=== PATIENT | female | born 1985 | race Caucasian/White ===

== ENCOUNTER 2021-04-05 01:38 | Emergency (ER) | payer MEDICAID, SELFPAY ==
[2021-04-05 01:38] VITALS: BP 120/85; PULSE 111; RESP 18; TEMP 36.4; O2SAT 100; BMI 25.2
--- NOTE | 2021-04-05 01:42 | CT_ITS ---
STUDY: CT ABDOMEN AND PELVIS WITHOUT CONTRAST REASON FOR EXAM: Female, 36 years old. Left flank pain and hematuria. TECHNIQUE: Transaxial images were obtained from the dome of the diaphragm to the symphysis pubis without oral contrast, and without intravenous contrast. Sagittal and coronal images were reconstructed. Individualized dose optimization techniques were used for this CT. COMPARISON: 10/16/2014 CT abdomen and pelvis. FINDINGS: Partially visualized lower chest: Lung bases unremarkable. Liver: No concerning lesions. Gallbladder and biliary tree: Status post cholecystectomy. No biliary ductal dilation. Pancreas: No pancreatic lesions or inflammation. Spleen: Normal size, no splenic lesions. Adrenal glands: No concerning masses. Kidneys and ureters: No hydronephrosis or renal stones. No concerning masses. No ureteral dilation. Bowel: Normal appendix. No obstruction or inflammation of the bowel. Scattered sigmoid colon diverticula, no diverticulitis. Urinary bladder: No stones or wall thickening. Reproductive: Uterus unremarkable. Ovaries difficult to separate from adjacent fluid-filled loops of bowel. Vascular: No abdominal aortic aneurysm. Retroperitoneal and peritoneal spaces: No free air or extraluminal air or abscess. Small amount of fluid in the pelvis within physiologic limits. Osseous: No acute osseous abnormality. Abdominal and pelvic wall: No concerning findings. CT/Abdomen/Pelvis without Cont IMPRESSION: No etiology for the patient''s symptoms identified. Small amount of fluid in the pelvis within physiologic limits. Scattered left colonic diverticula, no diverticulitis. Electronically Signed: Reji Garcia MD at 2:35 EDT Tel , Service support ,
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
[2021-04-05] MEDS: Morphine 4 MG/ML Syringe IV (01:55)
[2021-04-05] MEDS: Ondansetron 4 MG/2 ML Vial IV (01:59)
[2021-04-05] MEDS: 0.9% Normal Saline 1,000 ML 250 ML IV (01:59)
[2021-04-05 02:01] LABS: Absolute Lymphocyte Count 1.39 X10^3/uL (0.83-4.51); Absolute Neutrophil Count 4.5 X10^3/uL (2.0-7.7); Basophil# 0.01 X10^3/uL; Basophil% 0.2 % (0-1); Eosinophil# 0.07 X10^3/uL; Eosinophils% 1.1 % (0-5); Hematocrit 39.9 % (37-47); Hemoglobin 13.3 g/dL (12.0-15.0); Lymphocyte # 1.39 X10^3/ul (0.83-4.51); Lymphocyte % 21.3 % (19-41); Mean Corp Hgb Conc 33.3 g/dL (32-36); Mean Corpuscular Volume 95.9 fL (81-99); Monocyte# 0.52 X10^3/uL; Mucous, Urine 0 SEEN /hpf (<or=2+); NRBC Flagged by Analyzer 0 % (0-5); Neutrophil # 4.52 X10^3/uL (2.7-7.7); Neutrophil % 69.2 % (47-70); Platelet Count 228 K/mm3 (150-450); RBC Distribution Width CV 12.5 % (11.6-14.6); RBC Distribution Width SD 43.7 fl (35.1-43.9); Red Blood Count 4.16 M/mm3 (4.2-5.4); Squamous Epithelial Cells - UA 0 SEEN /hpf (5-10); White Blood Count 6.5 K/mm3 (4.4-11.0)
[2021-04-05 02:09] LABS: Color, Urine Red (Yellow); Glucose, Dipstick Normal (Normal); Ketone-Dipstick 5 mg/dl (Negative); Leukocyte Esterase-Dipstick Negative /ul (Negative); Nitrite-Dipstick Negative (Negative); Occult Blood-Urine 250 /ul (Negative); Protein-Dipstick 500 mg/dl (Negative); Urine Bilirubin Dipstick Negative (Negative); Urine Clarity Clear (Clear); Urine Urobilinogen Normal (Normal)
[2021-04-05 02:15] LABS: Anion Gap 6 (5-15); BUN 13 mg/dL (7-18); BUN/Creat Ratio 20.8 RATIO (10-20); Calcium,Total 8.8 mg/dL (8.5-10.1); Chloride 102 mmol/L (98-107); Creatinine, Serum 0.62 mg/dL (0.55-1.02); EST Glomerular Filtration Rate 116 mL/min (>60); Est Glom Filt Rate - Afr Amer 140 mL/min (>60); Estimated Creatinine Clearance 105.76 ml/min; Glucose 78 mg/dL (74-106); Potassium 3.5 mmol/L (3.5-5.1); Sodium Level 138 mmol/L (136-145)
[2021-04-05 02:16] LABS: Bacteria 2+ /hpf (None Seen); Hyaline Cast 0-5 SEEN /lpf (0-5); Red Blood Cells-Urine > 100 SEEN /hpf (0-5); White Blood Cells 0-5 SEEN /hpf (0-5)
[2021-04-05] MEDS: predniSONE 20 MG Tablet 40 MG PO (03:01)
[2021-04-05] MEDS: Ondansetron ODT 4 MG Tablet 8 MG PO (03:01)
== END 2021-04-05 03:05 | disposition home or self-care (01) ==
PROVIDERS: Emergency Provider Emergency Medicine; PCP Student in an Organized Health Care Education/Training Program
DX: R31.9 Hematuria, unspecified (principal); M54.12 Radiculopathy, cervical region; Z86.73 Personal history of transient ischemic attack (TIA), and cerebral infarction without residual deficits; Z79.899 Other long term (current) drug therapy; Z79.01 Long term (current) use of anticoagulants
CPT/HCPCS: 74176; 80048; 81001; 85025; 96374; 96375; 99284; J7030; A4216; J2405

== ENCOUNTER 2023-07-02 16:24 | Emergency (ER) | payer MEDICAID, SELFPAY ==
[2023-07-02 16:25] VITALS: BP 128/87; PULSE 79; RESP 19; TEMP 36.7; O2SAT 100; BMI 26.0
--- NOTE | 2023-07-02 16:43 | RAD_ITS ---
STUDY: X-RAY - RIGHT ANKLE REASON FOR EXAM: Female, 38 years old. INJURY TECHNIQUE: 3 view(s) of the ankle. COMPARISON: None. FINDINGS: Type II Barrett fracture distal fibula. Distal tibia appears intact. Normal medial and lateral malleoli. Normal tibiotalar articulation and ankle mortise. Normal visualized talus and calcaneus. The visualized subtalar, talonavicular, calcaneocuboid and tarsal articulations are normal. Soft tissue swelling laterally. RAD/Ankle min 3 Views IMPRESSION: Type II Barrett fracture distal fibula Electronically Signed: Oc Mauricio MD at 17:03 EDT ,
--- NOTE | 2023-07-02 17:48 | EDS_ITS ---
HPI History of Present Illness HPI Narrative: Patient presents with right ankle injury that occurred today. Patient states she was cleaning out her hot tub when she slipped. Patient states she felt a snap in her right ankle. Patient states her pain is worse with any weightbearing. Patient admits to some tingling into her toes. Patient describes her pain as aching. Patient states it is constant. Patient admits to some swelling of her right ankle. Patient states she has had abrasions on her right ankle due to dog scratches prior to the injury. Patient denies any head injury or loss of consciousness. Chief Complaint: Lower Extremity Injury Informant: patient Occured/Mechanism Mechanism/Context: Yes fall Onset/Context/Timing Onset: Today Context: Sudden Onset Timing: Continuous Quality of Pain: Aching Location: Right ankle Worsened by: Weightbearing, movement Relieved by: Rest Associated Symptoms Associated Symptoms: Positive for Parasthesia; Negative for Weakness or Loss of [facility]untion [facility] History (Updated 07/02/23 @ 17:[address] Kade Holley, DO) DVT (deep venous thrombosis) Endometriosis determined by laparoscopy left sided parathesias Lupus anticoagulant disorder TIA (transient ischemic attack) Home Medications topiramate 50 mg tablet (Topamax) 50 mg PO DAILY 04/05/21 [History Last Taken Unknown] crutches #1 ea 07/02/23 [Rx Last Taken Unknown] dextroamphetamine-amphetamine 30 mg tablet (Adderall) 30 mg PO DAILY 07/02/23 [History Last Taken Unknown] diazepam 10 mg tablet 10 mg PO Q8H PRN anxiety 07/02/23 [History Last Taken Unknown] escitalopram oxalate 20 mg tablet 20 mg PO DAILY 07/02/23 [History Last Taken Unknown] lamotrigine 25 mg tablet 25 mg PO Q12H 07/02/23 [History Last Taken Unknown] metoprolol tartrate 50 mg tablet (Lopressor) 50 mg PO Q12H 07/02/23 [History Last Taken Unknown] oxycodone-acetaminophen 5 mg-325 mg tablet 1 tab PO Q6H PRN PRN Pain 3 days #12 TABLETS 07/02/23 [Rx Last Taken Unknown] rivaroxaban 20 mg tablet (Xarelto) 20 mg PO DAILY 07/02/23 [History Last Taken Unknown] Allergy/AdvReac Type Severity Reaction Status Date / Time acetaminophen [From Vicodin] Allergy Hives Verified 07/02/23 16:25 hydrocodone bitartrate Allergy Hives Verified 07/02/23 16:25 [From Vicodin] ketorolac tromethamine Allergy Hives Verified 07/02/23 16:25 [From Toradol] metronidazole [From Metrogel] Allergy Swelling Verified 07/02/23 16:25 onion [Onion] Allergy Hives Verified 07/02/23 16:25 skin cleanser [From Metrogel] Allergy Swelling Verified 07/02/23 16:25 tramadol Allergy Hives Verified 07/02/23 16:25 Family History (Updated 07/02/23 @ 16:35 by Francie Sparrow) Mother Diabetes Hypertension Father Hypertension Sister Thyroid disorder Surgical History (Updated 07/02/23 @ 17:[address] Kade Holley DO) H/O bilateral salpingectomy Hx of cholecystectomy Hx of laparoscopy S/P foot surgery, right Social History household members: significant other and children housing: house current occupational status: employed Smoking Status: Never smoker ROS ROS ED Constitutional Constitutional ED: Denies chills or fever(s) Eyes Eyes: Denies blurry vision or change in vision ENT ENT ED: Denies rhinorrhea or sore throat Cardiovascular Cardiovascular: Denies chest pain or palpitations Respiratory/Chest Respiratory/Chest: Denies cough or dyspnea Gastrointestinal Gastrointestinal: Denies nausea or vomiting Genitourinary Genitourinary ED: Denies dysuria or hematuria Musculoskeletal Musculoskeletal: Denies back pain or neck pain Integumentary Reports Abrasions; Denies abscess or rash Neurologic Neurologic: Denies headache(s) or weakness Allergic/Immunologic Allergic/Immunologic ED: Denies mouth swelling or urticaria EXAM Physical Exam Const Vital Signs: 07/02/23 16:25 Temperature 98.1 F Temperature Source Temporal Pulse Rate 79 Respiratory Rate 19 H Blood Pressure 128/87 H Blood Pressure Mean 100 Pulse Ox 100 Oxygen Delivery Method Room Air Positive well nourished and well developed General Appearance ED: well developed and NAD HEENT Reports moist mucous membranes normocephalic and atraumatic Neck full ROM and supple Extremity Extremity Narrative: There is tenderness, edema, and ecchymosis over the lateral aspect of the right ankle. Range of motion was limited in all motions of the right ankle secondary to pain. Sensation was intact to light touch in all digits. Capillary refill is less than 2 seconds in all digits. There are superficial abrasions over the medial aspect of the right ankle. There is no bleeding noted. There is no tenderness over the proximal fibula. There is no tenderness over the fifth metatarsal. Neuro oriented x3, CN's II-XII intact bilaterally, moves all extremities and no sensory deficits noted Sensorium / Orientation: alert Motor Exam: strength 5/5 throughout Psych mental status grossly normal Skin Trauma: abrasion MDM MDM MDM Narrative Medical decision making narrative: Differential diagnosis includes fracture, sprain, and contusion. X-rays of the right ankle will be obtained to assess for fracture. Radiography Diagnostic Testing: Clinical Impression(s) from Imaging Studies Ankle X-Ray 07/02/23 16:43 IMPRESSION: Type II Barrett fracture distal fibula Electronically Signed: Oc Mauricio MD at 17:03 EDT Reading Location ID and State: [facility] / [place] Tel , Service support , X-rays of the right ankle were obtained. There are 3 views. On my independent interpretation, there is a fracture of the distal fibula below the level of the joint line. There is some soft tissue swelling. Radiologist also interpreted the x-rays and agrees. Treatment and Re-Evaluation Narrative: Patient was given a dose of oxycodone here. Patient was advised of her findings. Patient was advised of the need for splinting. Patient was placed in a well-padded custom made sugar-tong and posterior splint using 3 inch Ortho- Glass. Neurovascular exam was intact before and after the procedure. Patient was given crutches. Patient was instructed to ice and elevate the right ankle. Patient was given a referral for podiatry. Patient was given a prescription for Percocet. Patient understood and was agreeable with the plan. All questions were answered. Procedures Lower Extremity Splints Lower Extremity Splint: Orthoglass, Stirrup and - (Posterior) Splint Fabrication: Fabricated Location: Right Discharge Plan Triage Chief Complaint: Lower Extremity Injury ED Provider: Kade Holley Dx/Rx/DC Orders Clinical Impression: Closed fracture of right distal fibula, Clotting disorder Instructions: ED Ankle Fracture, Distal Fibula Prescriptions: New oxycodone-acetaminophen [oxycodone-acetaminophen] 5-325 mg tablet 1 tab PO Q6H PRN PRN (Reason: Pain) 3 Days Qty: 12 0RF (DME) crutches Adult medium See Rx Instructions .Route .MEDSUPPLY Qty: 1 0RF Rx Instructions: As directed No Action topiramate [Topamax] 50 MG tablet 50 mg PO DAILY Patient Comments: migraine Xarelto 20 mg tablet 20 mg PO DAILY Rx Instructions: must administer with evening meal dextroamphetamine-amphetamine [Adderall] 30 mg tablet 30 mg PO DAILY diazepam 10 mg tablet 10 mg PO Q8H PRN (Reason: anxiety) Patient Comments: TAKE 1 TABLET BY MOUTH THREE TIMES A DAY escitalopram oxalate 20 mg tablet 20 mg PO DAILY lamotrigine 25 mg tablet 25 mg PO Q12H metoprolol tartrate [Lopressor] 50 mg tablet 50 mg PO Q12H Primary Care Provider: Rodolfo Rivera Referrals: Tyson Carpenter DPM [Med Staff - Active Staff] - 3-5 Days Rodolfo Rivera MD [Primary Care Provider] - 1-2 Weeks Disposition Disposition: Home, Self Care
[2023-07-02] MEDS: oxyCODONE 5 MG Tablet PO (18:03)
--- NOTE | 2023-07-02 19:58 | ED.RN ---
PATIENT MADE AWARE WE ARE OUT OF STOCK FOR ADULT SIZE CRUTCHES. PATIENT STILL REQUESTING SOMETHING TO HELP HER GET AROUND AT HOME AND WILL PICK THE OTHER ONES UP TOMORROW. DR. MONTGOMERY NOTIFIED
== END 2023-07-02 20:09 | disposition home or self-care (01) ==
PROVIDERS: Emergency Provider Emergency Medicine; PCP Student in an Organized Health Care Education/Training Program; Visit Provider Emergency Medicine
DX: S82.831A Other fracture of upper and lower end of right fibula, initial encounter for closed fracture (principal); D68.62 Lupus anticoagulant syndrome; Y93.89 Activity, other specified; W19.XXXA Unspecified fall, initial encounter; Y92.89 Other specified places as the place of occurrence of the external cause; Z86.73 Personal history of transient ischemic attack (TIA), and cerebral infarction without residual deficits; Z79.01 Long term (current) use of anticoagulants; Z90.49 Acquired absence of other specified parts of digestive tract
CPT/HCPCS: 29515; 29505; 73610; 99283

== ENCOUNTER 2023-07-04 21:10 | Emergency (ER) | payer MEDICAID, SELFPAY ==
[2023-07-04 21:11] VITALS: BP 141/79; PULSE 104; RESP 18; TEMP 35.9; O2SAT 98
[2023-07-04 21:36] VITALS: BMI 28.0
--- NOTE | 2023-07-04 22:30 | ED.VIS.LOWEX ---
HPI History of Present Illness Chief Complaint: Lower Extremity Injury Informant: patient Narrative Narrative: Patient accidentally fractured her right distal fibula 2 days ago, she was seen here and splinted, followed up with orthopedics changed over to a boot, she still having pain and swelling. Has a history of lupus anticoagulant, she is on Xarelto she had a DVT in the right lower extremity few years ago, and was on anticoagulants prior to this injury. She has had quite a bit of swelling subsequently in her right foot as well as up the calf. She has soreness everywhere it is worst at the fracture site but also sore throughout the foot since it is swollen and today she has noticed numbness throughout all of her toes. She is concerned she may have another blood clot. [facility] Medical History DVT (deep venous thrombosis) Endometriosis determined by laparoscopy left sided parathesias Lupus anticoagulant disorder TIA (transient ischemic attack) Home Medications topiramate 50 mg tablet (Topamax) 50 mg PO Q12H 04/05/21 [History Last Taken Unknown] crutches #1 ea 07/02/23 [Rx Last Taken Unknown] dextroamphetamine-amphetamine 30 mg tablet (Adderall) 30 mg PO DAILY 07/02/23 [History Last Taken Unknown] diazepam 10 mg tablet 10 mg PO Q8H PRN anxiety 07/02/23 [History Last Taken Unknown] escitalopram oxalate 20 mg tablet 20 mg PO DAILY 07/02/23 [History Last Taken Unknown] lamotrigine 25 mg tablet 50 mg PO Q12H 07/02/23 [History Last Taken Unknown] metoprolol tartrate 50 mg tablet (Lopressor) 50 mg PO Q12H 07/02/23 [History Last Taken Unknown] rivaroxaban 20 mg tablet (Xarelto) 20 mg PO DAILY 07/02/23 [History Last Taken Unknown] oxycodone-acetaminophen 5 mg-325 mg tablet 1 tab PO Q6H PRN PRN Pain 3 days #12 TABLETS 07/04/23 [Rx Last Taken Unknown] Allergy/AdvReac Type Severity Reaction Status Date / Time acetaminophen [From Vicodin] Allergy Hives Verified 07/04/23 21:14 hydrocodone bitartrate Allergy Hives Verified 07/04/23 21:14 [From Vicodin] ketorolac tromethamine Allergy Hives Verified 07/04/23 21:14 [From Toradol] metronidazole [From Metrogel] Allergy Swelling Verified 07/04/23 21:14 onion [Onion] Allergy Hives Verified 07/04/23 21:14 skin cleanser [From Metrogel] Allergy Swelling Verified 07/04/23 21:14 tramadol Allergy Hives Verified 07/04/23 21:14 Family History Mother Diabetes Hypertension Father Hypertension Sister Thyroid disorder Surgical History H/O bilateral salpingectomy Hx of cholecystectomy Hx of laparoscopy S/P foot surgery, right Social History household members: significant other and children housing: house current occupational status: employed Smoking Status: Never smoker alcohol intake: current alcohol intake frequency: holidays/special occasions only ROS ROS ED Constitutional Constitutional ED: Denies chills or fever(s) Musculoskeletal Musculoskeletal: Reports as per HPI and extremity pain; Denies neck pain Integumentary Denies Abrasions, rash or wounds Neurologic Neurologic: Reports paresthesias RLE; Denies weakness EXAM Physical Exam Const Vital Signs: 07/04/23 21:11 Temperature 96.6 F L Temperature Source Temporal Pulse Rate 104 H Respiratory Rate 18 Blood Pressure 141/79 H Blood Pressure Mean 99 Pulse Ox 98 Oxygen Delivery Method Room Air Positive well nourished and well developed General Appearance ED: well developed and NAD Neck full ROM and supple Back/Spine normal ROM and normal to inspection Extremity Extremity Narrative: Mild swelling right lower leg all the way to the proximal lower leg, does not include the knee. Asymmetric compared with the other side which has no swelling. No significant calf tenderness no palpable cords. All compartments soft and nondistended. Tenderness at the lateral malleolus. The right foot is significantly swollen and ecchymotic, it appears to be layering down between the toes and at the base of the heel, consistent with traumatic bleeding draining with gravity from the ankle. Barely palpable dorsalis pedis pulse, difficult to palpate only because of the soft tissue swelling. Cap refill all toes. Neuro oriented x3 and no focal motor deficits Neuro Narrative: Decree sensation right toes otherwise normal sensory and no focal motor deficits. Sensorium / Orientation: alert Psych mental status grossly normal and thought process normal Skin no wounds Rashes: no rashes MDM MDM MDM Narrative Medical decision making narrative: Duplex ultrasound of the right lower extremity was obtained, ruling out acute DVT, this made the patient feel better and reassured her. I think all of her symptoms are due to the amount of swelling which is likely directly related to the fact that she is anticoagulated. All of this will resolve with time more than likely, she did not have any numbness immediately after the injury, which suggest that she did not injure the nerves which she was also concerned about. Reassured and advised to follow-up with orthopedics as scheduled after the weekend, she is scheduled for surgery on Friday. Encouraged to continue icing and elevating, and I gave her a refill on pain medications which she is out of. Discharge Plan Triage Chief Complaint: Lower Extremity Injury ED Provider: Miguel Glover Dx/Rx/DC Orders Clinical Impression: Swelling of right lower extremity, Fracture of fibula, distal, right, closed Instructions: ED Ankle Fracture Prescriptions: Continued topiramate [Topamax] 50 MG tablet 50 mg PO Q12H Patient Comments: migraine Xarelto 20 mg tablet 20 mg PO DAILY Rx Instructions: must administer with evening meal dextroamphetamine-amphetamine [Adderall] 30 mg tablet 30 mg PO DAILY diazepam 10 mg tablet 10 mg PO Q8H PRN (Reason: anxiety) Patient Comments: TAKE 1 TABLET BY MOUTH THREE TIMES A DAY escitalopram oxalate 20 mg tablet 20 mg PO DAILY lamotrigine 25 mg tablet 50 mg PO Q12H metoprolol tartrate [Lopressor] 50 mg tablet 50 mg PO Q12H (DME) crutches Adult medium See Rx Instructions .Route .MEDSUPPLY Qty: 1 0RF Rx Instructions: As directed oxycodone-acetaminophen 5-325 mg tablet 1 tab PO Q6H PRN PRN (Reason: Pain) 3 Days Qty: 12 0RF Primary Care Provider: Rodolfo Rivera Referrals: Rodolfo Rivera MD [Primary Care Provider] - London White MD [Med Staff - Active Staff] - Keep Rell appointment Disposition Disposition: Home, Self Care
[2023-07-04] MEDS: Oxycodone/Apap 5/325 Tablet PO (22:40)
--- NOTE | 2023-07-04 22:42 | US_ITS ---
INDICATION: Right leg swelling, fracture right fibula EXAMINATION: US Venous Duplex LE Unilat / Limited RIGHT TECHNIQUE: Ruiz scale, pulse wave, and color flow Doppler imaging was performed of the lower extremity venous system. The right greater saphenous, common femoral, femoral, popliteal, posterior tibial and peroneal veins were interrogated. Left common femoral vein also imaged. COMPARISON: None. FINDINGS: There is normal compression, augmentation, and signal throughout the visualized deep lower extremity veins. No mass or fluid collection demonstrated. US/Venous Duplex Imag/Limited/Uni IMPRESSION: No sonographic evidence of right lower extremity deep venous thrombosis. Electronically Signed: Andriy Villarreal MD at 23:29 EDT ,
== END 2023-07-04 23:46 | disposition home or self-care (01) ==
PROVIDERS: Emergency Provider Emergency Medicine; PCP Student in an Organized Health Care Education/Training Program; Visit Provider Emergency Medicine
DX: S82.831A Other fracture of upper and lower end of right fibula, initial encounter for closed fracture (principal); D68.62 Lupus anticoagulant syndrome; R22.41 Localized swelling, mass and lump, right lower limb; Z79.01 Long term (current) use of anticoagulants; Z86.718 Personal history of other venous thrombosis and embolism; Z90.49 Acquired absence of other specified parts of digestive tract
CPT/HCPCS: 93971; 99283

== ENCOUNTER 2023-07-09 08:53 | Day surgery (SDC) | payer MEDICAID, SELFPAY ==
--- NOTE | 2023-07-09 09:05 | EKG12_ITS ---
Test Reason : PREOP Blood Pressure : / mmHG Vent. Rate : 077 BPM Atrial Rate : 077 BPM P-R Int : 138 ms QRS Dur : 086 ms QT Int : 396 ms P-R-T Axes : 031 028 022 degrees QTc Int : 448 ms Normal sinus rhythm Normal ECG When compared with ECG of 29-AUG-2014 13:41, Nonspecific T wave abnormality, improved in Inferior leads Nonspecific T wave abnormality no longer evident in Anterolateral leads Confirmed by SARI CASTILLO, JOSSELIN ([id number]), map editor STEVE PICKENS ([id number]) on 08/12/2023 1:18:30 PM Referred By: London White Confirmed By:JOSSELIN GUO MD
--- NOTE | 2023-07-09 09:14 | HP.PCM_ITS ---
HPI - General HPI Narrative MEL ROBLEDO, is a 38 F who presents for right ankle ORIF. RAB and narcotic counselling. Right ankle marked. swollen from the blood thinners, but stopped those over 72 hours ago. a bit less swollen than initially, slight wrinkles. Plan to be NWB after surgery in a splint, FU in office 2 days. No changes to H and P. OK to proceed. MR#: [id number] Acct: [id number] Name: MEL ROBLEDO Rep #: [id number] : 1985 Provider: Dr. London White MD Age/Sex: 38/F Location: [facility] [place] Status: Signed Intake Vital Signs 07/04/2321:11 Height 5 ft 3 in Intake Visit Reasons: RIGHT ANKLE Chief Complaint: Right ankle Accompanied by: Mother Is patient in pain?: Yes Pain scale (1-10): 9 Allergies acetaminophen [From Vicodin] Allergy (Verified 07/07/23 09:08) Hiveshydrocodone bitartrate [From Vicodin] Allergy (Verified 07/07/23 09:08) Hivesketorolac tromethamine [From Toradol] Allergy (Verified 07/07/23 09:08) Hivesmetronidazole [From Metrogel] Allergy (Verified 07/07/23 09:08) Swellingonion [Onion] Allergy (Verified 07/07/23 09:08) Hivesskin cleanser [From Metrogel] Allergy (Verified 07/07/23 09:08) Swellingtramadol Allergy (Verified 07/07/23 09:08) Hives Medications topiramate 50 mg tablet (Topamax) 50 mg PO Q12H 04/05/21 [History Confirmed 07/07/23] crutches #1 ea 07/02/23 [Rx Confirmed 07/07/23] dextroamphetamine-amphetamine 30 mg tablet (Adderall) 30 mg PO DAILY 07/02/23 [History Confirmed 07/07/23] diazepam 10 mg tablet 10 mg PO Q8H PRN anxiety 07/02/23 [History Confirmed 07/07/23] escitalopram oxalate 20 mg tablet 20 mg PO DAILY 07/02/23 [History Confirmed 07/07/23] lamotrigine 25 mg tablet 50 mg PO DAILY 07/02/23 [History Confirmed 07/07/23] metoprolol tartrate 50 mg tablet (Lopressor) 25 mg PO PRN 07/02/23 [History Confirmed 07/07/23] rivaroxaban 20 mg tablet (Xarelto) 20 mg PO DAILY 07/02/23 [History Confirmed 07/07/23] acetaminophen 325 mg capsule (Tylenol) 650 mg PO Q4H PRN pain 07/07/23 [History Confirmed 07/07/23] oxycodone-acetaminophen 5 mg-325 mg tablet (Percocet) 1 tab PO Q6H PRN pain 3 days #14 tabs 07/07/23 [Rx Confirmed 07/07/23] zolpidem 10 mg tablet 10 mg PO PRN PRN sleep 07/07/23 [History Confirmed 07/07/23] PFSH Medical History (Updated 07/07/23 @ 09:29 by Erika Franklin) Cardiology follow-up encounter DVT (deep venous thrombosis) Endometriosis determined by laparoscopy Excessive bleeding History of echocardiogram History of irregular heartbeat History of stress test left sided parathesias Lupus anticoagulant disorder Migraine headache Open wound Seizures TIA (transient ischemic attack) Wears contact lenses Wears glasses Surgical History (Updated 07/07/23 @ 09:29 by Erika Franklin) H/O bilateral salpingectomy Hx of cholecystectomy Hx of laparoscopy Hx of surgical procedure Hx of surgical procedure S/P foot surgery, right Family History Mother Diabetes HypertensionFather HypertensionSister Thyroid disorder Social History household members: significant other and children housing: house current occupational status: employed Smoking Status: Never smoker alcohol intake: current alcohol intake frequency: holidays/special occasions only HPI RIGHT ANKLE Details: Parts of this documentation were recorded by a scribe, this documentation accurately reflects the service provided and the decisions made by me, Dr. London White MD 07/07/23 1411. MEL ROBLEDO is a 38 year old F here today for FU ankle swelling. Plan for ORIF this friday. Was in ED, DVT US negative. Patient feels like the foot is little bit more swollen. They have been trying to elevate it and ice it. They also walked around in the grocery store the other day. The pain medications are out still having some pain. Stopped the Xarelto now. Ortho Exam General General: Yes no acute distress Neurologic: Yes alert and Yes oriented x3 Psychologic: Yes reasonable and appropriate Right Foot/Ankle Skin/Wound: Yes CDI, Ecchymosis and Soft Tissue Swelling; No Erythema Contralateral Normal: Yes Exam: present tender to palpate - over fracture site, TTP Lateral Malleolus and TTP ATFL; absent TTP Medial Malleolus, TTP Retrocalcaneal bursa or TTP Peroneal Dorsiflexion 0-20: 0 degrees Plantar Flexion 0-40: 20 degrees Compartments: Compartments: soft Tests: Klein Test: 1 and Squeeze Test: 1 Motor: Ankle Dorsiflextion: 3, Ankle Plantar Flexion: 3, Ankle Eversion: 3, Ankle Inversion: 3 and EHL: 3 Sensation: Deep Peroneal Nerve: I, Superficial Peroneal Nerve: I, Tibial Nerve: I, Sural Nerve: I and Saphenous Nerve: I Pulses: Dorsalis Pedis: 2 and Posterior Tibial: 2 ANKLE: closed, calf soft, swelling about the same, good cap refill, toes a bit cold. Coding Level of Care Code Off vis,est,level 3 Diagnoses Fracture of fibula, distal, right, closed S82.831A Assessment and Plan Assessment and Plan (1) Fracture of fibula, distal, right, closed: Status: Acute Plan: 38 F FU ankle swelling, pre op. for ankle fracture ORIF. Overall the swelling looks about the same. Had more than typical due to being on xarelto. The patient is having pain and is out of pain medications I checked the [employer] narcotic counseling done risk of addiction and others, and I prescribedanother short course couple days until surgery. Recommend rest ice and elevate this to try to really get the swelling down especially on the lateral side. Should remain nonweightbearing range of motion as tolerated for now orthosis boot as needed prescription for crutches as the clinic and the hospital are both out we will try to get those and we will see the patient on the day of surgery. Medications: New oxycodone-acetaminophen 5-325 mg (Percocet) 1 TAB PO Q6H 3 days PRN 14 tabs 0RF pain MDD 6 S82.831A - Other fracture of upper and lower end of right fibula, initial encounter for closed fracture [facility] Medical History (Updated 07/07/23 @ 09:29 by Erika Franklin) Cardiology follow-up encounter DVT (deep venous thrombosis) Endometriosis determined by laparoscopy Excessive bleeding History of echocardiogram History of irregular heartbeat History of stress test left sided parathesias Lupus anticoagulant disorder Migraine headache Open wound Seizures TIA (transient ischemic attack) Wears contact lenses Wears glasses Home Medications topiramate 50 mg tablet (Topamax) 50 mg PO Q12H 04/05/21 [History Last Taken Unknown] crutches #1 ea 07/02/23 [Rx Last Taken Unknown] dextroamphetamine-amphetamine 30 mg tablet (Adderall) 30 mg PO DAILY 07/02/23 [History Last Taken Unknown] diazepam 10 mg tablet 10 mg PO Q8H PRN anxiety 07/02/23 [History Last Taken Unknown] escitalopram oxalate 20 mg tablet 20 mg PO DAILY 07/02/23 [History Last Taken Unknown] lamotrigine 25 mg tablet 50 mg PO DAILY 07/02/23 [History Last Taken Unknown] metoprolol tartrate 50 mg tablet (Lopressor) 25 mg PO PRN 07/02/23 [History Last Taken Unknown] rivaroxaban 20 mg tablet (Xarelto) 20 mg PO DAILY 07/02/23 [History Last Taken 07/06/23] acetaminophen 325 mg capsule (Tylenol) 650 mg PO Q4H PRN pain 07/07/23 [History Last Taken Unknown] oxycodone-acetaminophen 5 mg-325 mg tablet (Percocet) 1 tab PO Q6H PRN pain 3 days #14 tabs 07/07/23 [Rx Last Taken Unknown] zolpidem 10 mg tablet 10 mg PO PRN PRN sleep 07/07/23 [History Last Taken Unknown] Allergy/AdvReac Type Severity Reaction Status Date / Time acetaminophen [From Vicodin] Allergy Hives Verified 07/07/23 09:08 hydrocodone bitartrate Allergy Hives Verified 07/07/23 09:08 [From Vicodin] ketorolac tromethamine Allergy Hives Verified 07/07/23 09:08 [From Toradol] metronidazole [From Metrogel] Allergy Swelling Verified 07/07/23 09:08 onion [Onion] Allergy Hives Verified 07/07/23 09:08 skin cleanser [From Metrogel] Allergy Swelling Verified 07/07/23 09:08 tramadol Allergy Hives Verified 07/07/23 09:08 Family History Mother Diabetes Hypertension Father Hypertension Sister Thyroid disorder Surgical History (Updated 07/07/23 @ 09:29 by Erika Franklin) H/O bilateral salpingectomy Hx of cholecystectomy Hx of laparoscopy Hx of surgical procedure Hx of surgical procedure S/P foot surgery, right Social History household members: significant other and children housing: house current occupational status: employed Smoking Status: Never smoker alcohol intake: current alcohol intake frequency: holidays/special occasions only Vital Signs Vital Signs Vital Signs: Weight Weight: 153 lb
[2023-07-09 09:30] VITALS: BP 111/69; PULSE 80; RESP 16; TEMP 36.8; O2SAT 99; BMI 26.5
[2023-07-09] MEDS: Lactated Ringers 1,000 ML 15 ML IV (09:37)
[2023-07-09 09:50] LABS: Anion Gap 4 (5-15); BUN 15 mg/dL (7-18); BUN/Creat Ratio 32.8 RATIO (10-20); Calcium,Total 8.4 mg/dL (8.5-10.1); Chloride 109 mmol/L (98-107); Creatinine, Serum 0.46 mg/dL (0.55-1.02); EST Glomerular Filtration Rate 164 mL/min (>60); Est Glom Filt Rate - Afr Amer 198 mL/min (>60); Estimated Creatinine Clearance 139.86 ml/min; Glucose 95 mg/dL (74-106); Potassium 3.6 mmol/L (3.5-5.1); Sodium Level 141 mmol/L (136-145)
[2023-07-09] MEDS: Cefazolin 2 GM in 0.9% Normal Saline (100mL Bag) 100 ML IV (10:12)
--- NOTE | 2023-07-09 10:30 | RAD_ITS ---
STUDY: X-RAY - RIGHT ANKLE REASON FOR EXAM: Female, 38 years old. ORIF TECHNIQUE: 4 limited intraoperative view(s) of the ankle. COMPARISON: None. FINDINGS: 4 limited intraoperative views of the right ankle performed as the patient has undergone open reduction internal fixation of a distal fibular fracture. Alignment at the fracture site is anatomic, no intraoperative complications noted. RAD/Ankle 2 Views IMPRESSION: No intraoperative complications noted during open reduction internal fixation of a distal fibular fracture. Electronically Signed: Vincent Piedra MD at 13:30 EDT ,
--- NOTE | 2023-07-09 11:26 | OP.PCM_ITS ---
Problems Associated Problem List Diagnoses (1) Fracture of fibula, distal, right, closed: Report of Operation Date of Procedure: 07/09/23 Pre-Operative Diagnosis: R ankle fracture Post-Operative Diagnosis: same Surgery/Procedure Performed:: Right ankle open reduction internal fixation of distal fibula Surgeon: London White Type of Anesthesia: Block,Regional and General Anesthesiologist: Dwayne Winkler Estimated Blood Loss (mL): 25 Description of Procedure: Patient brought to the operating room theater. Placed supine on the table. General anesthesia induced. Bump under the right hip. Right lower extremity elevated on some blankets. 34 inch tourniquet applied to the right thigh appropriately padded. All bony prominences padded. SCD on the nonoperative leg. 2 g IV Ancef ministered prior to the start of the procedure. Lower extremity prepped and draped in the usual sterile fashion with chlorhexidine- based prep solution allowing over 3 minutes drying time prior to draping. Preoperative timeout performed to confirm the site patient the surgery. Began by exsanguinating the limb with sterile Esmarch elevating the limb inflating the tourniquet to 250 mmHg. Made a standard laterally based incision to the distal fibula. Carried the dissection down through skin and subcutaneous tissue achieved meticulous hemostasis. Identified the fracture cleared away any interposed hematoma and fracture periosteum. Thoroughly irrigated the joint no loose bodies or scuffs on the cartilage. Achieved a preliminary reduction with direct manipulation of the fracture site placed a longitudinal K wire down the long axis of the fibula to achieve the preliminary reduction. Took intraoper ative radiographs to ensure appropriate reduction as well as visualizing at least on 2 different sides of the fracture. Selected a Arthrex precontoured laterally based distal fibula plate with 2 hooks distally. Placed this on bone slightly tapped this into the bone distally with a mallet and tamp, and took radiographs to confirm appropriate plate position. Secured this to the proximal aspect using a 3.5 mm fully threaded cortical screw. Ensured to drill this on the left side of the oblong hole and then really push the plate proximally and then fully seat the screw. I then placed a guidewire for the homerun screw at the distal aspect, oblique across the fracture. I overdrilled this with the cannulated drill, followed by a 34 mm bicortical screw. This was a 4.0 mm partially-threaded cancellous screw. Achieved good compression of the fracture site. I then inserted 2 more fully threaded cortical screws proximal end of the plate to the as well as 2 fully threaded locking screws at the distal aspect. These were both short measured 12 mm. The proximal screws were 14 mm long and 3.5 mm in diameter. Distal locking screws 3.0mm. Radiographs were taken and saved onto the system AP mortise and lateral view. Cotton and external rotation stress test was also performed no obvious syndesmosis or ankle instability noted. Tourniquet let down wound thoroughly irrigated. Subcutaneous tissue closed with 2-0 Vicryl sutures and skin with 3-0 Monocryl. Skin cleaned with wet and dry dressing followed by application of Steri-Strips 4 x 4 gauze ABD dressing sterile cast padding with a posterior fiberglass splint with the foot and ankle in neutral overwrapped with loosely wrapped Tanner bandage. Splint allowed to fully harden with the foot and ankle in neutral. Patient woken up from the general anesthetic transferred off the operating table and taken to postanesthetic care unit in stable condition. All sponge needle and instrument counts were correct no complications. cpt 13258? Complications none Admit VTE Documentation VTE Present on Admission: No VTE Mechan Device Prophylaxis: SCD's VTE Pharm Prophylaxis ordered?: No Reason prophylaxis not ordered:: Treatment Not Indicated (patient to start back on home dose xarelto POD 1) Procedures Musculoskeletal [id number]: Other Procedure See Report
--- NOTE | 2023-07-09 11:34 | DCINST_ITS ---
Discharge Instructions Diet Discharge Diet: No restrictions Activity Discharge Activity: Use Crutches Weight Bearing Status: Toe touch weight bearing Keep extremity elevated above heart level: Operative Extremity Dressing / Incision Call your doctor if your incision/area has: Continuous Slow Oozing, Sudden Increased Bleeding, Increased Pain/ Swelling, Increased Redness, Foul Smelling Discharge and Swelling at the incision site Change Dressing in: leave in place till F/U Cleanse incision/area with: Do not get Incision Wet Follow Up Care Please Follow Up With: London White MD When: 2 days Test Results: Test results from this visit will be discussed in further detail at your follow- up appointment, if applicable. Discharge Plan Admission Attending Provider: London White Primary Care Provider: Rodolfo Rivera Discharge Orders/Prescriptions Prescriptions: New oxycodone-acetaminophen [Percocet] 5-325 mg tablet 1 tab PO Q4H MDD 6 PRN (Reason: pain) 5 Days Qty: 20 0RF No Action oxycodone-acetaminophen [Percocet] 5-325 mg tablet 1 tab PO Q6H MDD 6 PRN (Reason: pain) 3 Days Qty: 14 0RF topiramate [Topamax] 50 MG tablet 50 mg PO Q12H Patient Comments: migraine Xarelto 20 mg tablet 20 mg PO DAILY Rx Instructions: must administer with evening meal dextroamphetamine-amphetamine [Adderall] 30 mg tablet 30 mg PO DAILY diazepam 10 mg tablet 10 mg PO Q8H PRN (Reason: anxiety) Patient Comments: TAKE 1 TABLET BY MOUTH THREE TIMES A DAY escitalopram oxalate 20 mg tablet 20 mg PO DAILY lamotrigine 25 mg tablet 50 mg PO DAILY metoprolol tartrate [Lopressor] 50 mg tablet 25 mg PO PRN (DME) crutches Adult medium See Rx Instructions .Route .MEDSUPPLY Qty: 1 0RF Rx Instructions: As directed zolpidem 10 mg tablet 10 mg PO PRN PRN (Reason: sleep) Patient Comments: TAKE 1 TABLET BY MOUTH EVERYDAY AT BEDTIME acetaminophen [Tylenol] 325 mg capsule 650 mg PO Q4H PRN (Reason: pain) Referrals / Follow Up: Rodolfo Rivera MD [Primary Care Provider] - London White MD [Med Staff - Active Staff] - Disposition Disposition (needs filled in before D/C Order can be placed): Home, Self Care
[2023-07-09 11:35] VITALS: BP 111/69; BP 112/83; PULSE 99; RESP 16; TEMP 37.2; O2SAT 100
--- NOTE | 2023-07-09 11:37 | DCINST_ITS ---
Discharge Instructions Diet Discharge Diet: No restrictions Activity Weight Bearing Status: Toe touch weight bearing Keep extremity elevated above heart level: Operative Extremity Dressing / Incision Call your doctor if your incision/area has: Continuous Slow Oozing, Sudden Increased Bleeding, Increased Pain/ Swelling, Increased Redness, Foul Smelling Discharge and Swelling at the incision site Cleanse incision/area with: Do not get Incision Wet Additional Dressing/Incision Instructions:: OK to restart xarelto 24 hours after surgery Follow Up Care Please Follow Up With: London White MD Test Results: Test results from this visit will be discussed in further detail at your follow- up appointment, if applicable. Discharge Plan Admission Attending Provider: London White Primary Care Provider: Rodolfo Rivera Discharge Orders/Prescriptions Prescriptions: New oxycodone-acetaminophen [Percocet] 5-325 mg tablet 1 tab PO Q4H MDD 6 PRN (Reason: pain) 5 Days Qty: 20 0RF No Action oxycodone-acetaminophen [Percocet] 5-325 mg tablet 1 tab PO Q6H MDD 6 PRN (Reason: pain) 3 Days Qty: 14 0RF topiramate [Topamax] 50 MG tablet 50 mg PO Q12H Patient Comments: migraine Xarelto 20 mg tablet 20 mg PO DAILY Rx Instructions: must administer with evening meal dextroamphetamine-amphetamine [Adderall] 30 mg tablet 30 mg PO DAILY diazepam 10 mg tablet 10 mg PO Q8H PRN (Reason: anxiety) Patient Comments: TAKE 1 TABLET BY MOUTH THREE TIMES A DAY escitalopram oxalate 20 mg tablet 20 mg PO DAILY lamotrigine 25 mg tablet 50 mg PO DAILY metoprolol tartrate [Lopressor] 50 mg tablet 25 mg PO PRN (DME) crutches Adult medium See Rx Instructions .Route .MEDSUPPLY Qty: 1 0RF Rx Instructions: As directed zolpidem 10 mg tablet 10 mg PO PRN PRN (Reason: sleep) Patient Comments: TAKE 1 TABLET BY MOUTH EVERYDAY AT BEDTIME acetaminophen [Tylenol] 325 mg capsule 650 mg PO Q4H PRN (Reason: pain) Referrals / Follow Up: Rodolfo Rivera MD [Primary Care Provider] - London White MD [Med Staff - Active Staff] - Disposition Disposition (needs filled in before D/C Order can be placed): Home, Self Care
[2023-07-09 11:45] VITALS: BP 109/81; BP 111/69; PULSE 75; RESP 18; O2SAT 100
[2023-07-09 12:00] VITALS: BP 111/69; BP 112/73; PULSE 68; RESP 16; O2SAT 97
[2023-07-09 12:09] VITALS: BP 111/69; BP 112/67; PULSE 80; RESP 16; TEMP 37.2; O2SAT 96
[2023-07-09] MEDS: Oxycodone/Apap 5/325 Tablet PO (12:34)
[2023-07-09 12:35] VITALS: BP 111/69
== END 2023-07-09 13:00 | disposition home or self-care (01) ==
LOC: SDC 08:54 → AC 08:56
PROVIDERS: Anesthesiology; PCP Student in an Organized Health Care Education/Training Program; Referring Provider Orthopaedic Surgery Sports Medicine; Visit Provider Orthopaedic Surgery Sports Medicine
PROC: (CPT 27792; principal; 2023-07-09 10:00)
DX: S82.831A Other fracture of upper and lower end of right fibula, initial encounter for closed fracture (principal); Z86.73 Personal history of transient ischemic attack (TIA), and cerebral infarction without residual deficits; Z86.718 Personal history of other venous thrombosis and embolism; X58.XXXA Exposure to other specified factors, initial encounter
CPT/HCPCS: 27792; 01480; 64450; 73600; 76000; 80048; 93005; C1713; J7120; J2405

== ENCOUNTER 2023-07-28 23:48 | Emergency (ER) | payer MEDICAID, SELFPAY ==
[2023-07-28 23:50] VITALS: BP 131/76; PULSE 96; RESP 18; TEMP 36.6; O2SAT 100; BMI 26.5
--- NOTE | 2023-07-29 | RAD_ITS ---
INDICATION: injury FELL C/O INCREASED PAIN AND SWELLING TO RT ANKLE STATES UNABLE TO FEEL TOES RECENT ORIF TO RT ANKLE ON 07/09/23 EXAMINATION/TECHNIQUE: X-RAY - RIGHT XR Ankle Min 3 Views 3 VIEWS COMPARISON: Right ankle x-rays 07/22/2023 FINDINGS: BONES: Surgical hardware with metallic plate and side screws transfixing the distal fibular fracture. Hardware and alignment appears intact and unchanged. No acute fracture demonstrated. JOINTS: No dislocation. SOFT TISSUES: Mild soft tissue swelling. RAD/Ankle min 3 Views IMPRESSION: Post-ORIF distal fibular fracture stable alignment. Mild soft tissue swelling. Electronically Signed: Juhi Betancourt MD at 0:44 EDT ,
--- NOTE | 2023-07-29 00:02 | ED.VIS.LOWEX ---
HPI History of Present Illness HPI Narrative: 38-year-old female. History of lupus anticoagulant on Xarelto. History of prior TIA. Status post recent right ankle fracture with orthopedic repair on July 09. Tonight she accidentally tripped over her dog. Twisting her right ankle. Causing pain at the lateral malleolus. Denies any other injuries. She did not hit her head. She said there is more swelling than there has been the last several days. Chief Complaint: Lower Extremity Injury Informant: patient Occured/Mechanism Mechanism/Context: Yes injury and Yes blunt trauma Onset/Context/Timing Onset: Today and Hours Context: Sudden Onset Timing: Continuous Quality of Pain: Dull and Aching Current Severity: Moderate Maximum Severity: Moderate Associated Symptoms Associated Symptoms: Negative for Parasthesia, Weakness or Loss of Funtion Narrative Narrative: 38-year-old female status post right ankle surgery for fracture repair with orthopedics. Tripped over her dog tonight injuring the same ankle. Blood thinners due to lupus anticoagulant. She did not hit her head. Complaining of discomfort at the right lateral malleolus, the surgical site, and swelling. Prior similar symptoms: Yes Recent Illness/Hospitalization: Yes [facility] Medical History Cardiology follow-up encounter DVT (deep venous thrombosis) Endometriosis determined by laparoscopy Excessive bleeding History of echocardiogram History of irregular heartbeat History of stress test left sided parathesias Lupus anticoagulant disorder Migraine headache Open wound Seizures TIA (transient ischemic attack) Wears contact lenses Wears glasses Home Medications topiramate 50 mg tablet (Topamax) 50 mg PO Q12H 04/05/21 [History Last Taken Unknown] crutches #1 ea 07/02/23 [Rx Last Taken Unknown] dextroamphetamine-amphetamine 30 mg tablet (Adderall) 30 mg PO DAILY 07/02/23 [History Last Taken Unknown] diazepam 10 mg tablet 10 mg PO Q8H PRN anxiety 07/02/23 [History Last Taken Unknown] escitalopram oxalate 20 mg tablet 20 mg PO DAILY 07/02/23 [History Last Taken 07/09/23] lamotrigine 25 mg tablet 50 mg PO DAILY 07/02/23 [History Last Taken Unknown] metoprolol tartrate 50 mg tablet (Lopressor) 25 mg PO PRN 07/02/23 [History Last Taken Unknown] rivaroxaban 20 mg tablet (Xarelto) 20 mg PO DAILY 07/02/23 [History Last Taken 07/06/23] acetaminophen 325 mg capsule (Tylenol) 650 mg PO Q4H PRN pain 07/07/23 [History Last Taken Unknown] zolpidem 10 mg tablet 10 mg PO PRN PRN sleep 07/07/23 [History Last Taken Unknown] oxycodone-acetaminophen 5 mg-325 mg tablet (Percocet) 1 tab PO Q4H PRN pain 5 days #20 tabs 07/09/23 [Rx Last Taken Unknown] hydroxyzine pamoate 25 mg capsule 25 mg PO ONCE 07/22/23 [History Last Taken Unknown] oxycodone-acetaminophen 5 mg-325 mg tablet (Percocet) 1 tab PO Q6H PRN pain 2 days #6 tabs 07/29/23 [Rx Last Taken Unknown] Allergy/AdvReac Type Severity Reaction Status Date / Time acetaminophen [From Vicodin] Allergy Hives Verified 07/28/23 23:50 hydrocodone bitartrate Allergy Hives Verified 07/28/23 23:50 [From Vicodin] ketorolac tromethamine Allergy Hives Verified 07/28/23 23:50 [From Toradol] metronidazole [From Metrogel] Allergy Swelling Verified 07/28/23 23:50 onion [Onion] Allergy Hives Verified 07/28/23 23:50 skin cleanser [From Metrogel] Allergy Swelling Verified 07/28/23 23:50 tramadol Allergy Hives Verified 07/28/23 23:50 Family History Mother Diabetes Hypertension Father Hypertension Sister Thyroid disorder Surgical History H/O bilateral salpingectomy Hx of cholecystectomy Hx of laparoscopy Hx of surgical procedure Hx of surgical procedure S/P foot surgery, right Social History household members: significant other and children housing: house current occupational status: employed Smoking Status: Never smoker alcohol intake: current alcohol intake frequency: holidays/special occasions only ROS ROS ED ROS Narrative Denies recent illness. Review of Systems ROS Unobtainable: Denies due to encephalopathy Constitutional Constitutional ED: Denies chills or fever(s) Eyes Eyes: Denies blurry vision ENT ENT ED: Denies ear pain Cardiovascular Cardiovascular: Denies chest pain Respiratory/Chest Respiratory/Chest: Denies cough or dyspnea Gastrointestinal Gastrointestinal: Denies abdominal pain Genitourinary Genitourinary ED: Denies dysuria or hematuria Musculoskeletal Musculoskeletal: Denies arthralgias Integumentary Denies abscess Neurologic Neurologic: Denies headache(s) Psychiatric Psychiatric: Denies anxiety Endocrine Endocrinology: Denies polydipsia Hematologic/Lymphatic Hematologic/Lymphatic: Denies easy bleeding or easy bruising Allergic/Immunologic Allergic/Immunologic ED: Denies mouth swelling or tongue swelling EXAM Physical Exam Narrative Exam Narrative: Well-appearing 38-year-old female. Vital signs stable afebrile. H EENT exam atraumatic nontender. Face nontender. Pupils round react light. No scalp hematomas or tenderness. C-spine and neck nontender. Back and spine nontender. Lungs clear to auscultation. Heart regular rhythm rate about 90 no murmur. Chest wall and ribs nontender. Abdomen soft nontender. Pelvic girdle intact. Both upper extremities are nontender. Normal urology physician strength. Normal range of motion. Left lower extremity unremarkable. Right hip, right knee nontender. Right lateral malleolus well-healed surgical incision. Mildly tender. Mildly swollen. She has normal cap refill in her toes. No gross bony deformity of the foot. She is able to wiggle her toes. She does have touch sensation to her toes. Neurologically she is awake and alert. Answering questions and following commands. Const Vital Signs: 07/28/23 23:50 Temperature 97.8 F Temperature Source Temporal Pulse Rate 96 Respiratory Rate 18 Blood Pressure 131/76 H Blood Pressure Mean 94 Pulse Ox 100 Positive well nourished and well developed; Negative for obese, cachectic, contractures or unkempt General Appearance ED: well developed and NAD; Negative for unkempt, cachectic or contractures Nutritional Appearance: Negative for cachectic or obese HEENT Reports moist mucous membranes normocephalic and atraumatic; Negative for trauma or tenderness Eyes PERRL General Eye ED: Negative for other Neck full ROM and supple Thyroid: Negative for tender Lymph Lymphatic: Negative for other Chest Wall inspection of chest normal and palpation of chest normal Chest: Negative for other Resp normal respiratory effort, no retractions and clear to auscultation bilaterally Effort and Inspection: Negative for pain with movement Auscultation: Negative for rales, rhonchi or wheezes Cardio regular rate, regular rhythm, S1 normal heart sound, S2 normal heart sound and no murmurs Rate: Negative for bradycardia or tachycardic Rhythm: Negative for abnormal rhythm Bruits: Negative for other GI non-tender, non-distended and no masses Inspection: Negative for abdominal distention Auscultation: normoactive bowel sounds Palpation: soft; Negative for tender or guarding Bladder / Kidney Exam: No other Back/Spine no CVA tenderness General Back: Negative for CVA tenderness Cervical Spine: Negative for cervical spine tenderness Thoracic Spine / Upper Back: Negative for thoracic spinal tenderness Lumbar Spine / Lower Back: Negative for lumbar spinal tenderness Extremity normal to inspection and full ROM Extremity Narrative: Right lateral malleolus well-healed surgical incision. Dry and clean. No signs of infection. Mild swelling at the lateral malleolus and anterior ankle mortise. No gross bony deformity. Able to wiggle her toes. Normal cap refill. Normal touch sensation. There is some resolving bruising. Calf is nontender. Achilles tendon is intact. General Extremety ED: Yes edema and weight-bearing difficulty; Negative for cyanosis General Extremity: edema and weight-bearing difficulty; Negative for cyanosis Neuro oriented x3 and CN's II-XII intact bilaterally Sensorium / Orientation: alert, oriented to person, oriented to place and oriented to time; Negative for orientation impaired, confused, lethargic or stuporous Motor Exam: strength 5/5 throughout Psych mental status grossly normal Appearance: Negative for unkempt Speech: No other Mood & Affect: anxious Skin no wounds Lesions: no lesions Rashes: no rashes Trauma: Negative for abrasion or laceration MDM MDM MDM Narrative Medical decision making narrative: 38-year-old status post ankle fracture (distal fibula) repair. On Xarelto due to lupus anticoagulant. X-ray being obtained. Oxy IR for pain. Repeat exam she is doing well at 12:20 AM. I did go over both the new films and the old films with her. Showed her there was no new acute change in the repair. No new fracture. This will be treated as a sprain. Ice and elevate. Follow-up with the orthopedic physician. Increase ambulation as tolerated. Radiography Chest X-Ray - ED: Read by ED Physician Diagnostic Testing: Right ankle x-ray, 3 views, interpreted by myself shows soft tissue swelling. Shows orthopedic hardware that was recently placed along with the screws. No new fracture. Patient had a recent distal fibular fracture repaired. I reviewed the prior films this is unchanged. Discharge Plan Triage Chief Complaint: Lower Extremity Injury ED Provider: Enrique Apodaca Dx/Rx/DC Orders Clinical Impression: History of ankle fracture, Chronic anticoagulation, Fall, Right ankle sprain Instructions: ED Ankle Sprain (Adult) Prescriptions: New oxycodone-acetaminophen [Percocet] 5-325 mg tablet 1 tab PO Q6H PRN (Reason: pain) 2 Days Qty: 6 0RF No Action hydroxyzine pamoate 25 mg capsule 25 mg PO ONCE Patient Comments: TAKE 1 TO 2 CAPSULES BY MOUTH THREE TIMES DAILY topiramate [Topamax] 50 MG tablet 50 mg PO Q12H Patient Comments: migraine Xarelto 20 mg tablet 20 mg PO DAILY Rx Instructions: must administer with evening meal dextroamphetamine-amphetamine [Adderall] 30 mg tablet 30 mg PO DAILY diazepam 10 mg tablet 10 mg PO Q8H PRN (Reason: anxiety) Patient Comments: TAKE 1 TABLET BY MOUTH THREE TIMES A DAY escitalopram oxalate 20 mg tablet 20 mg PO DAILY lamotrigine 25 mg tablet 50 mg PO DAILY metoprolol tartrate [Lopressor] 50 mg tablet 25 mg PO PRN (DME) crutches Adult medium See Rx Instructions .Route .MEDSUPPLY Qty: 1 0RF Rx Instructions: As directed zolpidem 10 mg tablet 10 mg PO PRN PRN (Reason: sleep) Patient Comments: TAKE 1 TABLET BY MOUTH EVERYDAY AT BEDTIME acetaminophen [Tylenol] 325 mg capsule 650 mg PO Q4H PRN (Reason: pain) oxycodone-acetaminophen [Percocet] 5-325 mg tablet 1 tab PO Q4H MDD 6 PRN (Reason: pain) 5 Days Qty: 20 0RF Primary Care Provider: Rodolfo Rivera Referrals: Rodolfo Rivera MD [Primary Care Provider] - London White MD [Med Staff - Active Staff] - 3-5 Days Activity Restrictions/Additional Instructions: Your hardware in the repair of your broken ankle looks good. Ice and elevate. Follow-up with Dr. White as needed. Increase activity as tolerated. Crutches as needed. Increase weightbearing as tolerated. Percocet for pain. Disposition Disposition: Home, Self Care
[2023-07-29] MEDS: oxyCODONE 5 MG Tablet PO (00:05)
== END 2023-07-29 00:53 | disposition home or self-care (01) ==
PROVIDERS: Emergency Provider Emergency Medicine; PCP Student in an Organized Health Care Education/Training Program; Visit Provider Emergency Medicine
DX: M25.571 Pain in right ankle and joints of right foot (principal); D68.62 Lupus anticoagulant syndrome; Z79.01 Long term (current) use of anticoagulants; Z86.73 Personal history of transient ischemic attack (TIA), and cerebral infarction without residual deficits; W01.0XXA Fall on same level from slipping, tripping and stumbling without subsequent striking against object, initial encounter; G43.909 Migraine, unspecified, not intractable, without status migrainosus; Z79.899 Other long term (current) drug therapy; Z90.49 Acquired absence of other specified parts of digestive tract
CPT/HCPCS: 73610; 99282

== ENCOUNTER 2023-08-25 09:30 | Outpatient (RCR) | payer MEDICAID, SELFPAY ==
--- NOTE | 2023-08-13 11:40 | HP.PTEVAL ---
Patient's Visit Information Visit Information Visit Information: MEL ROBLEDO is a 38 year old F referred to Physical Therapy by Dr. London White MD with a diagnosis of R fibular fracture. s/p ORIF 07/08/23. Date of Evaluation: 08/13/23 Physical Therapist: Kade Ferguson, DPT, OCS, CSCS Visit Plan Frequency: 1x/Week Duration: 4-6 Weeks Plan: Is partial to fWB with goal to get out of boot around 6 weeks.(next week), Using crutches today NWB with boot. 2x/week for 4-6 weeks as needed for 1. A/PROM R ankle and mobs for ROM, scar massage 2. gait training 3. strength and proprioception R ankle ice as needed Subjective Subjective: July 02 turned wrong and broke fibula. Jul 08 put a plate and 6 screws in it. 6 week f/u next week. In the boot NWB R for last 4-5 weeks. Is officially 10-20% WB according to patient. Has numby in R medial ankle. Keeps it elevated and has not been moving it. Feels good in the boot. pain is not an issue. Has tylenol as she needs. She thinks she must have turned ankle. No neuropathy. using crutches to get around. She is on blood thinners due to lupus antigoagulant. sleeping is not an issue. Used to be very active. 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 Lives with cousin and two dtrs halpf the time. Dresses self, bathroom and cook cleans on crutches. Sometimes uses scooter. Room to room at home will hop or walk with just boot. Objective Objective: Walks NWB with low crutches and boot on R foot into PT I Trasnfers and gait and steps with either leg and railing. Unsure 100% of WB status. Crutches set up properly. Then walked with good gait pattern with boot on wh3en cued to step through with L. Walked without boot without AD hesitantly on R WB but well and safe with VC. AROM R ankle is 0 DF hesitantly and 33 PF, 18 eversion and 3 inversion. L is 55 PF, 10 DF, 20 eversion and 30 inversion. strength R ankle is 3+/5 in all directions without pain. L ankle is 4+ reflexes 2/3 patella and achilles Sensation slightly numb R lateral ankle. Incision is closed and healed well without excessive scarring or redness, heat , swelling. Balance/Special Test Scores Lower Extremity Functional Score: 18 Goals Goal 1:: Walk as allowed by doctor full WB without boot commkunity without pain or gait deviation Goal Time Frame: 4-6 Weeks Goal 2:: steps reciprocally without rail without pain Goal Time Frame: 4-6 Weeks Goal 3:: 8 DF , 50 PF on R ankle to facilitate gait. Goal Time Frame: 4-6 Weeks Goal 4:: Plan to return to work Goal Time Frame: 4-6 Weeks Goal 5:: Pt feel 90% back to normal and I managemnt of condition Goal Time Frame: 4-6 Weeks Goal 6:: 50 LEFS Goal Time Frame: 4-6 Weeks Rehabilitation Potential Physical Therapy Diagnosis: gait adn ROM difficulties s/p fib racture and surgery Rehabilitation Potential: Good Anticipated Interventions Patient/Client Instruction: Educate patient on: Condition and Plan of Care For the Purpose of:: To decrease pain, To increase ROM, To improve nutrient delivery to tissue, To improve muscle performance and motor function and To improve gait and locomotor functions Therapeutic Exercise to Include: Strength training, Balance training, Postural training, Flexibilty training, Gait and locomotor training, Passive ROM and Active ROM For the Purpose of:: To decrease pain, To increase ROM, To improve nutrient delivery to tissue, To improve muscle performance and motor function, To increase tolerance to activity/condition/position, To improve ability of physical actions for home/community/work/leisure and To improve gait and locomotor functions Manual Therapy Techniques to Include: Scar massage, Mobilization and Passive ROM For the Purpose of:: To increase ROM Cryotherapy (ice pack, ice massage): Yes For the Purpose of:: To decrease swelling/inflammation Text: Thank you for the opportunity to evaluate your patient. For Medicare and Medicare HMO plans, please review the plan of care and approve it. It will need to be FAXED BACK to us at [phone] for Medicare purposes. For Medicare only, by signing this I certify the plan of care. Please let me know if there are questions or concerns regarding this plan of care. Physician Signature: Date:
--- NOTE | 2023-11-10 08:45 | HP.PT.NRP ---
Patient Information Patient Information: MEL ROBLEDO was seen in my office for initial evaluation on 08/13/23. The following Plan of Care was established for this patient: POC Established Initial Frequency: 1x/Week Initial Duration: 4-6 Weeks Anticipated Interventions Patient/Client Instruction: Educate patient on: Condition and Plan of Care For the Purpose of:: To decrease pain, To increase ROM, To improve nutrient delivery to tissue, To improve muscle performance and motor function and To improve gait and locomotor functions Therapeutic Exercise to Include: Strength training, Balance training, Postural training, Flexibilty training, Gait and locomotor training, Passive ROM and Active ROM For the Purpose of:: To decrease pain, To increase ROM, To improve nutrient delivery to tissue, To improve muscle performance and motor function, To increase tolerance to activity/condition/position, To improve ability of physical actions for home/community/work/leisure and To improve gait and locomotor functions Manual Therapy Techniques to Include: Scar massage, Mobilization and Passive ROM For the Purpose of:: To increase ROM Cryotherapy (ice pack, ice massage): Yes For the Purpose of:: To decrease swelling/inflammation Last Seen Last Seen: This patient was last seen in our office 08/13/23. Pertinent comments regarding their Physical therapy will appear below: Pt seen for IE and POC established. Pt cancelled all further visits without rescheduling. At this point, it has been over two months and I will discontinue due to nonattendance. At this point I will be discontinuing this patient from physical therapy. I would be happy to see this patient again in the future if found appropriate by the physician. Thank you! Kade Ferguson, DPT, OCS, CSCS Balance/Gait/Functional tests Balance/Special Test Scores Lower Extremity Functional Score: 18
== END 2023-08-25 19:00 | disposition home or self-care (01) ==
LOC: PT 09:30
PROVIDERS: PCP Student in an Organized Health Care Education/Training Program; Referring Provider Orthopaedic Surgery Sports Medicine; Visit Provider Orthopaedic Surgery Sports Medicine
DX: S82.831D Other fracture of upper and lower end of right fibula, subsequent encounter for closed fracture with routine healing (principal)
CPT/HCPCS: 97110; 97140; 97161

== ENCOUNTER 2023-09-23 21:57 | Emergency (ER) | payer MEDICAID, SELFPAY ==
[2023-09-23 21:59] VITALS: BP 138/98; PULSE 106; RESP 16; TEMP 36.6; O2SAT 100; BMI 26.5
--- NOTE | 2023-09-23 22:28 | RAD_ITS ---
INDICATION: pain EXAMINATION/TECHNIQUE: X-RAY - RIGHT XR Tibia/Fibula 2 Views 3 images COMPARISON: Prior study dated: 08/19/2023 FINDINGS: SOFT TISSUES: No soft tissue swelling or gas. No radiopaque foreign body. BONES/JOINTS: Plain screw fixation hardware in place along the distal fibula. Hardware is intact. No acute fracture identified. Appropriate alignment of the knee and ankle. Preservation of the joint space.. No sclerotic or destructive changes observed. RAD/Tibia & Fibula 2 Views IMPRESSION: No acute fracture identified. Intact distal fibular hardware with appropriate alignment. Electronically Signed: Eddie Haines MD at 22:53 EST ,
--- NOTE | 2023-09-23 22:34 | US_ITS ---
INDICATION: S/P SX FOR FRACTURED RT FIBULA. NOW WITH LATERAL RT ANKLE BRUISING AND SWELLING EXAMINATION: Ultrasound US Venous Duplex LE Unilat / Limited TECHNIQUE: Ruiz scale, pulse wave, and color flow Doppler imaging was performed of the lower extremity venous system. The right greater saphenous, common femoral, femoral, and popliteal veins were interrogated. COMPARISON: Prior study dated: 07/04/2023 FINDINGS: There is normal compression, augmentation, and signal throughout the visualized right deep lower extremity veins. No mass or fluid collection. US/Venous Duplex Imag/Limited/Uni IMPRESSION: No sonographic evidence of deep venous thrombosis. Electronically Signed: Eddie Haines MD at 23:26 EST ,
[2023-09-23] MEDS: Oxycodone/Apap 5/325 Tablet PO (23:00)
--- NOTE | 2023-09-23 23:45 | EDS_ITS ---
HPI History of Present Illness Chief Complaint: Wound Check Informant: patient and parent Narrative Narrative: Patient is a 38-year-old female with past medical history of lupus coagulation disorder currently on Xarelto as well as TIA and recent right distal fibular fracture requiring open reduction and closed fixation approximately 2 months ago. She states that she has been doing physical therapy and taking her medications as directed. She denies any trauma but states that this evening she noticed swelling and bruising to the ankle. She states she contacted her orthopedic surgeon who advised her to come to the hospital for potential x-rays in order to assure that her hardware is intact and in place and therefore patient presents at this time. [facility] Medical History Cardiology follow-up encounter DVT (deep venous thrombosis) Endometriosis determined by laparoscopy Excessive bleeding History of echocardiogram History of irregular heartbeat History of stress test left sided parathesias Lupus anticoagulant disorder Migraine headache Open wound Seizures TIA (transient ischemic attack) Wears contact lenses Wears glasses Home Medications topiramate 50 mg tablet (Topamax) 50 mg PO Q12H 04/05/21 [History Last Taken Unknown] crutches #1 ea 07/02/23 [Rx Last Taken Unknown] dextroamphetamine-amphetamine 30 mg tablet (Adderall) 30 mg PO DAILY 07/02/23 [History Last Taken Unknown] diazepam 10 mg tablet 10 mg PO Q8H PRN anxiety 07/02/23 [History Last Taken Unknown] escitalopram oxalate 20 mg tablet 20 mg PO DAILY 07/02/23 [History Last Taken 07/09/23] lamotrigine 25 mg tablet 50 mg PO DAILY 07/02/23 [History Last Taken Unknown] metoprolol tartrate 50 mg tablet (Lopressor) 25 mg PO PRN 07/02/23 [History Last Taken Unknown] rivaroxaban 20 mg tablet (Xarelto) 20 mg PO DAILY 07/02/23 [History Last Taken 07/06/23] acetaminophen 325 mg capsule (Tylenol) 650 mg PO Q4H PRN pain 07/07/23 [History Last Taken Unknown] zolpidem 10 mg tablet 10 mg PO PRN PRN sleep 07/07/23 [History Last Taken Unknown] hydroxyzine pamoate 25 mg capsule 25 mg PO ONCE 07/22/23 [History Last Taken Unknown] oxycodone-acetaminophen 5 mg-325 mg tablet (Percocet) 1 tab PO Q6H PRN pain 3 days #12 tabs 09/23/23 [Rx Last Taken Unknown] Allergy/AdvReac Type Severity Reaction Status Date / Time acetaminophen [From Vicodin] Allergy Hives Verified 09/23/23 21:59 hydrocodone bitartrate Allergy Hives Verified 09/23/23 21:59 [From Vicodin] ketorolac tromethamine Allergy Hives Verified 09/23/23 21:59 [From Toradol] metronidazole [From Metrogel] Allergy Swelling Verified 09/23/23 21:59 onion [Onion] Allergy Hives Verified 09/23/23 21:59 skin cleanser [From Metrogel] Allergy Swelling Verified 09/23/23 21:59 tramadol Allergy Hives Verified 09/23/23 21:59 Family History Mother Diabetes Hypertension Father Hypertension Sister Thyroid disorder Surgical History H/O bilateral salpingectomy Hx of cholecystectomy Hx of laparoscopy Hx of surgical procedure Hx of surgical procedure S/P foot surgery, right Social History household members: significant other and children housing: house current occupational status: employed Smoking Status: Never smoker alcohol intake: current alcohol intake frequency: holidays/special occasions only ROS ROS ED Constitutional Constitutional ED: Denies chills or fever(s) ENT ENT ED: Denies sore throat Cardiovascular Cardiovascular: Denies chest pain Respiratory/Chest Respiratory/Chest: Denies cough or dyspnea Gastrointestinal Gastrointestinal: Denies abdominal pain, diarrhea, nausea or vomiting Genitourinary Genitourinary ED: Denies dysuria Musculoskeletal Musculoskeletal: Reports other Details: Positive right ankle pain and swelling Integumentary Reports other Details: Positive bruising right ankle ; Denies rash Neurologic Neurologic: Denies headache(s) Hematologic/Lymphatic Hematologic/Lymphatic: Reports easy bleeding and easy bruising EXAM Physical Exam Const Vital Signs: 09/23/23 21:59 Temperature 97.8 F Temperature Source Temporal Pulse Rate 106 H Respiratory Rate 16 Blood Pressure 138/98 H Blood Pressure Mean 111 Pulse Ox 100 Positive well nourished and well developed General Appearance ED: well developed HEENT HEENT Narrative: Normocephalic atraumatic Eyes PERRL and EOMs intact bilaterally Neck supple Resp normal respiratory effort and clear to auscultation bilaterally Cardio regular rate and regular rhythm Extremity Extremity Narrative: Right lower extremity is neurovascularly intact. Patient has asymmetric swelling of the right ankle compared to left with overlying ecchymosis consistent with hematoma. There is slight asymmetric warmth and erythema as well without lymphangitic streaking. Obvious abscess formation noted. Negative Homans' sign bilaterally. Active range of motion of the right ankle compared to left is decreased secondary to pain. Remainder of the exam is normal Neuro oriented x3 and CN's II-XII intact bilaterally Sensorium / Orientation: alert Psych mental status grossly normal Skin Skin Narrative: Soft tissue swelling with ecchymosis of the right ankle as documented above MDM MDM MDM Narrative Medical decision making narrative: Right tib-fib x-ray as interpreted by the emergency medicine physician reveals hardware to be intact and in place with no derangement fracture or joint effusion noted Patient presented to the ER afebrile and denied any recent trauma other than her physical rehab from her previous ankle fracture 2 months ago. Differential diagnosis is for recurrent fracture versus hardware displacement versus potential DVT or cellulitis. Patient does not have a fever she is not immunosuppressed there is no real erythema but more ecchymosis associated with the area and therefore concern for infection is low and I do not feel there is need for blood. With potential for hardware displacement or malfunction a repeat x-ray was obtained. X-ray revealed no findings of hardware malfunction. As patient is on Xarelto concern for DVT is low but in order to ensure there was no failure of outpatient treatment and venous duplex was obtained which also revealed no acute clot. Therefore at this time as concern for infection is low and there is no documented hardware malfunction or DVT she can be given symptomatic care and discharged home. History & Record Review Discussion w/independent historian: Patient and Family Radiography Diagnostic Testing: Clinical Impression(s) from Imaging Studies Tibia/Fibula X-Ray 09/23/23 22:28 IMPRESSION: No acute fracture identified. Intact distal fibular hardware with appropriate alignment. Electronically Signed: Eddie Haines MD at 22:53 EST , Venous Duplex 09/23/23 22:34 IMPRESSION: No sonographic evidence of deep venous thrombosis. 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 Instructions: ED Hematoma Prescriptions: New oxycodone-acetaminophen [Percocet] 5-325 mg tablet 1 tab PO Q6H PRN (Reason: pain) 3 Days Qty: 12 0RF No Action hydroxyzine pamoate 25 mg capsule 25 mg PO ONCE Patient Comments: TAKE 1 TO 2 CAPSULES BY MOUTH THREE TIMES DAILY topiramate [Topamax] 50 MG tablet 50 mg PO Q12H Patient Comments: migraine Xarelto 20 mg tablet 20 mg PO DAILY Rx Instructions: must administer with evening meal dextroamphetamine-amphetamine [Adderall] 30 mg tablet 30 mg PO DAILY diazepam 10 mg tablet 10 mg PO Q8H PRN (Reason: anxiety) Patient Comments: TAKE 1 TABLET BY MOUTH THREE TIMES A DAY escitalopram oxalate 20 mg tablet 20 mg PO DAILY lamotrigine 25 mg tablet 50 mg PO DAILY metoprolol tartrate [Lopressor] 50 mg tablet 25 mg PO PRN (DME) crutches Adult medium See Rx Instructions .Route .MEDSUPPLY Qty: 1 0RF Rx Instructions: As directed zolpidem 10 mg tablet 10 mg PO PRN PRN (Reason: sleep) Patient Comments: TAKE 1 TABLET BY MOUTH EVERYDAY AT BEDTIME acetaminophen [Tylenol] 325 mg capsule 650 mg PO Q4H PRN (Reason: pain) Primary Care Provider: Rodolfo Rivera Referrals: Rodolfo Rivera MD [Primary Care Provider] - Activity Restrictions/Additional Instructions: Please wear your Tanner wrap for compression and stabilization and ice the area for 10 to 15 minutes 2-3 times a day to help with swelling and bruising. Follow-up with orthopedic surgeon for repeat evaluation and return to the ER should you have any further concerns Disposition Disposition: Home, Self Care
== END 2023-09-24 00:07 | disposition home or self-care (01) ==
PROVIDERS: Emergency Provider Emergency Medicine; PCP Student in an Organized Health Care Education/Training Program; Visit Provider Emergency Medicine
DX: S90.01XA Contusion of right ankle, initial encounter (principal); R56.9 Unspecified convulsions; D68.9 Coagulation defect, unspecified; Z79.01 Long term (current) use of anticoagulants; Z86.73 Personal history of transient ischemic attack (TIA), and cerebral infarction without residual deficits; Z90.49 Acquired absence of other specified parts of digestive tract; Z86.718 Personal history of other venous thrombosis and embolism
CPT/HCPCS: 73590; 93971; 99282

== ENCOUNTER 2023-09-30 19:58 | Emergency (ER) | payer MEDICAID, SELFPAY ==
[2023-09-30 19:59] VITALS: BP 131/86; PULSE 125; RESP 16; TEMP 36.6; O2SAT 99; BMI 25.1
--- NOTE | 2023-09-30 20:10 | RAD_ITS ---
STUDY: X-RAY - RIGHT FOOT CLINICAL: Female, 38 years old. Injury TECHNIQUE: 3 view(s) of the foot. COMPARISON: None. FINDINGS: Normal talus, calcaneus, and tarsal bones. Normal visualized subtalar, talonavicular, calcaneocuboid, tarsal and tarsometatarsal articulations. Normal metatarsi. There is mild degenerative arthrosis of the metatarsophalangeal joint of the hallux . Normal tibial and fibular sesamoid bones. Normal interphalangeal joint of the great toe. Normal phalanges of the great toe. Normal second through fifth metatarsophalangeal joints. Normal interphalangeal joints and phalanges of the lesser toes. The soft tissue structures are unremarkable. No acute fracture. There is healed distal fibula fracture status post ORIF. RAD/Foot min 3 Views IMPRESSION: No acute fracture. Electronically Signed: Miguel Mckeon MD at 20:45 EST ,
--- NOTE | 2023-09-30 20:21 | RAD_ITS ---
STUDY: X-RAY - RIGHT ANKLE REASON FOR EXAM: Female, 38 years old. Injury TECHNIQUE: 3 view(s) of the ankle. COMPARISON: August 19, 2023 FINDINGS: Normal visualized distal tibia. There is stable healed fracture of the distal fibula status post ORIF with fixation plate and screws. Normal tibiotalar articulation and ankle mortise. Normal visualized talus and calcaneus. The visualized subtalar, talonavicular, calcaneocuboid and tarsal articulations are normal. There is no acute fracture. The soft tissue structures are unremarkable. RAD/Ankle min 3 Views IMPRESSION: Healed fracture status post ORIF. No acute fracture seen. Electronically Signed: Miguel Mckeon MD at 20:43 EST ,
--- NOTE | 2023-09-30 20:27 | ED.VIS.LOWEX ---
HPI <ROSANNA Easton - Last Filed: 09/30/23 21:10> History of Present Illness Chief Complaint: Lower Extremity Injury Narrative Narrative: Patient presenting today due to right ankle/foot pain that she has had since this evening after a table fell over on top of her right foot. She reports that she has a history of lupus coagulation disorder currently on Xarelto as well as TIA and recent right distal fibular fracture requiring open reduction and closed fixation a little over 2 months ago. She is able to ambulate. She reports having a little bit of swelling to her right ankle. She denies any other injury. PFSH <ROSANNA Easton - Last Filed: 09/30/23 21:10> [facility] Medical History Cardiology follow-up encounter DVT (deep venous thrombosis) Endometriosis determined by laparoscopy Excessive bleeding History of echocardiogram History of irregular heartbeat History of stress test left sided parathesias Lupus anticoagulant disorder Migraine headache Open wound Seizures TIA (transient ischemic attack) Wears contact lenses Wears glasses Home Medications topiramate 50 mg tablet (Topamax) 50 mg PO Q12H 04/05/21 [History Last Taken Unknown] crutches #1 ea 07/02/23 [Rx Last Taken Unknown] dextroamphetamine-amphetamine 30 mg tablet (Adderall) 30 mg PO DAILY 07/02/23 [History Last Taken Unknown] diazepam 10 mg tablet 10 mg PO Q8H PRN anxiety 07/02/23 [History Last Taken Unknown] escitalopram oxalate 20 mg tablet 20 mg PO DAILY 07/02/23 [History Last Taken 07/09/23] lamotrigine 25 mg tablet 50 mg PO DAILY 07/02/23 [History Last Taken Unknown] metoprolol tartrate 50 mg tablet (Lopressor) 25 mg PO PRN 07/02/23 [History Last Taken Unknown] rivaroxaban 20 mg tablet (Xarelto) 20 mg PO DAILY 07/02/23 [History Last Taken 07/06/23] acetaminophen 325 mg capsule (Tylenol) 650 mg PO Q4H PRN pain 07/07/23 [History Last Taken Unknown] zolpidem 10 mg tablet 10 mg PO PRN PRN sleep 07/07/23 [History Last Taken Unknown] hydroxyzine pamoate 25 mg capsule 25 mg PO ONCE 07/22/23 [History Last Taken Unknown] oxycodone-acetaminophen 5 mg-325 mg tablet (Percocet) 1 tab PO Q6H PRN pain 3 days #12 tabs 09/23/23 [Rx Last Taken Unknown] Allergy/AdvReac Type Severity Reaction Status Date / Time acetaminophen [From Vicodin] Allergy Hives Verified 09/30/23 19:58 hydrocodone bitartrate Allergy Hives Verified 09/30/23 19:58 [From Vicodin] ketorolac tromethamine Allergy Hives Verified 09/30/23 19:58 [From Toradol] metronidazole [From Metrogel] Allergy Swelling Verified 09/30/23 19:58 onion [Onion] Allergy Hives Verified 09/30/23 19:58 skin cleanser [From Metrogel] Allergy Swelling Verified 09/30/23 19:58 tramadol Allergy Hives Verified 09/30/23 19:58 Family History Mother Diabetes Hypertension Father Hypertension Sister Thyroid disorder Surgical History H/O bilateral salpingectomy Hx of cholecystectomy Hx of laparoscopy Hx of surgical procedure Hx of surgical procedure S/P foot surgery, right Social History household members: significant other and children housing: house current occupational status: employed Smoking Status: Never smoker alcohol intake: current alcohol intake frequency: holidays/special occasions only ROS <ROSANNA Easton - Last Filed: 09/30/23 21:10> ROS ED Constitutional Constitutional ED: Denies chills, fever(s) or sweats Eyes Eyes: Denies blurry vision or diplopia Cardiovascular Cardiovascular: Denies chest pain or palpitations Respiratory/Chest Respiratory/Chest: Denies cough or dyspnea Gastrointestinal Gastrointestinal: Denies abdominal pain, nausea or vomiting Musculoskeletal Musculoskeletal: Reports arthralgias; Denies myalgias Integumentary Denies rash Neurologic Neurologic: Denies paresthesias or weakness EXAM <ROSANNA Easton - Last Filed: 09/30/23 21:10> Physical Exam Const Vital Signs: 09/30/23 19:59 09/30/23 21:04 Temperature 97.8 F Temperature Source Oral Pulse Rate 125 H Respiratory Rate 16 14 Blood Pressure 131/86 H Blood Pressure Mean 101 Pulse Ox 99 Positive well nourished, well developed and no apparent distress General Appearance ED: well developed HEENT Reports normocephalic and head/scalp atraumatic Mouth ED: Yes moist mucous membranes normal Eyes PERRL and EOMs intact bilaterally Neck full ROM and supple Chest Wall inspection of chest normal Resp normal respiratory effort and clear to auscultation bilaterally Cardio regular rate and regular rhythm GI soft to palpation, non-tender, non-distended and no masses Back/Spine normal ROM and normal to inspection Extremity full ROM Extremity Narrative: Slight swelling to the right lateral malleolus with pain to palpation to the medial and lateral right malleolus, pain to palpation to the lateral and dorsal aspect of the right foot. Right DP pulse 2+, good capillary refill, sensation intact. Neuro oriented x3, CN's II-XII intact bilaterally, moves all extremities, no focal motor deficits and no sensory deficits noted Sensorium / Orientation: awake and alert Psych mental status grossly normal and thought process normal Skin no rashes or lesions noted and no wounds <Dr. Kade Holley DO - Last Filed: 09/30/23 23:49> Physical Exam Const Vital Signs: 09/30/23 19:59 09/30/23 21:04 Temperature 97.8 F Temperature Source Oral Pulse Rate 125 H Respiratory Rate 16 14 Blood Pressure 131/86 H Blood Pressure Mean 101 Pulse Ox 99 [facility] <ROSANNA Easton - Last Filed: 09/30/23 21:10> [facility] Narrative Medical decision making narrative: Patient presenting today with pain to her right ankle and foot after a table fell over on top of her ankle. She has a history of right distal fibular fracture requiring ORIF a little over 2 months ago. She has mild tenderness to her right lateral and medial malleolus into the dorsal lateral aspect of her right foot. There is trace amount of swelling to the lateral malleolus. X-ray of the foot and ankle be obtained to rule out fracture/dislocation. She was given a Percocet for pain. X-rays are negative for any acute findings. She has been given RICE instructions and can take Tylenol at home as needed for her pain. I did review an [facility] report on patient after she requested a Percocet here for her pain. She did have multiple Percocet prescriptions after her surgery, she had a total of 45 pills dispensed to her between 07/02/23 and 07/09/2023 and she has been seen here multiple times for injuring her right ankle after her surgery. I do not feel that any narcotic prescriptions are indicated at this time. She will be discharged home in stable condition and is comfortable with plan. Radiography X-Ray: Read by ED Physician and Read by Radiologist Diagnostic Testing: Clinical Impression(s) from Imaging Studies Foot X-Ray 09/30/23 20:10 IMPRESSION: No acute fracture. Electronically Signed: Miguel Mckeon MD at 20:45 EST , Ankle X-Ray 09/30/23 20:21 IMPRESSION: Healed fracture status post ORIF. No acute fracture seen. Electronically Signed: Miguel Mckeon MD at 20:43 EST , <Dr. Kade Holley, DO - Last Filed: 09/30/23 23:49> MDM Radiography Diagnostic Testing: Clinical Impression(s) from Imaging Studies Foot X-Ray 09/30/23 20:10 IMPRESSION: No acute fracture. Electronically Signed: Miguel Mckeon MD at 20:45 EST , Ankle X-Ray 09/30/23 20:21 IMPRESSION: Healed fracture status post ORIF. No acute fracture seen. Electronically Signed: Miguel Mckeon MD at 20:43 EST , Treatment and Re-Evaluation Narrative: I have personally performed a face to face assessment of the patient and have reviewed the ERIC Note. I performed a substantive portion of the visit including all aspects of the following. My gloria findings include: History: Patient presents with right foot and ankle pain that began tonight. Patient states that a table fell onto her right foot and ankle. Patient is concerned because she had a prior fracture and has a plate and screws in her right ankle. Patient describes her pain as sharp and aching. Patient states nothing makes it better and nothing makes it worse. Patient denies any paresthesias or weakness. Patient denies any other injuries. Exam: Vital signs are stable. Patient is afebrile. Patient is in no acute distress. Musculoskeletal exam reveals tenderness over the lateral aspect of the right foot and ankle. There is no bony crepitance or step-off noted. Range of motion was limited in all motions of the right foot and ankle secondary to pain. Pedal pulses are equal bilateral. Sensation was intact to light touch in all digits. Capillary refill was less than 2 seconds in all digits. There is no tenderness over the proximal fibula. Medical Decision Making: Differential diagnosis includes fracture, contusion, and sprain. X-rays of the right foot will be obtained to assess for fracture. X-rays of the right ankle will be obtained to assess for fracture. X-rays of the right foot were obtained. There are 3 views. On my independent interpretation, there is no acute fracture or dislocation noted. There is mild soft tissue swelling. Radiologist also interpreted the x-rays and agrees. X-rays of the right ankle were obtained. There are 3 views. On my independent interpretation, there is no acute fracture noted. There is no loosening of the hardware or displacement of the hardware. There is mild soft tissue swelling. Radiologist also interpreted the x-rays and agrees. Patient was advised of her findings. Patient was instructed to ice and elevate the right ankle. Patient was given a dose of Percocet here. Patient was instructed to take Tylenol as needed for pain. Patient was given an Aircast. Patient was instructed to follow-up with her primary care physician in 5 to 7 days. Patient understood and was agreeable with the plan. All questions were answered. Discharge Plan Triage Chief Complaint: Lower Extremity Injury ED Midlevel Provider: Mendy Yip ED Provider: Kade Holley Dx/Rx/DC Orders Prescriptions: No Action hydroxyzine pamoate 25 mg capsule 25 mg PO ONCE Patient Comments: TAKE 1 TO 2 CAPSULES BY MOUTH THREE TIMES DAILY topiramate [Topamax] 50 MG tablet 50 mg PO Q12H Patient Comments: migraine Xarelto 20 mg tablet 20 mg PO DAILY Rx Instructions: must administer with evening meal dextroamphetamine-amphetamine [Adderall] 30 mg tablet 30 mg PO DAILY diazepam 10 mg tablet 10 mg PO Q8H PRN (Reason: anxiety) Patient Comments: TAKE 1 TABLET BY MOUTH THREE TIMES A DAY escitalopram oxalate 20 mg tablet 20 mg PO DAILY lamotrigine 25 mg tablet 50 mg PO DAILY metoprolol tartrate [Lopressor] 50 mg tablet 25 mg PO PRN (DME) crutches Adult medium See Rx Instructions .Route .MEDSUPPLY Qty: 1 0RF Rx Instructions: As directed zolpidem 10 mg tablet 10 mg PO PRN PRN (Reason: sleep) Patient Comments: TAKE 1 TABLET BY MOUTH EVERYDAY AT BEDTIME acetaminophen [Tylenol] 325 mg capsule 650 mg PO Q4H PRN (Reason: pain) oxycodone-acetaminophen [Percocet] 5-325 mg tablet 1 tab PO Q6H PRN (Reason: pain) 3 Days Qty: 12 0RF Primary Care Provider: Rodolfo Rivera Referrals: Rodolfo Rivera MD [Primary Care Provider] -
[2023-09-30] MEDS: Oxycodone/Apap 5/325 Tablet PO (20:56)
[2023-09-30 21:04] VITALS: RESP 14
== END 2023-09-30 21:05 | disposition home or self-care (01) ==
PROVIDERS: Emergency Provider Emergency Medicine; PCP Student in an Organized Health Care Education/Training Program; Visit Provider Emergency Medicine
DX: M25.571 Pain in right ankle and joints of right foot (principal); R56.9 Unspecified convulsions; W22.8XXA Striking against or struck by other objects, initial encounter; Z86.73 Personal history of transient ischemic attack (TIA), and cerebral infarction without residual deficits; L93.2 Other local lupus erythematosus; Z79.01 Long term (current) use of anticoagulants; G43.909 Migraine, unspecified, not intractable, without status migrainosus; Z90.49 Acquired absence of other specified parts of digestive tract
CPT/HCPCS: 73610; 73630; 99283

== ENCOUNTER → 2023-12-09 | Outpatient (CLI) | payer MEDICAID, SELFPAY ==
--- NOTE | 2023-12-09 16:33 | CT_ITS ---
EXAM: CT RIGHT LOWER EXTREMITY WITHOUT INTRAVENOUS CONTRAST CLINICAL INDICATION: pain, assess healing and hardware position -- CT ANKLE TECHNIQUE: Helically acquired images were obtained of the right lower extremity without intravenous contrast. 2-D reformats were performed by the technologist. CTDIvol = ( 15.35 ) mGy, DLP = ( 339.63 ) mGycm This CT exam was performed using one or more of the following dose reduction techniques: automated exposure control, adjustment of the mA and/or kV according to patient size, and/or use of iterative reconstruction technique. COMPARISON: No relevant prior studies available. FINDINGS: BONES/JOINTS: No osteochondral lesions at the tibiotalar articulation. Ankle mortise is intact. Status post remote ORIF of a fracture of the distal fibula which appears well-healed. Preservation of the joint space. No acute or healing fracture or malalignment. No unusual lytic or sclerotic lesions of bone. SOFT TISSUES: Unremarkable. No soft tissue swelling or gas. No radiopaque foreign body. CT/Extremity Lower without Contra IMPRESSION: 1. No hardware complications. 2. No acute osseous abnormalities. 3. No other findings to explain the patient''s age. Electronically Signed: Felix Dickson MD at 23:50 EST ,
== END | disposition home or self-care (01) ==
LOC: CT 16:30
PROVIDERS: PCP Student in an Organized Health Care Education/Training Program; Referring Provider Orthopaedic Surgery Sports Medicine; Visit Provider Orthopaedic Surgery Sports Medicine
DX: S82.831A Other fracture of upper and lower end of right fibula, initial encounter for closed fracture (principal)
CPT/HCPCS: 73700

== ENCOUNTER 2024-02-14 19:13 | Emergency (ER) | payer MEDICAID, SELFPAY ==
[2024-02-14 19:17] VITALS: BP 142/103; PULSE 113; RESP 18; TEMP 36.6; O2SAT 99; BMI 26.4
--- NOTE | 2024-02-14 20:49 | CT_ITS ---
INDICATION: Pain EXAMINATION: CT BRAIN - CT Head or Brain W/O Contrast Injection TECHNIQUE: Multiple axial images were obtained of the head without intravenous contrast. A radiation dose optimization technique was used for this scan. IV Contrast dosage and agent: None. COMPARISON: No relevant prior comparison studies available. FINDINGS: BRAIN PARENCHYMA: No intra- or extra-axial hemorrhage. No intracranial mass or mass effect. Ruiz/white matter differentiation is maintained and there is no blurring of the basal ganglia. There is no hyperdense vessel. Posterior fossa structures are unremarkable. CSF SPACES: Appropriate for age. No hydrocephalus. Basal cisterns are patent. CALVARIUM, SKULL BASE, PARANASAL SINUSES AND MASTOID AIR CELLS: Intact calvarium and skull base. No fracture or osseous lesion. Paranasal sinuses are clear. Mastoid air cells and middle ears are clear. ORBITS: Both globes, extraocular muscles, optic nerves and retrobulbar fat appear unremarkable. ASPECTS Score for Acute Strokes: 10 CT/Brain/Head without Contrast IMPRESSION: Negative Brain CT without contrast. Electronically Signed: Chuck Casillas DO at 21:22 EDT ,
--- NOTE | 2024-02-14 20:50 | EX.ED.VIS.HA ---
HPI <Dr. Kade Holley DO - Last Filed: 02/14/24 22:07> History of Present Illness Chief Complaint: Headache Informant: patient Onset/Context/Timing Onset: Days (4) Context: Gradual Timing: Continuous Quality -Headache: Positive for Dull Location: Occiput that radiates into her neck and a frontal area Worsened by: Movement Relieved by: Nothing Associated Symptoms/Injury Associated Symptoms: Positive for Nausea, Blurred Vision (Chronic blurred vision in her left eye) and Photophobia; Negative for Fever, Vomiting, Sore Throat, Sinus Pressure, Numbness, Tingling, Preceding Aura, Visual Changes or Visual Loss Narrative Narrative: Patient presents with a headache that has been getting progressively worse over the past 4 days. Patient states she had a recent paraspinal injection by Dr. Blandon for lumbar radicular pain. Patient states that the day after the procedure she started having a headache. Patient states it came on gradually. Patient states it is mainly over the occipital area but radiates around her entire head. Patient states it radiates into her neck. Patient states it is worse with movement. Patient admits to some nausea but denies any vomiting. Patient does admit to some mild photophobia. Patient denies any trauma or injury. Patient states her pain is worse with movement of her head, especially flexion of her head. PFSH <Dr. Kade Holley DO - Last Filed: 02/14/24 22:07> [facility] Medical History Cardiology follow-up encounter DVT (deep venous thrombosis) Endometriosis determined by laparoscopy Excessive bleeding History of echocardiogram History of irregular heartbeat History of stress test left sided parathesias Lupus anticoagulant disorder Migraine headache Open wound Seizures TIA (transient ischemic attack) Wears contact lenses Wears glasses Home Medications topiramate 50 mg tablet (Topamax) 50 mg PO Q12H 04/05/21 [History Last Taken Unknown] escitalopram oxalate 20 mg tablet 20 mg PO DAILY 07/02/23 [History Last Taken 07/09/23] metoprolol tartrate 50 mg tablet (Lopressor) 25 mg PO Q12H 07/02/23 [History Last Taken Unknown] rivaroxaban 20 mg tablet (Xarelto) 20 mg PO DAILY 07/02/23 [History Last Taken 07/06/23] lorazepam 2 mg tablet 3 mg PO Q8H PRN anxiety 02/14/24 [History Last Taken Unknown] oxycodone-acetaminophen 5 mg-325 mg tablet 0.5 tab PO Q12H PRN pain 02/14/24 [History Last Taken Unknown] zolpidem 10 mg tablet (Ambien) 10 mg PO QHS 02/14/24 [History Last Taken Unknown] Allergy/AdvReac Type Severity Reaction Status Date / Time acetaminophen [From Vicodin] Allergy Hives Verified 02/14/24 19:14 hydrocodone bitartrate Allergy Hives Verified 02/14/24 19:14 [From Vicodin] ketorolac tromethamine Allergy Hives Verified 02/14/24 19:14 [From Toradol] metoclopramide [From Reglan] Allergy Other Verified 02/14/24 21:02 metronidazole [From Metrogel] Allergy Swelling Verified 02/14/24 19:14 onion [Onion] Allergy Hives Verified 02/14/24 19:14 skin cleanser [From Metrogel] Allergy Swelling Verified 02/14/24 19:14 tramadol Allergy Hives Verified 02/14/24 19:14 prochlorperazine AdvReac Other Verified 02/14/24 21:02 [From Compazine] promethazine [From Phenergan] AdvReac Other Verified 02/14/24 21:02 Family History Mother Diabetes Hypertension Father Hypertension Sister Thyroid disorder Surgical History H/O bilateral salpingectomy Hx of cholecystectomy Hx of laparoscopy Hx of surgical procedure Hx of surgical procedure S/P foot surgery, right Social History household members: significant other and children housing: house current occupational status: employed Smoking Status: Never smoker alcohol intake: current alcohol intake frequency: holidays/special occasions only ROS <Dr. Kade Holley DO - Last Filed: 02/14/24 22:07> ROS ED Constitutional Constitutional ED: Denies chills or fever(s) Eyes Eyes: Reports blurry vision left (Chronic); Denies change in vision ENT ENT ED: Denies rhinorrhea or sore throat Cardiovascular Cardiovascular: Denies chest pain or palpitations Respiratory/Chest Respiratory/Chest: Denies cough or dyspnea Gastrointestinal Gastrointestinal: Reports nausea; Denies vomiting Genitourinary Genitourinary ED: Denies dysuria or hematuria Musculoskeletal Musculoskeletal: Reports back pain and neck pain Integumentary Denies abscess or rash Neurologic Neurologic: Reports headache(s); Denies weakness Hematologic/Lymphatic Hematologic/Lymphatic: Reports easy bruising Allergic/Immunologic Allergic/Immunologic ED: Denies mouth swelling or urticaria EXAM <Dr. Kade Holley, DO - Last Filed: 02/14/24 22:07> Physical Exam Const Vital Signs: 02/14/24 19:17 02/14/24 20:51 02/14/24 22:35 Temperature 97.8 F Temperature Source Temporal Pulse Rate 113 H 68 78 Respiratory Rate 18 16 18 Blood Pressure 142/103 H 135/78 H 132/89 H Blood Pressure Mean 116 97 103 Pulse Ox 99 99 97 Oxygen Delivery Method Room Air Room Air 02/15/24 00:00 Temperature Temperature Source Pulse Rate 76 Respiratory Rate 18 Blood Pressure 137/96 H Blood Pressure Mean 110 Pulse Ox 94 Oxygen Delivery Method Positive well nourished and well developed General Appearance ED: well developed and NAD HEENT Reports normocephalic and moist mucous membranes atraumatic Neck supple, no meningeal signs and no JVD Resp normal respiratory effort and clear to auscultation bilaterally Cardio regular rate and regular rhythm GI non-tender and non-distended Palpation: soft Back/Spine Back/Spine Narrative: There is no tenderness over the lumbar spine or paraspinal muscles. There is no erythema or warmth noted. There is good range of motion of the lumbar spine. There is mild tenderness of the cervical paraspinal muscles. Range of motion was slightly limited in all motions of the cervical spine secondary to pain. Neuro oriented x3, CN's II-XII intact bilaterally and no sensory deficits noted [place] Coma Scale: document GCS findings Spontaneous Obeys Commands Oriented 15 Sensorium / Orientation: awake and alert Speech: speech normal Motor Exam: strength 5/5 throughout <Dr. Jay Infante, DO - Last Filed: 02/15/24 00:20> Physical Exam Const Vital Signs: 02/14/24 19:17 02/14/24 20:51 04/20/24 22:35 Temperature 97.8 F Temperature Source Temporal Pulse Rate 113 H 68 78 Respiratory Rate 18 16 18 Blood Pressure 142/103 H 135/78 H 132/89 H Blood Pressure Mean 116 97 103 Pulse Ox 99 99 97 Oxygen Delivery Method Room Air Room Air 02/15/24 00:00 Temperature Temperature Source Pulse Rate 76 Respiratory Rate 18 Blood Pressure 137/96 H Blood Pressure Mean 110 Pulse Ox 94 Oxygen Delivery Method Neuro Leonardo Coma Scale: document GCS findings 15 MDM <Dr. Kade Holley, - Last Filed: 02/14/24 22:07> [facility] MDM Narrative Medical decision making narrative: Differential diagnosis includes intracranial bleeding, migraine headache, tension headache, and dehydration. Since the procedure was for a peripheral nerve block, I do not feel this is a spinal headache. CBC will be obtained to assess for leukocytosis and anemia. Basic metabolic profile will be obtained to assess for electrolyte abnormality and renal function. CT scan of the brain will be obtained to assess for intracranial bleeding. Lab Data Attestation: I reviewed the patient's lab results. Lab results narrative: CBC was reviewed and was within normal limits. Basic metabolic profile was reviewed and was within normal limits. Labs: Laboratory Results - last 24 hr 02/14/24 02/14/24 18:35 20:10 WBC 7.6 RBC 4.34 Hgb 13.9 Hct 41.5 MCV 95.6 MCH 32.0 MCHC 33.5 RDW Std Deviation 41.8 RDW Coeff of Justo 12.0 Plt Count 311 MPV 10.4 Immature Gran % (Auto) 0.400 Neut % (Auto) 67.4 Lymph % (Auto) 24.0 Whitfield % (Auto) 7.5 Eos % (Auto) 0.3 Baso % (Auto) 0.4 Absolute Neuts (auto) 5.2 Absolute Lymphs (auto) 1.83 Nucleated RBC % 0 Sodium 139 Potassium 3.7 Chloride 103 Carbon Dioxide 30.0 Anion Gap 6 BUN 12 Creatinine 0.68 Estim Creat Clear Calc 105.61 Est GFR (MDRD) Af Amer 126 Est GFR (MDRD) Non-Af 104 BUN/Creatinine Ratio 17.8 Glucose 89 Calcium 8.9 Radiography Diagnostic Testing: Clinical Impression(s) from Imaging Studies Brain CT 02/14/24 20:49 IMPRESSION: Negative Brain CT without contrast. Electronically Signed: Chuck Casillas DO at 21:22 EDT , Head CTA 02/14/24 21:58 IMPRESSION: Normal contrast-enhanced CT head and brain with no arterial or venous thrombosis. Electronically Signed: Chuck CasillasDO at 23:36 EDT , CT scan of the brain was obtained. There is no acute intracranial abnormality. This was interpreted by the radiologist and was also independently reviewed by myself. Treatment and Re-Evaluation Narrative: Patient was given IV fluids, Reglan, and Benadryl. Patient refused the Reglan because it makes her eyes around and gives her tardive dyskinesias. Patient was given a dose of Zofran. Patient states her pain is unchanged. Patient was given a dose of morphine. CTA of the brain will be obtained to assess for subarachnoid hemorrhage and aneurysm. Care of the patient will be turned over to the oncoming physician pending CTA results. <Dr. Jay Infante, DO - Last Filed: 02/15/24 00:20> [facility] Narrative Medical decision making narrative: Differential diagnosis includes intracranial bleeding, migraine headache, tension headache, and dehydration. Since the procedure was for a peripheral nerve block, I do not feel this is a spinal headache. CBC will be obtained to assess for leukocytosis and anemia. Basic metabolic profile will be obtained to assess for electrolyte abnormality and renal function. CT scan of the brain will be obtained to assess for intracranial bleeding. 0018: Arelis. Patient signed out to me follow-up on CT angiogram of the head. Results were negative. Headache for 3 days status post what sounds like a facet block right lumbar. There is no spinal puncture. She has had these in the past. Aura with photophobia. Reevaluation still had a headache if she is nontoxic no meningismus. Offered Depakote IV however she states at this time she is wants to go home. She is discharged with referral to neurology as an outpatient. Lab Data Labs: Laboratory Results - last 24 hr 02/14/24 02/14/24 18:35 20:10 WBC 7.6 RBC 4.34 Hgb 13.9 Hct 41.5 MCV 95.6 MCH 32.0 MCHC 33.5 RDW Std Deviation 41.8 RDW Coeff of Justo 12.0 Plt Count 311 MPV 10.4 Immature Gran % (Auto) 0.400 Neut % (Auto) 67.4 Lymph % (Auto) 24.0 Whitfield % (Auto) 7.5 Eos % (Auto) 0.3 Baso % (Auto) 0.4 Absolute Neuts (auto) 5.2 Absolute Lymphs (auto) 1.83 Nucleated RBC % 0 Sodium 139 Potassium 3.7 Chloride 103 Carbon Dioxide 30.0 Anion Gap 6 BUN 12 Creatinine 0.68 Estim Creat Clear Calc 105.61 Est GFR (MDRD) Af Amer 126 Est GFR (MDRD) Non-Af 104 BUN/Creatinine Ratio 17.8 Glucose 89 Calcium 8.9 Radiography Diagnostic Testing: Clinical Impression(s) from Imaging Studies Brain CT 02/14/24 20:49 IMPRESSION: Negative Brain CT without contrast. Electronically Signed: Chuck Casillas DO at 21:22 EDT , Head CTA 02/14/24 21:58 IMPRESSION: Normal contrast-enhanced CT head and brain with no arterial or venous thrombosis. Electronically Signed: Chuck Casillas DO at 23:36 EDT , Discharge Plan Triage Chief Complaint: Headache ED Provider: Kade Holley Dx/Rx/DC Orders Clinical Impression: Headache Instructions: ED Headache Unspecified Prescriptions: No Action topiramate [Topamax] 50 MG tablet 50 mg PO Q12H Patient Comments: migraine Xarelto 20 mg tablet 20 mg PO DAILY Rx Instructions: must administer with evening meal escitalopram oxalate 20 mg tablet 20 mg PO DAILY metoprolol tartrate [Lopressor] 50 mg tablet 25 mg PO Q12H zolpidem [Ambien] 10 mg tablet 10 mg PO QHS lorazepam 2 mg tablet 3 mg PO Q8H PRN (Reason: anxiety) Patient Comments: TAKE 1/2-1 TABLET BY MOUTH THREE TIMES A DAY NEEDED oxycodone-acetaminophen 5-325 mg tablet 0.5 tab PO Q12H PRN (Reason: pain) Patient Comments: 1 TAB ORALLY EVERY 4 HOURS NEEDED FOR PAIN FOR 2 DAYS, MAX DAILY DOSE: 8 Primary Care Provider: Rodolfo Rivera Referrals: Rodolfo Rivera MD [Primary Care Provider] - 5-7 Days Destin Buenrostro MD [Non-Staff -Ordering Privileges] - 1 Week Activity Restrictions/Additional Instructions: CT head negative. CT angiogram head also negative. Follow-up with neurology. Disposition Disposition: Home, Self Care
[2024-02-14 20:51] VITALS: BP 135/78; PULSE 68; RESP 16; O2SAT 99
[2024-02-14] MEDS: 0.9% Normal Saline (1000mL) 1,000 ML 999 ML IV (20:59)
[2024-02-14] MEDS: DiphenhydrAMINE 50 MG/ML Syringe 25 MG IV (21:00)
[2024-02-14 21:02] LABS: Absolute Lymphocyte Count 1.83 X10^3/uL (0.83-4.51); Absolute Neutrophil Count 5.2 X10^3/uL (2.0-7.7); Basophil# 0.03 X10^3/uL; Basophil% 0.4 % (0-1); Eosinophil# 0.02 X10^3/uL; Eosinophils% 0.3 % (0-5); Hematocrit 41.5 % (37-47); Hemoglobin 13.9 g/dL (12.0-15.0); Lymphocyte # 1.83 X10^3/ul (0.83-4.51); Mean Corp Hgb Conc 33.5 g/dL (32-36); Mean Corpuscular Volume 95.6 fL (81-99); Mean Platelet Vol. 10.4 fl (6.2-12.0); Monocyte# 0.57 X10^3/uL; Monocyte% 7.5 % (0-10); NRBC Flagged by Analyzer 0 % (0-5); Neutrophil # 5.16 X10^3/uL (2.7-7.7); Neutrophil % 67.4 % (47-70); Platelet Count 311 K/mm3 (150-450); RBC Distribution Width SD 41.8 fl (35.1-43.9); Red Blood Count 4.34 M/mm3 (4.2-5.4); White Blood Count 7.6 K/mm3 (4.4-11.0)
[2024-02-14 21:17] LABS: Anion Gap 6 (5-15); BUN 12 mg/dL (7-18); BUN/Creat Ratio 17.8 RATIO (10-20); Calcium,Total 8.9 mg/dL (8.5-10.1); Chloride 103 mmol/L (98-107); Creatinine, Serum 0.68 mg/dL (0.55-1.02); EST Glomerular Filtration Rate 104 mL/min (>60); Est Glom Filt Rate - Afr Amer 126 mL/min (>60); Estimated Creatinine Clearance 105.61 ml/min; Glucose 89 mg/dL (74-106); Potassium 3.7 mmol/L (3.5-5.1); Sodium Level 139 mmol/L (136-145)
[2024-02-14] MEDS: Ondansetron 4 MG/2 ML Vial IV (21:50)
--- NOTE | 2024-02-14 21:58 | CT_ITS ---
INDICATION: Headache EXAMINATION: CT BRAIN WITH AND WITHOUT CONTRAST - CT Head or Brain WO/W Contrast Injection TECHNIQUE: Multiple axial images were obtained of the brain following IV contrast. A radiation dose optimization technique was used for this scan. Multiplanar thin slice and Maximum intensity projection reconstructions are created. IV Contrast dosage and agent: 75 mL of [id number] COMPARISON: Unenhanced CT head February 14, 2024 FINDINGS: BRAIN PARENCHYMA: Arterial and venous structures are well opacified. No evidence of disruption of the blood brain barrier. Intracranial internal carotid, anterior middle cerebral, vertebral and basilar arteries as well as the posterior cerebral and superior cerebellar arteries are normal in appearance. Right posterior cerebral artery comes from the anterior circulation with absent A1 segment; variant anatomy. There is no evidence of intracranial venous thrombosis. Limited assessment of the parenchyma shows no midline shift or mass effect. Ventricles and other CSF spaces are symmetric and normal in size. Intact skull base and calvarium. Paranasal sinuses, mastoid air cells and middle ears are clear. Soft tissues of the neck included in the [id number] are normal. CT/CTA Head W/WO Contrast IMPRESSION: Normal contrast-enhanced CT head and brain with no arterial or venous thrombosis. Electronically Signed: Chuck Casillas DO at 23:36 EDT ,
[2024-02-14] MEDS: Morphine 4 MG/ML Syringe IV (22:04)
[2024-02-14 22:35] VITALS: BP 132/89; PULSE 78; RESP 18; O2SAT 97
[2024-02-15] VITALS: BP 137/96; PULSE 76; RESP 18; O2SAT 94
[2024-02-15 00:27] VITALS: BP 115/87; PULSE 77; RESP 18; TEMP 36.7; O2SAT 97
== END 2024-02-15 00:28 | disposition home or self-care (01) ==
PROVIDERS: Emergency Provider Emergency Medicine; PCP Student in an Organized Health Care Education/Training Program; Visit Provider Emergency Medicine
DX: R51.9 Headache, unspecified (principal); R11.0 Nausea; Z90.49 Acquired absence of other specified parts of digestive tract; Z86.73 Personal history of transient ischemic attack (TIA), and cerebral infarction without residual deficits; Z86.718 Personal history of other venous thrombosis and embolism; Z79.01 Long term (current) use of anticoagulants
CPT/HCPCS: 70450; 70496; 80048; 85025; 96361; 96374; 96375; 99283; Q9967; A4216; J2405

== ENCOUNTER 2024-04-13 21:21 | Emergency (ER) | payer MEDICAID, SELFPAY ==
[2024-04-13 21:23] VITALS: BP 123/94; PULSE 125; RESP 18; TEMP 36.5; O2SAT 100; BMI 25.2
--- NOTE | 2024-04-13 21:41 | CT_ITS ---
EXAM: CT HEAD WITHOUT INTRAVENOUS CONTRAST CLINICAL INDICATION: headache TECHNIQUE: Multiple axial images were obtained of the head without intravenous contrast. This CT exam was performed using one or more of the following dose reduction techniques: automated exposure control, adjustment of the mA and/or kV according to patient size, and/or use of iterative reconstruction technique. COMPARISON: MRV head, 07/27/2014; CT head, 02/14/2024; CTA head, 02/14/2024. FINDINGS: BRAIN AND EXTRA-AXIAL SPACES: No significant abnormality. No intra- or extra-axial hemorrhage. No evidence of acute infarct. No intracranial mass or mass effect. There is preservation of the rdz/white matter interface. Ventricles are appropriate for age. Basal cisterns are patent. BONES/JOINTS: No significant abnormality. No discrete lytic or blastic abnormalities. SINUSES: No significant findings. MASTOID AIR CELLS: No significant effusion. ORBITS: No acute findings. CT/Brain/Head without Contrast IMPRESSION: Negative head/brain CT without intravenous contrast. Electronically Signed: Jr Vargas DO at 22:38 EDT ,
--- NOTE | 2024-04-13 21:44 | EDS_ITS ---
HPI History of Present Illness Chief Complaint: Headache Informant: patient Narrative Narrative: 39-year-old female with a history of migraines seen she has been having a migraine for 2 days now and it is one of the worst headaches she has had. It was not abrupt in onset. She has had a couple of episodes according to her boyfriend of staring off into space and being amnestic to it. Today she states she was staring off and then looked at him and asked him why he asked her question but he had not and he said that she was staring off in space and unresponsive for a minute or so. She states she does not remember this. She states she had a myoclonic jerk but there were no convulsions according to what her boyfriend told her who was not currently present. According to him, according to her, she has had 7 of these episodes in the past week. She states a lot of times they were associated with headaches but not always. She has a history of a TIA and lupus anticoagulant and for those reasons is on Xarelto. 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 She is chronically tachycardic she states she does not feel her heart racing right now. She denies any head injury lately or other illness. She states she does have some chronic neck discomfort, and she has been having episodes of memory loss for years, which she is concerned about. She is not following with neurology but lately has been looking for one to follow-up with although the closest one is more than an hour away from where she lives, and [place] [facility]. [facility] Medical History Wears glasses Wears contact lenses Open wound Excessive bleeding Migraine headache History of stress test History of echocardiogram History of irregular heartbeat Seizures Cardiology follow-up encounter Endometriosis determined by laparoscopy Lupus anticoagulant disorder DVT (deep venous thrombosis) TIA (transient ischemic attack) left sided parathesias Home Medications ?Medication ?Instructions ?Recorded ?Last Taken ?Type topiramate 50 mg tablet (Topamax) 50 mg PO Q12H 04/05/21 Unknown History escitalopram oxalate 20 mg tablet 20 mg PO DAILY 07/02/23 07/09/23 History metoprolol tartrate 50 mg tablet 25 mg PO Q12H 07/02/23 Unknown History (Lopressor) rivaroxaban 20 mg tablet (Xarelto) 20 mg PO DAILY 07/02/23 07/06/23 History lorazepam 2 mg tablet 3 mg PO Q8H PRN anxiety 02/14/24 Unknown History dextroamphetamine-amphetamine ER 1 cap PO DAILY 04/13/24 Unknown History 30 mg 24hr capsule,extend release norethindrone (contraceptive) 0.35 0.35 mg PO DAILY 04/13/24 Unknown History mg tablet Allergy/AdvReac Type Severity Reaction Status Date / Time acetaminophen (From Vicodin) Allergy Hives Verified 04/13/24 21:23 hydrocodone bitartrate (From Allergy Hives Verified 04/13/24 21:23 Vicodin) ketorolac tromethamine (From Allergy Hives Verified 04/13/24 21:23 Toradol) metoclopramide (From Reglan) Allergy Other Verified 04/13/24 21:23 metronidazole (From Metrogel) Allergy Swelling Verified 04/13/24 21:23 onion (Onion) Allergy Hives Verified 04/13/24 21:23 skin cleanser (From Metrogel) Allergy Swelling Verified 04/13/24 21:23 prochlorperazine (From AdvReac Other Verified 04/13/24 21:23 Compazine) promethazine (From Phenergan) AdvReac Other Verified 04/13/24 21:23 Family History Mother Diabetes Hypertension Father Hypertension Sister Thyroid disorder Surgical History Hx of surgical procedure Hx of surgical procedure Hx of laparoscopy S/P foot surgery, right H/O bilateral salpingectomy Hx of cholecystectomy Social History household members: significant other and children housing: house current occupational status: employed Smoking Status: Never smoker alcohol intake: current alcohol intake frequency: holidays/special occasions only ROS ROS ED Constitutional Constitutional ED: Denies chills or fever(s) Eyes Eyes: Reports photophobia; Denies blurry vision or diplopia ENT ENT ED: Denies ear pain or sore throat Cardiovascular Cardiovascular: Denies chest pain or palpitations Respiratory/Chest Respiratory/Chest: Denies cough or dyspnea Gastrointestinal Gastrointestinal: Reports nausea; Denies abdominal pain, diarrhea or vomiting Genitourinary Genitourinary ED: Denies dysuria or urinary frequency Musculoskeletal Musculoskeletal: Reports neck pain; Denies back pain or myalgias Integumentary Denies abscess or rash Neurologic Neurologic: Reports headache(s) and memory loss; Denies paresthesias or weakness EXAM Physical Exam Const Vital Signs: 04/13/24 21:23 Temperature 97.7 F L Temperature Source Temporal Pulse Rate 125 H Respiratory Rate 18 Blood Pressure 123/94 H Blood Pressure Mean 103 Pulse Ox 100 Oxygen Delivery Method Room Air Positive well nourished and well developed General Appearance ED: well developed and NAD HEENT Reports normocephalic and moist mucous membranes atraumatic Eyes PERRL, EOMs intact bilaterally and conjunctivae normal Eyes Narrative: mild photophobia Neck no lymphadenopathy, supple and no meningeal signs Resp normal respiratory effort and clear to auscultation bilaterally Cardio regular rate, regular rhythm and no murmurs Rate: tachycardic GI non-tender and non-distended Palpation: soft Extremity normal to inspection and full ROM Neuro oriented x3 and CN's II-XII intact bilaterally Sensorium / Orientation: awake and alert Speech: speech normal Gait (Neuro): normal gait Motor Exam: strength 5/5 throughout Psych mental status grossly normal Skin Lesions: no lesions Rashes: no rashes MDM MDM MDM Narrative Medical decision making narrative: Patient indicates that she has had tar dive dyskinesia symptoms with Compazine, Reglan, Phenergan. For this reason, I am avoiding that entire class of medications and instead gave her in addition to IV fluids, dihydroergotamine, Depakote, and some Zofran. On reevaluation prior to finishing the Depakote, she has mild improvement but still says her headache is significant. CT of the head was obtained in order to rule out intracranial hemorrhage, I reviewed the images and report which I agree with, negative for anything acute. Labs were unremarkable except for hypokalemia. At this time as I discussed with her I have relatively limited options for migraine treatment, narcotics are not indicated which she understands. I am going to give her Decadron 10 mg IV in addition to a dose of potassium, and when all of this is done she will be discharged home to rest and hopefully feel better tomorrow, along with recommended follow-up with neurology she was referred to Dr. Buenrostro. She is agreeable with this, she was also asking for a dose of Ativan which she takes at nighttime and we gave her that as well. Of note, patient states she had an MRI of her brain 3 months ago at an outside facility that was negative, which is additionally reassuring. Lab Data Attestation: I reviewed the patient's lab results. Labs: Laboratory Results - last 24 hr 04/13/24 21:45 WBC 6.3 RBC 3.98 L Hgb 13.0 Hct 38.6 MCV 97.0 MCH 32.7 H MCHC 33.7 RDW Std Deviation 45.3 H RDW Coeff of Justo 12.7 Plt Count 283 MPV 11.0 Immature Gran % (Auto) 0.200 Neut % (Auto) 66.8 Lymph % (Auto) 24.3 [place] % (Auto) 7.7 Eos % (Auto) 0.5 Baso % (Auto) 0.5 Absolute Neuts (auto) 4.2 Absolute Lymphs (auto) 1.54 Nucleated RBC % 0 Sodium 138 Potassium 3.3 L Chloride 109 H Carbon Dioxide 24.0 Anion Gap 5 BUN 19 H Creatinine 0.73 Estim Creat Clear Calc 95.53 Est GFR (MDRD) Af Amer 115 Est GFR (MDRD) Non-Af 95 BUN/Creatinine Ratio 26.0 H Glucose 99 Calcium 9.0 Radiography Diagnostic Testing: Clinical Impression(s) from Imaging Studies Brain CT 04/13/24 21:41 IMPRESSION: Negative head/brain CT without intravenous contrast. Electronically Signed: Jr Vargas DO at 22:38 EDT , Discharge Plan Triage Chief Complaint: Headache Other Complaint: Confusion ED Provider: Miguel Glover Dx/Rx/DC Orders Clinical Impression: Headache, migraine Instructions: ED, Migraine (Classical) Prescriptions: No Action topiramate [Topamax] 50 MG tablet 50 mg PO Q12H Patient Comments: migraine Xarelto 20 mg tablet 20 mg PO DAILY Rx Instructions: must administer with evening meal escitalopram oxalate 20 mg tablet 20 mg PO DAILY metoprolol tartrate [Lopressor] 50 mg tablet 25 mg PO Q12H lorazepam 2 mg tablet 3 mg PO Q8H PRN (Reason: anxiety) Patient Comments: TAKE 1/2-1 TABLET BY MOUTH THREE TIMES A DAY NEEDED dextroamphetamine-amphetamine 30 mg capsule,extended release 24hr 1 cap PO DAILY norethindrone (contraceptive) 0.35 mg tablet 0.35 mg PO DAILY Primary Care Provider: Rodolfo Rivera Referrals: Rodolfo Rivera MD [Primary Care Provider] - Destin Buenrostro MD [Non-Staff -Ordering Privileges] - As soon as possible Print Language: [place] Disposition Disposition: Home, Self Care
[2024-04-13 21:52] LABS: Absolute Lymphocyte Count 1.54 X10^3/uL (0.83-4.51); Absolute Neutrophil Count 4.2 X10^3/uL (2.0-7.7); Basophil# 0.03 X10^3/uL; Basophil% 0.5 % (0-1); Eosinophil# 0.03 X10^3/uL; Eosinophils% 0.5 % (0-5); Hematocrit 38.6 % (37-47); Lymphocyte # 1.54 X10^3/ul (0.83-4.51); Lymphocyte % 24.3 % (19-41); Mean Corp Hgb Conc 33.7 g/dL (32-36); Mean Corpuscular Hgb 32.7 pg (27.0-32.0); Monocyte# 0.49 X10^3/uL; Monocyte% 7.7 % (0-10); NRBC Flagged by Analyzer 0 % (0-5); Neutrophil # 4.24 X10^3/uL (2.7-7.7); Neutrophil % 66.8 % (47-70); Platelet Count 283 K/mm3 (150-450); RBC Distribution Width CV 12.7 % (11.6-14.6); RBC Distribution Width SD 45.3 fl (35.1-43.9); Red Blood Count 3.98 M/mm3 (4.2-5.4); White Blood Count 6.3 K/mm3 (4.4-11.0)
[2024-04-13] MEDS: Ondansetron 4 MG/2 ML Vial IV (21:53)
[2024-04-13] MEDS: 0.9% Normal Saline (1000mL) 1,000 ML 999 ML IV (21:53)
[2024-04-13] MEDS: Dihydroergotamine 1 MG/ML Ampul IV (21:54)
[2024-04-13 22:04] LABS: Anion Gap 5 (5-15); BUN 19 mg/dL (7-18); Chloride 109 mmol/L (98-107); Creatinine, Serum 0.73 mg/dL (0.55-1.02); EST Glomerular Filtration Rate 95 mL/min (>60); Est Glom Filt Rate - Afr Amer 115 mL/min (>60); Estimated Creatinine Clearance 95.53 ml/min; Glucose 99 mg/dL (74-106); Potassium 3.3 mmol/L (3.5-5.1); Sodium Level 138 mmol/L (136-145)
[2024-04-13] MEDS: Valproate Sodium 500 MG in Dextrose 5%-Water (50mL Bag) 50 ML 50 MG IV (22:04)
[2024-04-13] MEDS: LORazepam 2 MG/ML Syringe 1 MG IV (22:42)
[2024-04-13] MEDS: dexAMETHasone 10 MG/ML Vial IV (23:18)
[2024-04-13] MEDS: Potassium Chloride Oral Tablet 20 MEQ PO (23:18)
[2024-04-13 23:20] VITALS: BP 130/86; PULSE 86; RESP 21; TEMP 36.2; O2SAT 94
== END 2024-04-14 | disposition home or self-care (01) ==
PROVIDERS: Emergency Provider Emergency Medicine; PCP Student in an Organized Health Care Education/Training Program; Visit Provider Emergency Medicine
DX: G43.909 Migraine, unspecified, not intractable, without status migrainosus (principal); E87.6 Hypokalemia; Z90.49 Acquired absence of other specified parts of digestive tract
CPT/HCPCS: 70450; 80048; 85025; 96361; 96374; 96375; 99284; A4216; J1110; J2405

== ENCOUNTER 2024-04-18 20:50 | Emergency (ER) | payer MEDICAID, SELFPAY ==
[2024-04-18 20:51] VITALS: BP 136/91; PULSE 89; RESP 17; TEMP 36.4; O2SAT 97; BMI 25.7
--- NOTE | 2024-04-18 21:36 | ED.VIS.BACK ---
HPI History of Present Illness Chief Complaint: Back Detail of Chief Complaint: Atraumatic neck pain. History of spinal stenosis. Informant: patient Onset/Context/Timing Onset: Weeks Context: Gradual Onset Timing: Continuous Quality: Dull and Aching Current Severity: Mild Maximum Severity: Mild Worsened by: improves with Movement Relieved by: Remaining Still Associated Symptoms Associated Symptoms: Tingling Narrative Narrative: 39-year-old female history of spinal stenosis prior TIA on Xarelto and history of seizure disorder. She has had worse neck pain last several weeks. Denies any fall injury or trauma. No fever. No new headaches. States that she has had some mild tingling in her hands. But denies any weakness in her upper or lower extremities. Pain is worse with movement of her neck. She denies any recent illness. Prior similar symptoms: Yes Recent Illness/Hospitalization: No PFSH PFSH Medical History Wears glasses Wears contact lenses Open wound Excessive bleeding Migraine headache History of stress test History of echocardiogram History of irregular heartbeat Seizures Cardiology follow-up encounter Endometriosis determined by laparoscopy Lupus anticoagulant disorder DVT (deep venous thrombosis) TIA (transient ischemic attack) left sided parathesias Home Medications ?Medication ?Instructions ?Recorded ?Last Taken ?Type topiramate 50 mg tablet (Topamax) 50 mg PO Q12H 04/05/21 Unknown History escitalopram oxalate 20 mg tablet 20 mg PO DAILY 07/02/23 07/09/23 History metoprolol tartrate 50 mg tablet 25 mg PO Q12H 07/02/23 Unknown History (Lopressor) rivaroxaban 20 mg tablet (Xarelto) 20 mg PO DAILY 07/02/23 07/06/23 History lorazepam 2 mg tablet 1 mg PO Q8H PRN anxiety 02/14/24 Unknown History dextroamphetamine-amphetamine ER 1 cap PO DAILY 04/13/24 Unknown History 30 mg 24hr capsule,extend release norethindrone (contraceptive) 0.35 0.35 mg PO DAILY 04/13/24 Unknown History mg tablet Allergy/AdvReac Type Severity Reaction Status Date / Time acetaminophen (From Vicodin) Allergy Hives Verified 04/18/24 20:55 hydrocodone bitartrate (From Allergy Hives Verified 04/18/24 20:55 Vicodin) ketorolac tromethamine (From Allergy Hives Verified 04/18/24 20:55 Toradol) metoclopramide (From Reglan) Allergy Other Verified 04/18/24 20:55 metronidazole (From Metrogel) Allergy Swelling Verified 04/18/24 20:55 onion (Onion) Allergy Hives Verified 04/18/24 20:55 skin cleanser (From Metrogel) Allergy Swelling Verified 04/18/24 20:55 prochlorperazine (From AdvReac Other Verified 04/18/24 20:55 Compazine) promethazine (From Phenergan) AdvReac Other Verified 04/18/24 20:55 Family History Mother Diabetes Hypertension Father Hypertension Sister Thyroid disorder Surgical History Hx of surgical procedure Hx of surgical procedure Hx of laparoscopy S/P foot surgery, right H/O bilateral salpingectomy Hx of cholecystectomy Social History household members: significant other and children housing: house current occupational status: employed Smoking Status: Never smoker alcohol intake: current alcohol intake frequency: holidays/special occasions only ROS ROS ED ROS Narrative Denies recent illness. Review of Systems ROS Unobtainable: Denies due to encephalopathy Constitutional Constitutional ED: Denies chills or fever(s) Eyes Eyes: Denies blurry vision ENT ENT ED: Denies ear pain Cardiovascular Cardiovascular: Denies chest pain Respiratory/Chest Respiratory/Chest: Denies dyspnea Gastrointestinal Gastrointestinal: Denies abdominal pain Genitourinary Genitourinary ED: Denies dysuria or hematuria Musculoskeletal Musculoskeletal: Reports neck pain; Denies arthralgias, back pain or myalgias Integumentary Denies abscess or Abrasions Neurologic Neurologic: Denies headache(s) Psychiatric Psychiatric: Denies anxiety Endocrine Endocrinology: Denies cold intolerance Hematologic/Lymphatic Hematologic/Lymphatic: Denies easy bleeding or easy bruising Allergic/Immunologic Allergic/Immunologic ED: Denies mouth swelling, tongue swelling or urticaria EXAM Physical Exam Narrative Exam Narrative: Well-appearing 39-year-old female. Vital signs stable afebrile. H EENT exam unremarkable. Pupils round react light. Mytrex members. No facial droop. Normal speech. No trauma. Neck no reproducible pain. She complains of neck discomfort around her mid neck. Trachea midline. No lymphadenopathy. She can rotate her neck left or right. She can flex and extend it just uncomfortable. She does not have meningismus. Back nontender. Normal exam. Lungs clear to auscultation. Heart regular rhythm rate about 85 no murmur. Chest wall and ribs nontender. Abdomen soft nontender. Moving all 4 extremities. Able to walk. 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 Dorsi plantarflexion intact. No cauda equina. No saddle anesthesia. Normal medial thigh sensation. Neurologically she is awake and alert. Has no focal muscle weakness. Does not have loss of sensation. Has an NIH is 0. Const Vital Signs: 04/18/24 20:51 Temperature 97.6 F L Temperature Source Temporal Pulse Rate 89 Respiratory Rate 17 Blood Pressure 136/91 H Blood Pressure Mean 106 Pulse Ox 97 Oxygen Delivery Method Room Air Positive well nourished and well developed; Negative for obese, cachectic, contractures or unkempt General Appearance ED: well developed and NAD; Negative for unkempt, cachectic, contractures or pallor Nutritional Appearance: Negative for cachectic or obese HEENT Reports moist mucous membranes; Denies dry mucous membranes Negative for trauma Mouth ED: No dry mucous membranes Mouth: No dry mucous membranes Eyes PERRL and EOMs intact bilaterally General Eye ED: Negative for pale conjunctiva or scleral icterus Neck no lymphadenopathy, supple and no JVD General: Negative for tenderness Thyroid: Negative for other Resp normal respiratory effort and clear to auscultation bilaterally Effort and Inspection: Negative for pain with movement Auscultation: Negative for rales, rhonchi, wheezes or diminished lung sounds Cardio regular rate, regular rhythm, S1 normal heart sound, S2 normal heart sound and no murmurs Palpation: Negative for palpable S3 Rate: Negative for bradycardia or tachycardic Rhythm: Negative for abnormal rhythm Bruits: Negative for other GI normal to inspection, nondistended, normoactive bowel sounds, soft to palpation, non-tender, non-distended and no masses Inspection: Negative for abdominal distention Palpation: Negative for tender or guarding Back/Spine normal to inspection and no thoracic nor lumbar tenderness Back/Spine Narrative: Able to do flexion extension neck. Mild discomfort. No meningismus. Able to do rotation left to right. General Back: Negative for CVA tenderness Cervical Spine: Negative for cervical spine tenderness and Negative for paracervical muscle tenderness Thoracic Spine / Upper Back: Negative for paraspinal muscle tenderness Lumbar Spine / Lower Back: Negative for ROM limited Extremity normal to inspection and no clubbing, cyanosis or edema General Extremety ED: Negative for edema or tenderness General Extremity: Negative for edema Neuro oriented x3 and no sensory deficits noted Sensorium / Orientation: alert; Negative for confused, lethargic or stuporous Motor Exam: strength 5/5 throughout Psych mental status grossly normal Appearance: Negative for unkempt Attitude: No agitated Mood & Affect: Negative for depressed, sad or tearful Skin no rashes or lesions noted and no wounds General Skin Exam: Negative for jaundice or pallor Lesions: No lesion noted Rashes: No rashes noted Trauma: Negative for abrasion or puncture Wounds: Negative for wounds noted MDM MDM MDM Narrative Medical decision making narrative: 39-year-old female history of spinal stenosis. Complaining of neck pain. No trauma. No falls. No fever. I explained to her she needs follow-up she may need a repeat MRI from when she had done around 9 years ago. But there is nothing to do acutely tonight. She wanted something for pain she will be given a oxycodone and discharged home with outpatient follow-up with her primary care physician to get an MRI set up. Currently she has no neurological deficit. Discharge Plan Triage Chief Complaint: Back ED Provider: Enrique Apodaca Dx/Rx/DC Orders Clinical Impression: Acute neck pain, History of spinal stenosis, History of TIAs, Chronic anticoagulation Instructions: ED Neck Pain Prescriptions: No Action topiramate [Topamax] 50 MG tablet 50 mg PO Q12H Patient Comments: migraine Xarelto 20 mg tablet 20 mg PO DAILY Rx Instructions: must administer with evening meal escitalopram oxalate 20 mg tablet 20 mg PO DAILY metoprolol tartrate [Lopressor] 50 mg tablet 25 mg PO Q12H lorazepam 2 mg tablet 1 mg PO Q8H PRN (Reason: anxiety) Patient Comments: TAKE 1/2-1 TABLET BY MOUTH THREE TIMES A DAY NEEDED dextroamphetamine-amphetamine 30 mg capsule,extended release 24hr 1 cap PO DAILY norethindrone (contraceptive) 0.35 mg tablet 0.35 mg PO DAILY Primary Care Provider: Rodolfo Rivera Referrals: Rodolfo Rivera MD [Primary Care Provider] - As soon as possible Activity Restrictions/Additional Instructions: This may or may not be secondary to her spinal stenosis. Follow-up with your primary care physician for further evaluation you may need repeat MRI. Print Language: Nepali Disposition Disposition: Home, Self Care
[2024-04-18] MEDS: oxyCODONE 5 MG Tablet PO (21:51)
[2024-04-18 21:52] VITALS: BP 112/78; PULSE 89; RESP 16; TEMP 36.2; O2SAT 99
== END 2024-04-18 21:58 | disposition home or self-care (01) ==
LOC: ED 21:46
PROVIDERS: Emergency Provider Emergency Medicine; PCP Student in an Organized Health Care Education/Training Program; Visit Provider Emergency Medicine
DX: M54.2 Cervicalgia (principal); G40.909 Epilepsy, unspecified, not intractable, without status epilepticus; Z86.73 Personal history of transient ischemic attack (TIA), and cerebral infarction without residual deficits; Z79.01 Long term (current) use of anticoagulants; Z79.899 Other long term (current) drug therapy; Z90.49 Acquired absence of other specified parts of digestive tract; M48.00 Spinal stenosis, site unspecified
CPT/HCPCS: 99282

== ENCOUNTER 2024-06-13 15:32 | Emergency (ER) | payer MEDICAID, SELFPAY ==
[2024-06-13 15:33] VITALS: BP 138/98; PULSE 110; RESP 18; TEMP 36.2; O2SAT 100; BMI 27.1
--- NOTE | 2024-06-13 15:51 | CT_ITS ---
STUDY: CT Abdomen And Pelvis W/O Contrast Injection 06/13/2024 4:30 PM REASON FOR EXAM: Female, 39 years old. ABDOMINAL PAIN flank pain on left TECHNIQUE: Transaxial images were obtained without oral contrast, and without intravenous contrast. Individualized dose optimization techniques were used for this CT. COMPARISON: 04.05.21 FINDINGS: The visualized lung bases are unremarkable. The visualized portions of the heart are within normal limits. There is hepatomegaly with diffuse hepatic enlargement. There are surgical clips in the gallbladder fossa consistent with a prior cholecystectomy. Unremarkable spleen. Unremarkable pancreas. Unremarkable bilateral adrenal glands. No acute findings of the right kidney. No acute findings of the left kidney. Unremarkable visualized stomach. Unremarkable small intestine. There are multiple colonic diverticula consistent with diverticulosis. The appendix is visualized and appears unremarkable. There are no acute findings of the abdominal aorta. Unremarkable inferior vena cava. Subcentimeter mesenteric lymph nodes. 34 mm right ovarian cyst. Unremarkable urinary bladder. Normal visualized uterus. There is an umbilical hernia containing fat. Unremarkable osseous structures. CT/Abdomen/Pelvis without Cont IMPRESSION: (NOT LISTED IN ORDER OF SIGNIFICANCE) Enlarged liver. There are multiple colonic diverticula consistent with diverticulosis. There are surgical clips in the gallbladder fossa consistent with a prior cholecystectomy. Other findings as above. Electronically Signed: Aj Lowry MD at 16:32 EDT ,
[2024-06-13] MEDS: 0.9% Normal Saline (1000mL) 1,000 ML 999 ML IV (15:55)
[2024-06-13] MEDS: Morphine 4 MG/ML Syringe IV (15:55)
[2024-06-13] MEDS: Ondansetron 4 MG/2 ML Vial IV (15:55)
[2024-06-13 16:07] LABS: Mucous, Urine 0 SEEN /hpf (<or=2+); White Blood Cells 0 SEEN /hpf (0-5)
[2024-06-13 16:10] LABS: Absolute Lymphocyte Count 1.68 X10^3/uL (0.83-4.51); Absolute Neutrophil Count 4.3 X10^3/uL (2.0-7.7); Basophil# 0.02 X10^3/uL; Basophil% 0.3 % (0-1); Eosinophil# 0.12 X10^3/uL; Eosinophils% 1.8 % (0-5); Hematocrit 40.9 % (37-47); Hemoglobin 13.6 g/dL (12.0-15.0); Lymphocyte # 1.68 X10^3/ul (0.83-4.51); Lymphocyte % 25.6 % (19-41); Mean Corp Hgb Conc 33.3 g/dL (32-36); Mean Corpuscular Hgb 32.5 pg (27.0-32.0); Mean Corpuscular Volume 97.8 fL (81-99); Mean Platelet Vol. 10.7 fl (6.2-12.0); Monocyte# 0.38 X10^3/uL; Monocyte% 5.8 % (0-10); NRBC Flagged by Analyzer 0 % (0-5); Neutrophil # 4.33 X10^3/uL (2.7-7.7); Neutrophil % 66.2 % (47-70); Platelet Count 312 K/mm3 (150-450); RBC Distribution Width CV 12.3 % (11.6-14.6); RBC Distribution Width SD 43.7 fl (35.1-43.9); Red Blood Count 4.18 M/mm3 (4.2-5.4); White Blood Count 6.6 K/mm3 (4.4-11.0)
--- NOTE | 2024-06-13 16:17 | EDS_ITS ---
<Statement entered by Nolan Davidson DO - 06/13/24 18:02> Patient was seen and examined with nurse jaclyn Shields All components of the history and physical confirmed and agreed. History of present illness and physical exam: Patient is a 39-year-old female with past medical history of lupus anticoagulant on Xarelto, TIA who presents to the main campus medical center part with chief complaint of left- sided flank pain. Patient states that for the past 2 days she has noted discomfort and last week she also felt that she may have a UTI she followed up with her primary care physician and had a urine obtained and was not diagnosed with a urinary tract infection at a point time. She states that she is having some blood with her urine but denies any painful urination or increased frequ ency of urinating. Patient's states that she does not have a history of kidney stones but states that she feels like given her symptoms she may have 1. Patient states that she has been compliant with her Xarelto not missing any doses. Patient denies any vaginal bleeding or vaginal discharge Review of systems: Agree with above Physical exam: General: Patient was lying in bed rest comfortably did not appear to be in acute distress Head: Atraumatic, normocephalic Eyes: PERRL bilaterally, EOMI bilaterally, no conjunctival injection noted Neck: Soft, supple, trachea midline Cardiovascular: Regular rate and rhythm Respiratory: Clear to auscultation bilaterally Abdomen: No tenderness palpation, soft, no rebound or guarding on exam, bowel sounds present x 4 Musculoskeletal: No midline tenderness palpation thoracolumbar spine. Patient has very minimal tenderness in the left CVA region Extremities: +5/5 strength noted in the bilateral upper and lower extremities, no pedal edema noted on exam Neurological: Patient follow commands that she is at [facility] year is 2023 sensation grossly intact Skin: Warm, dry, intact no rashes or lesions noted MDM Patient is a 39-year-old female who presents to the main campus medical center part with a chief complaint of left-sided flank pain. Patient will have a workup performed here on the differential diagnose includes but not limited to UTI, pyelonephritis, urolithiasis, nephrolithiasis. Once workup is obtained reviewed she will be reevaluated. Patient CBC reviewed showed no evidence of leukocytosis white blood cell count normal at 6.6, hemoglobin stable at 13.6, platelet count normal at 312. Patient's sodium normal at 136, potassium was 3.1 potassium was sent to her pharmacy, creatinine 0.65, AST and ALT were 15 and 21 respectively. Patient lipase was noted be 36, patient's urinalysis revealed and showed 250 occult blood, positive nitrites with 25 leukocyte esterase 0 white blood cells seen with 2+ bacteria urine was sent for culture. She will be given prescription for Keflex and was encouraged to follow-up with her primary care physician in the outpatient setting with this to see if she needs to continue these antibiotics or not. Patient was encouraged to return with worsening symptoms or other concerns. She would like to go home at this point time patient's family ember at bedside is agreeable with this plan all question concerns were answered she was discharged home in stable condition. 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 Patient states 2 days ago she is noticed some left- sided flank pain she also noticed some blood in her urine. When the pain comes on, it was severe and it made her nausea and vomiting. Patient denies any fever or chills. Patient states that her urine is bloody however she is unsure if this is secondary to her Xarelto. [facility] Medical History Wears glasses Wears contact lenses Open wound Excessive bleeding Migraine headache History of stress test History of echocardiogram History of irregular heartbeat Seizures Cardiology follow-up encounter Endometriosis determined by laparoscopy Lupus anticoagulant disorder DVT (deep venous thrombosis) TIA (transient ischemic attack) left sided parathesias Home Medications ?Medication ?Instructions ?Recorded ?Last Taken ?Type topiramate 50 mg tablet (Topamax) 50 mg PO Q12H 04/05/21 Unknown History metoprolol tartrate 50 mg tablet 25 mg PO Q12H 07/02/23 Unknown History (Lopressor) rivaroxaban 20 mg tablet (Xarelto) 20 mg PO DAILY 07/02/23 07/06/23 History dextroamphetamine-amphetamine ER 1 cap PO DAILY 04/13/24 Unknown History 30 mg 24hr capsule,extend release norethindrone (contraceptive) 0.35 0.35 mg PO DAILY 04/13/24 Unknown History mg tablet baclofen 10 mg tablet 10 mg PO DAILY PRN pain 06/13/24 Unknown History cephalexin 500 mg capsule 500 mg PO TID 7 days #21 caps 06/13/24 Unknown Rx gabapentin 100 mg capsule 100 mg PO BID 06/13/24 Unknown History ondansetron 4 mg disintegrating 4 mg PO Q8H PRN PRN Nausea #10 tabs 06/13/24 Unknown Rx tablet oxycodone-acetaminophen 5 mg-325 1 tab PO Q8H PRN pain 2 days #6 06/13/24 Unknown Rx mg tablet (Percocet) tabs zolpidem 5 mg tablet 5 mg PO QHS insomnia 06/13/24 Unknown History Allergy/AdvReac Type Severity Reaction Status Date / Time acetaminophen (From Vicodin) Allergy Hives Verified 06/13/24 15:33 hydrocodone bitartrate (From Allergy Hives Verified 06/13/24 15:33 Vicodin) ketorolac tromethamine (From Allergy Hives Verified 06/13/24 15:33 Toradol) metoclopramide (From Reglan) Allergy Other Verified 06/13/24 15:33 metronidazole (From Metrogel) Allergy Swelling Verified 06/13/24 15:33 onion (Onion) Allergy Hives Verified 06/13/24 15:33 skin cleanser (From Metrogel) Allergy Swelling Verified 06/13/24 15:33 prochlorperazine (From AdvReac Other Verified 06/13/24 15:33 Compazine) promethazine (From Phenergan) AdvReac Other Verified 06/13/24 15:33 Family History Mother Diabetes Hypertension Father Hypertension Sister Thyroid disorder Surgical History Hx of surgical procedure Hx of surgical procedure Hx of laparoscopy S/P foot surgery, right H/O bilateral salpingectomy Hx of cholecystectomy Social History household members: significant other and children housing: house current occupational status: employed Smoking Status: Never smoker alcohol intake: current alcohol intake frequency: holidays/special occasions only ROS ROS ED ROS Narrative Constitutional: Negative for fever, chills, weight loss, weakness Eyes: Negative for vision loss, vision change, double vision ENT: Negative for any sore throat, ear pain, congestion Cardiovascular: Negative for any chest pain, tightness, palpitations Respiratory: Negative for any cough, sputum production, hemoptysis, dyspnea, dyspnea on exertion, orthopnea Gastrointestinal: Negative for any abdominal pain, nausea, vomiting, diarrhea, constipation, blood in stool, blood in vomit : Negative for any urinary frequency, dysuria, retention. Positive for blood in urine Muscle skeletal: Negative for any neck pain. Positive for left-sided flank pain Neurological: Negative for any headache, syncope, dizziness Skin: Negative for any rashes, itching, abrasions, lacerations Psychiatric: Negative for any depression, anxiety, stress, suicidal ideation, homicidal ideation Hematologic: Negative for any excessive bruising, easy bleeding EXAM Physical Exam Narrative Exam Narrative: Vital signs reviewed. HEET: Head normocephalic atraumatic, TMs clear bilaterally. Posterior pharynx is clear, moist mucous membranes. Nares clear bilaterally. Neck: Supple with no lymphadenopathy or tenderness. No signs of meningismus. Cardiac: Regular rate and rhythm no murmurs gallops or rubs, equal peripheral pulses bilaterally. Respiratory: Lungs clear to auscultation bilaterally. No chest tenderness. Abdomen: Soft, nontender, nondistended. No abdominal bruit or pulsatile masses. No hepatosplenomegaly Extremities: No peripheral edema, no signs of gross trauma or deformity. Active full range of motion of all extremities. Neuro: Cranial nerves II through XII intact, no focal neurological deficits. Skin: Clean dry and intact with no rash, purpura, petechiae, vesicles or pustules. Backs/flank: no midline spinal tenderness, no deformity. Positive for left- sided CVA tenderness Psych: Normal mood and affect. No SI, HI or acute psychosis. Const Vital Signs: 06/13/24 15:33 Temperature 97.2 F L Temperature Source Temporal Pulse Rate 110 H Respiratory Rate 18 Blood Pressure 138/98 H Blood Pressure Mean 111 Pulse Ox 100 Oxygen Delivery Method Room Air [facility] Lab Data Labs: Laboratory Results - last 24 hr 06/13/24 15:45 WBC 6.6 RBC 4.18 L Hgb 13.6 Hct 40.9 MCV 97.8 MCH 32.5 H MCHC 33.3 RDW Std Deviation 43.7 RDW Coeff of Justo 12.3 Plt Count 312 MPV 10.7 Immature Gran % (Auto) 0.300 Neut % (Auto) 66.2 Lymph % (Auto) 25.6 [place] % (Auto) 5.8 Eos % (Auto) 1.8 Baso % (Auto) 0.3 Absolute Neuts (auto) 4.3 Absolute Lymphs (auto) 1.68 Nucleated RBC % 0 Sodium 136 Potassium 3.1 L Chloride 105 Carbon Dioxide 24.0 Anion Gap 7 BUN 11 Creatinine 0.65 Estim Creat Clear Calc 110.71 Est GFR (MDRD) Af Amer 131 Est GFR (MDRD) Non-Af 108 BUN/Creatinine Ratio 16.9 Glucose 99 Calcium 9.0 Total Bilirubin 0.20 AST 15 ALT 21 Alkaline Phosphatase 70 Total Protein 7.9 Albumin 4.3 Globulin 3.6 Albumin/Globulin Ratio 1.2 Lipase 36 Urine Color Rosina Urine Clarity Cloudy Urine pH 5.0 Ur Specific [place] 1.030 Urine Protein 500 H Urine Glucose (UA) Normal Urine Ketones 5 H Urine Occult Blood 250 H Urine Nitrite Positive H Urine Bilirubin Negative Urine Urobilinogen 1 H Ur Leukocyte Esterase 25 H Urine RBC 25-50 SEEN Urine WBC 0 SEEN Ur Squamous Epith Cells 0-5 SEEN Urine Bacteria 2+ Urine Mucus 0 SEEN Radiography Diagnostic Testing: Clinical Impression(s) from Imaging Studies Abdomen/Pelvis CT 06/13/24 15:51 IMPRESSION: (NOT LISTED IN ORDER OF SIGNIFICANCE) Enlarged liver. There are multiple colonic diverticula consistent with diverticulosis. There are surgical clips in the gallbladder fossa consistent with a prior cholecystectomy. Other findings as above. Electronically Signed: Aj Lowry MD at 16:32 EDT , Treatment and Re-Evaluation :: Differential diagnosis includes however is not limited to: Obstructing uropathy, pyelonephritis, kidney injury, UTI, cystitis Patient appears to be in mild distress secondary to pain to the left flank that rates the left abdomen. Patient is nontoxic-appearing, vital signs are stable. Patient will receive a flank pain workup. CBC CMP lipase, checking for kidney function. Patient received a CT scan of the abdomen pelvis without contrast, IV fluids Zofran and morphine. All radiologic examinations were read, reviewed by the emergency department attending. From these reads, a plan of care will be put in place. Urinalysis will also be checked, patient will be reevaluated after IV pain medicine. On reevaluation, the patient had mild improvement. Laboratory values showed normal CBC, chemistry showed a potassium 3.1, was replaced orally. Lipase was negative. Patient's urinalysis did show 2+ bacteria 0-5 squamous cells, 25-50 red blood cells, 25 leukocytes positive for nitrites. This we sent for culture, patient will be treated with Keflex 3 times a day for 7 days. Urine culture sent. Patient given a prescription for Zofran as well as some pain medicine. Instructed return for any worsening symptoms, patient stable for discharge. Discharge Plan Triage Chief Complaint: Flank Pain ED Midlevel Provider: Cornelius Pierce ED Provider: Nolan Davidson Dx/Rx/DC Orders Clinical Impression: Acute flank pain, Hematuria, UTI (urinary tract infection) Instructions: Urinary Tract Infections in Women, ED Flank Pain, Uncertain Cause, ED Hematuria Prescriptions: New oxycodone-acetaminophen [Percocet] 5-325 mg tablet 1 tab PO Q8H PRN (Reason: pain) 2 Days Qty: 6 0RF ondansetron 4 mg tablet,disintegrating 4 mg PO Q8H PRN PRN (Reason: Nausea) Qty: 10 0RF cephalexin 500 mg capsule 500 mg PO TID 7 Days Qty: 21 0RF No Action topiramate [Topamax] 50 MG tablet 50 mg PO Q12H Patient Comments: migraine Xarelto 20 mg tablet 20 mg PO DAILY Rx Instructions: must administer with evening meal metoprolol tartrate [Lopressor] 50 mg tablet 25 mg PO Q12H baclofen 10 mg tablet 10 mg PO DAILY PRN (Reason: pain) zolpidem 5 mg tablet 5 mg PO QHS gabapentin 100 mg capsule 100 mg PO BID dextroamphetamine-amphetamine 30 mg capsule,extended release 24hr 1 cap PO DAILY norethindrone (contraceptive) 0.35 mg tablet 0.35 mg PO DAILY Primary Care Provider: Rodolfo Rivera Referrals: Rodolfo Rivera MD [Primary Care Provider] - Activity Restrictions/Additional Instructions: Follow-up outpatient. Take antibiotics until finished. Print Language: Latvian Disposition Disposition: Home, Self Care
[2024-06-13 16:24] LABS: ALB/GLOB Ratio 1.2 RATIO (0.9-2.4); AST(SGOT) 15 U/L (15-37); Alanine Aminotransfer ALT/SGPT 21 U/L (13-56); Albumin, Serum 4.3 g/dL (3.2-5.0); Alkaline Phosphatase 70 U/L (45-117); Anion Gap 7 (5-15); BUN 11 mg/dL (7-18); BUN/Creat Ratio 16.9 RATIO (10-20); Chloride 105 mmol/L (98-107); Creatinine, Serum 0.65 mg/dL (0.55-1.02); EST Glomerular Filtration Rate 108 mL/min (>60); Est Glom Filt Rate - Afr Amer 131 mL/min (>60); Estimated Creatinine Clearance 110.71 ml/min; Globulin 3.6 g/dL (2.2-4.2); Glucose 99 mg/dL (74-106); Lipase 36 U/L (13-75); Potassium 3.1 mmol/L (3.5-5.1); Protein, Total 7.9 g/dL (6.4-8.2); Sodium Level 136 mmol/L (136-145)
[2024-06-13 16:28] LABS: Color, Urine Amber (Yellow); Glucose, Dipstick Normal (Normal); Ketone-Dipstick 5 mg/dl (Negative); Leukocyte Esterase-Dipstick 25 /ul (Negative); Nitrite-Dipstick Positive (Negative); Occult Blood-Urine 250 /ul (Negative); Protein-Dipstick 500 mg/dl (Negative); Urine Bilirubin Dipstick Negative (Negative); Urine Clarity Cloudy (Clear); Urine Urobilinogen 1 mg/dl (Normal)
[2024-06-13 16:53] LABS: Squamous Epithelial Cells - UA 0-5 SEEN /hpf (5-10)
[2024-06-13 16:54] LABS: Bacteria 2+ /hpf (None Seen); Red Blood Cells-Urine 25-50 SEEN /hpf (0-5)
[2024-06-13 17:27] VITALS: BP 122/78; PULSE 80; RESP 16; TEMP 36.6; O2SAT 99
== END 2024-06-13 17:28 | disposition home or self-care (01) ==
PROVIDERS: Nurse Practitioner; Emergency Provider Emergency Medicine; PCP Student in an Organized Health Care Education/Training Program; Visit Provider Emergency Medicine
DX: R10.9 Unspecified abdominal pain (principal); N39.0 Urinary tract infection, site not specified; E87.6 Hypokalemia; D68.62 Lupus anticoagulant syndrome; Z79.01 Long term (current) use of anticoagulants; Z86.73 Personal history of transient ischemic attack (TIA), and cerebral infarction without residual deficits; Z90.49 Acquired absence of other specified parts of digestive tract
CPT/HCPCS: 74176; 80053; 81001; 83690; 85025; 87086; 87088; 96361; 96374; 96375; 99283; J7030; A4216; J2405

== ENCOUNTER 2024-06-27 22:14 | Emergency (ER) | payer MEDICAID, SELFPAY ==
[2024-06-27 22:15] VITALS: BP 137/107; PULSE 155; RESP 18; TEMP 36.9; O2SAT 100; BMI 27.1
--- NOTE | 2024-06-27 22:59 | EDS_ITS ---
HPI <Dr. Dieter Morejon MD - Last Filed: 06/29/24 21:48> HPI - GI History of Present Illness Chief Complaint: Abd Pain Detail of Chief Complaint: Abdominal pain with nausea, vomiting diarrhea Informant: patient Abdominal Pain/Flank Pain Onset: Today Context: Sudden Onset Timing: Continuous and Waxes and wanes Quality: Aching, Cramping and Sharp Location: - (Initially periumbilical now right lower quadrant) Current Severity: Moderate Maximum Severity: Severe Worsened by: Nothing Relieved by: Nothing Nausea/Vomiting/Emesis GI Symptom: Positive for Nausea and Vomiting (X 2) Onset: Hours Quality: Positive for - (Not bloody or coffee-ground in appearance. Was clear) Severity: Mild Diarrhea/Melena/Hematochezia GI Symptom: Positive for Diarrhea (2 mushy stools without blood or mucus. 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 She states she had nausea with emesis x 2. There is no blood or coffee-ground's in the emesis. It was clear. She had 2 mushy soft brown stools as well. There is no history of ill contacts. She denies any black or maroon stool recently. She does have history of endometriosis. She underwent surgery for the endometriosis. She is status post salpingectomy bilaterally. She also is status postcholecystectomy. She denies fever, chills or night sweats. She denies upper respiratory symptoms. She denies cardiac symptoms. Patient denies bruising easily. Patient states she is never had pain like this before. Prior similar symptoms: No Recent Illness/Hospitalization: No PFSH <Dr. Dieter Morejon MD - Last Filed: 06/29/24 21:48> PFSH Medical History Wears glasses Wears contact lenses Open wound Excessive bleeding Migraine headache History of stress test History of echocardiogram History of irregular heartbeat Seizures Cardiology follow-up encounter Endometriosis determined by laparoscopy Lupus anticoagulant disorder DVT (deep venous thrombosis) TIA (transient ischemic attack) left sided parathesias Home Medications ?Medication ?Instructions ?Recorded ?Last Taken ?Type topiramate 50 mg tablet (Topamax) 50 mg PO Q12H 04/05/21 Unknown History metoprolol tartrate 50 mg tablet 25 mg PO Q12H 07/02/23 Unknown History (Lopressor) rivaroxaban 20 mg tablet (Xarelto) 20 mg PO DAILY 07/02/23 07/06/23 History dextroamphetamine-amphetamine ER 1 cap PO DAILY 04/13/24 Unknown History 30 mg 24hr capsule,extend release norethindrone (contraceptive) 0.35 0.35 mg PO DAILY 04/13/24 Unknown History mg tablet baclofen 10 mg tablet 10 mg PO DAILY PRN pain 06/13/24 Unknown History cephalexin 500 mg capsule 500 mg PO TID 7 days #21 caps 06/13/24 Unknown Rx gabapentin 100 mg capsule 100 mg PO BID 06/13/24 Unknown History ondansetron 4 mg disintegrating 4 mg PO Q8H PRN PRN Nausea #10 tabs 06/13/24 Unknown Rx tablet oxycodone-acetaminophen 5 mg-325 1 tab PO Q8H PRN pain 2 days #6 06/13/24 Unknown Rx mg tablet (Percocet) tabs potassium chloride 20 mEq 40 meq (2 x 20 mEq) PO DAILY 5 06/13/24 Unknown Rx tablet,extended release days #10 tabs zolpidem 5 mg tablet 5 mg PO QHS insomnia 06/13/24 Unknown History Allergy/AdvReac Type Severity Reaction Status Date / Time acetaminophen (From Vicodin) Allergy Hives Verified 06/27/24 22:18 hydrocodone bitartrate (From Allergy Hives Verified 06/27/24 22:18 Vicodin) ketorolac tromethamine (From Allergy Hives Verified 06/27/24 22:18 Toradol) metoclopramide (From Reglan) Allergy Other Verified 06/27/24 22:18 metronidazole (From Metrogel) Allergy Swelling Verified 06/27/24 22:18 onion (Onion) Allergy Hives Verified 06/27/24 22:18 skin cleanser (From Metrogel) Allergy Swelling Verified 06/27/24 22:18 prochlorperazine (From AdvReac Other Verified 06/27/24 22:18 Compazine) promethazine (From Phenergan) AdvReac Other Verified 06/27/24 22:18 Family History Mother Diabetes Hypertension Father Hypertension Sister Thyroid disorder Surgical History Hx of surgical procedure Hx of surgical procedure Hx of laparoscopy S/P foot surgery, right H/O bilateral salpingectomy Hx of cholecystectomy Social History household members: significant other and children housing: house current occupational status: employed Smoking Status: Never smoker alcohol intake: current alcohol intake frequency: holidays/special occasions only ROS <Dr. Dieter Morejon MD - Last Filed: 06/29/24 21:48> ROS ED Constitutional Constitutional ED: Denies chills, fever(s), subjective, sweats or weight loss ENT ENT ED: Denies ear pain, rhinorrhea or sore throat Cardiovascular Cardiovascular: Denies chest pain or palpitations Respiratory/Chest Respiratory/Chest: Denies cough, dyspnea or dyspnea on exertion Gastrointestinal Gastrointestinal: Reports abdominal pain, diarrhea, nausea and vomiting; Denies constipation or melena Genitourinary Genitourinary ED: Reports LMP (females 10-50) Details: Comment: (Approximately 1 week ago.); Denies dysuria, hematuria or urinary frequency Musculoskeletal Musculoskeletal: Denies arthralgias, back pain, myalgias or neck pain Integumentary Denies rash Neurologic Neurologic: Denies headache(s) Hematologic/Lymphatic Hematologic/Lymphatic: Denies easy bleeding or easy bruising EXAM <Dr. Dieter Morejon MD - Last Filed: 06/29/24 21:48> Physical Exam Const Vital Signs: 06/27/24 22:15 06/28/24 00:15 Temperature 98.4 F Temperature Source Oral Pulse Rate 155 H 80 Respiratory Rate 18 16 Blood Pressure 137/107 H 130/95 H Blood Pressure Mean 117 106 Pulse Ox 100 96 Oxygen Delivery Method Room Air Room Air Positive well nourished and well developed General Appearance ED: well developed and pallor HEENT Reports TM's clear and dry mucous membranes HEENT Narrative: Posterior pharynx is normal. normocephalic and atraumatic Tympanic Membrane ED: Yes TM's clear Mouth ED: Yes dry mucous membranes Mouth: dry mucous membranes Eyes PERRL and EOMs intact bilaterally General Eye ED: Negative for pale conjunctiva or scleral icterus Neck no lymphadenopathy, supple and no JVD Resp normal respiratory effort and clear to auscultation bilaterally Cardio regular rhythm, S1 normal heart sound, S2 normal heart sound and no murmurs GI no masses; Negative for non-tender or non-distended Inspection: abdominal distention Auscultation: hypoactive bowel sounds Palpation: tender RLQ and guarding RLQ; Negative for rigid, hepatomegaly, splenomegaly or hernia Back/Spine no CVA tenderness Extremity full ROM General Extremety ED: Negative for edema or tenderness General Extremity: Negative for edema Neuro CN's II-XII intact bilaterally, moves all extremities, no sensory deficits noted and gait normal Sensorium / Orientation: alert Psych mental status grossly normal and thought process normal Skin no wounds General Skin Exam: pallor; Negative for jaundice Lesions: no lesions Rashes: no rashes <Dr. Felix Stallings DO - Last Filed: 06/28/24 00:48> Physical Exam Const Vital Signs: 06/27/24 22:15 06/28/24 00:15 Temperature 98.4 F Temperature Source Oral Pulse Rate 155 H 80 Respiratory Rate 18 16 Blood Pressure 137/107 H 130/95 H Blood Pressure Mean 117 106 Pulse Ox 100 96 Oxygen Delivery Method Room Air Room Air MDM <Dr. Dieter Morejon MD - Last Filed: 06/29/24 21:48> [facility] MDM Narrative Medical decision making narrative: Differential diagnosis would be abdominal pain of unknown etiology, gastroenteritis, mesenteric adenitis, appendicitis, regional enteritis. Will obtain appropriate blood work and CT of the abdomen pelvis with IV contrast. test was not ordered since she is status post bilateral salpingectomy and on control pills. Lab Data Attestation: I reviewed the patient's lab results. Lab results narrative: CBC is normal. Labs: Laboratory Results - last 24 hr 06/27/24 06/27/24 23:00 23:03 WBC 6.9 RBC 3.94 L Hgb 12.8 Hct 38.3 MCV 97.2 MCH 32.5 H MCHC 33.4 RDW Std Deviation 42.3 RDW Coeff of Justo 11.8 Plt Count 299 MPV 10.6 Immature Gran % (Auto) 0.300 Neut % (Auto) 62.6 Lymph % (Auto) 25.2 [place] % (Auto) 9.2 Eos % (Auto) 2.3 Baso % (Auto) 0.4 Absolute Neuts (auto) 4.3 Absolute Lymphs (auto) 1.73 Nucleated RBC % 0 Sodium 140 Potassium 3.4 L Chloride 107 Carbon Dioxide 27.0 Anion Gap 6 BUN 14 Creatinine 0.65 Estim Creat Clear Calc 110.71 Est GFR (MDRD) Af Amer 131 Est GFR (MDRD) Non-Af 108 BUN/Creatinine Ratio 21.5 H Glucose 100 Calcium 9.4 Urine Color Red Urine Clarity Cloudy Urine pH 7.0 Ur Specific [place] 1.010 Urine Protein 100 H Urine Glucose (UA) Normal Urine Ketones Negative Urine Occult Blood 150 H Urine Nitrite Negative Urine Bilirubin Negative Urine Urobilinogen Normal Ur Leukocyte Esterase 25 H Urine RBC > 100 SEEN Urine WBC 0-5 SEEN Ur Squamous Epith Cells 0-5 SEEN Urine Bacteria 0 SEEN Urine Mucus 0 SEEN UA is remarkable for occult blood on macro and leukoesterase. Micro reveals greater than 100 RBCs with 0-5 WBCs and no bacteria. Radiography Diagnostic Testing: Clinical Impression(s) from Imaging Studies Abdomen/Pelvis CT 06/27/24 23:15 IMPRESSION: No acute findings in the abdomen or pelvis. Normal appendix. Colonic diverticulosis again noted without evidence for acute diverticulitis. 1.5 cm follicle incidentally noted within the left ovary. No findings of small bowel obstruction or obstructive uropathy. Electronically Signed: John Maher MD at 0:10 EDT , CT of the abdomen pelvis IV contrast reviewed by me. There is no evidence of abnormality of the liver or kidneys. Surgical clips noted for cholecystectomy. Awaiting formal read by radiologist. <Dr. Felix Stallings, DO - Last Filed: 06/28/24 00:48> [facility] History & Record Review Discussion w/independent historian: Patient Lab Data Labs: Laboratory Results - last 24 hr 06/27/24 06/27/24 23:00 23:03 WBC 6.9 RBC 3.94 L Hgb 12.8 Hct 38.3 MCV 97.2 MCH 32.5 H MCHC 33.4 RDW Std Deviation 42.3 RDW Coeff of Justo 11.8 Plt Count 299 MPV 10.6 Immature Gran % (Auto) 0.300 Neut % (Auto) 62.6 Lymph % (Auto) 25.2 [place] % (Auto) 9.2 Eos % (Auto) 2.3 Baso % (Auto) 0.4 Absolute Neuts (auto) 4.3 Absolute Lymphs (auto) 1.73 Nucleated RBC % 0 Sodium 140 Potassium 3.4 L Chloride 107 Carbon Dioxide 27.0 Anion Gap 6 BUN 14 Creatinine 0.65 Estim Creat Clear Calc 110.71 Est GFR (MDRD) Af Amer 131 Est GFR (MDRD) Non-Af 108 BUN/Creatinine Ratio 21.5 H Glucose 100 Calcium 9.4 Urine Color Red Urine Clarity Cloudy Urine pH 7.0 Ur Specific [place] 1.010 Urine Protein 100 H Urine Glucose (UA) Normal Urine Ketones Negative Urine Occult Blood 150 H Urine Nitrite Negative Urine Bilirubin Negative Urine Urobilinogen Normal Ur Leukocyte Esterase 25 H Urine RBC > 100 SEEN Urine WBC 0-5 SEEN Ur Squamous Epith Cells 0-5 SEEN Urine Bacteria 0 SEEN Urine Mucus 0 SEEN Radiography Diagnostic Testing: Clinical Impression(s) from Imaging Studies Abdomen/Pelvis CT 06/27/24 23:15 IMPRESSION: No acute findings in the abdomen or pelvis. Normal appendix. Colonic diverticulosis again noted without evidence for acute diverticulitis. 1.5 cm follicle incidentally noted within the left ovary. No findings of small bowel obstruction or obstructive uropathy. Electronically Signed: John Maher MD at 0:10 EDT , Treatment and Re-Evaluation :: Patient was signed out to me while awaiting results of her CT scan. CT of the abdomen and pelvis revealed no clinically significant findings. On reevaluation she is resting comfortably and vitals remained stable. Therefore at this time with negative workup and a soft nonsurgical abdomen I do not feel there is need for further testing and patient is otherwise safe for discharge. Discharge Plan Triage Chief Complaint: Abd Pain ED Provider: Dieter Morejon Dx/Rx/DC Orders Clinical Impression: Right lower quadrant abdominal pain, Hx-TIA (transient ischemic attack), Hematuria, Nausea vomiting and diarrhea, Anticoagulant long-term use, History of lupus anticoagulant disorder, History of seizure Instructions: Abdominal Pain, ED Abdominal Pain Unkn Cause Fem Prescriptions: No Action topiramate [Topamax] 50 MG tablet 50 mg PO Q12H Patient Comments: migraine Xarelto 20 mg tablet 20 mg PO DAILY Rx Instructions: must administer with evening meal metoprolol tartrate [Lopressor] 50 mg tablet 25 mg PO Q12H baclofen 10 mg tablet 10 mg PO DAILY PRN (Reason: pain) zolpidem 5 mg tablet 5 mg PO QHS gabapentin 100 mg capsule 100 mg PO BID oxycodone-acetaminophen [Percocet] 5-325 mg tablet 1 tab PO Q8H PRN (Reason: pain) 2 Days Qty: 6 0RF ondansetron 4 mg tablet,disintegrating 4 mg PO Q8H PRN PRN (Reason: Nausea) Qty: 10 0RF cephalexin 500 mg capsule 500 mg PO TID 7 Days Qty: 21 0RF potassium chloride 20 mEq tablet extended release 40 meq PO DAILY 5 Days Qty: 10 0RF dextroamphetamine-amphetamine 30 mg capsule,extended release 24hr 1 cap PO DAILY norethindrone (contraceptive) 0.35 mg tablet 0.35 mg PO DAILY Primary Care Provider: Rodolfo Rivera Referrals: Rodolfo Rivera MD [Primary Care Provider] - Print Language: Maori Disposition Disposition: Home, Self Care Discharge Date/Time: 06/28/24 01:00
[2024-06-27] MEDS: 0.9% Normal Saline (1000mL) 1,000 ML 250 ML IV (23:07)
[2024-06-27] MEDS: Morphine 4 MG/ML Syringe IV (23:07)
[2024-06-27] MEDS: Ondansetron 4 MG/2 ML Vial IV (23:07)
[2024-06-27 23:15] LABS: Bacteria 0 SEEN /hpf (None Seen); Mucous, Urine 0 SEEN /hpf (<or=2+)
--- NOTE | 2024-06-27 23:15 | CT_ITS ---
EXAM: CT ABDOMEN AND PELVIS WITH INTRAVENOUS CONTRAST CLINICAL INDICATION: Right lower quadrant pain, status post bilateral s -- Salpingectomy and on control pills TECHNIQUE: Helically acquired images were obtained of the abdomen and pelvis with intravenous contrast. This CT exam was performed using one or more of the following dose reduction techniques: automated exposure control, adjustment of the mA and/or kV according to patient size, and/or use of iterative reconstruction technique. CONTRAST: IV 100mL [id number]-[id number] RADIATION DOSE: Total DLP: 624.76 mGy-cm. COMPARISON: Abdomen pelvis CT of 06/13/2024. FINDINGS: LOWER THORAX: Visualized lung bases are clear. No significant pericardial effusion. ABDOMEN: LIVER: Liver demonstrates geographic fatty infiltration. The liver remains is enlarged with the right hepatic lobe measuring 19.5 cm in cephalocaudal dimension. GALLBLADDER AND BILE DUCTS: Cholecystectomy again noted. Common bile duct is normal in caliber for postcholecystectomy patient. No calcified common duct stone. PANCREAS: Unremarkable. No focal cystic or solid mass. SPLEEN: Spleen is upper normal in size. ADRENALS: Unremarkable. No nodules. KIDNEYS AND URETERS: Normal renal size and position. No hydronephrosis. Symmetric nephrograms. No renal or obstructing ureteral stone. STOMACH AND BOWEL: Scattered diverticula project from the transverse, descending and sigmoid colon, without evidence for diverticulitis. No stomach or bowel distention. No focal inflammatory change. PELVIS: APPENDIX: Normal appendix. No findings of acute appendicitis. BLADDER: Urinary bladder is nearly empty. REPRODUCTIVE: Ovaries are normal in size. There is a probable 1.5 cm follicle in the left ovary. Normal size uterus with hypodense endometrium. No paraovarian mass. ABDOMEN and PELVIS: INTRAPERITONEAL SPACE: Trace of physiologic low-density free fluid in the pelvis. No free air. BONES/JOINTS: Unremarkable. No suspicious lytic or blastic abnormality. No acute osseous abnormality. SOFT TISSUES: Unremarkable. No discrete abdominal or pelvic wall hernia. VASCULATURE: Left renal vein is retroaortic in location. Abdominal aorta is normal in caliber. LYMPH NODES: Unremarkable. No enlarged lymph nodes. CT/Abdomen/Pelvis W IV Cont ONLY IMPRESSION: No acute findings in the abdomen or pelvis. Normal appendix. Colonic diverticulosis again noted without evidence for acute diverticulitis. 1.5 cm follicle incidentally noted within the left ovary. No findings of small bowel obstruction or obstructive uropathy. Electronically Signed: John Maher MD at 0:10 EDT ,
[2024-06-27 23:18] LABS: Absolute Lymphocyte Count 1.73 X10^3/uL (0.83-4.51); Absolute Neutrophil Count 4.3 X10^3/uL (2.0-7.7); Basophil# 0.03 X10^3/uL; Basophil% 0.4 % (0-1); Eosinophil# 0.16 X10^3/uL; Eosinophils% 2.3 % (0-5); Hematocrit 38.3 % (37-47); Hemoglobin 12.8 g/dL (12.0-15.0); Lymphocyte # 1.73 X10^3/ul (0.83-4.51); Lymphocyte % 25.2 % (19-41); Mean Corp Hgb Conc 33.4 g/dL (32-36); Mean Corpuscular Hgb 32.5 pg (27.0-32.0); Mean Corpuscular Volume 97.2 fL (81-99); Mean Platelet Vol. 10.6 fl (6.2-12.0); Monocyte# 0.63 X10^3/uL; Monocyte% 9.2 % (0-10); NRBC Flagged by Analyzer 0 % (0-5); Neutrophil % 62.6 % (47-70); Platelet Count 299 K/mm3 (150-450); RBC Distribution Width CV 11.8 % (11.6-14.6); RBC Distribution Width SD 42.3 fl (35.1-43.9); Red Blood Count 3.94 M/mm3 (4.2-5.4); White Blood Count 6.9 K/mm3 (4.4-11.0)
[2024-06-27 23:31] LABS: Anion Gap 6 (5-15); BUN 14 mg/dL (7-18); BUN/Creat Ratio 21.5 RATIO (10-20); Calcium,Total 9.4 mg/dL (8.5-10.1); Chloride 107 mmol/L (98-107); Creatinine, Serum 0.65 mg/dL (0.55-1.02); EST Glomerular Filtration Rate 108 mL/min (>60); Est Glom Filt Rate - Afr Amer 131 mL/min (>60); Estimated Creatinine Clearance 110.71 ml/min; Glucose 100 mg/dL (74-106); Potassium 3.4 mmol/L (3.5-5.1); Sodium Level 140 mmol/L (136-145)
[2024-06-27 23:34] LABS: Color, Urine Red (Yellow); Glucose, Dipstick Normal (Normal); Ketone-Dipstick Negative (Negative); Leukocyte Esterase-Dipstick 25 /ul (Negative); Nitrite-Dipstick Negative (Negative); Occult Blood-Urine 150 /ul (Negative); Protein-Dipstick 100 mg/dl (Negative); Urine Bilirubin Dipstick Negative (Negative); Urine Clarity Cloudy (Clear); Urine Urobilinogen Normal (Normal)
[2024-06-27 23:43] LABS: Red Blood Cells-Urine > 100 SEEN /hpf (0-5); Squamous Epithelial Cells - UA 0-5 SEEN /hpf (5-10); White Blood Cells 0-5 SEEN /hpf (0-5)
[2024-06-28 00:15] VITALS: BP 130/95; PULSE 80; RESP 16; O2SAT 96
[2024-06-28] MEDS: Ondansetron 4 MG/2 ML Vial IV (00:22)
[2024-06-28] MEDS: Morphine 4 MG/ML Syringe IV (00:22)
[2024-06-28 01:00] VITALS: BP 129/70; PULSE 81; RESP 16; TEMP 36.8; O2SAT 96
== END 2024-06-28 01:00 | disposition home or self-care (01) ==
PROVIDERS: Emergency Provider Emergency Medicine; PCP Student in an Organized Health Care Education/Training Program; Visit Provider Emergency Medicine
DX: R10.31 Right lower quadrant pain (principal); R56.9 Unspecified convulsions; R11.2 Nausea with vomiting, unspecified; R19.7 Diarrhea, unspecified; Z86.73 Personal history of transient ischemic attack (TIA), and cerebral infarction without residual deficits; R31.9 Hematuria, unspecified; Z79.01 Long term (current) use of anticoagulants; D68.62 Lupus anticoagulant syndrome; Z90.49 Acquired absence of other specified parts of digestive tract
CPT/HCPCS: 74177; 80048; 81001; 85025; 96361; 96374; 96375; 96376; 99283; J7030; Q9967; J2405

== ENCOUNTER 2024-07-03 23:06 | Emergency (ER) | payer MEDICAID, SELFPAY ==
--- NOTE | 2024-07-03 00:35 | RAD_ITS ---
INDICATION: plantar injury/FB EXAMINATION/TECHNIQUE: X-RAY - RIGHT XR Foot Min 3 Views COMPARISON: 09/30/2023. FINDINGS: SOFT TISSUES: 2.9 cm thin linear metallic foreign body in the soft tissues plantar to the proximal second metatarsal. BONES/JOINTS: No fracture or dislocation. No significant degenerative changes. No erosive changes. Stable postsurgical changes in the distal fibula. RAD/Foot min 3 Views IMPRESSION: 2.9 cm thin linear metallic foreign body in the soft tissues plantar to the proximal second metatarsal. Electronically Signed: Tyson Fritz DO at 1:00 EDT ,
[2024-07-03 23:07] VITALS: BP 128/88; PULSE 87; RESP 18; TEMP 36.6; O2SAT 99; BMI 28.2
--- NOTE | 2024-07-03 23:26 | ED.VIS.LOWEX ---
HPI History of Present Illness Chief Complaint: Foreign Body Informant: patient and spouse/S.O. Narrative Narrative: Patient presents an hour or 2 after stepping on something on their wooden floors, suspecting that she stepped on a needle or a nail or a wooden splinter. It is on the mid bottom of her right foot, she had immediate pain, when she moves her foot a certain way the pain is worse and she had some transient bleeding from the area, she is on Xarelto because of a history of DVT. Bleeding is controlled. She denies any other pain or injury. Tetanus Immunization: <5 years [facility] Medical History Wears glasses Wears contact lenses Open wound Excessive bleeding Migraine headache History of stress test History of echocardiogram History of irregular heartbeat Seizures Cardiology follow-up encounter Endometriosis determined by laparoscopy Lupus anticoagulant disorder DVT (deep venous thrombosis) TIA (transient ischemic attack) left sided parathesias Home Medications ?Medication ?Instructions ?Recorded ?Last Taken ?Type topiramate 50 mg tablet (Topamax) 50 mg PO Q12H 04/05/21 Unknown History metoprolol tartrate 50 mg tablet 25 mg PO Q12H 07/02/23 Unknown History (Lopressor) rivaroxaban 20 mg tablet (Xarelto) 20 mg PO DAILY 07/02/23 07/06/23 History dextroamphetamine-amphetamine ER 1 cap PO DAILY 04/13/24 Unknown History 30 mg 24hr capsule,extend release norethindrone (contraceptive) 0.35 0.35 mg PO DAILY 04/13/24 Unknown History mg tablet baclofen 10 mg tablet 10 mg PO DAILY PRN pain 06/13/24 Unknown History cephalexin 500 mg capsule 500 mg PO TID 7 days #21 caps 06/13/24 Unknown Rx gabapentin 100 mg capsule 100 mg PO BID 06/13/24 Unknown History ondansetron 4 mg disintegrating 4 mg PO Q8H PRN PRN Nausea #10 tabs 06/13/24 Unknown Rx tablet oxycodone-acetaminophen 5 mg-325 1 tab PO Q8H PRN pain 2 days #6 06/13/24 Unknown Rx mg tablet (Percocet) tabs potassium chloride 20 mEq 40 meq (2 x 20 mEq) PO DAILY 5 06/13/24 Unknown Rx tablet,extended release days #10 tabs zolpidem 5 mg tablet 5 mg PO QHS insomnia 06/13/24 Unknown History cephalexin 500 mg capsule 500 mg PO Q6 5 days #20 CAPSULES 07/04/24 Unknown Rx Allergy/AdvReac Type Severity Reaction Status Date / Time acetaminophen (From Vicodin) Allergy Hives Verified 07/03/24 23:07 hydrocodone bitartrate (From Allergy Hives Verified 07/03/24 23:07 Vicodin) ketorolac tromethamine (From Allergy Hives Verified 07/03/24 23:07 Toradol) metoclopramide (From Reglan) Allergy Other Verified 07/03/24 23:07 metronidazole (From Metrogel) Allergy Swelling Verified 07/03/24 23:07 skin cleanser (From Metrogel) Allergy Swelling Verified 07/03/24 23:07 prochlorperazine (From AdvReac Other Verified 07/03/24 23:07 Compazine) promethazine (From Phenergan) AdvReac Other Verified 07/03/24 23:07 Family History Mother Diabetes Hypertension Father Hypertension Sister Thyroid disorder Surgical History Hx of surgical procedure Hx of surgical procedure Hx of laparoscopy S/P foot surgery, right H/O bilateral salpingectomy Hx of cholecystectomy Social History household members: significant other and children housing: house current occupational status: employed Smoking Status: Never smoker alcohol intake: current alcohol intake frequency: holidays/special occasions only ROS ROS ED Constitutional Constitutional ED: Denies chills or fever(s) Musculoskeletal Musculoskeletal: Reports extremity pain; Denies neck pain Integumentary Reports wounds; Denies Abrasions or rash Neurologic Neurologic: Denies paresthesias or weakness EXAM Physical Exam Const Vital Signs: 07/03/24 23:07 07/03/24 23:48 Temperature 97.9 F Temperature Source Temporal Pulse Rate 87 Respiratory Rate 18 Respiratory Pattern Normal Blood Pressure 128/88 H Blood Pressure Mean 101 Pulse Ox 99 Oxygen Delivery Method Room Air Positive well nourished and well developed General Appearance ED: well developed and NAD Neck full ROM and supple Back/Spine normal ROM and normal to inspection Extremity Extremity Narrative: Some dried blood on the plantar aspect of the mid right foot, there is a tender area with some induration without erythema that may represent a subcutaneous foreign body. When moving her toes she has pain more posterior to this along the plantar aspect near the calcaneus but there is no tenderness here or sign of a foreign body or wound or subcutaneous nodule. Neuro oriented x3, no focal motor deficits and no sensory deficits noted Sensorium / Orientation: alert Psych mental status grossly normal and thought process normal Skin Skin Narrative: Small entry wound plantar right foot with a little bit of dried blood around it no active bleeding no visible foreign body see above. Rashes: no rashes MDM MDM MDM Narrative Medical decision making narrative: Patient was sent for three-view x-ray series of the right foot to evaluate for retained radiopaque foreign body, it shows what appears to be a straight needle that is completely embedded within the patient's foot. This is my interpretation, radiology in agreement. See the procedure note, eventually this was able to be removed. Patient will be placed on cephalexin and she has an orthopedic appointment for a different reason and she can follow-up with them as needed for this as well. Radiography Diagnostic Testing: Clinical Impression(s) from Imaging Studies Foot X-Ray 07/03/24 00:35 IMPRESSION: 2.9 cm thin linear metallic foreign body in the soft tissues plantar to the proximal second metatarsal. Electronically Signed: Tyson Fritz DO at 1:00 EDT Reading Location ID and State: [facility] / [place] Tel , Service support , Procedures Other Procedures Procedure(s): Foreign body removal plantar aspect right foot: With verbal consent, sterile prep and drape, and initial local anesthesia with topical LET followed by subcutaneous 1% lidocaine, the area was explored and the incision/wound was gently extended with scissors and a #15 scalpel, a little at a time, and I used miniature C arm fluoroscopy about 5 different views which on my interpretation help me to localize the location of the needle. Eventually this resulted in visualization of it clinically and I was able to remove it with hemostats with the assistance of a pair of scissors. Afterwards, verifying the foreign body removed in its entirety, the wound was irrigated with sterile saline under pressure, it was thoroughly cleansed with chlorhexidine multiple times and a total of 5 cc of the 1% lidocaine was used total to keep her anesthetized. 2 view post procedure x-ray with the mini C arm show removal of the foreign body in its entirety on my interpretation. Tolerated well with no complications. Minimal blood loss. Discharge Plan Triage Chief Complaint: Foreign Body ED Provider: Miguel Glover Dx/Rx/DC Orders Clinical Impression: Acute foreign body of plantar aspect of right foot Instructions: ED Foreign Body Soft Tissue Prescriptions: New cephalexin 500 mg capsule 500 mg PO Q6 5 Days Qty: 20 0RF No Action topiramate [Topamax] 50 MG tablet 50 mg PO Q12H Patient Comments: migraine Xarelto 20 mg tablet 20 mg PO DAILY Rx Instructions: must administer with evening meal metoprolol tartrate [Lopressor] 50 mg tablet 25 mg PO Q12H baclofen 10 mg tablet 10 mg PO DAILY PRN (Reason: pain) zolpidem 5 mg tablet 5 mg PO QHS gabapentin 100 mg capsule 100 mg PO BID oxycodone-acetaminophen [Percocet] 5-325 mg tablet 1 tab PO Q8H PRN (Reason: pain) 2 Days Qty: 6 0RF ondansetron 4 mg tablet,disintegrating 4 mg PO Q8H PRN PRN (Reason: Nausea) Qty: 10 0RF cephalexin 500 mg capsule 500 mg PO TID 7 Days Qty: 21 0RF potassium chloride 20 mEq tablet extended release 40 meq PO DAILY 5 Days Qty: 10 0RF dextroamphetamine-amphetamine 30 mg capsule,extended release 24hr 1 cap PO DAILY norethindrone (contraceptive) 0.35 mg tablet 0.35 mg PO DAILY Primary Care Provider: George Avitia Referrals: George Avitia MD [Primary Care Provider] - London White MD [Med Staff - Active Staff] - Keep [facility]ell appointment Print Language: Japanese Disposition Disposition: Home, Self Care
[2024-07-04] MEDS: Ondansetron ODT 4 MG Tablet 8 MG PO (00:57)
[2024-07-04] MEDS: Lidocaine 1% (20 ml mdv) 20 ML Vial 5 ML INFILT (00:58)
[2024-07-04] MEDS: Lidocaine/Epi/Tetracaine 50 ML 1 APPLIC TOPICAL (00:58)
[2024-07-04] MEDS: oxyCODONE 5 MG Tablet PO (02:10)
--- NOTE | 2024-07-04 02:30 | RAD_ITS ---
INDICATION: foreign body EXAMINATION/TECHNIQUE: X-RAY - RIGHT XR Foot Min 3 Views COMPARISON: X-rays from earlier same day. FINDINGS: Spot fluoroscopic images of the right foot demonstrate the previously described linear metallic foreign body plantar to the base of the proximal second metatarsal. Images demonstrate removal of the foreign body with no residual foreign body identified on postremoval images. Total fluoroscopic time of 10 seconds. RAD/Foot min 3 Views IMPRESSION: Status post removal of a linear metallic foreign body with no evidence of a residual foreign body. Electronically Signed: Tyson Fritz DO at 3:23 EDT ,
[2024-07-04] MEDS: Cephalexin 250 MG Capsule 500 MG PO (02:58)
[2024-07-04 03:16] VITALS: BP 122/86; PULSE 75; RESP 18; TEMP 36.6; O2SAT 98
== END 2024-07-04 03:10 | disposition home or self-care (01) ==
PROVIDERS: Emergency Provider Emergency Medicine; PCP Family Medicine; Visit Provider Emergency Medicine
DX: S90.851A Superficial foreign body, right foot, initial encounter (principal); Z86.718 Personal history of other venous thrombosis and embolism; Z79.01 Long term (current) use of anticoagulants; Z86.73 Personal history of transient ischemic attack (TIA), and cerebral infarction without residual deficits; Z90.49 Acquired absence of other specified parts of digestive tract; W45.8XXA Other foreign body or object entering through skin, initial encounter
CPT/HCPCS: 10120; 73630; 76000; 99283

== ENCOUNTER 2024-10-11 20:35 | Emergency (ER) | payer MEDICAID, SELFPAY ==
[2024-10-11 20:36] VITALS: BP 128/95; PULSE 129; RESP 24; TEMP 36.4; O2SAT 95; BMI 26.9
[2024-10-11 20:53] LABS: Bacteria 0 SEEN /hpf (None Seen); Mucous, Urine 0 SEEN /hpf (<or=2+)
[2024-10-11 20:57] LABS: Color, Urine Red (Yellow); Glucose, Dipstick Normal (Normal); Ketone-Dipstick Negative (Negative); Leukocyte Esterase-Dipstick 100 /ul (Negative); Nitrite-Dipstick Negative (Negative); Occult Blood-Urine 250 /ul (Negative); Protein-Dipstick 500 mg/dl (Negative); Urine Bilirubin Dipstick Negative (Negative); Urine Clarity Turbid (Clear); Urine Urobilinogen Normal (Normal)
[2024-10-11 21:08] LABS: Absolute Lymphocyte Count 1.97 X10^3/uL (0.83-4.51); Absolute Neutrophil Count 6.2 X10^3/uL (2.0-7.7); Basophil# 0.02 X10^3/uL; Basophil% 0.2 % (0-1); Eosinophil# 0.08 X10^3/uL; Eosinophils% 0.9 % (0-5); Hematocrit 41.7 % (37-47); Hemoglobin 14.2 g/dL (12.0-15.0); Lymphocyte # 1.97 X10^3/ul (0.83-4.51); Lymphocyte % 22.5 % (19-41); Mean Corp Hgb Conc 34.1 g/dL (32-36); Mean Corpuscular Hgb 32.1 pg (27.0-32.0); Mean Corpuscular Volume 94.3 fL (81-99); Mean Platelet Vol. 10.8 fl (6.2-12.0); Monocyte# 0.45 X10^3/uL; Monocyte% 5.1 % (0-10); NRBC Flagged by Analyzer 0 % (0-5); Neutrophil # 6.18 X10^3/uL (2.7-7.7); Neutrophil % 70.8 % (47-70); Platelet Count 264 K/mm3 (150-450); RBC Distribution Width CV 12.8 % (11.6-14.6); Red Blood Count 4.42 M/mm3 (4.2-5.4); White Blood Count 8.7 K/mm3 (4.4-11.0)
[2024-10-11 21:23] LABS: ALB/GLOB Ratio 1.1 RATIO (0.9-2.4); AST(SGOT) 12 U/L (15-37); Alanine Aminotransfer ALT/SGPT 17 U/L (13-56); Albumin, Serum 3.8 g/dL (3.2-5.0); Alkaline Phosphatase 76 U/L (45-117); Anion Gap 4 (5-15); BUN 13 mg/dL (7-18); BUN/Creat Ratio 21.7 RATIO (10-20); Chloride 111 mmol/L (98-107); EST Glomerular Filtration Rate 119 mL/min (>60); Est Glom Filt Rate - Afr Amer 144 mL/min (>60); Globulin 3.6 g/dL (2.2-4.2); Glucose 101 mg/dL (74-106); Potassium 4.1 mmol/L (3.5-5.1); Protein, Total 7.4 g/dL (6.4-8.2); Sodium Level 139 mmol/L (136-145)
[2024-10-11 21:34] LABS: Red Blood Cells-Urine > 100 SEEN /hpf (0-5); Squamous Epithelial Cells - UA 0-5 SEEN /hpf (5-10); White Blood Cells >100 SEEN /hpf (0-5)
== END 2024-10-11 22:44 | disposition left against medical advice (07) ==
LOC: ED 22:53
PROVIDERS: PCP Family Medicine
DX: R10.9 Unspecified abdominal pain (principal)
CPT/HCPCS: 80053; 81001; 85025

== ENCOUNTER 2024-10-14 09:18 | Emergency (ER) | payer MEDICAID, SELFPAY ==
[2024-10-14 09:19] VITALS: BP 138/83; PULSE 137; PULSE 145; RESP 18; TEMP 36.6; O2SAT 98; BMI 27.3
--- NOTE | 2024-10-14 10:21 | CT_ITS ---
STUDY: CT ABDOMEN AND PELVIS WITHOUT CONTRAST REASON FOR EXAM: Female, 39 years old. Left flank pain. Hematuria. RADIATION DOSAGE (If Supplied By Facility): CTDIvol = ( 7.05 ) mGy, DLP = ( 369.98 ) mGycm TECHNIQUE: Transaxial images were obtained from the dome of the diaphragm to the symphysis pubis without oral contrast, and without intravenous contrast. Sagittal and coronal images were reconstructed. Individualized dose optimization techniques were used for this CT. COMPARISON: Comparison is made with prior study of June 27, 2024. FINDINGS: The visualized lung bases are unremarkable. The visualized portions of the heart are within normal limits. There is decreased attenuation of the liver consistent with steatosis. Borderline hepatomegaly. There are surgical clips in the gallbladder fossa consistent with a prior cholecystectomy. Normal spleen. Normal pancreas. Normal bilateral adrenal glands. Normal right kidney. Normal left kidney. Normal visualized stomach. Normal small intestine. There are scattered colonic diverticula consistent with diverticulosis. The appendix is visualized and appears normal. Normal abdominal aorta. Normal inferior vena cava. Normal retroperitoneum. Normal urinary bladder. Normal abdominal wall. Normal osseous structures. CT/Abdomen/Pelvis without Cont IMPRESSION: Fatty infiltration of the liver. Borderline hepatomegaly. Scattered sigmoid diverticula. Electronically Signed: James Anders MD at 11:25 [facility] ,
--- NOTE | 2024-10-14 10:22 | EX.ED.DYSGE1 ---
HPI History of Present Illness Chief Complaint: Flank Pain Detail of Chief Complaint: Left flank pain Informant: patient Narrative Narrative: Patient presents with left flank pain that started 4 days ago. Patient states that she was seen in the emergency department waiting room 4 days ago but it was busy and after several hours left the department before being seen. She then went to [facility] where she had a urinalysis and was told she had a UTI and started on Keflex and something for pain. She continues to have hematuria. She continues to have pain. She complains of nausea and this morning vomited x 1. She believes she has a kidney stone as she does have a history of kidney stones. She denies fevers. [facility] Medical History Wears glasses Wears contact lenses Open wound Excessive bleeding Migraine headache History of stress test History of echocardiogram History of irregular heartbeat Seizures Cardiology follow-up encounter Endometriosis determined by laparoscopy Lupus anticoagulant disorder DVT (deep venous thrombosis) TIA (transient ischemic attack) left sided parathesias Home Medications ?Medication ?Instructions ?Recorded ?Last Taken ?Type topiramate 50 mg tablet (Topamax) 50 mg PO Q12H 04/05/21 Unknown History metoprolol tartrate 50 mg tablet 25 mg PO Q12H 07/02/23 Unknown History (Lopressor) rivaroxaban 20 mg tablet (Xarelto) 20 mg PO DAILY 07/02/23 07/06/23 History dextroamphetamine-amphetamine ER 1 cap PO DAILY 04/13/24 Unknown History 30 mg 24hr capsule,extend release norethindrone (contraceptive) 0.35 0.35 mg PO DAILY 04/13/24 Unknown History mg tablet baclofen 10 mg tablet 10 mg PO DAILY PRN pain 06/13/24 Unknown History cephalexin 500 mg capsule 500 mg PO TID 7 days #21 caps 06/13/24 Unknown Rx gabapentin 100 mg capsule 100 mg PO BID 06/13/24 Unknown History ondansetron 4 mg disintegrating 4 mg PO Q8H PRN PRN Nausea #10 tabs 06/13/24 Unknown Rx tablet oxycodone-acetaminophen 5 mg-325 1 tab PO Q8H PRN pain 2 days #6 06/13/24 Unknown Rx mg tablet (Percocet) tabs potassium chloride 20 mEq 40 meq (2 x 20 mEq) PO DAILY 5 06/13/24 Unknown Rx tablet,extended release days #10 tabs zolpidem 5 mg tablet 5 mg PO QHS insomnia 06/13/24 Unknown History cephalexin 500 mg capsule 500 mg PO Q6 5 days #20 CAPSULES 07/04/24 Unknown Rx ondansetron 4 mg disintegrating 4 mg PO Q8H PRN PRN Nausea #10 tabs 10/14/24 Unknown Rx tablet oxycodone-acetaminophen 5 mg-325 1 tab PO Q6H PRN PRN Pain 3 days 10/14/24 Unknown Rx mg tablet #12 TABLETS Allergy/AdvReac Type Severity Reaction Status Date / Time acetaminophen (From Vicodin) Allergy Hives Verified 10/14/24 09:29 hydrocodone bitartrate (From Allergy Hives Verified 10/14/24 09:29 Vicodin) ketorolac tromethamine (From Allergy Hives Verified 10/14/24 09:29 Toradol) metoclopramide (From Reglan) Allergy Other Verified 10/14/24 09:29 metronidazole (From Metrogel) Allergy Swelling Verified 10/14/24 09:29 NSAIDS (Non-Steroidal Allergy Other Verified 10/14/24 09:29 Anti-Inflamma skin cleanser (From Metrogel) Allergy Swelling Verified 10/14/24 09:29 prochlorperazine (From AdvReac Other Verified 10/14/24 09:29 Compazine) promethazine (From Phenergan) AdvReac Other Verified 10/14/24 09:29 Family History Mother Diabetes Hypertension Father Hypertension Sister Thyroid disorder Surgical History Hx of surgical procedure Hx of surgical procedure Hx of laparoscopy S/P foot surgery, right H/O bilateral salpingectomy Hx of cholecystectomy Social History household members: significant other and children housing: house current occupational status: employed Smoking Status: Never smoker alcohol intake: current alcohol intake frequency: holidays/special occasions only ROS ROS ED Review of Systems ROS Unobtainable: other Constitutional Constitutional ED: Reports lethargy; Denies chills, fever(s), sweats or weight loss Eyes Eyes: Denies blurry vision, change in vision or diplopia ENT ENT ED: Denies rhinorrhea or sore throat Cardiovascular Cardiovascular: Denies chest pain, orthopnea or racing heartbeat Respiratory/Chest Respiratory/Chest: Denies cough, dyspnea, dyspnea on exertion, orthopnea or sputum Gastrointestinal Gastrointestinal: Reports abdominal pain; Denies diarrhea, nausea or vomiting Genitourinary Genitourinary ED: Denies dysuria, hematuria or urinary frequency Musculoskeletal Musculoskeletal: Reports back pain; Denies arthralgias, myalgias or neck pain Integumentary Denies abscess, Abrasions or rash Neurologic Neurologic: Denies headache(s) or weakness Psychiatric Psychiatric: Denies anxiety, depression or suicidal thoughts Endocrine Endocrinology: Denies polydipsia, polyphagia or polyuria Hematologic/Lymphatic Hematologic/Lymphatic: Denies easy bleeding, easy bruising or lymphadenopathy Allergic/Immunologic Allergic/Immunologic ED: Denies mouth swelling, tongue swelling or urticaria EXAM Physical Exam Const Vital Signs: 10/14/24 09:19 10/14/24 09:19 10/14/24 11:19 Temperature 98 F Temperature Source Temporal Pulse Rate 145 H 137 H 112 H Respiratory Rate 18 16 Blood Pressure 138/83 H 122/87 H Blood Pressure Mean 101 98 Pulse Ox 98 96 Oxygen Delivery Method Room Air Room Air Positive well nourished and well developed General Appearance ED: well developed and NAD HEENT Reports TM's clear and moist mucous membranes normocephalic and atraumatic; Negative for trauma or tenderness Tympanic Membrane ED: Yes TM's clear Eyes PERRL and EOMs intact bilaterally General Eye ED: Negative for pale conjunctiva or scleral icterus Neck no lymphadenopathy, supple and no JVD General: Negative for tenderness Chest Wall inspection of chest normal and palpation of chest normal Chest: Negative for tenderness Resp normal respiratory effort and clear to auscultation bilaterally Effort and Inspection: Negative for respiratory distress or pain with movement Auscultation: Negative for rhonchi, wheezes or diminished lung sounds Cardio regular rate, regular rhythm, S1 normal heart sound, S2 normal heart sound and no murmurs Peripheral Pulses: pulses 2+ throughout GI normal to inspection, nondistended, normoactive bowel sounds, soft to palpation, non-distended and no masses GI Narrative: Mild tenderness left lower quadrant and suprapubic region. There is no rebound, rigidity, or peritoneal signs. No mass palpated. Back/Spine no thoracic nor lumbar tenderness; Negative for no CVA tenderness Back/Spine Narrative: CVA tenderness on the left General Back: CVA tenderness left Extremity normal to inspection General Extremety ED: Negative for edema General Extremity: Negative for edema Neuro oriented x3, CN's II-XII intact bilaterally, no sensory deficits noted and gait normal Sensorium / Orientation: awake, alert, oriented to person, oriented to place and oriented to time Motor Exam: strength 5/5 throughout and strength abnormal Psych mental status grossly normal Skin no rashes or lesions noted and no wounds MDM MDM MDM Narrative Medical decision making narrative: Patient presents with flank pain with history of kidney stones and think she was passing a stone as she has had some hematuria. She complains of left-sided pain. Patient on Eliquis for history of PE. IV line established. She was medicated with Dilaudid and Zofran. CBC with differential count 7.1 with hemoglobin 13.4 and platelet count of 242. Chemistries unremarkable other than a slightly depressed potassium at 2.8 for which I did write her for 40 mEq of potassium chloride. Urinalysis was negative for bacteria and only 100 leukocyte esterase as well as 10-25 RBCs and 10-[address] scan of the abdomen pelvis without contrast was unremarkable. At this point etiology of her flank pain unclear. It is possible she may have passed the stone. She will be given a prescription for a few Percocet for pain as well as referral to urology and a prescription for Zofran. Advised to return if fever, worsening pain, or condition should worsen anyway. Lab Data Attestation: I reviewed the patient's lab results. Labs: Laboratory Results - last 24 hr 10/14/24 09:38 WBC 7.1 RBC 4.17 L Hgb 13.4 Hct 39.6 MCV 95.0 MCH 32.1 H MCHC 33.8 RDW Std Deviation 45.1 H RDW Coeff of Justo 13.0 Plt Count 242 MPV 11.1 Immature Gran % (Auto) 0.400 Neut % (Auto) 59.8 Lymph % (Auto) 32.3 Hayes % (Auto) 6.3 Eos % (Auto) 0.8 Baso % (Auto) 0.4 Absolute Neuts (auto) 4.2 Absolute Lymphs (auto) 2.29 Nucleated RBC % 0 Sodium 138 Potassium 2.8 L Chloride 107 Carbon Dioxide 23.0 Anion Gap 8 BUN 13 Creatinine 0.73 Estim Creat Clear Calc 99.08 Est GFR (MDRD) Af Amer 114 Est GFR (MDRD) Non-Af 95 BUN/Creatinine Ratio 17.7 Glucose 187 H Calcium 8.9 Serum , Qual NEGATIVE Urine Color Red Urine Clarity Cloudy Urine pH 5.0 Ur Specific Slovan 1.025 Urine Protein 500 H Urine Glucose (UA) Normal Urine Ketones 5 H Urine Occult Blood 250 H Urine Nitrite Negative Urine Bilirubin Negative Urine Urobilinogen Normal Ur Leukocyte Esterase 100 H Urine RBC 10-25 SEEN Urine WBC 10-25 SEEN Ur Squamous Epith Cells 5-10 SEEN Urine Bacteria 0 SEEN Urine Mucus 0 SEEN Radiography Diagnostic Testing: Clinical Impression(s) from Imaging Studies Abdomen/Pelvis CT 10/14/24 10:21 IMPRESSION: Fatty infiltration of the liver. Borderline hepatomegaly. Scattered sigmoid diverticula. Electronically Signed: James Anders MD at 11:25 EST , Discharge Plan Triage Chief Complaint: Flank Pain ED Provider: Brian Umanzor Dx/Rx/DC Orders Clinical Impression: Acute flank pain, Hematuria Instructions: ED Flank Pain, Uncertain Cause, ED Hematuria Prescriptions: New oxycodone-acetaminophen 5-325 mg tablet 1 tab PO Q6H PRN PRN (Reason: Pain) 3 Days Qty: 12 0RF ondansetron 4 mg tablet,disintegrating 4 mg PO Q8H PRN PRN (Reason: Nausea) Qty: 10 0RF No Action topiramate [Topamax] 50 MG tablet 50 mg PO Q12H Patient Comments: migraine Xarelto 20 mg tablet 20 mg PO DAILY Rx Instructions: must administer with evening meal metoprolol tartrate [Lopressor] 50 mg tablet 25 mg PO Q12H baclofen 10 mg tablet 10 mg PO DAILY PRN (Reason: pain) zolpidem 5 mg tablet 5 mg PO QHS gabapentin 100 mg capsule 100 mg PO BID oxycodone-acetaminophen [Percocet] 5-325 mg tablet 1 tab PO Q8H PRN (Reason: pain) 2 Days Qty: 6 0RF ondansetron 4 mg tablet,disintegrating 4 mg PO Q8H PRN PRN (Reason: Nausea) Qty: 10 0RF cephalexin 500 mg capsule 500 mg PO TID 7 Days Qty: 21 0RF potassium chloride 20 mEq tablet extended release 40 meq PO DAILY 5 Days Qty: 10 0RF dextroamphetamine-amphetamine 30 mg capsule,extended release 24hr 1 cap PO DAILY norethindrone (contraceptive) 0.35 mg tablet 0.35 mg PO DAILY cephalexin 500 mg capsule 500 mg PO Q6 5 Days Qty: 20 0RF Primary Care Provider: George Avitia Referrals: George Avitia MD [Primary Care Provider] - Briseyda Cabrera MD [Med Staff - Active Staff] - 5-7 Days Print Language: Syriac Disposition Disposition: Home, Self Care
[2024-10-14 10:28] LABS: Bacteria 0 SEEN /hpf (None Seen); Mucous, Urine 0 SEEN /hpf (<or=2+)
[2024-10-14 10:30] LABS: Color, Urine Red (Yellow); Glucose, Dipstick Normal (Normal); Ketone-Dipstick 5 mg/dl (Negative); Leukocyte Esterase-Dipstick 100 /ul (Negative); Nitrite-Dipstick Negative (Negative); Occult Blood-Urine 250 /ul (Negative); Protein-Dipstick 500 mg/dl (Negative); Specific Gravity, Urine 1.025 (1.002-1.030); Urine Bilirubin Dipstick Negative (Negative); Urine Clarity Cloudy (Clear); Urine Urobilinogen Normal (Normal)
[2024-10-14 10:31] LABS: Absolute Lymphocyte Count 2.29 X10^3/uL (0.83-4.51); Absolute Neutrophil Count 4.2 X10^3/uL (2.0-7.7); Basophil# 0.03 X10^3/uL; Basophil% 0.4 % (0-1); Eosinophil# 0.06 X10^3/uL; Eosinophils% 0.8 % (0-5); Hematocrit 39.6 % (37-47); Hemoglobin 13.4 g/dL (12.0-15.0); Lymphocyte # 2.29 X10^3/ul (0.83-4.51); Lymphocyte % 32.3 % (19-41); Mean Corp Hgb Conc 33.8 g/dL (32-36); Mean Corpuscular Hgb 32.1 pg (27.0-32.0); Mean Platelet Vol. 11.1 fl (6.2-12.0); Monocyte# 0.45 X10^3/uL; Monocyte% 6.3 % (0-10); NRBC Flagged by Analyzer 0 % (0-5); Neutrophil # 4.24 X10^3/uL (2.7-7.7); Neutrophil % 59.8 % (47-70); Platelet Count 242 K/mm3 (150-450); RBC Distribution Width SD 45.1 fl (35.1-43.9); Red Blood Count 4.17 M/mm3 (4.2-5.4); White Blood Count 7.1 K/mm3 (4.4-11.0)
[2024-10-14] MEDS: 0.9% Normal Saline (1000mL) 1,000 ML 1000 ML IV (10:31)
[2024-10-14] MEDS: HYDROmorphone 1 MG/ML Syringe IV (10:32)
[2024-10-14] MEDS: Ondansetron 4 MG/2 ML Vial IV (10:32)
[2024-10-14 10:42] LABS: White Blood Cells 10-25 SEEN /hpf (0-5)
[2024-10-14 10:43] LABS: Red Blood Cells-Urine 10-25 SEEN /hpf (0-5); Squamous Epithelial Cells - UA 5-10 SEEN /hpf (5-10)
[2024-10-14 10:44] LABS: Internal QC Validated? YES +Cl - CLEAR BKGD; Pregnancy, Serum, hCG Quali. NEGATIVE Negative
[2024-10-14 10:53] LABS: Anion Gap 8 (5-15); BUN 13 mg/dL (7-18); BUN/Creat Ratio 17.7 RATIO (10-20); Calcium,Total 8.9 mg/dL (8.5-10.1); Chloride 107 mmol/L (98-107); Creatinine, Serum 0.73 mg/dL (0.55-1.02); EST Glomerular Filtration Rate 95 mL/min (>60); Est Glom Filt Rate - Afr Amer 114 mL/min (>60); Estimated Creatinine Clearance 99.08 ml/min; Glucose 187 mg/dL (74-106); Potassium 2.8 mmol/L (3.5-5.1); Sodium Level 138 mmol/L (136-145)
[2024-10-14 11:19] VITALS: BP 122/87; PULSE 112; RESP 16; O2SAT 96
[2024-10-14 11:41] VITALS: BP 122/85; PULSE 99; RESP 15; TEMP 36.4; O2SAT 97
[2024-10-14] MEDS: Potassium Chloride Oral Tablet 20 MEQ 40 MEQ PO (11:44)
== END 2024-10-14 11:49 | disposition home or self-care (01) ==
PROVIDERS: Emergency Provider Emergency Medicine; PCP Family Medicine; Visit Provider Emergency Medicine
DX: R10.9 Unspecified abdominal pain (principal); Z86.73 Personal history of transient ischemic attack (TIA), and cerebral infarction without residual deficits; Z79.01 Long term (current) use of anticoagulants; Z90.49 Acquired absence of other specified parts of digestive tract; R31.9 Hematuria, unspecified
CPT/HCPCS: 74176; 80048; 81001; 84703; 85025; 96361; 96374; 96375; 99284; A4216; J2405

== ENCOUNTER 2024-10-16 18:34 | Emergency (ER) | payer MEDICAID, SELFPAY ==
[2024-10-16 18:34] VITALS: BP 126/110; PULSE 145; RESP 20; TEMP 36.1; O2SAT 100; BMI 26.9
--- NOTE | 2024-10-16 19:01 | RAD_ITS ---
INDICATION: trauma EXAMINATION/TECHNIQUE: X-RAY - LEFT XR Ankle Min 3 Views 3 VIEWS COMPARISON: FINDINGS: SOFT TISSUES: No soft tissue swelling or gas. No radiopaque foreign body. BONES/JOINTS: No acute fracture or subluxation.. Normal alignment. Preservation of the joint space.. No sclerotic or destructive changes observed. RAD/Ankle min 3 Views IMPRESSION: Negative. Electronically Signed: Luis Banegas DO at 20:31 EST ,
--- NOTE | 2024-10-16 19:03 | EDS_ITS ---
HPI History of Present Illness Chief Complaint: Lower Extremity Injury Narrative Narrative: 39-year-old female past medical history of lupus anticoagulant on Xarelto presents with injury to her left toe and ankle that she sustained today. She was walking up the stairs in her house from the laundry room into the house, and her left toe/great toe hit the stair. She now has pain and bruising at the MTP joint of her left great toe. She thinks she may have also hit her left medial ankle because that area is tender and swollen as well. She denies any knee pain. She did not fall and hit her head even though she is on an anticoagulant, no neck pain or other injury. [facility] Medical History Wears glasses Wears contact lenses Open wound Excessive bleeding Migraine headache History of stress test History of echocardiogram History of irregular heartbeat Seizures Cardiology follow-up encounter Endometriosis determined by laparoscopy Lupus anticoagulant disorder DVT (deep venous thrombosis) TIA (transient ischemic attack) left sided parathesias Home Medications ?Medication ?Instructions ?Recorded ?Last Taken ?Type topiramate 50 mg tablet (Topamax) 50 mg PO Q12H 04/05/21 Unknown History metoprolol tartrate 50 mg tablet 25 mg PO Q12H 07/02/23 Unknown History (Lopressor) rivaroxaban 20 mg tablet (Xarelto) 20 mg PO DAILY 07/02/23 07/06/23 History dextroamphetamine-amphetamine ER 1 cap PO DAILY 04/13/24 Unknown History 30 mg 24hr capsule,extend release norethindrone (contraceptive) 0.35 0.35 mg PO DAILY 04/13/24 Unknown History mg tablet baclofen 10 mg tablet 10 mg PO DAILY PRN pain 06/13/24 Unknown History cephalexin 500 mg capsule 500 mg PO TID 7 days #21 caps 06/13/24 Unknown Rx gabapentin 100 mg capsule 100 mg PO BID 06/13/24 Unknown History ondansetron 4 mg disintegrating 4 mg PO Q8H PRN PRN Nausea #10 tabs 06/13/24 Unknown Rx tablet oxycodone-acetaminophen 5 mg-325 1 tab PO Q8H PRN pain 2 days #6 06/13/24 Unknown Rx mg tablet (Percocet) tabs potassium chloride 20 mEq 40 meq (2 x 20 mEq) PO DAILY 5 06/13/24 Unknown Rx tablet,extended release days #10 tabs zolpidem 5 mg tablet 5 mg PO QHS insomnia 06/13/24 Unknown History cephalexin 500 mg capsule 500 mg PO Q6 5 days #20 CAPSULES 07/04/24 Unknown Rx ondansetron 4 mg disintegrating 4 mg PO Q8H PRN PRN Nausea #10 tabs 10/14/24 Unknown Rx tablet oxycodone-acetaminophen 5 mg-325 1 tab PO Q6H PRN PRN Pain 3 days 10/14/24 Unknown Rx mg tablet #12 TABLETS ondansetron 4 mg disintegrating 4 mg PO Q8H PRN PRN Nausea #10 tabs 10/16/24 Unknown Rx tablet Allergy/AdvReac Type Severity Reaction Status Date / Time acetaminophen (From Vicodin) Allergy Hives Verified 10/16/24 18:34 hydrocodone bitartrate (From Allergy Hives Verified 10/16/24 18:34 Vicodin) ketorolac tromethamine (From Allergy Hives Verified 10/16/24 18:34 Toradol) metoclopramide (From Reglan) Allergy Other Verified 10/16/24 18:34 metronidazole (From Metrogel) Allergy Swelling Verified 10/16/24 18:34 NSAIDS (Non-Steroidal Allergy Other Verified 10/16/24 18:34 Anti-Inflamma skin cleanser (From Metrogel) Allergy Swelling Verified 10/16/24 18:34 prochlorperazine (From AdvReac Other Verified 10/16/24 18:34 Compazine) promethazine (From Phenergan) AdvReac Other Verified 10/16/24 18:34 Family History Mother Diabetes Hypertension Father Hypertension Sister Thyroid disorder Surgical History Hx of surgical procedure Hx of surgical procedure Hx of laparoscopy S/P foot surgery, right H/O bilateral salpingectomy Hx of cholecystectomy Social History household members: significant other and children housing: house current occupational status: employed Smoking Status: Never smoker alcohol intake: current alcohol intake frequency: holidays/special occasions only ROS ROS ED ROS Narrative Focused review of systems positive for left great toe pain and swelling with bruising, mainly at MTP. Worse with weightbearing and walking. Positive left medial mall alert pain and swelling with tenderness. No tenderness proximal tibial area or proximal fibular area. No neck pain, no hitting of head, no loss of consciousness. Patient complains of nausea. EXAM Physical Exam Narrative Exam Narrative: GCS 15. ABCs are intact. PERRL, EOMI. Cardiovascular examination reveals a regular tachycardia. Lungs clear to auscultation bilaterally. Abdomen soft and nontender. No proximal fibular head tenderness. Mild tenderness to palpation with minimal swelling left medial malleolus. No palpable Achilles tendon deficit. Able to plantarflex and dorsiflex left foot. Positive ecchymosis and swelling with bruising at the MTP joint on the left great toe. Palpable dorsalis pedis pulse. Const Vital Signs: 10/16/24 18:34 Temperature 97 F L Temperature Source Temporal Pulse Rate 145 H Respiratory Rate 20 H Blood Pressure 126/110 H Blood Pressure Mean 115 Pulse Ox 100 Oxygen Delivery Method Room Air MDM MDM MDM Narrative Medical decision making narrative: The differential diagnosis includes but not limited to left foot contusion versus sprain versus fracture. I do not feel that she has a fracture of her ankle but given her tenderness x-rays will be obtained as well. As she has multiple allergies to medications and cannot take NSAIDs because she is on Xarelto, I offered her Tylenol but she declined. She requested something for nausea. She had been given an ice pack for comfort already. X-rays were obtained of the left foot and the left ankle and 3 views each and interpreted by myself independently. I see no evidence for acute fracture in either the foot or the ankle. I reviewed the radiology report which confirms my independent interpretation. She told the RN she was having 8 out of 10 pain in her left foot. She also told her that she had already taken the 1000 mg of Tylenol at home. She was given 1 oxycodone tablet here. As she has no evidence of an acute fracture, I feel she can follow-up with podiatry, but she states that she has seen orthopedics as well in the past. She was placed in a postoperative shoe and will be weightbearing as tolerated to continue ice and elevation at home. I do not feel narcotic pain medications are indicated. She continue Tylenol and she requested a few tablets of Zofran or something for nausea that she has continually. I feel she can be discharged safely home with follow-up. Return instructions reviewed. Disposition is discharged home in stable condition. Radiography X-Ray: Read by ED Physician and Read by Radiologist Diagnostic Testing: Clinical Impression(s) from Imaging Studies Ankle X-Ray 10/16/24 19:01 IMPRESSION: Negative. Electronically Signed: Luis Banegas at 20:31 EST , Foot X-Ray 10/16/24 19:15 IMPRESSION: Negative. Electronically Signed: Luis Bassam at 20:30 EST , Discharge Plan Triage Chief Complaint: Lower Extremity Injury ED Provider: Aldair Perez Dx/Rx/DC Orders Clinical Impression: Foot sprain, Contusion of foot, left Instructions: ED Foot Contusion, ED Foot Sprain Prescriptions: New ondansetron 4 mg tablet,disintegrating 4 mg PO Q8H PRN PRN (Reason: Nausea) Qty: 10 0RF No Action topiramate [Topamax] 50 MG tablet 50 mg PO Q12H Patient Comments: migraine Xarelto 20 mg tablet 20 mg PO DAILY Rx Instructions: must administer with evening meal metoprolol tartrate [Lopressor] 50 mg tablet 25 mg PO Q12H baclofen 10 mg tablet 10 mg PO DAILY PRN (Reason: pain) zolpidem 5 mg tablet 5 mg PO QHS gabapentin 100 mg capsule 100 mg PO BID oxycodone-acetaminophen [Percocet] 5-325 mg tablet 1 tab PO Q8H PRN (Reason: pain) 2 Days Qty: 6 0RF ondansetron 4 mg tablet,disintegrating 4 mg PO Q8H PRN PRN (Reason: Nausea) Qty: 10 0RF cephalexin 500 mg capsule 500 mg PO TID 7 Days Qty: 21 0RF potassium chloride 20 mEq tablet extended release 40 meq PO DAILY 5 Days Qty: 10 0RF oxycodone-acetaminophen 5-325 mg tablet 1 tab PO Q6H PRN PRN (Reason: Pain) 3 Days Qty: 12 0RF ondansetron 4 mg tablet,disintegrating 4 mg PO Q8H PRN PRN (Reason: Nausea) Qty: 10 0RF dextroamphetamine-amphetamine 30 mg capsule,extended release 24hr 1 cap PO DAILY norethindrone (contraceptive) 0.35 mg tablet 0.35 mg PO DAILY cephalexin 500 mg capsule 500 mg PO Q6 5 Days Qty: 20 0RF Primary Care Provider: George Avitia Referrals: George Avitia MD [Primary Care Provider] - Chuck Lopez DPM [Med Staff - Active Staff] - 1 Week if not improving London White MD [Med Staff - Active Staff] - 1 Week if not improving Activity Restrictions/Additional Instructions: Continue ice and elevation of your left foot at home. Follow-up with ort hopedics or podiatry. Weightbearing as tolerated. Print Language: [place] Disposition Disposition: Home, Self Care
--- NOTE | 2024-10-16 19:15 | RAD_ITS ---
INDICATION: trauma EXAMINATION/TECHNIQUE: X-RAY - LEFT XR Foot Min 3 Views 3 VIEWS COMPARISON: FINDINGS: SOFT TISSUES: No soft tissue swelling or gas. No radiopaque foreign body. BONES/JOINTS: No acute fracture or subluxation.. Normal alignment. Preservation of the joint space.. No sclerotic or destructive changes observed. RAD/Foot min 3 Views IMPRESSION: Negative. Electronically Signed: Luis Banegas DO at 20:30 EST ,
[2024-10-16] MEDS: Ondansetron ODT 4 MG Tablet PO (19:24)
[2024-10-16] MEDS: oxyCODONE 5 MG Tablet PO (20:05)
[2024-10-16 20:55] VITALS: BP 116/72; PULSE 79; RESP 18; TEMP 36.9; O2SAT 100
== END 2024-10-16 20:57 | disposition home or self-care (01) ==
PROVIDERS: Emergency Provider Emergency Medicine; PCP Family Medicine; Visit Provider Emergency Medicine
DX: S90.32XA Contusion of left foot, initial encounter (principal); S93.602A Unspecified sprain of left foot, initial encounter; W22.09XA Striking against other stationary object, initial encounter; Y92.019 Unspecified place in single-family (private) house as the place of occurrence of the external cause; Z79.01 Long term (current) use of anticoagulants; Z86.73 Personal history of transient ischemic attack (TIA), and cerebral infarction without residual deficits; D68.62 Lupus anticoagulant syndrome; Z90.49 Acquired absence of other specified parts of digestive tract
CPT/HCPCS: 73610; 73630; 99284

== ENCOUNTER 2024-11-14 20:47 | Emergency (ER) | payer MEDICAID, SELFPAY ==
[2024-11-14 20:48] VITALS: BP 144/89; PULSE 126; RESP 15; TEMP 36.6; O2SAT 99; BMI 27.3
[2024-11-14 21:09] VITALS: BMI 27.8
--- NOTE | 2024-11-14 21:33 | CT_ITS ---
INDICATION: headache EXAMINATION: CT BRAIN - CT Head or Brain W/O Contrast Injection TECHNIQUE: Multiple axial images were obtained of the head without intravenous contrast. A radiation dose optimization technique was used for this scan. IV Contrast dosage and agent: None. Radiation Dose (provided by facility) CTDIvol (44.99 ) mGy, DLP ( 829.85) mGy-cm COMPARISON: 04/13/2024 FINDINGS: HEMISPHERES: 1. The cerebral parenchyma, ventricular system, subarachnoid spaces have normal configuration and density. There is a normal gyral pattern. There is normal rdz/white differentiation. No midline shift.. 2. The hemispheric white matter has normal appearance. 3. No intraparenchymal mass, hemorrhage, or acute territorial infarct. CEREBELLUM - BRAINSTEM: The cerebellum, brainstem, basilar and suprasellar cisterns have normal appearance. No Chiari malformation. PITUITARY: Infundibulum and pituitary have normal configuration. Midline structures appear normal. CSF SPACES: Appropriate for age. No hydrocephalus. Basal cisterns are patent. VESSELS: 1. No significant vascular calcifications in the cavernous carotid vessels. 2. No hyperdense vascular signs noted.. ORBITS AND PARANASAL SINUSES: 1. Normal appearance of the bony orbits. Normal appearance of the globes and retrobulbar soft tissues.. 2. Paranasal sinuses are clear. BONY ELEMENTS: Bony elements of the cranial vault, facial skeleton and skull base have normal appearance. SCALP AND SOFT TISSUES: Normal appearance of the soft tissues of the scalp and the visualized face OTHER: None ASPECTS Score for Acute Strokes: 10 CT/Brain/Head without Contrast IMPRESSION: 1. Stable exam 2. No intracranial mass, hemorrhage or acute territorial infarct 3. No radiographically significant sinus disease.. Electronically Signed: Ulices Samuels MD at 22:39 EST ,
--- NOTE | 2024-11-14 21:33 | CT_ITS ---
INDICATION: L flank pain EXAMINATION: CT ABDOMEN AND PELVIS WITHOUT CONTRAST - CT Abdomen And Pelvis W/O Contrast Injection TECHNIQUE: Helically acquired images were obtained of the abdomen and pelvis without oral or IV contrast. A radiation dose optimization technique was used for this scan. IV Contrast dosage and agent: None. Oral contrast: None. RADIATION DOSAGE (If Supplied By Facility): CTDIvol = ( 17.85 ) mGy, DLP = ( 981.22 ) mGycm COMPARISON: 10/14/2024 FINDINGS: LOWER CHEST: 1. Lung bases are clear. 2. No cardiomegaly or pericardial effusion. 3. No significant coronary vascular calcifications. LIVER: The liver has normal configuration and density given the limitation of noncontrast exam.. No focal mass. GALLBLADDER AND BILIARY TREE: Postoperative changes of cholecystectomy. No ductal dilatation or abnormal fluid collections. PANCREAS: No focal cystic or solid mass. SPLEEN: Normal size without focal cystic or solid mass. ADRENAL GLANDS: No nodules. KIDNEYS AND URETERS: Normal renal size and position. No hydronephrosis. PERITONEUM: No ascites or free air. No other fluid collection. BOWEL: Large small bowel loops have normal configuration. No masses or bowel obstruction. Short segments of the normal appendix are present. Moderate sigmoid diverticulosis without evidence diverticulitis. No stomach or bowel distension. No focal inflammatory change. LYMPH NODES: No enlarged mesenteric or retroperitoneal lymph nodes. VESSELS: Aorta is non-dilated. URINARY BLADDER: Unremarkable. REPRODUCTIVE ORGANS: No pelvic masses. ABDOMINAL WALL: No discrete abdominal or pelvic wall hernia. BONES: No lytic or blastic abnormality. CT/Abdomen/Pelvis without Cont IMPRESSION: 1. No masses bowel obstruction abscess free fluid or free air. 2. Diverticulosis without evidence diverticulitis. 3. No evidence of renal calcifications or obstructive uropathy. 4. Status post cholecystectomy. No ductal dilatation. Electronically Signed: Ulices Samuels MD at 22:49 EST ,
[2024-11-14 21:36] LABS: Bedside Glucose 95 mg/dL (74-106)
[2024-11-14] MEDS: Morphine 4 MG/ML Syringe IV (21:39)
[2024-11-14] MEDS: Ondansetron 4 MG/2 ML Vial IV ×2 (21:39→22:30)
[2024-11-14 21:51] LABS: Absolute Lymphocyte Count 1.55 X10^3/uL (0.83-4.51); Absolute Neutrophil Count 5.1 X10^3/uL (2.0-7.7); Basophil# 0.02 X10^3/uL; Basophil% 0.3 % (0-1); Eosinophil# 0.05 X10^3/uL; Eosinophils% 0.7 % (0-5); Hematocrit 41.2 % (37-47); Hemoglobin 14.1 g/dL (12.0-15.0); Lymphocyte # 1.55 X10^3/ul (0.83-4.51); Lymphocyte % 21.4 % (19-41); Mean Corp Hgb Conc 34.2 g/dL (32-36); Mean Corpuscular Hgb 32.9 pg (27.0-32.0); Mean Platelet Vol. 10.5 fl (6.2-12.0); Monocyte# 0.46 X10^3/uL; Monocyte% 6.4 % (0-10); NRBC Flagged by Analyzer 0 % (0-5); Neutrophil # 5.14 X10^3/uL (2.7-7.7); Neutrophil % 70.9 % (47-70); Platelet Count 323 K/mm3 (150-450); RBC Distribution Width SD 45.6 fl (35.1-43.9); Red Blood Count 4.29 M/mm3 (4.2-5.4); White Blood Count 7.2 K/mm3 (4.4-11.0)
--- NOTE | 2024-11-14 21:57 | EX.ED.DYSGE1 ---
HPI <ROSANNA Easton - Last Filed: 11/14/24 22:03> History of Present Illness Chief Complaint: Complaint Narrative Narrative: Patient presenting today with multiple vague complaints. She reports that on Friday she developed left-sided flank pain and hematuria. The pain does radiates to her left lower quadrant and left groin. She is concerned she could have a kidney stone. She reports that she has had stones in the past and this does feel similar. She also reports that yesterday she developed a headache that is mainly located behind her left eye. The pain has been constant since. She does have a history of migraines but this does not feel like one of her typical migraines. She reports that her boyfriend told her that she was occasionally not making sense when she was talking yesterday. She does have a history of a TIA several years ago. She reports history of a clotting disorder and is on Eliquis. Additionally, she reports stiffness in her neck. She denies fevers, chills, nausea, or vomiting PFSH <ROSANNA Easton - Last Filed: 11/14/24 22:03> [facility] Medical History Wears glasses Wears contact lenses Open wound Excessive bleeding Migraine headache History of stress test History of echocardiogram History of irregular heartbeat Seizures Cardiology follow-up encounter Endometriosis determined by laparoscopy Lupus anticoagulant disorder DVT (deep venous thrombosis) TIA (transient ischemic attack) left sided parathesias Home Medications ?Medication ?Instructions ?Recorded ?Last Taken ?Type topiramate 50 mg tablet (Topamax) 50 mg PO Q12H 04/05/21 Unknown History metoprolol tartrate 50 mg tablet 25 mg PO Q12H 07/02/23 Unknown History (Lopressor) rivaroxaban 20 mg tablet (Xarelto) 20 mg PO DAILY 07/02/23 07/06/23 History dextroamphetamine-amphetamine ER 1 cap PO DAILY 04/13/24 Unknown History 30 mg 24hr capsule,extend release norethindrone (contraceptive) 0.35 0.35 mg PO DAILY 04/13/24 Unknown History mg tablet baclofen 10 mg tablet 10 mg PO DAILY PRN pain 06/13/24 Unknown History cephalexin 500 mg capsule 500 mg PO TID 7 days #21 caps 06/13/24 Unknown Rx gabapentin 100 mg capsule 100 mg PO BID 06/13/24 Unknown History ondansetron 4 mg disintegrating 4 mg PO Q8H PRN PRN Nausea #10 tabs 06/13/24 Unknown Rx tablet oxycodone-acetaminophen 5 mg-325 1 tab PO Q8H PRN pain 2 days #6 06/13/24 Unknown Rx mg tablet (Percocet) tabs potassium chloride 20 mEq 40 meq (2 x 20 mEq) PO DAILY 5 06/13/24 Unknown Rx tablet,extended release days #10 tabs zolpidem 5 mg tablet 5 mg PO QHS insomnia 06/13/24 Unknown History cephalexin 500 mg capsule 500 mg PO Q6 5 days #20 CAPSULES 07/04/24 Unknown Rx ondansetron 4 mg disintegrating 4 mg PO Q8H PRN PRN Nausea #10 tabs 10/14/24 Unknown Rx tablet oxycodone-acetaminophen 5 mg-325 1 tab PO Q6H PRN PRN Pain 3 days 10/14/24 Unknown Rx mg tablet #12 TABLETS ondansetron 4 mg disintegrating 4 mg PO Q8H PRN PRN Nausea #10 tabs 10/16/24 Unknown Rx tablet ondansetron 8 mg disintegrating 8 mg PO Q8H PRN nausea and 11/14/24 Unknown Rx tablet vomiting #12 tabs sulfamethoxazole 800 1 tab PO BID #28 TABLETS 11/14/24 Unknown Rx mg-trimethoprim 160 mg tablet Allergy/AdvReac Type Severity Reaction Status Date / Time acetaminophen (From Vicodin) Allergy Hives Verified 11/14/24 20:48 hydrocodone bitartrate (From Allergy Hives Verified 11/14/24 20:48 Vicodin) ketorolac tromethamine (From Allergy Hives Verified 11/14/24 20:48 Toradol) metoclopramide (From Reglan) Allergy Other Verified 11/14/24 20:48 metronidazole (From Metrogel) Allergy Swelling Verified 11/14/24 20:48 NSAIDS (Non-Steroidal Allergy Other Verified 11/14/24 20:48 Anti-Inflamma skin cleanser (From Metrogel) Allergy Swelling Verified 11/14/24 20:48 prochlorperazine (From AdvReac Other Verified 11/14/24 20:48 Compazine) promethazine (From Phenergan) AdvReac Other Verified 11/14/24 20:48 Family History Mother Diabetes Hypertension Father Hypertension Sister Thyroid disorder Surgical History Hx of surgical procedure Hx of surgical procedure Hx of laparoscopy S/P foot surgery, right H/O bilateral salpingectomy Hx of cholecystectomy Social History household members: significant other and children housing: house current occupational status: employed Smoking Status: Never smoker alcohol intake: current alcohol intake frequency: holidays/special occasions only ROS <ROSANNA Easton - Last Filed: 11/14/24 22:03> ROS ED Constitutional Constitutional ED: Denies chills or fever(s) Cardiovascular Cardiovascular: Denies chest pain Respiratory/Chest Respiratory/Chest: Denies dyspnea Gastrointestinal Gastrointestinal: Reports abdominal pain; Denies nausea or vomiting Genitourinary Genitourinary ED: Reports hematuria; Denies dysuria or urinary urgency Musculoskeletal Musculoskeletal: Reports back pain; Denies arthralgias or myalgias Integumentary Denies rash Neurologic Neurologic: Denies weakness EXAM <ROSANNA Easton - Last Filed: 11/14/24 22:03> Physical Exam Const Vital Signs: 11/14/24 20:48 11/14/24 22:00 Temperature 97.9 F 98.4 F Temperature Source Temporal Oral Pulse Rate 126 H 110 H Respiratory Rate 15 16 Blood Pressure 144/89 H 117/62 Blood Pressure Mean 107 80 Pulse Ox 99 99 Oxygen Delivery Method Room Air Room Air Positive well nourished, well developed and no apparent distress General Appearance ED: well developed HEENT Reports normocephalic and head/scalp atraumatic Mouth ED: Yes moist mucous membranes normal Eyes PERRL and EOMs intact bilaterally Neck supple Neck Narrative: No meningeal signs, no midline cervical tenderness. Negative Brudzinski and Kernig sign. Chest Wall inspection of chest normal Resp normal respiratory effort and clear to auscultation bilaterally Cardio regular rate and regular rhythm GI soft to palpation, non-tender, non-distended and no masses Back/Spine normal ROM and normal to inspection General Back: CVA tenderness left Extremity normal to inspection and full ROM Neuro oriented x3, CN's II-XII intact bilaterally, moves all extremities, no focal motor deficits and no sensory deficits noted Sensorium / Orientation: awake and alert Psych mental status grossly normal and thought process normal Skin no rashes or lesions noted and no wounds <Dr. Miguel Glover MD - Last Filed: 11/14/24 23:06> Physical Exam Const Vital Signs: 11/14/24 20:48 11/14/24 22:00 Temperature 97.9 F 98.4 F Temperature Source Temporal Oral Pulse Rate 126 H 110 H Respiratory Rate 15 16 Blood Pressure 144/89 H 117/62 Blood Pressure Mean 107 80 Pulse Ox 99 99 Oxygen Delivery Method Room Air Room Air MDM <ROSANNA Easton - Last Filed: 11/14/24 22:03> MDM MDM Narrative Medical decision making narrative: Patient presenting today with left flank pain, hematuria, headache, and neck stiffness. She does not have any meningeal signs on exam, she has a negative Brudzinski and Kernig sign. She is afebrile. She has no leukocytosis. The remainder of her labs are pending. CT scan of the head, abdomen, and pelvis will be obtained to assess for subarachnoid hemorrhage, mass, intracranial abnormality. CT of the abdomen and pelvis will be obtained to assess for kidney stone. Patient given IV Zofran and morphine for pain. Workup pending. Lab Data Attestation: I reviewed the patient's lab results. Labs: Laboratory Results - last 24 hr 11/14/24 11/14/24 21:14 21:16 WBC 7.2 RBC 4.29 Hgb 14.1 Hct 41.2 MCV 96.0 MCH 32.9 H MCHC 34.2 RDW Std Deviation 45.6 H RDW Coeff of Justo 13.0 Plt Count 323 MPV 10.5 Immature Gran % (Auto) 0.300 Neut % (Auto) 70.9 H Lymph % (Auto) 21.4 Vermilion % (Auto) 6.4 Eos % (Auto) 0.7 Baso % (Auto) 0.3 Absolute Neuts (auto) 5.1 Absolute Lymphs (auto) 1.55 Nucleated RBC % 0 Sodium 137 Potassium 3.3 L Chloride 106 Carbon Dioxide 27.0 Anion Gap 4 L BUN 12 Creatinine 0.66 Estim Creat Clear Calc 110.47 Est GFR (MDRD) Af Amer 129 Est GFR (MDRD) Non-Af 107 BUN/Creatinine Ratio 18.2 Glucose 98 Calcium 9.3 HCG, Quant < 1 Urine Color Red Urine Clarity Cloudy Urine pH 6.0 Ur Specific [place] 1.025 Urine Protein 100 H Urine Glucose (UA) Normal Urine Ketones 5 H Urine Occult Blood 250 H Urine Nitrite Positive H Urine Bilirubin Negative Urine Urobilinogen 1 H Ur Leukocyte Esterase 500 H Urine RBC > 100 SEEN Urine WBC 10-25 SEEN Ur Squamous Epith Cells 5-10 SEEN Urine Bacteria 1+ Urine Mucus 0 SEEN POC Glucose 95 Radiography Diagnostic Testing: Clinical Impression(s) from Imaging Studies Abdomen/Pelvis CT 11/14/24 21:33 IMPRESSION: 1. No masses bowel obstruction abscess free fluid or free air. 2. Diverticulosis without evidence diverticulitis. 3. No evidence of renal calcifications or obstructive uropathy. 4. Status post cholecystectomy. No ductal dilatation. Electronically Signed: Ulices Samuels MD at 22:49 EST Reading Location ID and State: [address] [place] [address] Tel , Service support , Brain CT 11/14/24 21:33 IMPRESSION: 1. Stable exam 2. No intracranial mass, hemorrhage or acute territorial infarct 3. No radiographically significant sinus disease.. Electronically Signed: Ulices Samuels MD at 22:39 EST Reading Location ID and State: [address] [place] [address] Tel , Service support , <Dr. Miguel Glover MD - Last Filed: 11/14/24 23:06> [facility] Lab Data Labs: Laboratory Results - last 24 hr 11/14/24 11/14/24 21:14 21:16 WBC 7.2 RBC 4.29 Hgb 14.1 Hct 41.2 MCV 96.0 MCH 32.9 H MCHC 34.2 RDW Std Deviation 45.6 H RDW Coeff of Justo 13.0 Plt Count 323 MPV 10.5 Immature Gran % (Auto) 0.300 Neut % (Auto) 70.9 H Lymph % (Auto) 21.4 [place]ilion % (Auto) 6.4 Eos % (Auto) 0.7 Baso % (Auto) 0.3 Absolute Neuts (auto) 5.1 Absolute Lymphs (auto) 1.55 Nucleated RBC % 0 Sodium 137 Potassium 3.3 L Chloride 106 Carbon Dioxide 27.0 Anion Gap 4 L BUN 12 Creatinine 0.66 Estim Creat Clear Calc 110.47 Est GFR (MDRD) Af Amer 129 Est GFR (MDRD) Non-Af 107 BUN/Creatinine Ratio 18.2 Glucose 98 Calcium 9.3 HCG, Quant < 1 Urine Color Red Urine Clarity Cloudy Urine pH 6.0 Ur Specific [place] 1.025 Urine Protein 100 H Urine Glucose (UA) Normal Urine Ketones 5 H Urine Occult Blood 250 H Urine Nitrite Positive H Urine Bilirubin Negative Urine Urobilinogen 1 H Ur Leukocyte Esterase 500 H Urine RBC > 100 SEEN Urine WBC 10-25 SEEN Ur Squamous Epith Cells 5-10 SEEN Urine Bacteria 1+ Urine Mucus 0 SEEN POC Glucose 95 Radiography Diagnostic Testing: Clinical Impression(s) from Imaging Studies Abdomen/Pelvis CT 11/14/24 21:33 IMPRESSION: 1. No masses bowel obstruction abscess free fluid or free air. 2. Diverticulosis without evidence diverticulitis. 3. No evidence of renal calcifications or obstructive uropathy. 4. Status post cholecystectomy. No ductal dilatation. Electronically Signed: Ulices Samuels MD at 22:49 EST , Brain CT 11/14/24 21:33 IMPRESSION: 1. Stable exam 2. No intracranial mass, hemorrhage or acute territorial infarct 3. No radiographically significant sinus disease.. Electronically Signed: Ulices Samuels MD at 22:39 EST , Treatment and Re-Evaluation Comments:: I have personally performed a face to face assessment of the patient and have reviewed the ERIC Note. I performed a substantive portion of the visit including all aspects of the following. My gloria findings include: History is left flank pain that started over the course of about 10 minutes, 2 days ago, with subsequent nausea, an episode of vomiting, and some gross hematuria without retention, clots, or dysuria. No urinary symptoms before the onset of the pain. History of stones and thinks that is what it feels like and thinks she may have passed one of them. Yesterday she states she had sudden onset of a left retro-orbital headache along with some vision changes in her left eye that are no longer there, and some trouble speaking. Her mother states that she chronically has some slurred speech but that patient states this feels different. She is on Xarelto. She denies any recent head injury. She denies any loss of consciousness or other focal neurologic symptoms since the headache started but does feel like her neck is stiff. She denies any fevers, chills, confusion. Able to walk okay. Exam is alert, oriented x 3, a little bit of occasional word searching but no domingo aphasia. Otherwise normal peripheral neurologic exam. PERRL, EOMI. She can move her head but feels it is painful and is resistant to doing so better cardigan Burzynski are negative. Medical Decison Making CT of the head was obtained to rule out subarachnoid hemorrhage since the patient is on apixaban. On my interpretation the CT is negative for acute hemorrhage. CT of the abdomen/pelvis was obtained to evaluate for obstructive uropathy and/or perinephric stranding to suggest pyelonephritis. On my interpretation there is no hydronephrosis or hydroureter, and the CT is otherwise normal. Initially her symptoms were treated with morphine, Zofran, and after the CTs confirmed to be negative by radiology, given her significant list of reactions to most migraine medications, dihydroergotamine 1 mg ordered along with IV potassium to replace what appears to be low, her other electrolytes are normal. She is refusing the migraine medication and requesting for narcotic; she appears to be in no acute distress, and told nursing to request more narcotic from the physician 15 minutes after she received the initial dose. I do not think she needs more narcotics given all of that especially since there is no objective sign of an obstructive uropathy, but her urine does show what appears to be infection. I am going to cover her for pyelonephritis regardless of the lack of findings on the CT with IV Rocephin followed by a prescription for ciprofloxacin, urine was sent for culture. Patient refused IV Rocephin. She was advised that if she does this, ciprofloxacin is no longer appropriate, which would have been for only 1 week if she started with IV Rocephin, but alternatively she can do Bactrim for 2 weeks. She prefers Bactrim for 2 weeks so she was started on that. Other additions or changes: [None] Discharge Plan Triage Chief Complaint: Complaint Other Complaint: Neuro S/Sx ED Midlevel Provider: Mendy Yip ED Provider: Miguel Glover Dx/Rx/DC Orders Clinical Impression: Migraine with status migrainosus, Hematuria, Acute upper urinary tract infection, Anticoagulated Instructions: UTIs Understanding, ED, Migraine (Classical) Prescriptions: New sulfamethoxazole-trimethoprim 800-160 mg tablet 1 tab PO BID Qty: 28 0RF ondansetron 8 mg tablet,disintegrating 8 mg PO Q8H PRN (Reason: nausea and vomiting) Qty: 12 0RF No Action topiramate [Topamax] 50 MG tablet 50 mg PO Q12H Patient Comments: migraine Xarelto 20 mg tablet 20 mg PO DAILY Rx Instructions: must administer with evening meal metoprolol tartrate [Lopressor] 50 mg tablet 25 mg PO Q12H baclofen 10 mg tablet 10 mg PO DAILY PRN (Reason: pain) zolpidem 5 mg tablet 5 mg PO QHS gabapentin 100 mg capsule 100 mg PO BID oxycodone-acetaminophen [Percocet] 5-325 mg tablet 1 tab PO Q8H PRN (Reason: pain) 2 Days Qty: 6 0RF ondansetron 4 mg tablet,disintegrating 4 mg PO Q8H PRN PRN (Reason: Nausea) Qty: 10 0RF cephalexin 500 mg capsule 500 mg PO TID 7 Days Qty: 21 0RF potassium chloride 20 mEq tablet extended release 40 meq PO DAILY 5 Days Qty: 10 0RF oxycodone-acetaminophen 5-325 mg tablet 1 tab PO Q6H PRN PRN (Reason: Pain) 3 Days Qty: 12 0RF ondansetron 4 mg tablet,disintegrating 4 mg PO Q8H PRN PRN (Reason: Nausea) Qty: 10 0RF ondansetron 4 mg tablet,disintegrating 4 mg PO Q8H PRN PRN (Reason: Nausea) Qty: 10 0RF dextroamphetamine-amphetamine 30 mg capsule,extended release 24hr 1 cap PO DAILY norethindrone (contraceptive) 0.35 mg tablet 0.35 mg PO DAILY cephalexin 500 mg capsule 500 mg PO Q6 5 Days Qty: 20 0RF Primary Care Provider: George Avitia Referrals: George Avitia MD [Primary Care Provider] - 3-5 Days if not improving Activity Restrictions/Additional Instructions: Urine culture was sent. You were given a dose of IV ceftriaxone, a 24-hour antibiotic to treat possible urinary/kidney infection. Print Language: Vietnamese Disposition Disposition: Home, Self Care
[2024-11-14 22:00] VITALS: BP 117/62; PULSE 110; RESP 16; TEMP 36.9; O2SAT 99
[2024-11-14 22:10] LABS: Anion Gap 4 (5-15); BUN 12 mg/dL (7-18); BUN/Creat Ratio 18.2 RATIO (10-20); Calcium,Total 9.3 mg/dL (8.5-10.1); Chloride 106 mmol/L (98-107); Creatinine, Serum 0.66 mg/dL (0.55-1.02); EST Glomerular Filtration Rate 107 mL/min (>60); Est Glom Filt Rate - Afr Amer 129 mL/min (>60); Estimated Creatinine Clearance 110.47 ml/min; Glucose 98 mg/dL (74-106); Potassium 3.3 mmol/L (3.5-5.1); Sodium Level 137 mmol/L (136-145)
--- NOTE | 2024-11-14 22:12 | ED.RN ---
This RN went into the pt room to get vitals. The pt stated when I need pain meds in 15-20 mins, can I call you for more? This RN stated I can ask the doc.
[2024-11-14 22:16] LABS: hCG Titer Quant., Serum < 1 mIU/mL (1-3)
[2024-11-14 22:24] LABS: Mucous, Urine 0 SEEN /hpf (<or=2+)
[2024-11-14 22:26] LABS: Color, Urine Red (Yellow); Glucose, Dipstick Normal (Normal); Ketone-Dipstick 5 mg/dl (Negative); Leukocyte Esterase-Dipstick 500 /ul (Negative); Nitrite-Dipstick Positive (Negative); Occult Blood-Urine 250 /ul (Negative); Protein-Dipstick 100 mg/dl (Negative); Specific Gravity, Urine 1.025 (1.002-1.030); Urine Bilirubin Dipstick Negative (Negative); Urine Clarity Cloudy (Clear); Urine Urobilinogen 1 mg/dl (Normal)
--- NOTE | 2024-11-14 22:28 | ED.RN ---
Pt requests this RN to double check the side effects of dihydroergotamine. This RN pulled up clinical pharmacology for the patient and read her the side effects and adverse reactions. Patient was on google researching side effects and is crying. The patient is declining the med.
[2024-11-14] MEDS: Potassium Chloride 10mEq/100mL 10 MEQ/100 ML IV.SOLN. 100 MEQ IV BOLUS (22:31)
[2024-11-14 22:41] LABS: Bacteria 1+ /hpf (None Seen)
[2024-11-14 22:42] LABS: Red Blood Cells-Urine > 100 SEEN /hpf (0-5); Squamous Epithelial Cells - UA 5-10 SEEN /hpf (5-10)
[2024-11-14 22:47] LABS: White Blood Cells 10-25 SEEN /hpf (0-5)
--- NOTE | 2024-11-14 23:04 | ED.RN ---
This RN went to [facility] and the patient requested a pill form. This RN spoke to Dr Glover and Dr Glover went to speak to the patient. The pt requested oral antibiotics. Dr Glover gave 2 options: iv antibiotics or oral antibiotics for 2 weeks. The pt requested oral antibiotics.
[2024-11-14 23:06] VITALS: BP 119/74; PULSE 105; RESP 18; TEMP 36.9; O2SAT 97
[2024-11-14] MEDS: Smz/Tmp Ds Tablet 1 TABLET PO (23:15)
--- NOTE | 2024-11-14 23:21 | ED.RN ---
This RN went into the patient room to give oral antibiotics. Pt visibly upset and asking Do I have to finish the potassium? This RN stated your potassium was low so you should finish it but it is up to you. Pt requests IV out and to go home. Pt states what is the doctors name? He wrote things about me that arent true on the mychart and I want to leave. This RN stated Let me get a patient advocate for you. This RN asked my charge nurse for patient advocate info and Christine RN went into the room to discuss the situation with her. This RN stepped out of the room to give patient privacy. Christine RN just left the room and the patient left the room screaming This place is a fucking joke, no one cares. and was slamming the button on the wall.
--- NOTE | 2024-11-14 23:32 | ED.RN ---
Pt requested to speak to pt advocate. This nurse to room. She states that Dr Glover put in his note that she was drug seeking. Discussed with pt her refusing medications and asking nurse if she can ask for more pain medications in 15 minutes when she administered medication. She states she did not say that and that she knows something is wrong with her. Pt states that Dr. Glover should not be a doctor and that he doesn't know what he is prescribing. This nurse encouraged that Dr Glover would not write for medications that would not help her. This nurse attempted to assure and educate, pt not receptive. Pt denies any other needs.
== END 2024-11-14 23:36 | disposition home or self-care (01) ==
PROVIDERS: Physician Assistant; Emergency Provider Emergency Medicine; PCP Family Medicine; Visit Provider Emergency Medicine
DX: G43.901 Migraine, unspecified, not intractable, with status migrainosus (principal); N39.0 Urinary tract infection, site not specified; R31.9 Hematuria, unspecified; Z79.01 Long term (current) use of anticoagulants; Z86.73 Personal history of transient ischemic attack (TIA), and cerebral infarction without residual deficits; Z86.718 Personal history of other venous thrombosis and embolism; Z90.49 Acquired absence of other specified parts of digestive tract
CPT/HCPCS: J1110; 70450; 74176; 80048; 81001; 82962; 84702; 85025; 87086; 87088; 96361; 96374; 96375; 96376; 99284; A4216; J2405

== ENCOUNTER 2024-12-22 15:08 | Emergency (ER) | payer MEDICAID, SELFPAY ==
[2024-12-22 15:09] VITALS: BP 134/115; PULSE 116; RESP 16; TEMP 36.6; O2SAT 100; BMI 28.3
--- NOTE | 2024-12-22 15:12 | EKG12_ITS ---
Test Reason : Blood Pressure : */* mmHG Vent. Rate : 95 BPM Atrial Rate : 95 BPM P-R Int : 146 ms QRS Dur : 86 ms QT Int : 352 ms P-R-T Axes : 18 13 27 degrees QTcB Int : 442 ms Normal sinus rhythm Normal ECG Confirmed by Chuck Sanchez ([id number]), deputy editor in chief STEVE PICKENS ([id number]) on 12/23/2024 9:38:32 AM Referred By: LOLI/RICKY Confirmed By: Chuck Sanchez
[2024-12-22 15:57] LABS: Absolute Lymphocyte Count 1.27 X10^3/uL (0.83-4.51); Absolute Neutrophil Count 4.2 X10^3/uL (2.0-7.7); Basophil# 0.03 X10^3/uL; Basophil% 0.5 % (0-1); Eosinophil# 0.04 X10^3/uL; Eosinophils% 0.7 % (0-5); Hematocrit 42.9 % (37-47); Hemoglobin 14.4 g/dL (12.0-15.0); Lymphocyte # 1.27 X10^3/ul (0.83-4.51); Lymphocyte % 20.9 % (19-41); Mean Corp Hgb Conc 33.6 g/dL (32-36); Mean Corpuscular Hgb 32.5 pg (27.0-32.0); Mean Corpuscular Volume 96.8 fL (81-99); Mean Platelet Vol. 9.9 fl (6.2-12.0); Monocyte# 0.53 X10^3/uL; Monocyte% 8.7 % (0-10); NRBC Flagged by Analyzer 0 % (0-5); Neutrophil # 4.17 X10^3/uL (2.7-7.7); Neutrophil % 68.7 % (47-70); Platelet Count 401 K/mm3 (150-450); RBC Distribution Width CV 11.9 % (11.6-14.6); RBC Distribution Width SD 42.8 fl (35.1-43.9); Red Blood Count 4.43 M/mm3 (4.2-5.4); White Blood Count 6.1 K/mm3 (4.4-11.0)
--- NOTE | 2024-12-22 16:00 | RAD_ITS ---
PROCEDURE: CHEST PA AND LATERAL REASON FOR EXAM: 39-year-old female, chest pain, palpitations, right-sided flank pain. TECHNIQUE: Frontal and lateral views of the chest. COMPARISON: None. FINDINGS: The heart size is normal. The mediastinal contour is unremarkable. No focal consolidation, pleural effusion or pneumothorax. The bones are unremarkable. Cholecystectomy clips. RAD/Chest PA and Lateral IMPRESSION: NEGATIVE CHEST Reading Location: [id number]
[2024-12-22 16:20] LABS: Anion Gap 12 (5-15); BUN 13 mg/dL (4-19); BUN/Creat Ratio 22.9 RATIO (10-20); Calcium 9.4 mg/dL (7.6-11.0); Carbon Dioxide 25.1 mmol/L (22.0-29.0); Chloride 99 mmol/L (96-108); Creatinine, Serum 0.6 mg/dL (0.6-1.0); EST Glomerular Filtration Rate 119 (>60); Estimated Creatinine Clearance 122.55 ml/min; Glucose 92 mg/dL (70-99); Potassium 4.6 mmol/L (3.3-5.1); Sodium Level 136 mmol/L (133-145); Troponin T High Sensitivity < 6 ng/L (<=14)
[2024-12-22 17:01] LABS: Mucous, Urine 0 SEEN /hpf (<or=2+)
[2024-12-22 17:07] LABS: Color, Urine Amber (Yellow); Glucose, Dipstick Normal (Normal); Ketone-Dipstick Negative (Negative); Leukocyte Esterase-Dipstick 25 /ul (Negative); Nitrite-Dipstick Negative (Negative); Occult Blood-Urine 250 /ul (Negative); Protein-Dipstick 100 mg/dl (Negative); Urine Bilirubin Dipstick Negative (Negative); Urine Clarity Cloudy (Clear); Urine Urobilinogen Normal (Normal); Urine pH 6.5 (5.0 - 8.0)
[2024-12-22 17:37] LABS: Bacteria RARE /hpf (None Seen); Red Blood Cells-Urine > 100 SEEN /hpf (0-5)
[2024-12-22 17:38] LABS: Squamous Epithelial Cells - UA 0-5 SEEN /hpf (5-10); White Blood Cells 0-5 SEEN /hpf (0-5)
[2024-12-22 17:45] LABS: TROPONIN VARIANCE 2 HR UTC; Troponin T High Sens 2 HR < 6 ng/L (<=14)
[2024-12-22 17:51] VITALS: BP 120/80; PULSE 87; RESP 19; O2SAT 94
[2024-12-22] MEDS: Ondansetron 4 MG/2 ML Vial IV (17:56)
[2024-12-22] MEDS: Morphine 4 MG/ML Syringe IV (17:56)
[2024-12-22 18:02] VITALS: BP 120/80; PULSE 90; RESP 15; TEMP 36.8; O2SAT 96
--- NOTE | 2024-12-22 18:13 | ED.VIS.FEGU ---
HPI HPI - Female History of Present Illness Chief Complaint: Complaint Informant: patient Bleeding Issue: Negative for Vaginal bleeding Associated Symptoms Associated Symptoms: Positive for Hematuria Narrative Narrative: 39-year-old female history of prior kidney stones on Xarelto for prior DVT and lupus anticoagulant. Patient's had blood in her urine and right flank pain the last 1 to 2 days. Think she had a kidney stone. States she is feeling better. Denies any fever. No dysuria. Prior similar symptoms: Yes Recent Illness/Hospitalization: No PFSH PFSH Medical History Wears glasses Wears contact lenses Open wound Excessive bleeding Migraine headache History of stress test History of echocardiogram History of irregular heartbeat Seizures Cardiology follow-up encounter Endometriosis determined by laparoscopy Lupus anticoagulant disorder DVT (deep venous thrombosis) TIA (transient ischemic attack) left sided parathesias Home Medications ?Medication ?Instructions ?Recorded ?Last Taken ?Type topiramate 50 mg tablet (Topamax) 50 mg PO Q12H 04/05/21 Unknown History metoprolol tartrate 50 mg tablet 25 mg PO Q12H 07/02/23 Unknown History (Lopressor) rivaroxaban 20 mg tablet (Xarelto) 20 mg PO DAILY 07/02/23 07/06/23 History dextroamphetamine-amphetamine ER 1 cap PO DAILY 04/13/24 Unknown History 30 mg 24hr capsule,extend release norethindrone (contraceptive) 0.35 0.35 mg PO DAILY 04/13/24 Unknown History mg tablet baclofen 10 mg tablet 10 mg PO DAILY PRN pain 06/13/24 Unknown History cephalexin 500 mg capsule 500 mg PO TID 7 days #21 caps 06/13/24 Unknown Rx gabapentin 100 mg capsule 100 mg PO BID 06/13/24 Unknown History ondansetron 4 mg disintegrating 4 mg PO Q8H PRN PRN Nausea #10 tabs 06/13/24 Unknown Rx tablet oxycodone-acetaminophen 5 mg-325 1 tab PO Q8H PRN pain 2 days #6 06/13/24 Unknown Rx mg tablet (Percocet) tabs potassium chloride 20 mEq 40 meq (2 x 20 mEq) PO DAILY 5 06/13/24 Unknown Rx tablet,extended release days #10 tabs zolpidem 5 mg tablet 5 mg PO QHS insomnia 06/13/24 Unknown History cephalexin 500 mg capsule 500 mg PO Q6 5 days #20 CAPSULES 07/04/24 Unknown Rx ondansetron 4 mg disintegrating 4 mg PO Q8H PRN PRN Nausea #10 tabs 10/14/24 Unknown Rx tablet oxycodone-acetaminophen 5 mg-325 1 tab PO Q6H PRN PRN Pain 3 days 10/14/24 Unknown Rx mg tablet #12 TABLETS ondansetron 4 mg disintegrating 4 mg PO Q8H PRN PRN Nausea #10 tabs 10/16/24 Unknown Rx tablet ondansetron 8 mg disintegrating 8 mg PO Q8H PRN nausea and 11/14/24 Unknown Rx tablet vomiting #12 tabs sulfamethoxazole 800 1 tab PO BID #28 TABLETS 11/14/24 Unknown Rx mg-trimethoprim 160 mg tablet hydrocodone-acetaminophen 5-325mg 1 tab PO Q4H PRN PRN Pain 3 days 12/22/24 Unknown Rx 5mg-325mg #10 TABLETS ondansetron 4 mg disintegrating 4 mg PO Q6H PRN nausea and 12/22/24 Unknown Rx tablet vomiting #10 tabs Allergy/AdvReac Type Severity Reaction Status Date / Time acetaminophen (From Vicodin) Allergy Hives Verified 12/22/24 15:11 hydrocodone bitartrate (From Allergy Hives Verified 12/22/24 15:11 Vicodin) ketorolac tromethamine (From Allergy Hives Verified 12/22/24 15:11 Toradol) metoclopramide (From Reglan) Allergy Other Verified 12/22/24 15:11 metronidazole (From Metrogel) Allergy Swelling Verified 12/22/24 15:11 NSAIDS (Non-Steroidal Allergy Other Verified 12/22/24 15:11 Anti-Inflamma skin cleanser (From Metrogel) Allergy Swelling Verified 12/22/24 15:11 prochlorperazine (From AdvReac Other Verified 12/22/24 15:11 Compazine) promethazine (From Phenergan) AdvReac Other Verified 12/22/24 15:11 Family History Mother Diabetes Hypertension Father Hypertension Sister Thyroid disorder Surgical History Hx of surgical procedure Hx of surgical procedure Hx of laparoscopy S/P foot surgery, right H/O bilateral salpingectomy Hx of cholecystectomy Social History household members: significant other and children housing: house current occupational status: employed Smoking Status: Never smoker alcohol intake: current alcohol intake frequency: holidays/special occasions only ROS ROS ED ROS Narrative Right flank pain. Hematuria. Constitutional Constitutional ED: Denies fever(s) Eyes Eyes: Denies blurry vision ENT ENT ED: Denies ear pain Cardiovascular Cardiovascular: Denies chest pain Respiratory/Chest Respiratory/Chest: Denies cough or dyspnea Gastrointestinal Gastrointestinal: Reports other Details: Right flank pain ; Denies abdominal pain Genitourinary Genitourinary ED: Reports hematuria; Denies dysuria Musculoskeletal Musculoskeletal: Denies arthralgias or myalgias Integumentary Denies abscess or Abrasions Neurologic Neurologic: Denies headache(s) Psychiatric Psychiatric: Denies anxiety Endocrine Endocrinology: Denies heat intolerance Hematologic/Lymphatic Hematologic/Lymphatic: Denies easy bleeding Allergic/Immunologic Allergic/Immunologic ED: Denies mouth swelling or tongue swelling EXAM Physical Exam Narrative Exam Narrative: 39-year-old female sitting upright in bed vital signs are stable afebrile. Initially her pressure was elevated now that her pain is better blood pressure is 120/80. She does not look septic toxic or any distress. H EENT exam unremarkable. Moist mucous members. Neck nontender no JVD. Lungs clear to auscultation bilaterally. Heart regular rhythm rate about 85 no murmur. Chest wall ribs nontender. Abdomen soft, nontender. Moving all 4 extremities. Calves are nontender without edema or cords. Back nontender no CVA tenderness. Neurologically she is awake alert no focal motor deficits. Answering questions following commands. Const Vital Signs: 12/22/24 15:09 12/22/24 17:51 12/22/24 17:51 Temperature 97.9 F Temperature Source Temporal Pulse Rate 116 H 87 Respiratory Rate 16 19 H Blood Pressure 134/115 H 120/80 Blood Pressure Mean 121 93 Pulse Ox 100 94 Oxygen Delivery Method Room Air Room Air Room Air 12/22/24 18:02 Temperature 98.2 F Temperature Source Oral Pulse Rate 90 Respiratory Rate 15 Blood Pressure 120/80 Blood Pressure Mean 93 Pulse Ox 96 Oxygen Delivery Method Room Air Positive well nourished and well developed; Negative for obese, cachectic, contractures or unkempt General Appearance ED: well developed; Negative for unkempt, cachectic, contractures or pallor Nutritional Appearance: Negative for cachectic or obese HEENT Reports moist mucous membranes Negative for trauma or tenderness Eyes PERRL and EOMs intact bilaterally General Eye ED: Negative for pale conjunctiva, scleral icterus or other Neck no lymphadenopathy, supple and no JVD General: Negative for other Thyroid: Negative for tender Lymph Lymphatic: Negative for other Chest Wall inspection of chest normal and palpation of chest normal Resp normal respiratory effort and clear to auscultation bilaterally Effort and Inspection: Negative for pain with movement Auscultation: Negative for rales, rhonchi, wheezes or diminished lung sounds Cardio regular rate, regular rhythm, S1 normal heart sound, no murmurs and no JVD GI normal to inspection, nondistended, normoactive bowel sounds, soft to palpation, non-tender, non-distended and no masses Auscultation: normoactive bowel sounds Palpation: Negative for tender, guarding or mass Back/Spine no CVA tenderness General Back: Negative for CVA tenderness Cervical Spine: Negative for cervical spine tenderness Thoracic Spine / Upper Back: Negative for thoracic spinal tenderness Lumbar Spine / Lower Back: Negative for lumbar spinal tenderness Sacrum: Negative for other Extremity normal to inspection and full ROM General Extremety ED: Negative for edema or tenderness General Extremity: Negative for edema Neuro oriented x3, CN's II-XII intact bilaterally and no sensory deficits noted Sensorium / Orientation: alert, oriented to person, oriented to place and oriented to time; Negative for confused, lethargic or stuporous Motor Exam: strength 5/5 throughout Psych mental status grossly normal Appearance: Negative for unkempt Mood & Affect: Negative for depressed, anxious or tearful Skin no rashes or lesions noted and no wounds General Skin Exam: Negative for jaundice or pallor Rashes: No rashes noted Trauma: Negative for other MDM MDM MDM Narrative Medical decision making narrative: 39-year-old right flank pain hematuria history of kidney stones. Possible kidney stone. Nurses started protocol order. Repeat exam patient is doing well at 6:22 PM. Pains much better. I offered her CAT scan she did not wanted they have been here lengthy period of time due to the volume in the emergency department this time. She understands that we cannot rule in or rule out a kidney stone for sure but her symptoms and her labs are consistent with a kidney stone. She will be discharged home on [place] for pain 10 no refill. Zofran for nausea. She has a urologist she will follow-up with as needed. Return if worse. History & Record Review Discussion w/independent historian: Patient Additional record(s) reviewed:: Prior inpatient record, Prior outpatient record, Prior ED visit and Prior labs Lab Data Attestation: I reviewed the patient's lab results. Lab results narrative: CBC shows a white count of 6. H&H 14 and 42. Platelets 401. Electrolytes show a gap of 12. Normal BUN and creatinine. Glucose 92. Nurses ordered a troponin and she was having no chest pain or cardiac symptoms whatsoever 2 troponins were negative at less than 6. UA shows greater than 100 red cells no white cells on a rare bacteria no nitrites. No infection. Labs: Laboratory Results - last 24 hr 12/22/24 12/22/24 12/22/24 15:12 15:42 17:16 WBC 6.1 RBC 4.43 Hgb 14.4 Hct 42.9 MCV 96.8 MCH 32.5 H MCHC 33.6 RDW Std Deviation 42.8 RDW Coeff of [place] 11.9 Plt Count 401 MPV 9.9 Immature Gran % (Auto) 0.500 Neut % (Auto) 68.7 Lymph % (Auto) 20.9 [place] % (Auto) 8.7 Eos % (Auto) 0.7 Baso % (Auto) 0.5 Absolute Neuts (auto) 4.2 Absolute Lymphs (auto) 1.27 Nucleated RBC % 0 Sodium 136 Potassium 4.6 Chloride Direct 99 Carbon Dioxide 25.1 Anion Gap 12 BUN 13 Creatinine 0.6 Estim Creat Clear Calc 122.55 Est GFR (MDRD) Non-Af 119 BUN/Creatinine Ratio 22.9 H Glucose 92 Calcium 9.4 Troponin T High Sens < 6 Troponin T Hi Sens 2 Hr < 6 Troponin T Hi Sens 2Hr Delta UTC Urine Color [place] Urine Clarity Cloudy Urine pH 6.5 Ur Specific [place] 1.010 Urine Protein 100 H Urine Glucose (UA) Normal Urine Ketones Negative Urine Occult Blood 250 H Urine Nitrite Negative Urine Bilirubin Negative Urine Urobilinogen Normal Ur Leukocyte Esterase 25 H Urine RBC > 100 SEEN Urine WBC 0-5 SEEN Ur Squamous Epith Cells 0-5 SEEN Urine Bacteria RARE Urine Mucus 0 SEEN Radiography Chest X-Ray - ED: Read by ED Physician, Normal, Heart, Lungs, Mediastinum, Bony Structures and No Acute Disease Diagnostic Testing: Clinical Impression(s) from Imaging Studies Chest X-Ray 12/22/24 16:00 IMPRESSION: NEGATIVE CHEST Reading Location: [facility] Chest x-ray, 2 views, AP and lateral, shows no acute abnormality. Normal cardiac silhouette. Normal lung [place]. Rhythm Strip Rhythm Strip: Sinus Rhythm Rate: 95 Ectopy: None EKG Initial EKG: Attestation: I personally reviewed and interpreted this EKG as follows: Interpretation: Sinus Rhythm and No Acute Injury Pattern Comments: Normal sinus rhythm rate of 95 no acute signs of UT or ischemia. Discharge Plan Triage Chief Complaint: Complaint ED Provider: Enrique Apodaca Dx/Rx/DC Orders Clinical Impression: Acute right flank pain, Hematuria, History of renal calculi, Chronic anticoagulation Instructions: ED Flank Pain, Uncertain Cause, ED Hematuria Prescriptions: New hydrocodone-acetaminophen 5-325 mg tablet 1 tab PO Q4H PRN PRN (Reason: Pain) 3 Days Qty: 10 0RF ondansetron 4 mg tablet,disintegrating 4 mg PO Q6H PRN (Reason: nausea and vomiting) Qty: 10 0RF No Action topiramate [Topamax] 50 MG tablet 50 mg PO Q12H Patient Comments: migraine Xarelto 20 mg tablet 20 mg PO DAILY Rx Instructions: must administer with evening meal metoprolol tartrate [Lopressor] 50 mg tablet 25 mg PO Q12H baclofen 10 mg tablet 10 mg PO DAILY PRN (Reason: pain) zolpidem 5 mg tablet 5 mg PO QHS gabapentin 100 mg capsule 100 mg PO BID oxycodone-acetaminophen [Percocet] 5-325 mg tablet 1 tab PO Q8H PRN (Reason: pain) 2 Days Qty: 6 0RF ondansetron 4 mg tablet,disintegrating 4 mg PO Q8H PRN PRN (Reason: Nausea) Qty: 10 0RF cephalexin 500 mg capsule 500 mg PO TID 7 Days Qty: 21 0RF potassium chloride 20 mEq tablet extended release 40 meq PO DAILY 5 Days Qty: 10 0RF oxycodone-acetaminophen 5-325 mg tablet 1 tab PO Q6H PRN PRN (Reason: Pain) 3 Days Qty: 12 0RF ondansetron 4 mg tablet,disintegrating 4 mg PO Q8H PRN PRN (Reason: Nausea) Qty: 10 0RF ondansetron 4 mg tablet,disintegrating 4 mg PO Q8H PRN PRN (Reason: Nausea) Qty: 10 0RF dextroamphetamine-amphetamine 30 mg capsule,extended release 24hr 1 cap PO DAILY norethindrone (contraceptive) 0.35 mg tablet 0.35 mg PO DAILY cephalexin 500 mg capsule 500 mg PO Q6 5 Days Qty: 20 0RF sulfamethoxazole-trimethoprim 800-160 mg tablet 1 tab PO BID Qty: 28 0RF ondansetron 8 mg tablet,disintegrating 8 mg PO Q8H PRN (Reason: nausea and vomiting) Qty: 12 0RF Primary Care Provider: George Avitia Referrals: George Avitia MD [Primary Care Provider] - As Needed Activity Restrictions/Additional Instructions: Most likely a kidney stone without the CAT scan obviously we do not know for sure. Plenty of fluids and rest. Follow-up with your urologist as needed your primary care physician. If you are having increasing pain, fever or intractable vomiting return. Print Language: Yakut Disposition Disposition: Home, Self Care
== END 2024-12-22 18:54 | disposition home or self-care (01) ==
PROVIDERS: Emergency Provider Emergency Medicine; PCP Family Medicine; Visit Provider Emergency Medicine
DX: R10.9 Unspecified abdominal pain (principal); R11.0 Nausea; Z86.718 Personal history of other venous thrombosis and embolism; Z79.01 Long term (current) use of anticoagulants; Z86.73 Personal history of transient ischemic attack (TIA), and cerebral infarction without residual deficits; Z79.3 Long term (current) use of hormonal contraceptives; Z90.49 Acquired absence of other specified parts of digestive tract; R31.9 Hematuria, unspecified; Z87.442 Personal history of urinary calculi
CPT/HCPCS: 81025; 71046; 80048; 81001; 84484; 85025; 93005; 96374; 96375; 99284; A4216; J2405

== ENCOUNTER 2025-01-11 18:32 | Emergency (ER) | payer MEDICAID, SELFPAY ==
[2025-01-11 18:34] VITALS: BP 146/95; PULSE 134; RESP 18; TEMP 37.2; O2SAT 98; BMI 26.5
[2025-01-11 19:32] LABS: Absolute Lymphocyte Count 1.56 X10^3/uL (0.83-4.51); Absolute Neutrophil Count 3.9 X10^3/uL (2.0-7.7); Basophil# 0.03 X10^3/uL; Basophil% 0.5 % (0-1); Eosinophil# 0.06 X10^3/uL; Hematocrit 41.7 % (37-47); Hemoglobin 14.3 g/dL (12.0-15.0); Lymphocyte # 1.56 X10^3/ul (0.83-4.51); Lymphocyte % 26.5 % (19-41); Mean Corp Hgb Conc 34.3 g/dL (32-36); Mean Corpuscular Hgb 32.9 pg (27.0-32.0); Mean Corpuscular Volume 95.9 fL (81-99); Monocyte# 0.35 X10^3/uL; Monocyte% 5.9 % (0-10); NRBC Flagged by Analyzer 0 % (0-5); Neutrophil # 3.88 X10^3/uL (2.7-7.7); Neutrophil % 65.9 % (47-70); Platelet Count 309 K/mm3 (150-450); RBC Distribution Width CV 12.1 % (11.6-14.6); RBC Distribution Width SD 41.9 fl (35.1-43.9); Red Blood Count 4.35 M/mm3 (4.2-5.4); White Blood Count 5.9 K/mm3 (4.4-11.0)
[2025-01-11] MEDS: 0.9% Normal Saline (1000mL) 1,000 ML 999 ML IV (19:33)
[2025-01-11] MEDS: fentaNYL 100 MCG/2 ML Ampul 50 MCG IV (19:34)
[2025-01-11] MEDS: Ondansetron 4 MG/2 ML Vial IV (19:34)
[2025-01-11 19:44] VITALS: BP 139/94; BP 143/99; BP 154/96; PULSE 100; PULSE 104; PULSE 115
--- NOTE | 2025-01-11 19:44 | ED.VIS.FEGU ---
HPI HPI - Female History of Present Illness Chief Complaint: Vag Bleeding Informant: patient Narrative Narrative: Patient presents with 10 days of vaginal bleeding that became very heavy for the past 4, she has gone through about 7 pads in the past 5 or 6 hours and has been similar for the past 4 days, changing pads and tampons maybe 3 times overnight, to the point where she is feeling lightheaded, she feels her heart racing, she is having abdominal discomfort that suprapubic, and seeing large clots. She is taking Xarelto because of a history of lupus anticoagulant disorder that has given her TIA in the past. This is the right time for her menstrual cycle but she has never had to go on for this long or bleed this heavily with it. She sees [facility] gynecology. [facility] Medical History Wears glasses Wears contact lenses Open wound Excessive bleeding Migraine headache History of stress test History of echocardiogram History of irregular heartbeat Seizures Cardiology follow-up encounter Endometriosis determined by laparoscopy Lupus anticoagulant disorder DVT (deep venous thrombosis) TIA (transient ischemic attack) left sided parathesias Home Medications ?Medication ?Instructions ?Recorded ?Last Taken ?Type topiramate 50 mg tablet (Topamax) 50 mg PO Q12H 04/05/21 Unknown History metoprolol tartrate 50 mg tablet 25 mg PO Q12H 07/02/23 Unknown History (Lopressor) rivaroxaban 20 mg tablet (Xarelto) 20 mg PO DAILY 07/02/23 07/06/23 History dextroamphetamine-amphetamine ER 1 cap PO DAILY 04/13/24 Unknown History 30 mg 24hr capsule,extend release norethindrone (contraceptive) 0.35 0.35 mg PO DAILY 04/13/24 Unknown History mg tablet baclofen 10 mg tablet 10 mg PO DAILY PRN pain 06/13/24 Unknown History cephalexin 500 mg capsule 500 mg PO TID 7 days #21 caps 06/13/24 Unknown Rx gabapentin 100 mg capsule 100 mg PO BID 06/13/24 Unknown History ondansetron 4 mg disintegrating 4 mg PO Q8H PRN PRN Nausea #10 tabs 06/13/24 Unknown Rx tablet oxycodone-acetaminophen 5 mg-325 1 tab PO Q8H PRN pain 2 days #6 06/13/24 Unknown Rx mg tablet (Percocet) tabs potassium chloride 20 mEq 40 meq (2 x 20 mEq) PO DAILY 5 06/13/24 Unknown Rx tablet,extended release days #10 tabs zolpidem 5 mg tablet 5 mg PO QHS insomnia 06/13/24 Unknown History cephalexin 500 mg capsule 500 mg PO Q6 5 days #20 CAPSULES 07/04/24 Unknown Rx ondansetron 4 mg disintegrating 4 mg PO Q8H PRN PRN Nausea #10 tabs 10/14/24 Unknown Rx tablet oxycodone-acetaminophen 5 mg-325 1 tab PO Q6H PRN PRN Pain 3 days 10/14/24 Unknown Rx mg tablet #12 TABLETS ondansetron 4 mg disintegrating 4 mg PO Q8H PRN PRN Nausea #10 tabs 10/16/24 Unknown Rx tablet ondansetron 8 mg disintegrating 8 mg PO Q8H PRN nausea and 11/14/24 Unknown Rx tablet vomiting #12 tabs sulfamethoxazole 800 1 tab PO BID #28 TABLETS 11/14/24 Unknown Rx mg-trimethoprim 160 mg tablet hydrocodone-acetaminophen 5-325mg 1 tab PO Q4H PRN PRN Pain 3 days 12/22/24 Unknown Rx 5mg-325mg #10 TABLETS ondansetron 4 mg disintegrating 4 mg PO Q6H PRN nausea and 12/22/24 Unknown Rx tablet vomiting #10 tabs norethindrone acetate 5 mg tablet 5 mg PO TID #23 tabs 01/11/25 Unknown Rx ondansetron 8 mg disintegrating 8 mg PO Q8H PRN nausea and 01/11/25 Unknown Rx tablet vomiting #20 tabs Allergy/AdvReac Type Severity Reaction Status Date / Time acetaminophen (From Vicodin) Allergy Hives Verified 01/11/25 18:33 hydrocodone bitartrate (From Allergy Hives Verified 01/11/25 18:33 Vicodin) ketorolac tromethamine (From Allergy Hives Verified 01/11/25 18:33 Toradol) metoclopramide (From Reglan) Allergy Other Verified 01/11/25 18:33 metronidazole (From Metrogel) Allergy Swelling Verified 01/11/25 18:33 NSAIDS (Non-Steroidal Allergy Other Verified 01/11/25 18:33 Anti-Inflamma skin cleanser (From Metrogel) Allergy Swelling Verified 01/11/25 18:33 prochlorperazine (From AdvReac Other Verified 01/11/25 18:33 Compazine) promethazine (From Phenergan) AdvReac Other Verified 01/11/25 18:33 Family History Mother Diabetes Hypertension Father Hypertension Sister Thyroid disorder Surgical History Hx of surgical procedure Hx of surgical procedure Hx of laparoscopy S/P foot surgery, right H/O bilateral salpingectomy Hx of cholecystectomy Social History household members: significant other and children housing: house current occupational status: employed Smoking Status: Never smoker alcohol intake: current alcohol intake frequency: holidays/special occasions only ROS ROS ED Constitutional Constitutional ED: Denies chills or fever(s) Eyes Eyes: Denies change in vision or diplopia ENT ENT ED: Denies rhinorrhea or sore throat Cardiovascular Cardiovascular: Reports lightheadedness and racing heartbeat; Denies chest pain or syncope Respiratory/Chest Respiratory/Chest: Denies cough or dyspnea Gastrointestinal Gastrointestinal: Reports abdominal pain and nausea; Denies diarrhea or vomiting Genitourinary Genitourinary ED: Reports as per HPI and vaginal bleeding; Denies dysuria or hematuria Musculoskeletal Musculoskeletal: Denies back pain or neck pain Integumentary Denies abscess or rash Neurologic Neurologic: Denies headache(s), paresthesias or weakness Psychiatric Psychiatric: Denies anxiety or suicidal thoughts EXAM Physical Exam Const Vital Signs: 01/11/25 18:34 01/11/25 19:44 01/11/25 20:33 Temperature 98.9 F Temperature Source Oral Pulse Rate 134 H 103 H Pulse Rate [Lying] 100 Pulse Rate [Sitting (for 1 minute prior to obtaining)] 115 H Pulse Rate [Standing (for 1 minute prior to obtaining)] 104 H Respiratory Rate 18 20 H Blood Pressure 146/95 H 128/95 H Blood Pressure [Lying] 139/94 H Blood Pressure [Sitting (for 1 minute prior to obtaining)] 143/99 H Blood Pressure [Standing (for 1 minute prior to obtaining)] 154/96 H Blood Pressure Mean 112 106 Blood Pressure Mean [Lying] 109 Blood Pressure Mean [Sitting (for 1 minute prior to obtaining)] 113 Blood Pressure Mean [Standing (for 1 minute prior to obtaining)] 115 Pulse Ox 98 98 Oxygen Delivery Method Room Air Room Air 01/11/25 21:05 Temperature Temperature Source Pulse Rate 86 Pulse Rate [Lying] Pulse Rate [Sitting (for 1 minute prior to obtaining)] Pulse Rate [Standing (for 1 minute prior to obtaining)] Respiratory Rate 15 Blood Pressure 130/84 H Blood Pressure [Lying] Blood Pressure [Sitting (for 1 minute prior to obtaining)] Blood Pressure [Standing (for 1 minute prior to obtaining)] Blood Pressure Mean 99 Blood Pressure Mean [Lying] Blood Pressure Mean [Sitting (for 1 minute prior to obtaining)] Blood Pressure Mean [Standing (for 1 minute prior to obtaining)] Pulse Ox 97 Oxygen Delivery Method Room Air Positive well nourished and well developed General Appearance ED: well developed and NAD HEENT Reports moist mucous membranes normocephalic and atraumatic Eyes PERRL and EOMs intact bilaterally Neck full ROM and supple Resp normal respiratory effort and clear to auscultation bilaterally Cardio regular rate, regular rhythm and no murmurs Rate: tachycardic GI non-distended GI Narrative: Suprapubic tenderness without guarding or rebound Auscultation: normoactive bowel sounds Palpation: soft Narrative: Normal external exam. Examined with nurse special needs nanny. Speculum Exam - Vagina: vaginal bleeding small/minimal (Active, after evacuating blood from vaginal vault. Cervical os is closed.) and with clots Back/Spine no CVA tenderness General Back: other FROM Extremity normal to inspection General Extremety ED: Negative for edema, pulses abnormal or tenderness General Extremity: Negative for edema or pulses abnormal Neuro oriented x3, CN's II-XII intact bilaterally and no sensory deficits noted Sensorium / Orientation: awake and alert Motor Exam: strength 5/5 throughout Psych mental status grossly normal Skin no rashes or lesions noted and no wounds MDM MDM MDM Narrative Medical decision making narrative: My concern is that the patient is very anemic since she is very tachycardic in the 130s. Type and screen sent along with basic labs but her hemoglobin is only 14.3. She was given a liter of fluids and we checked orthostatics, in addition to giving her some fentanyl for the pain and Zofran for nausea. Nursing did not get orthostatics until after most of the fluid was done, they were negative the patient was feeling lightheaded. Her heart rate has improved to 104 with the fluids. This suggest dehydration and may be her hemoglobin is actually lower after hydrating her up. Her is negative ruling out ectopic. I discussed with Dr. Jazmin Pizarro, she agreed with repeating this, this was done and it is 11.9. Given that Dr. Pizarro will be comfortable with her going home and increasing her norethindrone 0.35 mg daily that the patient has been on for years to 5 mg 3 times daily until her bleeding stops, starting with 10 mg tonight. Discussed this with the patient, she is to call the office first thing in the morning to get follow-up instructions, and she will get the prescription filled tonight so that we can start that medication CLAUDIA since that hospital does not stock it for us to give her here. Unfortunately, since our hospital inpatient pharmacy fills retail prescription for rest, I am not able to get her norethindrone at all tonight. Patient states she is feeling okay to go home, asked me said to send the prescription to [facility], and she will get it first thing in the morning. is comfortable with that as well. Lab Data Attestation: I reviewed the patient's lab results. Labs: Laboratory Results - last 24 hr 01/11/25 01/11/25 18:48 21:23 WBC 5.9 RBC 4.35 Hgb 14.3 11.9 L Hct 41.7 34.5 L MCV 95.9 MCH 32.9 H MCHC 34.3 RDW Std Deviation 41.9 RDW Coeff of Justo 12.1 Plt Count 309 MPV 11.0 Immature Gran % (Auto) 0.200 Neut % (Auto) 65.9 Lymph % (Auto) 26.5 Lanier % (Auto) 5.9 Eos % (Auto) 1.0 Baso % (Auto) 0.5 Absolute Neuts (auto) 3.9 Absolute Lymphs (auto) 1.56 Nucleated RBC % 0 Sodium 137 Potassium 3.5 Chloride 102 Carbon Dioxide 24.0 Anion Gap 11 BUN 10 Creatinine 0.63 L Estim Creat Clear Calc 113.21 Est GFR (MDRD) Non-Af 117 BUN/Creatinine Ratio 15.8 Glucose 110 H Calcium 8.8 Serum , Qual NEGATIVE Blood Type O POSITIVE Antibody Screen NEGATIVE Rhythm Strip Rhythm Strip: Sinus Tach Rate: 130 Ectopy: None Management Discussion w/another healthcare provider: Electrical Continuity Tester (Dr. Pizarro, gynecology) Discharge Plan Triage Chief Complaint: Vag Bleeding ED Provider: Miguel Glover Dx/Rx/DC Orders Clinical Impression: DUB (dysfunctional uterine bleeding), Anticoagulated, ABLA (acute blood loss anemia) Instructions: ED Dysfunctional Uterine Bleeding Prescriptions: New norethindrone acetate 5 mg tablet 5 mg PO TID Qty: 23 0RF ondansetron 8 mg tablet,disintegrating 8 mg PO Q8H PRN (Reason: nausea and vomiting) Qty: 20 0RF No Action topiramate [Topamax] 50 MG tablet 50 mg PO Q12H Patient Comments: migraine Xarelto 20 mg tablet 20 mg PO DAILY Rx Instructions: must administer with evening meal metoprolol tartrate [Lopressor] 50 mg tablet 25 mg PO Q12H baclofen 10 mg tablet 10 mg PO DAILY PRN (Reason: pain) zolpidem 5 mg tablet 5 mg PO QHS gabapentin 100 mg capsule 100 mg PO BID oxycodone-acetaminophen [Percocet] 5-325 mg tablet 1 tab PO Q8H PRN (Reason: pain) 2 Days Qty: 6 0RF ondansetron 4 mg tablet,disintegrating 4 mg PO Q8H PRN PRN (Reason: Nausea) Qty: 10 0RF cephalexin 500 mg capsule 500 mg PO TID 7 Days Qty: 21 0RF potassium chloride 20 mEq tablet extended release 40 meq PO DAILY 5 Days Qty: 10 0RF oxycodone-acetaminophen 5-325 mg tablet 1 tab PO Q6H PRN PRN (Reason: Pain) 3 Days Qty: 12 0RF ondansetron 4 mg tablet,disintegrating 4 mg PO Q8H PRN PRN (Reason: Nausea) Qty: 10 0RF ondansetron 4 mg tablet,disintegrating 4 mg PO Q8H PRN PRN (Reason: Nausea) Qty: 10 0RF hydrocodone-acetaminophen 5-325 mg tablet 1 tab PO Q4H PRN PRN (Reason: Pain) 3 Days Qty: 10 0RF ondansetron 4 mg tablet,disintegrating 4 mg PO Q6H PRN (Reason: nausea and vomiting) Qty: 10 0RF dextroamphetamine-amphetamine 30 mg capsule,extended release 24hr 1 cap PO DAILY norethindrone (contraceptive) 0.35 mg tablet 0.35 mg PO DAILY cephalexin 500 mg capsule 500 mg PO Q6 5 Days Qty: 20 0RF sulfamethoxazole-trimethoprim 800-160 mg tablet 1 tab PO BID Qty: 28 0RF ondansetron 8 mg tablet,disintegrating 8 mg PO Q8H PRN (Reason: nausea and vomiting) Qty: 12 0RF Primary Care Provider: George Avitia Referrals: Ailyn Pizarro MD [Med Staff - Active Staff] - As soon as possible (call tomorrow) Activity Restrictions/Additional Instructions: Instead of your usual norethindrone tablets, take the new prescription 5 mg tablet 3 times daily until your bleeding stops. For only your first dose, take 2 tablets 10 mg. Hold your Xarelto for the next 1 or 2 days. If your bleeding is better after that, then resume and see how it goes. Print Language: Stateless Disposition Disposition: Home, Self Care
[2025-01-11 19:56] LABS: Anion Gap 11 (5-15); BUN 10 mg/dL (4-19); BUN/Creat Ratio 15.8 RATIO (10-20); Calcium,Total 8.8 mg/dL (7.6-11.0); Chloride 102 mmol/L (98-108); Creatinine, Serum 0.63 mg/dL (0.70-1.20); EST Glomerular Filtration Rate 117 (>60); Estimated Creatinine Clearance 113.21 ml/min (50-250); Glucose 110 mg/dL (70-99); Potassium 3.5 mmol/L (3.3-5.1); Sodium Level 137 mmol/L (133-145)
[2025-01-11 20:33] VITALS: BP 128/95; PULSE 103; RESP 20; O2SAT 98
[2025-01-11 20:46] LABS: Internal QC Validated? YES +Cl - CLEAR BKGD; Pregnancy, Serum, hCG Quali. NEGATIVE Negative
[2025-01-11 21:05] VITALS: BP 130/84; PULSE 86; RESP 15; O2SAT 97
[2025-01-11 21:28] LABS: Hematocrit 34.5 % (37-47); Hemoglobin 11.9 g/dL (12.0-15.0)
[2025-01-11 22:49] VITALS: BP 130/84; PULSE 86; RESP 15; TEMP 37.2; O2SAT 97
== END 2025-01-11 22:49 | disposition home or self-care (01) ==
PROVIDERS: Emergency Provider Emergency Medicine; PCP Family Medicine; Visit Provider Emergency Medicine
DX: N93.8 Other specified abnormal uterine and vaginal bleeding (principal); D62 Acute posthemorrhagic anemia; Z79.01 Long term (current) use of anticoagulants; R11.0 Nausea; D68.62 Lupus anticoagulant syndrome; Z86.73 Personal history of transient ischemic attack (TIA), and cerebral infarction without residual deficits; Z79.3 Long term (current) use of hormonal contraceptives; Z90.49 Acquired absence of other specified parts of digestive tract
CPT/HCPCS: 80048; 84703; 85014; 85018; 85025; 86850; 86900; 86901; 96361; 96374; 96375; 99284; A4216; J2405

== ENCOUNTER 2025-02-22 10:21 | Emergency (ER) | payer MEDICAID, SELFPAY ==
[2025-02-22 10:23] VITALS: BP 130/116; PULSE 115; RESP 18; TEMP 37.1; O2SAT 98; BMI 28.0
[2025-02-22] MEDS: Ondansetron 4 MG/2 ML Vial IV (12:08)
[2025-02-22] MEDS: Morphine 4 MG/ML Syringe IV (12:09)
[2025-02-22 12:15] LABS: Hematocrit 44.7 % (37-47); Hemoglobin 15.1 g/dL (12.0-15.0)
[2025-02-22 12:21] VITALS: BP 124/90; PULSE 68; RESP 14; O2SAT 98
--- NOTE | 2025-02-22 12:49 | EDS_ITS ---
HPI HPI - Female History of Present Illness Chief Complaint: Vag Bleeding Informant: patient Narrative Narrative: 40-year-old female presenting to the emergency room with vaginal bleeding. Patient states that she has a history of lupus anticoagulant and is been on Xarelto. She states that last menstrual cycle was extremely heavy for her and she needed to come to the emergency room where she had a 3 g drop in her hemoglobin. She was on Aygestin and took about 20+ days for her menstrual cycle to stop. She states that now she started her menstrual cycle again about a week ago and yesterday and today has been significantly more heavy.. She is supposed to see [facility] gynecology to talk about a hysterectomy. She has had prior tubal ligation. She has a history of adenomyosis. Patient notes pelvic cramping and nausea. Patient has not had any syncope. [facility] Medical History Pelvic pain Wears glasses Wears contact lenses Open wound Excessive bleeding Migraine headache History of stress test History of echocardiogram History of irregular heartbeat Seizures Cardiology follow-up encounter Endometriosis determined by laparoscopy Lupus anticoagulant disorder DVT (deep venous thrombosis) TIA (transient ischemic attack) left sided parathesias Home Medications ?Medication ?Instructions ?Recorded ?Last Taken ?Type metoprolol tartrate 50 mg tablet 25 mg PO Q12H 3 Unknown History (Lopressor) rivaroxaban 20 mg tablet (Xarelto) 20 mg PO DAILY 04/1807/06/23 History dextroamphetamine-amphetamine ER 1 cap PO DAILY Unknown History 30 mg 24hr capsule,extend release norethindrone (contraceptive) 0.35 0.35 mg PO DAILY Unknown History mg tablet baclofen 10 mg tablet 10 mg PO DAILY PRN pain 05/27 06/19 Unknown History ondansetron 4 mg disintegrating 4 mg PO Q8H PRN PRN Na usea #10 tabs 10/14/24 Unknown Rx tablet ondansetron 4 mg disintegrating 4 mg PO Q6H PRN PRN Na usea #15 tabs 02/22/25 Unknown Rx tablet oxycodone-acetaminophen 5 mg-325 1 tab PO Q6H PRN PRN Pain 3 days 02/22/25 Unknown Rx mg tablet #12 TABLETS Allergy/AdvReac Type Severity Reaction Status Date / Time acetaminophen (From Vicodin) Allergy Hives Verified 02/22/25 10:22 hydrocodone bitartrate (From Allergy Hives Verified 02/22/25 10:22 Vicodin) ketorolac tromethamine (From Allergy Hives Verified 02/22/25 10:22 Toradol) metoclopramide (From Reglan) Allergy Other Verified 02/22/25 10:22 metronidazole (From Metrogel) Allergy Swelling Verified 02/22/25 10:22 NSAIDS (Non-Steroidal Allergy Other Verified 02/22/25 10:22 Anti-Inflamma skin cleanser (From Metrogel) Allergy Swelling Verified 02/22/25 10:22 prochlorperazine (From AdvReac Other Verified 02/22/25 10:22 Compazine) promethazine (From Phenergan) AdvReac Other Verified 02/22/25 10:22 Family History Mother Diabetes Hypertension Father Hypertension Sister Thyroid disorder Surgical History Hx of surgical procedure Hx of surgical procedure Hx of laparoscopy S/P foot surgery, right H/O bilateral salpingectomy Hx of cholecystectomy Social History household members: significant other and children housing: house current occupational status: employed Smoking Status: Never smoker alcohol intake: current alcohol intake frequency: holidays/special occasions only ROS ROS ED Constitutional Constitutional ED: Denies chills, fever(s) or weight loss Eyes Eyes: Denies change in vision or diplopia ENT ENT ED: Denies ear pain, rhinorrhea or sore throat Cardiovascular Cardiovascular: Denies chest pain, orthopnea, palpitations or racing heartbeat Respiratory/Chest Respiratory/Chest: Denies cough, dyspnea or orthopnea Gastrointestinal Gastrointestinal: Reports nausea; Denies abdominal pain, diarrhea or vomiting Genitourinary Genitourinary ED: Reports other Details: Pelvic cramping/pain heavy vaginal bleeding ; Denies dysuria, hematuria or urinary frequency Musculoskeletal Musculoskeletal: Denies arthralgias or myalgias Integumentary Denies abscess or rash Neurologic Neurologic: Denies headache(s) or weakness Psychiatric Psychiatric: Denies anxiety, depression, suicidal ideation or suicidal thoughts Endocrine Endocrinology: Denies polydipsia, polyphagia or polyuria Allergic/Immunologic Allergic/Immunologic ED: Denies mouth swelling, tongue swelling or urticaria EXAM Physical Exam Const Vital Signs: 02/22/25 10:23 02/22/25 12:21 Temperature 98.7 F Temperature Source Temporal Pulse Rate 115 H 68 Respiratory Rate 18 14 Blood Pressure 130/116 H 124/90 H Blood Pressure Mean 120 101 Pulse Ox 98 98 Oxygen Delivery Method Room Air Room Air Positive well nourished and well developed General Appearance ED: well developed HEENT Reports normocephalic, head/scalp atraumatic and moist mucous membranes Eyes PERRL and EOMs intact bilaterally Neck no lymphadenopathy, supple and no JVD Resp normal respiratory effort and clear to auscultation bilaterally Cardio regular rate, regular rhythm and no murmurs GI normal to inspection, nondistended, normoactive bowel sounds and non-tender Palpation: soft Back/Spine no CVA tenderness and normal ROM Extremity normal to inspection General Extremety ED: Negative for edema General Extremity: Negative for edema Neuro oriented x3 and CN's II-XII intact bilaterally Sensorium / Orientation: alert Motor Exam: strength 5/5 throughout Psych mental status grossly normal Mood & Affect: Negative for depressed or tearful Skin no rashes or lesions noted and no wounds MDM MDM MDM Narrative Medical decision making narrative: Differential diagnosis includes but not limited to acute blood loss anemia dysfunctional uterine bleeding adenomyosis orthostatic hypotension a nticoagulated state Patient's hemoglobin is 15.1. She received morphine and Zofran. I spoke with on-call gynecology for [facility] Dr. Ott. She is going to call in an Aygestin taper. I will write for Zofran and Percocet for home use. [facility] will call her for follow-up this week. Patient is comfortable with this plan. History & Record Review Discussion w/independent historian: Patient Additional record(s) reviewed:: Prior ED visit and Prior labs Lab Data Attestation: I reviewed the patient's lab results. Labs: Laboratory Results - last 24 hr 02/22/25 11:01 Hgb 15.1 H Hct 44.7 Discharge Plan Triage Chief Complaint: Vag Bleeding ED Provider: Tomás Mike Dx/Rx/DC Orders Clinical Impression: Pelvic pain, Vaginal bleeding, Anticoagulated Instructions: ED Dysfunctional Uterine Bleeding Prescriptions: New ondansetron 4 mg tablet,disintegrating 4 mg PO Q6H PRN PRN (Reason: Nausea) Qty: 15 0RF oxycodone-acetaminophen 5-325 mg tablet 1 tab PO Q6H PRN PRN (Reason: Pain) 3 Days Qty: 12 0RF No Action Xarelto 20 mg tablet 20 mg PO DAILY Rx Instructions: must administer with evening meal metoprolol tartrate [Lopressor] 50 mg tablet 25 mg PO Q12H baclofen 10 mg tablet 10 mg PO DAILY PRN (Reason: pain) ondansetron 4 mg tablet,disintegrating 4 mg PO Q8H PRN PRN (Reason: Nausea) Qty: 10 0RF dextroamphetamine-amphetamine 30 mg capsule,extended release 24hr 1 cap PO DAILY norethindrone (contraceptive) 0.35 mg tablet 0.35 mg PO DAILY Primary Care Provider: George Avitia Referrals: George Avitia MD [Primary Care Provider] - Print Language: Lao
[2025-02-22 13:09] VITALS: BP 124/90; PULSE 68; RESP 14; TEMP 37.1; O2SAT 98
== END 2025-02-22 13:10 | disposition home or self-care (01) ==
PROVIDERS: Emergency Provider Emergency Medicine; PCP Family Medicine; Visit Provider Emergency Medicine
DX: N93.9 Abnormal uterine and vaginal bleeding, unspecified (principal); R11.0 Nausea; R76.0 Raised antibody titer; Z79.01 Long term (current) use of anticoagulants; Z98.51 Tubal ligation status; Z86.73 Personal history of transient ischemic attack (TIA), and cerebral infarction without residual deficits; Z90.49 Acquired absence of other specified parts of digestive tract; R10.2 Pelvic and perineal pain
CPT/HCPCS: 85014; 85018; 96374; 96375; 99283; A4216; J2405

== ENCOUNTER 2025-02-25 21:08 | Observation (INO) | payer MEDICAID, SELFPAY ==
[2025-02-25 21:08] VITALS: BP 143/93; PULSE 163; RESP 18; TEMP 37; O2SAT 99; BMI 27.8
[2025-02-25 21:39] LABS: Mucous, Urine 0 SEEN /hpf (<or=2+)
[2025-02-25 21:48] LABS: Absolute Lymphocyte Count 1.53 X10^3/uL (0.83-4.51); Absolute Neutrophil Count 5.4 X10^3/uL (2.0-7.7); Basophil# 0.03 X10^3/uL; Basophil% 0.4 % (0-1); Eosinophil# 0.04 X10^3/uL; Eosinophils% 0.5 % (0-5); Hematocrit 37.4 % (37-47); Hemoglobin 12.9 g/dL (12.0-15.0); Lymphocyte # 1.53 X10^3/ul (0.83-4.51); Lymphocyte % 20.1 % (19-41); Mean Corp Hgb Conc 34.5 g/dL (32-36); Mean Corpuscular Hgb 32.1 pg (27.0-32.0); Monocyte# 0.62 X10^3/uL; Monocyte% 8.1 % (0-10); NRBC Flagged by Analyzer 0 % (0-5); Neutrophil # 5.38 X10^3/uL (2.7-7.7); Neutrophil % 70.6 % (47-70); Platelet Count 258 K/mm3 (150-450); RBC Distribution Width CV 12.5 % (11.6-14.6); RBC Distribution Width SD 42.8 fl (35.1-43.9); Red Blood Count 4.02 M/mm3 (4.2-5.4); White Blood Count 7.6 K/mm3 (4.4-11.0)
[2025-02-25 21:58] LABS: Color, Urine Amber (Yellow); Glucose, Dipstick Normal (Normal); Ketone-Dipstick Negative (Negative); Leukocyte Esterase-Dipstick Negative /ul (Negative); Nitrite-Dipstick Negative (Negative); Occult Blood-Urine 250 /ul (Negative); Protein-Dipstick 100 mg/dl (Negative); Specific Gravity, Urine 1.005 (1.002-1.030); Urine Bilirubin Dipstick Negative (Negative); Urine Clarity Cloudy (Clear); Urine Urobilinogen Normal (Normal); Urine pH 6.5 (5.0 - 8.0)
--- NOTE | 2025-02-25 22:01 | ED.VIS.FEGU ---
HPI HPI - Female History of Present Illness Chief Complaint: Vag Bleeding Narrative Narrative: Patient is a 40-year-old female past medical history of lupus, TIA, DVT on Xarelto, migraine headaches who presents to the emergency department with a chief complaint of vaginal bleeding. Patient states that she has had vaginal bleeding for a significant time and was recently placed on progesterone as she is scheduled for a hysterectomy. She states that the past few days she has had increased bleeding and noted that she recently been soaking through multiple pads 4-5 since 1630 and notes that she is lightheaded. States in the past her hemoglobin dropped a significant amount in a short period of time and was concerned for this again prompting her to come here for further evaluation management. [facility] Medical History Pelvic pain Wears glasses Wears contact lenses Open wound Excessive bleeding Migraine headache History of stress test History of echocardiogram History of irregular heartbeat Seizures Cardiology follow-up encounter Endometriosis determined by laparoscopy Lupus anticoagulant disorder DVT (deep venous thrombosis) TIA (transient ischemic attack) left sided parathesias Home Medications ?Medication ?Instructions ?Recorded ?Last Taken ?Type metoprolol tartrate 50 mg tablet 25 mg PO Q12H 07/02/23 Unknown History (Lopressor) rivaroxaban 20 mg tablet (Xarelto) 20 mg PO DAILY 07/02/23 07/06/23 History dextroamphetamine-amphetamine ER 1 cap PO DAILY 04/13/24 Unknown History 30 mg 24hr capsule,extend release norethindrone (contraceptive) 0.35 0.35 mg PO DAILY 04/13/24 Unknown History mg tablet baclofen 10 mg tablet 10 mg PO DAILY PRN pain 06/13/24 Unknown History ondansetron 4 mg disintegrating 4 mg PO Q6H PRN PRN Nausea #15 tabs 02/22/25 Unknown Rx tablet oxycodone-acetaminophen 5 mg-325 1 tab PO Q6H PRN PRN Pain 3 days 02/22/25 Unknown Rx mg tablet #12 TABLETS Allergy/AdvReac Type Severity Reaction Status Date / Time acetaminophen (From Vicodin) Allergy Hives Verified 02/25/25 21:09 hydrocodone bitartrate (From Allergy Hives Verified 02/25/25 21:09 Vicodin) ketorolac tromethamine (From Allergy Hives Verified 02/25/25 21:09 Toradol) metoclopramide (From Reglan) Allergy Other Verified 02/25/25 21:09 metronidazole (From Metrogel) Allergy Swelling Verified 02/25/25 21:09 NSAIDS (Non-Steroidal Allergy Other Verified 02/25/25 21:09 Anti-Inflamma skin cleanser (From Metrogel) Allergy Swelling Verified 02/25/25 21:09 prochlorperazine (From AdvReac Other Verified 02/25/25 21:09 Compazine) promethazine (From Phenergan) AdvReac Other Verified 02/25/25 21:09 Family History Mother Diabetes Hypertension Father Hypertension Sister Thyroid disorder Surgical History Hx of surgical procedure Hx of surgical procedure Hx of laparoscopy S/P foot surgery, right H/O bilateral salpingectomy Hx of cholecystectomy Social History household members: significant other and children housing: house current occupational status: employed Smoking Status: Never smoker alcohol intake: current alcohol intake frequency: holidays/special occasions only ROS ROS ED ROS Narrative Constitutional: Complains lightheadedness as noted above denies fevers or chills Eyes: Denies change of double vision blurry vision Cardiovascular: Denies chest pain Respiratory: Denies shortness of breath Abdomen: Complains of lower abdominal cramping denies nausea vomit diarrhea : Complains of vaginal bleeding as noted above denies urinary symptoms Neurological: Denies numbness, weakness, tingling Musculoskeletal: Denies back pain Skin: Denies rashes or lesions EXAM Physical Exam Narrative Exam Narrative: General: Patient lying in bed rest comfortably did not appear to be in acute distress Head: Atraumatic, normocephalic Eyes: PERRL bilateral, EOMI bilaterally, no conjunctival injection noted Neck: Soft, supple and trachea midline Cardiovascular: Patient tachycardic with regular rhythm Respiratory: Clear to auscultation bilaterally Abdomen: Soft, nondistended, mild tenderness palpation suprapubic region no rebound or guarding on exam Extremities: +5/5 strength noted in the bilateral upper and lower extremities Neurological: Patient follow commands that she was at [facility] year is 2024 Skin: Warm, dry, intact no rashes or lesions noted Const Vital Signs: 02/25/25 21:08 02/25/25 22:42 Temperature 98.6 F 98.6 F Temperature Source Temporal Pulse Rate 163 H 142 H Respiratory Rate 18 18 Blood Pressure 143/93 H 126/87 H Blood Pressure Mean 109 100 Pulse Ox 99 99 Oxygen Delivery Method Room Air MDM MDM MDM Narrative Medical decision making narrative: Patient is a 40-year-old female who presented to the emerged part with a chief complaint of heavy vaginal bleeding. On the differential diagnosis includes minimal to heavy vaginal bleeding secondary to Xarelto use, . Once workup is obtained reviewed she will be reevaluated. Patient CBC reviewed and showed a white blood count 7.6, hemoglobin was 12.9 which is down from 15 on a blood draw 02/22/2025, platelet count normal at 258. Patient's coagulation studies pending, sodium normal 139, potassium was 3.3, creatinine normal at 0.64. Patient's AST and ALT were 26 and 23 respectively. Patient's urinalysis showed 250 blood negative nitrites negative leukocyte esterase 0-5 white cells with rare bacteria noted. I reached out to on-call [facility] EDUCATIONAL PROGRAM ASSISTANT spoke with the on-call customer relations coordinator who after reviewing everything wanted me to discuss case with the EDUCATIONAL PROGRAM ASSISTANT physician. Dr. Fischer called back I discussed with her she states that she will admit the patient and evaluate the patient. A notified the patient and she is agreeable this plan all question concerns answered. Patient states that she is tolerated morphine in the past therefore she will be given a dose of morphine here in the emergency department for pain control. Lab Data Labs: Laboratory Results - last 24 hr 02/25/25 21:27 WBC 7.6 RBC 4.02 L Hgb 12.9 Hct 37.4 MCV 93.0 MCH 32.1 H MCHC 34.5 RDW Std Deviation 42.8 RDW Coeff of Justo 12.5 Plt Count 258 MPV 11.0 Immature Gran % (Auto) 0.300 Neut % (Auto) 70.6 H Lymph % (Auto) 20.1 [place] % (Auto) 8.1 Eos % (Auto) 0.5 Baso % (Auto) 0.4 Absolute Neuts (auto) 5.4 Absolute Lymphs (auto) 1.53 Nucleated RBC % 0 Sodium 139 Potassium 3.3 Chloride 102 Carbon Dioxide 24.6 Anion Gap 12 BUN 13 Creatinine 0.64 L Estim Creat Clear Calc 112.75 Est GFR (MDRD) Non-Af 116 BUN/Creatinine Ratio 20.7 H Glucose 143 H Calcium 9.3 Total Bilirubin 0.27 AST 26 ALT 23 Alkaline Phosphatase 66 Total Protein 7.2 Albumin 4.4 Globulin 2.8 Albumin/Globulin Ratio 1.6 Urine Color Rosina Urine Clarity Cloudy Urine pH 6.5 Ur Specific [place] 1.005 Urine Protein 100 H Urine Glucose (UA) Normal Urine Ketones Negative Urine Occult Blood 250 H Urine Nitrite Negative Urine Bilirubin Negative Urine Urobilinogen Normal Ur Leukocyte Esterase Negative Urine RBC > 100 SEEN Urine WBC 0-5 SEEN Ur Squamous Epith Cells 0-5 SEEN Urine Bacteria RARE Urine Mucus 0 SEEN Discharge Plan Triage Chief Complaint: Vag Bleeding ED Provider: Nolan Davidson Dx/Rx/DC Orders Clinical Impression: Abnormal vaginal bleeding, Lightheadedness, Near syncope Prescriptions: No Action Xarelto 20 mg tablet 20 mg PO DAILY Rx Instructions: must administer with evening meal metoprolol tartrate [Lopressor] 50 mg tablet 25 mg PO Q12H baclofen 10 mg tablet 10 mg PO DAILY PRN (Reason: pain) dextroamphetamine-amphetamine 30 mg capsule,extended release 24hr 1 cap PO DAILY norethindrone (contraceptive) 0.35 mg tablet 0.35 mg PO DAILY ondansetron 4 mg tablet,disintegrating 4 mg PO Q6H PRN PRN (Reason: Nausea) Qty: 15 0RF oxycodone-acetaminophen 5-325 mg tablet 1 tab PO Q6H PRN PRN (Reason: Pain) 3 Days Qty: 12 0RF Primary Care Provider: George Avitia Referrals: George Avitia MD [Primary Care Provider] - Print Language: Greenlandic Disposition Disposition: Acute Care Hospital [facility]
[2025-02-25] MEDS: fentaNYL 100 MCG/2 ML Ampul 50 MCG IV (22:16)
[2025-02-25] MEDS: Ondansetron 4 MG/2 ML Vial IV ×2 (22:17→23:31)
[2025-02-25 22:26] LABS: Bacteria RARE /hpf (None Seen); Red Blood Cells-Urine > 100 SEEN /hpf (0-5); Squamous Epithelial Cells - UA 0-5 SEEN /hpf (5-10); White Blood Cells 0-5 SEEN /hpf (0-5)
[2025-02-25 22:34] LABS: ALB/GLOB Ratio 1.6 RATIO (0.9-2.4); AST(SGOT) 26 U/L (<=31); Alanine Aminotransfer ALT/SGPT 23 U/L (<=34); Albumin, Serum 4.4 g/dL (3.5-5.0); Alkaline Phosphatase 66 U/L (35-104); Anion Gap 12 (5-15); BUN 13 mg/dL (4-19); BUN/Creat Ratio 20.7 RATIO (10-20); Calcium,Total 9.3 mg/dL (7.6-11.0); Carbon Dioxide 24.6 mmol/L (21.0-32.0); Chloride 102 mmol/L (98-108); Creatinine, Serum 0.64 mg/dL (0.70-1.20); EST Glomerular Filtration Rate 116 (>60); Estimated Creatinine Clearance 112.75 ml/min (50-250); Globulin 2.8 g/dL (2.2-4.2); Glucose 143 mg/dL (70-99); Potassium 3.3 mmol/L (3.3-5.1); Protein, Total 7.2 g/dL (5.9-8.4); Sodium Level 139 mmol/L (133-145); Total Bilirubin 0.27 mg/dL (0.00-1.30)
[2025-02-25 22:42] VITALS: BP 126/87; PULSE 142; RESP 18; TEMP 37; O2SAT 99
--- NOTE | 2025-02-25 22:48 | PCM.HP.OB ---
HPI - General General Date of Admission: 02/25/25 Date of Service: 02/25/25 Chief Complaint: vaginal bleeding HPI Narrative MEL ROBLEDO, is a 40 F who presents to the ER with vaginal bleeding. She reports abdominal and pelvic pain, with a history of endometriosis. She states she has had 2 prior endometriosis surgeries in the past with significant disease. She has been on Xarelto as well for years with history of TIA and 2 DVT's in the past. She has tried a progesterone IUD which expelled. She has been on Aygestin 5 mg PO TID and missed 1 dose today. She states since yesterday her bleeding has been heavy, but she is unable to quantify how many pads she uses. She feels it is heavy still every time she uses the restroom. She is scheduled for a hysterectomy in 2 weeks. [facility] Medical History (Updated 02/25/25 @ 23:[address] Aurora Beebe, DO) Pelvic pain Wears glasses Wears contact lenses Open wound Excessive bleeding Migraine headache History of stress test History of echocardiogram History of irregular heartbeat Seizures Cardiology follow-up encounter Endometriosis determined by laparoscopy Lupus anticoagulant disorder DVT (deep venous thrombosis) TIA (transient ischemic attack) left sided parathesias Home Medications ?Medication ?Instructions ?Recorded ?Last Taken ?Type metoprolol tartrate 50 mg tablet 25 mg PO Q12H 07/02/23 Unknown History (Lopressor) rivaroxaban 20 mg tablet (Xarelto) 20 mg PO DAILY 07/02/23 07/06/23 History dextroamphetamine-amphetamine ER 1 cap PO DAILY 04/13/24 Unknown History 30 mg 24hr capsule,extend release norethindrone (contraceptive) 0.35 0.35 mg PO DAILY 04/13/24 Unknown History mg tablet baclofen 10 mg tablet 10 mg PO DAILY PRN pain 06/13/24 Unknown History ondansetron 4 mg disintegrating 4 mg PO Q6H PRN PRN Nausea #15 tabs 02/22/25 Unknown Rx tablet oxycodone-acetaminophen 5 mg-325 1 tab PO Q6H PRN PRN Pain 3 days 02/22/25 Unknown Rx mg tablet #12 TABLETS Allergy/AdvReac Type Severity Reaction Status Date / Time acetaminophen (From Vicodin) Allergy Hives Verified 02/25/25 21:09 hydrocodone bitartrate (From Allergy Hives Verified 02/25/25 21:09 Vicodin) ketorolac tromethamine (From Allergy Hives Verified 02/25/25 21:09 Toradol) metoclopramide (From Reglan) Allergy Other Verified 02/25/25 21:09 metronidazole (From Metrogel) Allergy Swelling Verified 02/25/25 21:09 NSAIDS (Non-Steroidal Allergy Other Verified 02/25/25 21:09 Anti-Inflamma skin cleanser (From Metrogel) Allergy Swelling Verified 02/25/25 21:09 prochlorperazine (From AdvReac Other Verified 02/25/25 21:09 Compazine) promethazine (From Phenergan) AdvReac Other Verified 02/25/25 21:09 Family History Mother Diabetes Hypertension Father Hypertension Sister Thyroid disorder Surgical History Hx of surgical procedure Hx of surgical procedure Hx of laparoscopy S/P foot surgery, right H/O bilateral salpingectomy Hx of cholecystectomy Social History household members: significant other and children housing: house current occupational status: employed Smoking Status: Never smoker alcohol intake: current alcohol intake frequency: holidays/special occasions only Vital Signs Vital Signs Vital Signs: 02/25/25 21:08 02/25/25 22:42 Temperature 98.6 F 98.6 F Temperature Source Temporal Pulse Rate 163 H 142 H Respiratory Rate 18 18 Blood Pressure 143/93 H 126/87 H Blood Pressure Mean 109 100 Pulse Ox 99 99 Oxygen Delivery Method Room Air Weight Weight: 157 lb Body Mass Index (BMI) 27.8 Physical Exam Const alert and no apparent distress Constitutional Narrative: Anxious and tearful General Appearance: comfortable Resp normal respiratory effort GI soft to palpation, non-tender and non-distended GI Narrative: Non acute Speculum Exam - Vagina: other External and internal genitalia normal appearing. Scant dark red blood in the vaginal vault. No significant bleeding noted. Scant blood on the pad as well Labs Labs Labs: Blood Type O POSITIVE Antibody Screen NEGATIVE Hct 37.4 % (37-47) Hgb 12.9 g/dL (12.0-15.0) Assessment & Plan (1) Anticoagulated: (2) Vaginal bleeding: PLAN: Bleeding at this time is minimal on exam. Hgb 12 in the ER and HDS stable. Tachycardic on admission, and patient reports a history of tachycardia for which she takes Lopressor PRN. Patient reasonably concerned about the bleeding. Discussed with history of significant endometriosis (per patient report) and that she took Xarelto this morning, there would be risk with a sooner surgery as she appears stable at this time. Questions answered regarding this. She is scheduled for a hysterectomy in 2 weeks. Will admit for observation for serial H&H. Increase the Aygestin to QID. She did miss a dose of Aygestin in the ER. Closely monitor bleeding. Consult medicine for assistance with anticoagulation but for now will plan to give Xarelto in AM if blood counts remain stable. (3) History of abnormal cervical Pap smear: (4) Anxiety: (5) Depression: (6) DVT (deep venous thrombosis): (7) Endometriosis: (8) SLE (systemic lupus erythematosus): (9) Stroke: (10) Lupus anticoagulant disorder:
[2025-02-25 23:08] VITALS: BP 142/80; PULSE 136; O2SAT 99
[2025-02-25] MEDS: Morphine 4 MG/ML Syringe IV (23:31)
[2025-02-25 23:39] LABS: Prothrombin Time (Protime)PT. 47.5 SECONDS (11.7-14.9)
[2025-02-25 23:40] VITALS: BMI 27.6
[2025-02-25 23:40] LABS: Partial Thromboplast Time 75.2 Seconds (24.1-36.2)
[2025-02-26 00:07] VITALS: BP 126/82; PULSE 52; RESP 16; TEMP 36.3; O2SAT 94
--- NOTE | 2025-02-26 00:40 | PCM.PN.HOSP ---
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 (02/25/25) Personal history of other diseases of the female genital tract (02/25/25) Subjective Subjective The patient is a 40 y/o F w/ PMHx: Lupus anticoagulant disorder with history of VTE (previous DVT) and status post previous TIA/CVA, Chronic migraine headaches, Care Program Director Epic chart reported possible narcotic seeking behavior, Chart documented seizure disorder, chronic menorrhagia with chronic pelvic pain with underlying endometriosis with planned upcoming hysterectomy in approximately 2 weeks per discussion with gynecology who presents to the [facility] ED initially on 02/25/2025 late evening with complaint of severe vaginal bleeding and pelvic pain recently placed on progesterone with upcoming as noted scheduled hysterectomy however the last few days she notes bleeding has increased and she has been soaking a pad through at a very fast pace with lightheadedness and dizziness prompting ED evaluation. Patient from discussion with gynecology and from review of ED notes has been in the ED serially with complaints of bleeding and pelvic pain. Patient did undergo evaluation by gynecology and they noted minimal blood visible on examination. Workup in the ED included T98.6, heart rate initially 163, BP 143/93, respiratory rate 18, 99% on room air with most recent repeat vitals T97.3, heart 1 19, BP 136/94, respiratory rate 22, 97% on room air, CBC with WC 7.6, hemoglobin 12.9, platelet 258 without marked shift, coags with INR 5.0, PTT 47.5, PTT of 75.2 however patient is on oral NOACs, CMP with BUN/creatinine 13/0.64, glucose 143 otherwise unremarkable, UDS with noted occult blood 250 with urine RBCs greater than 100 with no obvious evidence UTI, pending urine test. Patient evaluated upon transition to medical surgical floor. She reports ongoing persistent pelvic pain and is asking for pain medication. She notes that she does have nausea but no emesis. She states that even since transitioning from the ED to the floor she is bled through several pads. Patient denies fevers, chills, emesis, chest pain or dyspnea. Objective Data Objective Data Vital Signs: Vital Signs Temp Pulse Resp BP Pulse Ox O2 Del Method 97.3 F L 52 L 16 126/82 H 94 Room Air 02/26/25 00:07 02/26/25 00:07 02/26/25 00:07 02/26/25 00:07 02/26/25 00:07 02/26/25 00:07 Oxygen Delivery Method Room Air Weight: 155 lb 13.869 oz Body Mass Index (BMI) 27.6 Lab / Micro Data 02/26/25 00:55 02/25/25 21:27 Labs: Laboratory Results - last 24 hr 02/25/25 21:27: WBC 7.6, RBC 4.02 L, Hgb 12.9, Hct 37.4, MCV 93.0, MCH 32.1 H, MCHC 34.5, RDW Std Deviation 42.8, RDW Coeff of Justo 12.5, Plt Count 258, MPV 11.0, Immature Gran % (Auto) 0.300, Neut % (Auto) 70.6 H, Lymph % (Auto) 20.1, [place] % (Auto) 8.1, Eos % (Auto) 0.5, Baso % (Auto) 0.4, Absolute Neuts (auto) 5.4, Absolute Lymphs (auto) 1.53, Nucleated RBC % 0, Sodium 139, Potassium 3.3, Chloride 102, Carbon Dioxide 24.6, Anion Gap 12, BUN 13, Creatinine 0.64 L, Estim Creat Clear Calc 112.75, Est GFR (MDRD) Non-Af 116, BUN/Creatinine Ratio 20.7 H, Glucose 143 H, Calcium 9.3, Total Bilirubin 0.27, AST 26, ALT 23, Alkaline Phosphatase 66, Total Protein 7.2, Albumin 4.4, Globulin 2.8, Albumin/Globulin Ratio 1.6, Urine Color Rosina, Urine Clarity Cloudy, Urine pH 6.5, Ur Specific [place] 1.005, Urine Protein 100 H, Urine Glucose (UA) Normal, Urine Ketones Negative, Urine Occult Blood 250 H, Urine Nitrite Negative, Urine Bilirubin Negative, Urine Urobilinogen Normal, Ur Leukocyte Esterase Negative, Urine RBC > 100 SEEN, Urine WBC 0-5 SEEN, Ur Squamous Epith Cells 0-5 SEEN, Urine Bacteria RARE, Urine Mucus 0 SEEN 02/25/25 22:46: PT 47.5 H, INR 5.0 H*, APTT 75.2 H Physical Exam Narrative Physical Examination: General: Awake, alert, oriented x 3 and cooperative, [facility], reports persistent ongoing pelvic pain and bleeding since ED to [facility] transition. Skin: Normal color, normal turgor, no icterus, no cyanosis. HEENT: AT/NC, EOMI, PERRLA, MMM, no carotid bruits or JVD noted. Lungs: CTA bilaterally, moderate effort, mild decrease BL bases, no rales, ronchi or wheezing. Heart: Mildly tachycardic with regular rhythm; no gallop, rub audible. Abdomen: Soft, despite complaints there is no grimacing with palpation even with stethoscope and deep and manual palpation but she is reporting generalized discomfort, no obvious distention, distant BS, no obvious HSM. Extremities: No cyanosis, clubbing, or edema. Neurological: Patient awake, alert, oriented as noted, cognitive function intact; pupils equally reactive to light and accommodation, cranial nerves grossly normal, moving all 4 extremities, no focal deficits, strength moderately global decreased secondary to acute presentation complaints Psychiatric: Affect appears fatigued, tearful when she is discussing her pain, no history of anxiety or depression reported. 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 Epic chart reported possible narcotic seeking behavior, Chart documented seizure disorder, chronic menorrhagia with chronic pelvic pain with underlying endometriosis with planned upcoming hysterectomy in approximately 2 weeks per discussion with gynecology who presents to the [facility] ED initially on 02/25/2025 late evening with complaint of severe vaginal bleeding and pelvic pain recently placed on progesterone with upcoming as noted scheduled hysterectomy however the last few days she notes bleeding has increased and she has been soaking a pad through at a very fast pace with lightheadedness and dizziness prompting ED evaluation. #1. Significant abnormal vaginal bleeding with concern for acute blood loss anemia with lightheadedness, dizziness with acute on chronic history in addition to acute on chronic pelvic pain with endometriosis: Admitted to medical surgical floor per gynecology with plan for continued close observation, holding Xarelto currently however plan repeat CBC in a.m. and if stable note intention to resume this regimen and likely follow-up outpatient, if hemoglobin does decrease further than they note plan to transition to operative intervention eventually which would require patient transitioning to heparin drip, encourage continued CBC trending, fall precautions given lightheadedness/dizziness complaints. #2. Lupus anticoagulant disorder with history of VTE with previous DVT, status post TIA/CVA with noted supratherapeutic INR level suspected likely falsely elevated secondary to NOAC usage: Discussed with gynecology and patient already received dose of Xarelto therapy on 02/25/2025, will temporally hold as plan per gynecology is to repeat CBC in a.m. and if it is stable to then allow resumption and discharge with plan follow-up as previously arranged for hysterectomy in approximately 2 weeks however if hemoglobin does drop significantly then given significant history and may require eventual transition to heparin drip and continue close hemoglobin monitoring with possible surgical intervention earlier. Will repeat INR and coags in AM. Of note liver functions completely normal. #3. Chart reported history of seizure disorder: Per current list not on any antiepileptic regimen, patient states she had a one-time episode while she was in the ED many years previously and reports that she had a 16-minute seizure and her workup was negative and she was never placed on any antiepileptic medications and they are unsure the etiology. #4. Hypertension: Continue home regimen including metoprolol, PRN hydralazine. #5. ADHD: Will continue patient home dextroamphetamine-amphetamine regimen if available on formulary otherwise we will plan to hold. #6. DVT prophylaxis: SCDs, currently holding Xarelto regimen as noted. Charges/Coding Visit Charges Inpatient E&M: 94017 [facility] L[facility]
[2025-02-26 01:07] VITALS: BP 136/94; PULSE 119; RESP 22; TEMP 36.3; O2SAT 97
[2025-02-26] MEDS: Baclofen 10 MG Tablet PO (01:08)
[2025-02-26] MEDS: oxyCODONE 5 MG Tablet PO ×3 (01:08→09:27)
[2025-02-26] MEDS: Lactated Ringers 1,000 ML 100 ML IV (01:11)
[2025-02-26 01:34] LABS: Hematocrit 34.4 % (37-47); Hemoglobin 11.8 g/dL (12.0-15.0); Mean Corp Hgb Conc 34.3 g/dL (32-36); Mean Corpuscular Volume 93.2 fL (81-99); Mean Platelet Vol. 10.5 fl (6.2-12.0); Platelet Count 227 K/mm3 (150-450); RBC Distribution Width CV 12.5 % (11.6-14.6); RBC Distribution Width SD 42.8 fl (35.1-43.9); Red Blood Count 3.69 M/mm3 (4.2-5.4); White Blood Count 6.8 K/mm3 (4.4-11.0)
[2025-02-26 05:13] LABS: Internal QC Validated? YES +Cl - CLEAR BKGD; Pregnancy, Urine Negative Negative
[2025-02-26 06:14] VITALS: BP 132/79; PULSE 97; RESP 16; TEMP 36.7; O2SAT 99
[2025-02-26] MEDS: MEDROXYPROGESTERONE ACETATE 10 MG TABLET PO ×2 (06:22→09:24)
[2025-02-26] MEDS: Ondansetron 4 MG/2 ML Vial IV (06:22)
[2025-02-26 06:43] LABS: Hemoglobin 12.6 g/dL (12.0-15.0); Mean Corpuscular Hgb 32.9 pg (27.0-32.0); Mean Platelet Vol. 10.9 fl (6.2-12.0); Platelet Count 242 K/mm3 (150-450); RBC Distribution Width CV 12.6 % (11.6-14.6); RBC Distribution Width SD 42.6 fl (35.1-43.9); Red Blood Count 3.83 M/mm3 (4.2-5.4); White Blood Count 7.3 K/mm3 (4.4-11.0)
[2025-02-26 07:20] LABS: International Normalized Ratio 3.1; Prothrombin Time (Protime)PT. 32.7 SECONDS (11.7-14.9)
[2025-02-26 08:11] VITALS: BP 120/66; PULSE 89; RESP 16; TEMP 36.3; O2SAT 99
[2025-02-26 08:25] LABS: Partial Thromboplast Time 50.9 Seconds (24.1-36.2)
[2025-02-26 09:25] VITALS: BP 120/66; PULSE 89
[2025-02-26] MEDS: Metoprolol Tartrate 25 MG Tablet PO (09:25)
--- NOTE | 2025-02-26 09:52 | PCM.PN.OB ---
Subjective Subjective Patient is doing well. Reports she is still bleeding but not heavy, and she feels comfortable going home. She is resting comfortably and plans to eat some breakfast this morning. States she is still having some pelvic pain. She has been ambulating without difficulty. Objective Data Objective Data Vital Signs: Vital Signs Temp Pulse Resp BP Pulse Ox O2 Del Method 97.4 F L 89 16 120/66 99 Room Air 02/26/25 08:11 02/26/25 09:25 02/26/25 08:11 02/26/25 09:25 02/26/25 08:11 02/26/25 08:12 Oxygen Delivery Method Room Air Weight: 155 lb 13.869 oz Body Mass Index (BMI) 27.6 Intake & Output: Intake and Output for Last 24 Hours 02/24/25 02/25/25 02/26/25 23:59 23:59 23:59 Intake Total 50 / 50 Balance 50 / 50 Lab / Micro Data 02/26/25 06:18 02/25/25 21:27 Labs: Laboratory Results - last 24 hr 02/25/25 21:27: WBC 7.6, RBC 4.02 L, Hgb 12.9, Hct 37.4, MCV 93.0, MCH 32.1 H, MCHC 34.5, RDW Std Deviation 42.8, RDW Coeff of Justo 12.5, Plt Count 258, MPV 11.0, Immature Gran % (Auto) 0.300, Neut % (Auto) 70.6 H, Lymph % (Auto) 20.1, [place] % (Auto) 8.1, Eos % (Auto) 0.5, Baso % (Auto) 0.4, Absolute Neuts (auto) 5.4, Absolute Lymphs (auto) 1.53, Nucleated RBC % 0, Sodium 139, Potassium 3.3, Chloride 102, Carbon Dioxide 24.6, Anion Gap 12, BUN 13, Creatinine 0.64 L, Estim Creat Clear Calc 112.75, Est GFR (MDRD) Non-Af 116, BUN/Creatinine Ratio 20.7 H, Glucose 143 H, Calcium 9.3, Total Bilirubin 0.27, AST 26, ALT 23, Alkaline Phosphatase 66, Total Protein 7.2, Albumin 4.4, Globulin 2.8, Albumin/Globulin Ratio 1.6, Urine Color Rosina, Urine Clarity Cloudy, Urine pH 6.5, Ur Specific [place] 1.005, Urine Protein 100 H, Urine Glucose (UA) Normal, Urine Ketones Negative, Urine Occult Blood 250 H, Urine Nitrite Negative, Urine Bilirubin Negative, Urine Urobilinogen Normal, Ur Leukocyte Esterase Negative, Urine RBC > 100 SEEN, Urine WBC 0-5 SEEN, Ur Squamous Epith Cells 0-5 SEEN, Urine Bacteria RARE, Urine Mucus 0 SEEN, Urine Test Negative 02/25/25 22:46: PT 47.5 H, INR 5.0 H*, APTT 75.2 H 02/26/25 00:55: WBC 6.8, RBC 3.69 L, Hgb 11.8 L, Hct 34.4 L, MCV 93.2, MCH 32.0, MCHC 34.3, RDW Std Deviation 42.8, RDW Coeff of Justo 12.5, Plt Count 227, MPV 10.5 02/26/25 06:18: WBC 7.3, RBC 3.83 L, Hgb 12.6, Hct 36.0 L, MCV 94.0, MCH 32.9 H, MCHC 35.0, RDW Std Deviation 42.6, RDW Coeff of Justo 12.6, Plt Count 242, MPV 10.9, PT 32.7 H, INR 3.1, APTT 50.9 H Physical Exam Const alert and no apparent distress General Appearance: comfortable Assessment & Plan (1) Lupus anticoagulant disorder: (2) Endometriosis: (3) Vaginal bleeding: PLAN: Vaginal bleeding is no longer heavy. Hgb stable at 12 this morning. Vital signs stable. She received 2 doses of Provera since admission. Reg diet and Xarelto to be given this morning. Ok for discharge with close follow up in the office. Discussed to resume her Aygestin TID at home. (4) Pelvic pain: (5) Stroke: (6) SLE (systemic lupus erythematosus): (7) Anticoagulated:
--- NOTE | 2025-02-26 09:57 | DCINST_ITS ---
Discharge Instructions Diet Discharge Diet: No restrictions DC O2, CPAP, BIPAP needs Home O2 Discharge instructions: No Dressing / Incision Discharge Activity: May Shower Weight Bearing Status: Weight bearing as tolerated Lifting Restrictions: none Dressing / Incision Call your doctor if you observe: Using more than 1 pad per hour, Shortness of breath, Dizziness, Fainting spells, Chest pain, Calf discomfort and Uncontrolled pain Follow Up Care Please Follow Up With: Tere Ott MD When: Will talk to Dr. Ott on Friday for further instructions Test Results: Test results from this visit will be discussed in further detail at your follow- up appointment, if applicable. Discharge Plan Admission Admit Date/Time: 02/25/25 23:37 Primary Reason for Your Visit: vaginal bleeding Attending Provider: Aurora Beebe Primary Care Provider: George Avitia Consulting Providers: Tere Ott; Yfn Alonso Instructions Additional Instructions / Restrictions: Continue your Xarelto as typically scheduled Continue the Aygestin as prescribed by Dr. Ott by mouth three times a day Discharge Orders/Prescriptions Prescriptions: Continued Xarelto 20 mg tablet 20 mg PO DAILY Rx Instructions: must administer with evening meal metoprolol tartrate [Lopressor] 50 mg tablet 25 mg PO Q12H baclofen 10 mg tablet 10 mg PO DAILY PRN (Reason: pain) dextroamphetamine-amphetamine 30 mg capsule,extended release 24hr 1 cap PO DAILY ondansetron 4 mg tablet,disintegrating 4 mg PO Q6H PRN PRN (Reason: Nausea) Qty: 15 0RF oxycodone-acetaminophen 5-325 mg tablet 1 tab PO Q6H PRN PRN (Reason: Pain) 3 Days Qty: 12 0RF Discontinued norethindrone (contraceptive) 0.35 mg tablet 0.35 mg PO DAILY Referrals / Follow Up: George Avitia MD [Primary Care Provider] - Disposition Disposition (needs filled in before D/C Order can be placed): Home, Self Care
[2025-02-26 11:16] VITALS: BP 118/64; PULSE 74; RESP 18; TEMP 36.8; O2SAT 98
[2025-03-01 13:23] LABS: Magnesium 2.5 mg/dL (1.5-2.2)
== END 2025-02-26 11:25 | disposition home or self-care (01) ==
LOC: ED 22:57 → MS3 02-26 02:06
PROVIDERS: Anesthesiology; Family Medicine; Admitting Provider Obstetrics & Gynecology; Emergency Provider Emergency Medicine; PCP Family Medicine; Visit Provider Obstetrics & Gynecology
DX: N93.9 Abnormal uterine and vaginal bleeding, unspecified (principal); M32.9 Systemic lupus erythematosus, unspecified; N80.9 Endometriosis, unspecified; R55 Syncope and collapse; D68.62 Lupus anticoagulant syndrome; R00.0 Tachycardia, unspecified; I10 Essential (primary) hypertension; R10.2 Pelvic and perineal pain; G89.29 Other chronic pain; F32.A Depression, unspecified; F41.9 Anxiety disorder, unspecified; Z79.01 Long term (current) use of anticoagulants; Z79.899 Other long term (current) drug therapy; Z86.718 Personal history of other venous thrombosis and embolism; Z82.49 Family history of ischemic heart disease and other diseases of the circulatory system; Z86.73 Personal history of transient ischemic attack (TIA), and cerebral infarction without residual deficits; F90.9 Attention-deficit hyperactivity disorder, unspecified type
CPT/HCPCS: 36415; 80053; 81001; 81025; 83735; 85025; 85027; 85610; 85730; 96374; 96375; 96376; 99221; 99283; A4216; G0378; J2405

== ENCOUNTER 2025-03-09 19:03 | Emergency (ER) | payer MEDICAID, SELFPAY ==
[2025-03-09 19:04] VITALS: BP 153/97; PULSE 142; RESP 18; TEMP 36.6; O2SAT 99; BMI 27.7
--- NOTE | 2025-03-09 19:54 | EKG12_ITS ---
Test Reason : ARRYTH Blood Pressure : */* mmHG Vent. Rate : 115 BPM Atrial Rate : 115 BPM P-R Int : 132 ms QRS Dur : 82 ms QT Int : 324 ms P-R-T Axes : 46 10 45 degrees QTcB Int : 448 ms Sinus tachycardia Otherwise normal ECG Confirmed by SARI CASTILLO, JOSSELIN ([id number]), index editor STEVE PICKENS ([id number]) on 03/14/2025 9:03:59 AM Referred By: Confirmed By: JOSSELIN GUO MD
[2025-03-09 20:16] LABS: Absolute Lymphocyte Count 1.52 X10^3/uL (0.83-4.51); Absolute Neutrophil Count 3.7 X10^3/uL (2.0-7.7); Basophil# 0.02 X10^3/uL; Basophil% 0.4 % (0-1); Eosinophil# 0.06 X10^3/uL; Eosinophils% 1.1 % (0-5); Hematocrit 41.1 % (37-47); Hemoglobin 14.1 g/dL (12.0-15.0); Lymphocyte # 1.52 X10^3/ul (0.83-4.51); Lymphocyte % 26.7 % (19-41); Mean Corp Hgb Conc 34.3 g/dL (32-36); Mean Corpuscular Hgb 32.4 pg (27.0-32.0); Mean Corpuscular Volume 94.5 fL (81-99); Mean Platelet Vol. 11.4 fl (6.2-12.0); Monocyte# 0.35 X10^3/uL; Monocyte% 6.2 % (0-10); NRBC Flagged by Analyzer 0 % (0-5); Neutrophil # 3.72 X10^3/uL (2.7-7.7); Neutrophil % 65.2 % (47-70); Platelet Count 281 K/mm3 (150-450); RBC Distribution Width CV 12.8 % (11.6-14.6); RBC Distribution Width SD 44.3 fl (35.1-43.9); Red Blood Count 4.35 M/mm3 (4.2-5.4); White Blood Count 5.7 K/mm3 (4.4-11.0)
--- NOTE | 2025-03-09 20:29 | EDS_ITS ---
HPI HPI - Female History of Present Illness Chief Complaint: Vag Bleeding Informant: patient and spouse/S.O. Narrative Narrative: History of endometriosis and adenomyosis followed by Dr. Tere Ott. She has been having abnormal bleeding since December she states had a stretch bleeding for 3 weeks that subsided. Started rebleeding again. She was hospitalized earlier this month due to bleeding. She is on Aygestin 3 times a day. History of lupus disorder with blood clots along with TIAs. She has planned hysterectomy this coming Friday in 2 days. She is currently on bridging of Lovenox through hematology of 70 mg once a day. She states tomorrow's dose will be 40 mg prior to her planned hysterectomy. Over last couple days increasing bleeding with clots 6 soaked pads today. No lightheaded symptoms. She has history of tachycardia on a beta-sejal. She states she has never been transfused blood. Prior similar symptoms: Yes PFSH [facility] Medical History Pelvic pain Wears glasses Wears contact lenses Open wound Excessive bleeding Migraine headache History of stress test History of echocardiogram History of irregular heartbeat Seizures Cardiology follow-up encounter Endometriosis determined by laparoscopy Lupus anticoagulant disorder DVT (deep venous thrombosis) TIA (transient ischemic attack) left sided parathesias Home Medications ?Medication ?Instructions ?Recorded ?Last Taken ?Type rivaroxaban 20 mg tablet (Xarelto) 20 mg PO QHS 07/06/23 History methocarbamol 500 mg tablet 500 mg PO TID 03/01/25 Unk nown History methylphenidate HCl 36 mg 36 mg PO DAILY 03/01/25 Unkn own History tablet,extended release 24 hr metoprolol tartrate 25 mg tablet 25 mg PO PRN PRN HR 0 03/01/25 Unknown History norethindrone acetate 5 mg tablet 5 mg PO TID 03/01/25 Unknown History Allergy/AdvReac Type Severity Reaction Status Date / Time acetaminophen (From Vicodin) Allergy Hives Verified 03/09/25 19:05 hydrocodone bitartrate (From Allergy Hives Verified 03/09/25 19:05 Vicodin) ketorolac tromethamine (From Allergy Hives Verified 03/09/25 19:05 Toradol) metoclopramide (From Reglan) Allergy Other Verified 03/09/25 19:05 metronidazole (From Metrogel) Allergy Swelling Verified 03/09/25 19:05 NSAIDS (Non-Steroidal Allergy Other Verified 03/09/25 19:05 Anti-Inflamma skin cleanser (From Metrogel) Allergy Swelling Verified 03/09/25 19:05 prochlorperazine (From AdvReac Other Verified 03/09/25 19:05 Compazine) promethazine (From Phenergan) AdvReac Other Verified 03/09/25 19:05 Family History Mother Diabetes Hypertension Father Hypertension Sister Thyroid disorder Surgical History History of ankle surgery Hx of surgical procedure Hx of surgical procedure Hx of laparoscopy S/P foot surgery, right H/O bilateral salpingectomy Hx of cholecystectomy Social History household members: significant other and children housing: house current occupational status: employed Smoking Status: Never smoker alcohol intake: current alcohol intake frequency: holidays/special occasions only ROS ROS ED Constitutional Constitutional ED: Denies chills, fever(s) or sweats ENT ENT ED: Denies sore throat Cardiovascular Cardiovascular: Denies chest pain, leg edema, palpitations or racing heartbeat Respiratory/Chest Respiratory/Chest: Denies cough, dyspnea or dyspnea on exertion Gastrointestinal Gastrointestinal: Denies abdominal pain, diarrhea, nausea or vomiting Genitourinary Genitourinary ED: Reports other Details: Vaginal bleeding ; Denies dysuria, hematuria or urinary frequency Musculoskeletal Musculoskeletal: Denies back pain, extremity pain or neck pain Integumentary Denies rash or wounds Neurologic Neurologic: Denies headache(s), paresthesias or weakness EXAM Physical Exam Const Vital Signs: 03/09/25 19:04 03/09/25 20:52 Temperature 97.8 F 97.9 F Temperature Source Temporal Pulse Rate 142 H 90 Respiratory Rate 18 18 Blood Pressure 153/97 H 138/87 H Blood Pressure Mean 115 104 Pulse Ox 99 100 Oxygen Delivery Method Room Air Positive well nourished and well developed General Appearance ED: well developed and NAD HEENT Reports moist mucous membranes normocephalic and atraumatic Eyes General Eye ED: Yes normal appearance of both eyes Neck full ROM Chest Wall Chest: Negative for tenderness Resp normal respiratory effort and normal air movement Effort and Inspection: symmetric chest movement; Negative for respiratory distress Cardio regular rhythm and no murmurs Rate: tachycardic Peripheral Pulses: pulses 2+ throughout GI normal to inspection, nondistended, normoactive bowel sounds GI Narrative: Minimal discomfort suprapubic. Negative Barcenas's or McBurney's tenderness. Palpation: Negative for guarding or rebound tenderness present Extremity normal to inspection General Extremety ED: Negative for edema or tenderness General Extremity: Negative for edema Neuro oriented x3 and no sensory deficits noted Sensorium / Orientation: awake and alert Skin no rashes or lesions noted and no wounds MDM MDM MDM Narrative Medical decision making narrative: Interventions / MDM: Differential diagnosis: Dysfunctional uterine bleeding, history of endometriosis, sinus tachycardia Diagnosis considered but do not suspect: N/A My EKG interpretation: Sinus rate of 115, no ST changes. Imaging independently reviewed and interpreted by myself: N/A External documents reviewed: N/A Test considered but not ordered:N/A ED course: Patient tachycardic 142 on arrival. Nontoxic blood pressure stable. Increased vaginal bleeding. Basic labs are sent EKG ordered noting heart rate 115. 2010: I did speak with covering conference center manager Dr. Del Toro, who knows about the patient. She has had multiple outpatient visits. She states if blood counts are stable, can discussed options with the patient continue Aygestin versus switching to Megace. Will reevaluate the patient after lab results. Hemoglobin stable at 14.1 higher than previous. She is ordered for Bentyl for cramping pain. She states she has prescription at home to use. Heart rate improved. She will continue her Lovenox regimen for bridging she will plan for her hysterectomy in 2 days. All questions were answered. Re-evaluation: stable Disposition discussed with patient/family/significant other: Patient significant other Case discussed with consulting clinician: N/A This note was generated with [employer] dictation software. It may contain incorrect words, spelling, and punctuation that were not noted in checking the note before signing. Lab Data Labs: Laboratory Results - last 24 hr 03/09/25 03/09/25 03/09/25 19:34 20:00 20:25 WBC 5.7 RBC 4.35 Hgb 14.1 Hct 41.1 MCV 94.5 MCH 32.4 H MCHC 34.3 RDW Std Deviation 44.3 H RDW Coeff of Justo 12.8 Plt Count 281 MPV 11.4 Immature Gran % (Auto) 0.400 Neut % (Auto) 65.2 Lymph % (Auto) 26.7 [place] % (Auto) 6.2 Eos % (Auto) 1.1 Baso % (Auto) 0.4 Absolute Neuts (auto) 3.7 Absolute Lymphs (auto) 1.52 Nucleated RBC % 0 PT Cancelled 14.1 INR Cancelled 1.1 APTT Cancelled 43.7 H Sodium 139 Potassium 3.7 Chloride 103 Carbon Dioxide 21.1 Anion Gap 14 BUN 12 Creatinine 0.61 L Estim Creat Clear Calc 118.15 Est GFR (MDRD) Non-Af 117 BUN/Creatinine Ratio 19.5 Glucose 82 Calcium 9.4 Discharge Plan Triage Chief Complaint: Vag Bleeding ED Provider: Jay Infante Dx/Rx/DC Orders Clinical Impression: Abnormal uterine bleeding, Lupus anticoagulant disorder, Endometriosis Instructions: ED Dysfunctional Uterine Bleeding Prescriptions: No Action Xarelto 20 mg tablet 20 mg PO QHS Patient Comments: HOLD 3 DAYS PRIOR TO PROCEDURE THEN BRIDGE W/ LOVENOX Rx Instructions: must administer with evening meal methocarbamol 500 mg tablet 500 mg PO TID norethindrone acetate 5 mg tablet 5 mg PO TID metoprolol tartrate 25 mg tablet 25 mg PO PRN PRN (Reason: HR) methylphenidate HCl 36 mg tablet extended release 24hr 36 mg PO DAILY Primary Care Provider: George Avitia Referrals: George Avitia MD [Primary Care Provider] - Tere Ott MD [Med Staff - Active Staff] - 2 Days Activity Restrictions/Additional Instructions: Your hemoglobin today is 14.1. Continue your Aygestin. Continue your Lovenox bridge. Discussed with Dr. Del Toro in the ED. Plan for your hysterectomy in [address] Ott. Print Language: Slovak Disposition Disposition: Home, Self Care Discharge Date/Time: 03/09/25 20:57
[2025-03-09 20:47] LABS: International Normalized Ratio 1.1; Prothrombin Time (Protime)PT. 14.1 SECONDS (11.7-14.9)
[2025-03-09 20:48] LABS: Partial Thromboplast Time 43.7 Seconds (24.1-36.2)
[2025-03-09] MEDS: Dicyclomine 10 MG Capsule 20 MG PO (20:48)
[2025-03-09 20:52] VITALS: BP 138/87; PULSE 90; RESP 18; TEMP 36.6; O2SAT 100
[2025-03-09 21:07] LABS: Anion Gap 14 (5-15); BUN 12 mg/dL (4-19); BUN/Creat Ratio 19.5 RATIO (10-20); Calcium,Total 9.4 mg/dL (7.6-11.0); Carbon Dioxide 21.1 mmol/L (21.0-32.0); Chloride 103 mmol/L (98-108); Creatinine, Serum 0.61 mg/dL (0.70-1.20); EST Glomerular Filtration Rate 117 (>60); Estimated Creatinine Clearance 118.15 ml/min (50-250); Glucose 82 mg/dL (70-99); Potassium 3.7 mmol/L (3.3-5.1); Sodium Level 139 mmol/L (133-145)
== END 2025-03-09 20:57 | disposition home or self-care (01) ==
PROVIDERS: Emergency Provider Emergency Medicine; PCP Family Medicine; Visit Provider Emergency Medicine
DX: N93.9 Abnormal uterine and vaginal bleeding, unspecified (principal); Z79.01 Long term (current) use of anticoagulants; Z86.73 Personal history of transient ischemic attack (TIA), and cerebral infarction without residual deficits; Z86.718 Personal history of other venous thrombosis and embolism; Z90.49 Acquired absence of other specified parts of digestive tract; D68.62 Lupus anticoagulant syndrome; N80.9 Endometriosis, unspecified
CPT/HCPCS: 80048; 85025; 85610; 85730; 93005; 99283; A4216

== ENCOUNTER 2025-03-11 08:49 | Inpatient (IN) | payer MEDICAID, SELFPAY ==
[2025-03-11] VITALS (16 sets, daily range): BP systolic 85–126; BP diastolic 48–85; PULSE 59–107; RESP 14–20; TEMP 36.2–37.6; O2SAT 95–100; BMI 27.3; BMI 28.7
--- NOTE | 2025-03-11 07:11 | PCM.HP.BLA ---
History and Physical Date of Admission: 03/11/25 eart sounds, and No murmurs or gallops ? IMPRESSION: Adenomyosis, AUB, h/o BV, chronic anticoagulation use, h/o BV ? PLAN: The risks/benefits/alternatives and personal involved for the planned TVH, possible cystoscopy, possible bilateral salpingectomy (had previous tubal) were reviewed with the patient. Her questions were answered to her satisfaction and she desires to proceed. Consent was signed. I reviewed with her postop instructions and expectations. Prior op report states some peritoneal endometriosis studding only, no adhesions added flagyl for h/o BV resume anticoagulation approx POD#2 ? ? I have reviewed and updated past medical and surgical history, medications and allergies Assessment & Plan Assessment/Plan (1) Abnormal uterine bleeding: (2) Adenomyosis: (3) Endometriosis:
--- NOTE | 2025-03-11 07:20 | PRE.ANES_ITS ---
ASA Classification* ASA Classification ASA Classification: 2 Assessment & Plan Anesthesia* Anesthesia Assessment Anesthesia Assessment: Discussed sedation and/or anesthesia options, risks, benefits, and alternatives with patient/parents/legal guardian/POA. Questions invited. The patient/parents/legal guardian/POA seems to understand and agrees to proceed with anesthesia plan. Reviewed the physical assessment, medical history, allergy history and patient home medications list prior to surgery/procedure/anesthetic and documented any changes. Performed airway and anesthesia risk assessments. Anesthesia Type Anesthesia Type: General Anesthesia Focused Assessment* Airway Assessment Mouth opens: >3 cm Mallampati Score: II Focused Labs Anesthesia Preop lab: CBC WBC 5.7 K/mm3 (4.4-11.0) 03/09/25 19:03/09/25 RBC 4.35 M/mm3 (4.2-5.4) 03/09/25 19:34 03/09/25 Hgb 14.1 g/dL (12.0-15.0) 03/09/25 19:34 03/09/25 Hct 41.1 % (37-47) 03/09/25 19:34 03/09/25 Plt Count 281 K/mm3 (150-450) 03/09/25 19:34 03/09/25 CHEMISTRY Potassium 3.7 mmol/L (3.3-5.1) 03/09/25 19:34 03/09/25 Sodium 139 mmol/L (133-145) 03/09/25 19:34 03/09/25 Magnesium 2.5 mg/dL (1.5-2.2) H 03/01/25 12:42 03/01/25 BUN 12 mg/dL (4-19) 03/09/25 19:34 03/09/25 Creatinine 0.61 mg/dL (0.70-1.20) L 03/09/25 19:34 Glucose 82 mg/dL (70-99) 03/09/25 19:34 03/09/25 POC Glucose 95 mg/dL (74-106) 11/14/24 21:14 11/14/24 TSH 1.00 uIU/mL (0.358-3.74) 08/06/13 00:50 COAG PT 14.1 SECONDS (11.7-14.9) 03/09/25 20:25 HCG, Quant < 1 mIU/mL (1-3) 11/14/24 21:16 11/14/24 Urine Test Negative Negative 02/25/25 21:27 02/25/25 Pre-Assessment Diagnosis/Proposed Procedure Planned Operative Procedure(s): total vaginal hysterectomy, possible cystoscopy, ERAS Anesthesia History Anesthesia History - social studies department chair: Anesthesia History - social studies department chair Hx Hospitalization No 03/01/25 11:24 Any Problems With Anesthesia No 03/01/25 11:24 Cholinesterase deficiency No 03/01/25 11:24 You/Your Family Experience No 03/01/25 11:24 fever (hyperthermia) with Relationship Recent Exposure to Contagious No 02/26/25 00:13 Disease Does patient have nerve No 03/01/25 11:24 stimulator Patient instructed to have device shut off --Does patient have Pacemaker or ICD? When Was Last Pacemaker Check QUESTION #4 FULL TEXT: You/Your Family Experience fever (hyperthermia) with Anesthesia Last Oral Intake Last Oral intake: Last Oral Intake NPO since Meds taken in AM with sips of water? Meds patient instructed to take am of surgery PONV PONV - social studies department chair: PONV - social studies department chair Female Yes 03/01/25 11:24 HX of Motion Sickness No 03/01/25 11:24 HX of N/V After Surgery No 03/01/25 11:24 Non-Smoker Yes 03/01/25 11:24 Duration of Surgery greater No 03/01/25 11:24 than 60 minutes Number of Risk Factors 2 03/01/25 11:24 PONV Score Moderate Risk 03/01/25 11:24 Height & Weight Height & Weight: Anesthesia: Height & Weight Height 5 ft 3 in 03/09/25 19:04 Respiratory Assessment Respiratory Assessment - social studies department chair: Respiratory Tract Infection Hx - social studies department chair Hx Respiratory Tract Infection No 03/01/25 11:24 STOP Sleep Apnea STOP Sleep Apnea - social studies department chair: STOP Sleep Apnea - social studies department chair Hx Hypertension No 03/01/25 11:24 Hx Sleep Apnea No 03/01/25 11:24 CPAP No 03/01/25 11:24 BIPAP No 03/01/25 11:24 Do you snore loudly (louder No 03/01/25 11:24 than talking or can be heard Do you often feel tired/ No 03/01/25 11:24 fatigued/ sleepy during daytime? Has anyone observed you stop No 03/01/25 11:24 breathing during sleep? STOP Results Negative 03/01/25 11:24 QUESTION #5 FULL TEXT : Do you snore loudly (louder than talking or can be heard through closed doors)? 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 Specify any problems Hx of Preganancy in last 3 No 03/01/25 11:24 Months Nurse Filling Out Transfusion VCHRISTIN 03/01/25 11:24 & Questions: Date: 03/01/25 03/01/25 11:24 Time: 11:25 03/01/25 11:24 Patient unable to answer at this time (ie. confused, unrespo /Reproduction History /Reproductive History - social studies department chair: /Reproductive Hx- social studies department chair Hx Now No 03/01/25 11:24 Gestational Age (in weeks): EDC: Hx Hx Para Hx Section SAB No 03/09/25 19:04 Active Medications Active Medications: Current Medications Generic Name Dose Route Start Last Admin Trade Name Freq PRN Reason Stop Dose Admin Acetaminophen 1,000 mg 03/11/25 08:45 Acetaminophen 500 Mg Tablet PO 03/11/25 08:46 PREOP ONE Celecoxib 400 mg 03/11/25 08:45 Celecoxib 200 Mg Capsule PO 03/11/25 08:46 PREOP ONE Dexamethasone Sodium Phosphate 8 mg 03/11/25 08:45 Dexamethasone 4 Mg/Ml Vial IV 03/11/25 08:46 INTRAOP ONE Gabapentin 600 mg 03/11/25 08:45 Gabapentin 600 Mg Tablet PO 03/11/25 08:46 PREOP ONE Cefazolin Sodium 2 gm/ Sodium 110 mls @ 150 mls/hr 03/11/25 08:45 Chloride IV 03/11/25 09:28 INTRAOP ONE Lactated Ringer's 1,000 mls @ 40 mls/hr 03/11/25 08:45 IV .Q25H REED Magnesium Sulfate 1 gm/ 102 mls @ 408 mls/hr 03/11/25 08:45 Dextrose IV 03/11/25 08:59 INTRAOP ONE Metronidazole 500 mg in 100 mls @ 100 mls/hr 03/11/25 08:45 Flagyl IV 03/11/25 09:44 X1 ONE Lactated Ringer's 1,000 mls @ 15 mls/hr 03/11/25 06:45 IV .Q48H REED Insulin Human Lispro 0 unit 03/11/25 08:45 Insulin Lispro 100 Unit/Ml Insuln.Pen SC Q4H PRN PRN BG >/= 180, SEE PROTOCOL Protocol Ondansetron HCl 4 mg 03/11/25 08:45 Ondansetron 4 Mg/2 Ml Vial IV 03/11/25 08:46 INTRAOP ONE Scopolamine HBr 1 patch 03/11/25 08:45 Scopolamine 1mg/72hr Patch TD 03/11/25 08:46 PREOP ONE PFSH Medical History Pelvic pain Wears glasses Wears contact lenses Open wound Excessive bleeding Migraine headache History of stress test History of echocardiogram History of irregular heartbeat Seizures Cardiology follow-up encounter Endometriosis determined by laparoscopy Lupus anticoagulant disorder DVT (deep venous thrombosis) TIA (transient ischemic attack) left sided parathesias Home Medications ?Medication ?Instructions ?Recorded ?Last Taken ?Type rivaroxaban 20 mg tablet (Xarelto) 20 mg PO QHS 03/07/25 History methocarbamol 500 mg tablet 500 mg PO TID 03/01/25 History methylphenidate HCl 36 mg 36 mg PO DAILY 03/01/2502/24 History tablet,extended release 24 hr metoprolol tartrate 25 mg tablet 25 mg PO PRN PRN HR 0 03/01/25 Unknown History norethindrone acetate 5 mg tablet 5 mg PO TID 03/01/25 03/10/25 History clonazepam 1 mg tablet 1 mg PO QHS PRN PRN insomnia 03/11/25 Unknown History enoxaparin 80 mg/0.8 mL 80 mg subcut Q12H 03/11/25 0 03/10/25 History subcutaneous syringe (Lovenox) Allergy/AdvReac Type Severity Reaction Status Date / Time acetaminophen (From Vicodin) Allergy Hives Verified 03/09/25 19:05 hydrocodone bitartrate (From Allergy Hives Verified 03/09/25 19:05 Vicodin) ketorolac tromethamine (From Allergy Hives Verified 03/09/25 19:05 Toradol) metoclopramide (From Reglan) Allergy Other Verified 03/09/25 19:05 metronidazole (From Metrogel) Allergy Swelling Verified 03/09/25 19:05 NSAIDS (Non-Steroidal Allergy Other Verified 03/09/25 19:05 Anti-Inflamma skin cleanser (From Metrogel) Allergy Swelling Verified 03/09/25 19:05 prochlorperazine (From AdvReac Other Verified 03/09/25 19:05 Compazine) promethazine (From Phenergan) AdvReac Other Verified 03/09/25 19:05 Family History Mother Diabetes Hypertension Father Hypertension Sister Thyroid disorder Surgical History History of ankle surgery Hx of surgical procedure Hx of surgical procedure Hx of laparoscopy S/P foot surgery, right H/O bilateral salpingectomy Hx of cholecystectomy Social History household members: significant other and children housing: house current occupational status: employed Smoking Status: Never smoker alcohol intake: current alcohol intake frequency: holidays/special occasions only Review of Systems (Anesthesia) ROS Narrative System reviewed and no additional complaints, except as documented.
[2025-03-11] MEDS: Lactated Ringers 1,000 ML 15 ML IV (07:51)
[2025-03-11] MEDS: Magnesium 1 GM over 15 mins IV (07:52)
[2025-03-11] MEDS: Acetaminophen 500 MG Tablet 1000 MG PO ×3 (07:53→20:15)
[2025-03-11] MEDS: Scopolamine 1mg/72hr Patch 1 PATCH TD (07:54)
[2025-03-11] MEDS: Gabapentin 600 MG Tablet PO (07:55)
[2025-03-11] MEDS: metroNIDAZOLE 500 MG/100 ML BAG 100 MG IV (07:56)
[2025-03-11] MEDS: Celecoxib 200 MG Capsule 400 MG PO (07:56)
[2025-03-11 08:05] LABS: Internal QC Validated? YES +Cl - CLEAR BKGD; Pregnancy, Urine Negative Negative
[2025-03-11 08:14] LABS: Bedside Glucose 92 mg/dL (74-106)
[2025-03-11] MEDS: Cefazolin 2 GM in 0.9% Normal Saline (100mL Bag) 100 ML IV (08:33)
[2025-03-11] MEDS: dexAMETHasone 4 MG/ML Vial 8 MG IV (08:37)
--- NOTE | 2025-03-11 08:45 | UT_PTH ---
PATIENT: MEL ROBLEDO LOC: [facility] U#:[id number] AGE/SX: 40/F ROOM: NJ322 RE03/11/[address]: Dr. Tere Ott MD : 1985 BED: 1 DIS: 03/12/2025 SPEC #: [id number] RECD: 03/11/25 11:32 STATUS: LEV RELudmila #: [id number] PERLA: 03/11/25 08:[address]: Tere Ott DEPT: SURGICAL PATHOLOGY RECD BY: Mike Mcbride ENTERED: 03/11/25 12:13 SP TYPE: UTERUS OTHR DR: Dr. George Avitia MD Tissues: A - Uterus, NOS Procedures: Surgery Specimen Level V HEADER OPERATION: ERAS, total vaginal hysterectomy, cystoscopy PRE-OP DIAGNOSIS: Abnormal uterine bleeding, adenomyosis, endometriosis TISSUE SUBMITTED: A- Uterus, cervix MICROSCOPIC DIAGNOSIS A. Uterus, cervix, adenomyosis, endometriosis, hysterectomy: * Cervix: mild hyperkeratosis. * Endometrium: inactive to weakly proliferative endometrium * Myometrium: no specific pathologic change. * Serosa: focal fibrovascular adhesions. MICROSCOPIC DESCRIPTION Slides are reviewed. GROSS DESCRIPTION A. Received in formalin in a container labeled with the patient's name, date of , and uterus and cervix is an 85.9 g hysterectomy specimen with attached cervix measuring 8.5 cm from fundus to ectocervix, 3.4 cm from cornu to cornu, and 4.0 cm from anterior to posterior. The serosa is matthew-pink with wispy adhesions scattered throughout. The white-pink, previously disrupted ectocervix is 3.5 x 3.3 cm with a 1.0 cm slitlike os. The specimen is bivalved to reveal a 3.0 x 0.6 cm matthew-pink endocervix. The linear endometrial cavity is approximately 2.8 cm in length by 0.9 cm in width with matthew-pink, velvety endometrium ranging from 0.1 to 0.3 cm in thickness. The matthew-pink myometrium is somewhat trabecular and measures up to 2.4 cm in greatest thickness. No myometrial nodules are discovered. Manufacturing Sr Engineer sections:A1. Anterior cervix with anterior serosal shavesA2. Posterior cervix with posterior serosal shavesA3. Anterior endomyometrium (superficial x 2)A4. Posterior endomyometrium (superficial x 2) [facility] 03-14-2025 CPT:72953
[2025-03-11] MEDS: Lidocaine 1%/Epi 1:200 (30ml) 30 ML AMPUL (09:37)
--- NOTE | 2025-03-11 09:46 | PCM.OPRPT ---
Problems Associated Problem List Diagnoses (1) Adenomyosis: (2) Abnormal uterine bleeding: Operative Report (Standard) Operative Information Date of Procedure: 03/11/25 Pre-Operative Diagnosis: adenomyosis, aub, endometriosis Post-Operative Diagnosis: same Surgery/Procedure Performed: TVH crime scene examiner: Yes Outside Physical Damage Appraiser: Janel Jones Tasks completed by social worker assistant: Hemostasis: Tie and Retracting Additional primary teaching assistant?: Yes Additional Printed Circuit Designer #2: Rachel Hurtado MS3 Tasks completed by primary teaching assistant #2: Retracting Additional primary teaching assistant?: No Type of Anesthesia: General RN Documented Start/Stop Times: Operation Date: 03/11/25 08:45 Case Time Into Pre-Op 03/11/25 06:43 Out of Pre-Op 03/11/25 08:30 Anesthesia Start 03/11/25 08:33 Into Room 03/11/25 08:33 Procedure Start 03/11/25 08:54 Procedure End 03/11/25 09:40 Procedure Start Time: 08:54 Procedure Stop Time: 09:40 Select all DRAINS/GRAFTS/IMPLANTS that apply: None Estimated Blood Loss: 20 Fluids Replaced: 1000 Specimen collected: Yes Description of specimen(s) removed: uterus and cervix Description of surgery: The patient was taken to the operating room where she was prepped and draped in the normal sterile fashion in the dorsal lithotomy position. A weighted speculum was placed in the vagina and the anterior lip of the cervix was grasped with a Belinda clamp. The vaginal epithelium was infiltrated circumferentially around the cervix with 1% Xylocaine solution. An incision was made around the entire cervix with a scalpel and the vaginal epithelium was dissected back with blunt and sharp dissection. The anterior colpotomy incision was made sharply. Entry into the anterior cul-de-sac was confirmed by visualization of the uterine fundus and bowel behind the uterus. The posterior colpotomy was made with the Villegas scissors. The posterior peritoneum was secured to the posterior vaginal cuff with an [id number] 0 Vicryl suture. The Enrique retractor was placed in the posterior colpotomy incision. The uterosacral ligaments were clamped with Jose clamps transected and suture ligated on both sides and excellent hemostasis of the pedicles was noted. The cardinal ligaments were clamped, transected and secured with the LigaSure device. Serial descent of the uterus was noted with each pedicle. The remaining portion of the cardinal ligaments was clamped sealed and transected with the LigaSure device. The utero-ovarian ligaments were then clamped sealed and transected with the LigaSure device and excellent hemostasis was noted. The uterus was brought out through the colpotomy incision intact. There was small amount of bleeding from the left pedicle area which was clamped with a Jose clamp and oversewn with an 0 Vicryl suture and hemostasis was noted. There was a small amount of bleeding along the anterior peritoneal edge was was clamped with a Johnna clamp and a free tie was placed around and hemostasis was noted. The anterior peritoneum was then reapproximated to the vaginal cuff with 2-0 Vicryl running locked suture. The posterior vaginal epithelium was attached to posterior vaginal cuff with running locked 2-0 Vicryl suture and hemostasis was noted. The uterosacral ligaments were secured to the angles of the vaginal cuff. At this point a Solomon's culdoplasty was done with 2-0 PDS suture. Entering the posterior vaginal cuff the peritoneum was secured reefed across the peritoneum to the right uterosacral ligament, back across the peritoneum to the left uterosacral ligament and back out through the posterior vaginal wall. Some hemablast was placed in the peritoneum and then the vaginal cuff was then reapproximated horizontally with interrupted 0 Vicryl [id number] sutures. The Solomon's sutures were tied down. The vaginal cuff was hemostatic and excellent support was noted. I cystoscopy was performed in the usual sterile fashion and both ureteral jets were noted and the bladder was intact without abnormalities as was the urethra The Ackerman was left out. The vaginal sweep was completed by me. All sponge lap and needle counts were correct. Patient was awakened and taken to theher recovery room in stable condition. Surgical Findings: boggy uterus, normal vagina, cervix, bladder and urethra Complications Complications: No Admit VTE Documentation VTE Present on Admission: No VTE Mechan Device Prophylaxis: SCD's VTE Pharm Prophylaxis ordered?: Yes
--- NOTE | 2025-03-11 09:58 | PCM.POST.ANE ---
Anesthesia: Postop Eval I Current Vital Signs Temperature: 97.6 F Pulse Rate: 65 Blood Pressure: 99/61 Respiratory Rate: 18 Pulse Ox: 98 Assessment Airway patent: Yes Spontaneous unlabored respirations: Yes nausea: No Vomiting: No Anesthesia Complication: No Fluid Hydration Crystalloid volume administer (ml): 1,000 Total IV fluid infused: 1,000 Progress Note Anesthesia document: Postop Eval 1 completed: Yes
[2025-03-11] MEDS: Lactated Ringers @ 40 MLS/HR 40 ML IV (10:08)
--- NOTE | 2025-03-11 10:11 | POSTOPAN2_ITS ---
Anesthesia Postop Eval I Sum Postop Eval Completion status Anesthesia document: Postop Eval 1 completed: Yes Anesthesia Postop Eval I Summary Anesthesia Postop Eval I Summary: Anesthesia Postop Eval I: Assessment Summary Airway patent Yes 03/11/25 09:58 COTTON [email or web address] Spontaneous unlabored Yes 03/11/25 09:58 COTTON [email or web address] respirations Mental status nausea No 03/11/25 09:58 COTTON [email or web address] Vomiting No 03/11/25 09:58 COTTON [email or web address] Anesthesia Postop Eval I: Fluid Summary Crystalloid volume administer 1,000 03/11/25 09:58 COTTON [email or web address] (ml) Colloids volume administered ( ml) Blood Product volume administered (ml) Total IV fluid infused 1,000 03/11/25 09:58 COTTON [email or web address] Anesthesia Postop Eval I: Summary Notes Anesthesia Complication No 03/11/25 09:58 COTTON [email or web address] Anesthesia Complication Comment: Post-operative progress note Anesthesia: Postop Eval II Evaluation Mental status: Awake Pain Level: 0 nausea: No Vomiting: No
--- NOTE | 2025-03-11 10:11 | PCM.POSTANE2 ---
Anesthesia Postop Eval I Sum Postop Eval Completion status Anesthesia document: Postop Eval 1 completed: Yes Anesthesia Postop Eval I Summary Anesthesia Postop Eval I Summary: Anesthesia Postop Eval I: Assessment Summary Airway patent Yes 03/11/25 09:58 ACCESS [email or web address] Spontaneous unlabored Yes 03/11/25 09:58 ACCESS [email or web address] respirations Mental status nausea No 03/11/25 09:58 ACCESS [email or web address] Vomiting No 03/11/25 09:58 ACCESS [email or web address] Anesthesia Postop Eval I: Fluid Summary Crystalloid volume administer 1,000 03/11/25 09:58 ACCESS [email or web address].[email or web address] (ml) Colloids volume administered ( ml) Blood Product volume administered (ml) Total IV fluid infused 1,000 03/11/25 09:58 ACCESS [email or web address] Anesthesia Postop Eval I: Summary Notes Anesthesia Complication No 03/11/25 09:58 ACCESS [email or web address] Anesthesia Complication Comment: Post-operative progress note Anesthesia: Postop Eval II Evaluation Mental status: Awake Pain Level: 0 nausea: No Vomiting: No
[2025-03-11] MEDS: oxyCODONE 5 MG Tablet PO ×3 (12:20→20:15)
[2025-03-11] MEDS: Docusate Sodium 100 MG Capsule PO ×2 (12:21→20:15)
[2025-03-11] MEDS: HYDROmorphone 1 MG/ML Syringe IV ×2 (14:07→21:41)
[2025-03-11] MEDS: Ondansetron 4 MG/2 ML Vial IV (20:15)
[2025-03-11] MEDS: clonazePAM 1 MG Tablet PO (20:16)
[2025-03-11] MEDS: Methocarbamol 500 MG Tablet PO (20:16)
[2025-03-12] MEDS: oxyCODONE 5 MG Tablet PO ×3 (00:12→11:29)
[2025-03-12 02:45] VITALS: BP 113/69; PULSE 81; RESP 16; TEMP 36.4; O2SAT 97
[2025-03-12] MEDS: HYDROmorphone 1 MG/ML Syringe IV ×2 (02:46→08:39)
[2025-03-12] MEDS: Acetaminophen 500 MG Tablet 1000 MG PO ×2 (02:50→08:40)
[2025-03-12] MEDS: Ondansetron 4 MG/2 ML Vial IV ×2 (02:55→09:05)
[2025-03-12 06:19] LABS: Hematocrit 32.7 % (37-47); Mean Corp Hgb Conc 33.6 g/dL (32-36); Mean Corpuscular Hgb 32.4 pg (27.0-32.0); Mean Corpuscular Volume 96.2 fL (81-99); Mean Platelet Vol. 11.5 fl (6.2-12.0); Platelet Count 262 K/mm3 (150-450); RBC Distribution Width CV 12.8 % (11.6-14.6); RBC Distribution Width SD 45.5 fl (35.1-43.9); White Blood Count 6.1 K/mm3 (4.4-11.0)
[2025-03-12 06:53] VITALS: BP 117/67; PULSE 80; RESP 16; TEMP 36.9; O2SAT 96
[2025-03-12] MEDS: Enoxaparin 40 MG/0.4 ML Syringe SC ×2 (06:54→08:39)
[2025-03-12] MEDS: Methocarbamol 500 MG Tablet PO (06:54)
[2025-03-12 07:23] VITALS: O2SAT 95
--- NOTE | 2025-03-12 08:24 | PCM.PN.OB ---
Subjective Subjective Some nausea but tolerating PO and no vomiting. Pain controlled with oxy. Minimal bleeding. Comfortable going home. Plan for anticoagulation is to restart Eliquis on Friday. Objective Data Objective Data Vital Signs: Vital Signs Temp Pulse Resp BP Pulse Ox O2 Del Method O2 Flow Rate 98.4 F 80 16 117/67 95 Room Air 4 03/12/25 06:53 03/12/25 06:53 03/12/25 06:53 03/12/25 06:53 03/12/25 07:23 03/12/25 07:23 03/11/25 11:15 Oxygen Flow Rate (L/min) 4 Oxygen Delivery Method Room Air Weight: 73.549 kg Body Mass Index (BMI) 28.7 Intake & Output: Intake and Output for Last 24 Hours 03/10/25 03/11/25 03/12/25 23:59 23:59 23:59 Intake Total 1820 / 2120 500 / 500 Output Total 150 / 150 Balance 1670 / 1970 500 / 500 Lab / Micro Data 03/12/25 05:56 Labs: Laboratory Results - last 24 hr 03/11/25 07:31: Blood Type O POSITIVE, Antibody Screen NEGATIVE 03/12/25 05:56: WBC 6.1, RBC 3.40 L, Hgb 11.0 L, Hct 32.7 L, MCV 96.2, MCH 32.4 H, MCHC 33.6, RDW Std Deviation 45.5 H, RDW Coeff of Justo 12.8, Plt Count 262, MPV 11.5 ROS Constitutional Constitutional: Denies headache(s) or weakness Cardiovascular Cardiovascular: Denies chest pain or dyspnea Respiratory/Chest Respiratory/Chest: Denies cough Gastrointestinal Gastrointestinal: Reports nausea; Denies vomiting Genitourinary Genitourinary: Denies dysuria Neurologic Neurologic: Denies syncope Psychiatric Psychiatric: Denies none Physical Exam Const alert, oriented x3 and no apparent distress General Appearance: cooperative and comfortable HEENT normocephalic and head/scalp atraumatic Neck full ROM Resp normal respiratory effort Cardio regular rate GI non-tender and non-distended Inspection: Negative for incision Extremity normal to inspection, full ROM, no calf tenderness and no pedal edema Neuro oriented x3 Assessment & Plan (1) Adenomyosis: (2) Abnormal uterine bleeding: (3) Post-op pain: PLAN: Plan Discharge with Percocet. Restart anticoagulant Colace BID Zofran
[2025-03-12] MEDS: Docusate Sodium 100 MG Capsule PO (08:40)
[2025-03-12 09:00] VITALS: BP 110/72; PULSE 88; RESP 18; TEMP 36.6; O2SAT 100
[2025-03-12] MEDS: Ensure Plus High Protein 120 ML LIQUID PO (09:05)
--- NOTE | 2025-03-12 09:40 | CASEMGMT ---
WANDA LARRY Assessment: Face to Face with pt for initial transition planning/care coordination assessment. WANDA LARRY introduced self and role at [facility], pt voices understanding and consents to assessment. Pt is A&O x4 and answers all questions appropriately at this time. Pt lying in bed in no distress. Care providers, pharmacy, and demographics verified/updated. Admitting Dx: total vag hyster PCP:Sadi Specialists:Tru, KICKING MACHINE OPERATOR; Lynettei, lisandra Preferred Pharmacy: [facility] Retail Insurance: [employer] Prescription Benefit: yes LNOK: Chrisitano Marquez, sig other Living Arrangements: Pt lives with sig other and 4 children in a single story home with 3 steps to enter. Pt reports prior to surgery she was I in ADL/IADLs and denies concerns at home. Pt sig other is able to assist as needed. Transportation: Pt drives self and denies concerns with transportation. Pt sig other can transport pt until pt can drive again. DME:None HHC/SNF: Pt had HHC when she was . Denies SNF stays. Pt states no concerns with going home at time of dc. Pt states no further concerns/needs. CM to follow. Advised pt to ask CM if any further questions/concerns/needs arise, voices understanding. Pt Goal: Home Plan: Home Sharon MUÑOZ CM
--- NOTE | 2025-03-12 11:28 | PCM.DC.SUM ---
Providers Date of Admission: 03/11/25 Date of Discharge: 03/12/25 Primary Care Physician: Dr. George Avitia MD Reason For Visit: total vaginal hysterectomy, possible cystoscopy, E Diagnosis Discharge Diagnosis (1) Post-op pain: Status: Acute Code(s): G89.18 - Other acute postprocedural pain Plan Discharge with Percocet. Restart anticoagulant Colace BID Zofran Medications at Discharge Home Medications rivaroxaban 20 mg tablet (Xarelto) 20 mg PO QHS 07/02/23 methocarbamol 500 mg tablet 500 mg PO TID 03/01/25 methylphenidate HCl 36 mg tablet,extended release 24 hr 36 mg PO DAILY 03/01/25 metoprolol tartrate 25 mg tablet 25 mg PO PRN PRN HR 03/01/25 clonazepam 1 mg tablet 1 mg PO QHS PRN PRN insomnia 03/11/25 ondansetron 4 mg disintegrating tablet 4 mg PO Q6H PRN PRN Nausea/Vomiting #30 tabs 03/12/25 oxycodone 5 mg tablet 5 mg PO Q6H 7 days #28 tabs 03/12/25 Hospital Course Operations hysterectomy Procedures None Summary of Care Provided Minutes Spent on Discharge: 20 Hospital Course: Admitted postop for pain management after TVH. No complications Physical Exam Const alert, oriented x3 and no apparent distress General Appearance: cooperative and comfortable HEENT normocephalic and head/scalp atraumatic Neck full ROM Resp normal respiratory effort Cardio regular rate GI non-tender and non-distended Inspection: Negative for incision Extremity normal to inspection, full ROM, no calf tenderness and no pedal edema Neuro oriented x3 Weight / BMI Weight Weight: 73.549 kg Body Mass Index (BMI) 28.7 ABG / Lab / Microbiology Data 03/12/25 05:56 Laboratory: Laboratory Results - last 24 hr 03/12/25 05:56: WBC 6.1, RBC 3.40 L, Hgb 11.0 L, Hct 32.7 L, MCV 96.2, MCH 32.4 H, MCHC 33.6, RDW Std Deviation 45.5 H, RDW Coeff of Justo 12.8, Plt Count 262, MPV 11.5 D/C Instructions May resume sexual activity in: 6-8 weeks and - (Nothing in your vagina for 6 weeks. No vaginal or anal intercourse for 6-8 weeks) Cleanse incision/area with: Soap & Water and - (Your incisions have skin glue, it can get wet, leave the glue on until it falls off. ) DC O2, CPAP, BIPAP Needs Home O2 Discharge instructions: No Please Follow Up With: Tere Ott MD When: With my office in 1-2 and 6 weeks or as needed. [phone] Meaningful Use Info Meaningful Use Meaningful Use Diagnoses (Choose all that apply): None applicable Ischemic Stroke Statin Dosing Therapy Reference: STATIN DOSE THERAPY REFERENCE: * Patients > 75 years receive moderate or high dose statin therapy. * Patients 75 years or YOUNGER should receive HIGH intensity statin dose unless contraindicated. You will be required to document reason for non-treatment if statin daily dose does not meet guidelines. HIGH DOSE STATIN THERAPY DAILY Atorvastatin > than or = to 40 mg Rosuvastatin > than or = to 20 mg Amlodipine + Atorvastatin > than or = to 2.5/40 mg Ezetimibe + Simvastatin 10/80 mg Simvastatin 80mg Discharge Plan Admission Admit Date/Time: 03/11/25 08:49 Primary Reason for Your Visit: hysterectomy Attending Provider: Tere Ott Primary Care Provider: George Avitia Discharge Orders/Prescriptions Prescriptions: New ondansetron 4 mg Tablet,Disintegrating 4 mg PO Q6H PRN PRN (Reason: Nausea/Vomiting) Qty: 30 0RF oxycodone 5 mg Tablet 5 mg PO Q6H 7 Days Qty: 28 0RF Continued Xarelto 20 mg tablet 20 mg PO QHS Patient Comments: HOLD 3 DAYS PRIOR TO PROCEDURE THEN BRIDGE W/ LOVENOX Rx Instructions: must administer with evening meal methocarbamol 500 mg tablet 500 mg PO TID metoprolol tartrate 25 mg tablet 25 mg PO PRN PRN (Reason: HR) methylphenidate HCl 36 mg tablet extended release 24hr 36 mg PO DAILY clonazepam 1 mg tablet 1 mg PO QHS PRN PRN (Reason: insomnia) Discontinued norethindrone acetate 5 mg tablet 5 mg PO TID enoxaparin [Lovenox] 80 mg/0.8 mL syringe 80 mg subcut Q12H Rx Instructions: take 70mg every 12 hours 2 days before surgery, then take 40mg x1 1 day before surgery resume xarelto on post op day 2 if no bleeding complications from surgery Referrals / Follow Up: George Avitia MD [Primary Care Provider] - Disposition Disposition (needs filled in before D/C Order can be placed): Home, Self Care
== END 2025-03-12 12:45 | disposition home or self-care (01) | DRG 513 ==
LOC: SDC 11:16 → MS3 11:16
PROVIDERS: Admitting Provider Obstetrics & Gynecology; PCP Family Medicine; Referring Provider Obstetrics & Gynecology; Visit Provider Obstetrics & Gynecology
PROC: 0UT9FZZ Resection of Uterus, Via Natural or Artificial Opening With Percutaneous Endoscopic Assistance (ICD-10-PCS; CPT 58260; principal; 2025-03-11 08:25)
DX: N80.03 Adenomyosis of the uterus (principal); D68.62 Lupus anticoagulant syndrome; G89.18 Other acute postprocedural pain; N93.9 Abnormal uterine and vaginal bleeding, unspecified; N80.9 Endometriosis, unspecified; Z79.01 Long term (current) use of anticoagulants; Z86.73 Personal history of transient ischemic attack (TIA), and cerebral infarction without residual deficits; Z86.718 Personal history of other venous thrombosis and embolism; Z90.49 Acquired absence of other specified parts of digestive tract
CPT/HCPCS: 80048; 81025; 82962; 85025; 85027; 85610; 85730; 86850; 86900; 86901; 88307; 93005; 94668; 99283; A4216; J2405; J3475

== ENCOUNTER 2025-03-15 16:38 | Emergency (ER) | payer MEDICAID, SELFPAY ==
[2025-03-15 16:42] VITALS: BP 120/94; PULSE 164; RESP 22; TEMP 36.8; O2SAT 95; BMI 27.6
[2025-03-15 16:43] VITALS: BP 125/103; PULSE 155; RESP 20; O2SAT 96
[2025-03-15 17:07] VITALS: BP 138/10; PULSE 144; RESP 22; O2SAT 96
[2025-03-15] MEDS: Morphine 4 MG/ML Syringe IV (17:15)
[2025-03-15] MEDS: 0.9% Normal Saline (1000mL) 1,000 ML 999 ML IV (17:15)
[2025-03-15] MEDS: Ondansetron 4 MG/2 ML Vial IV (17:15)
--- NOTE | 2025-03-15 17:15 | ED.VIS.FEGU ---
HPI HPI - Female History of Present Illness Chief Complaint: Vag Bleeding Informant: patient and spouse/S.O. Narrative Narrative: History of lupus with blood clots and TIAs in the past. Status post vaginal hysterectomy postop day 4, discharge the following day. She restarted her Xarelto this morning with Lovenox bridge yesterday. 90 minutes ago started having vaginal bleeding increasing cramping. She took her oxycodone this morning she was taking every 6 hours. She called gynecology on-call and sent to the emergency department. [facility] Medical History Pelvic pain Wears glasses Wears contact lenses Open wound Excessive bleeding Migraine headache History of stress test History of echocardiogram History of irregular heartbeat Seizures Cardiology follow-up encounter Endometriosis determined by laparoscopy Lupus anticoagulant disorder DVT (deep venous thrombosis) TIA (transient ischemic attack) left sided parathesias Home Medications ?Medication ?Instructions ?Recorded ?Last Taken ?Type rivaroxaban 20 mg tablet (Xarelto) 20 mg PO DAILY 07/02/23 03/15/25 History methocarbamol 500 mg tablet 500 mg PO TID 03/01/25 03/14/25 History methylphenidate HCl 36 mg 36 mg PO DAILY 03/01/25 03/14/25 History tablet,extended release 24 hr metoprolol tartrate 25 mg tablet 25 mg PO PRN HR 03/01/25 03/15/25 History oxycodone 5 mg tablet 5 mg PO Q6H 7 days #28 tabs 03/12/25 03/15/25 Rx acetaminophen 500 mg tablet 1,000 mg PO DAILY PRN fever or pain 03/15/25 03/15/25 History ondansetron 4 mg disintegrating 4 mg PO Q6H PRN Nausea/Vomiting 03/15/25 03/15/25 History tablet Allergy/AdvReac Type Severity Reaction Status Date / Time acetaminophen (From Vicodin) Allergy Hives Verified 03/15/25 16:42 hydrocodone bitartrate (From Allergy Hives Verified 03/15/25 16:42 Vicodin) ketorolac tromethamine (From Allergy Hives Verified 03/15/25 16:42 Toradol) metoclopramide (From Reglan) Allergy Other Verified 03/15/25 16:42 metronidazole (From Metrogel) Allergy Swelling Verified 03/15/25 16:42 NSAIDS (Non-Steroidal Allergy Other Verified 03/15/25 16:42 Anti-Inflamma skin cleanser (From Metrogel) Allergy Swelling Verified 03/15/25 16:42 prochlorperazine (From AdvReac Other Verified 03/15/25 16:42 Compazine) promethazine (From Phenergan) AdvReac Other Verified 03/15/25 16:42 Family History Mother Diabetes Hypertension Father Hypertension Sister Thyroid disorder Surgical History History of ankle surgery Hx of surgical procedure Hx of surgical procedure Hx of laparoscopy S/P foot surgery, right H/O bilateral salpingectomy Hx of cholecystectomy Social History household members: significant other and children housing: house current occupational status: employed Smoking Status: Never smoker alcohol intake: current alcohol intake frequency: holidays/special occasions only ROS ROS ED Constitutional Constitutional ED: Denies fever(s) Cardiovascular Cardiovascular: Denies chest pain Respiratory/Chest Respiratory/Chest: Denies cough Gastrointestinal Gastrointestinal: Denies diarrhea or vomiting Genitourinary Genitourinary ED: Reports other Details: Pelvic cramping with vaginal bleeding Musculoskeletal Musculoskeletal: Denies none Integumentary Denies rash or wounds Neurologic Neurologic: Denies weakness EXAM Physical Exam Const Vital Signs: 03/15/25 16:42 03/15/25 16:43 03/15/25 17:07 Temperature 98.3 F Temperature Source Oral Pulse Rate 164 H 155 H 144 H Respiratory Rate 22 H 20 H 22 H Blood Pressure 120/94 H 125/103 H 138/10 H Blood Pressure Mean 102 110 52 Pulse Ox 95 96 96 Oxygen Delivery Method Room Air Room Air Room Air 03/15/25 17:46 03/15/25 18:00 03/15/25 18:45 Temperature 98.3 F Temperature Source Pulse Rate 114 H 97 96 Respiratory Rate 13 17 11 L Blood Pressure 123/83 H 122/82 H 119/77 Blood Pressure Mean 96 95 91 Pulse Ox 97 97 97 Oxygen Delivery Method Room Air Room Air Positive well nourished and well developed General Appearance ED: well developed HEENT normocephalic and atraumatic Eyes General Eye ED: Yes normal appearance of both eyes Neck full ROM Resp normal respiratory effort and normal air movement Cardio regular rhythm Rate: tachycardic GI soft to palpation Narrative: 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 The external vaginal giron 3 o'clock position noted some irritation small ulceration was noted. This was swabbed with dry large Q-tip. No active bleeding noted. Extremity normal to inspection and full ROM Neuro oriented x3 Skin no rashes or lesions noted and no wounds MDM MDM MDM Narrative Medical decision making narrative: Interventions / MDM: Differential diagnosis: Postop bleed, status post hysterectomy, vaginal wall bleed Diagnosis considered but do not suspect: No clinical dehiscence My EKG interpretation: N/A Imaging independently reviewed and interpreted by myself: N/A External documents reviewed: Vaginal hysterectomy postop day 4. Test considered but not ordered:N/A ED course: Patient was tachycardic on arrival. She is seen by myself previously for vaginal bleeding prehysterectomy she has been tachycardic previously. Started on fluids. She is on Xarelto. Labs were checked and ordered. IV morphine and Zofran. Speculum examination no dehiscence of the wound, however appears source is from the left vaginal wall 3 o'clock position small ulceration with abrasion noted. Likely from instrumentation during her procedure. 1814: Hemoglobin returned at 14 heart rate back down to the 90s to 110s. I discussed with her astro technician Dr. Ott discussed the findings, she will have the office reach out to her for an in person visit versus virtual visit that she has this Friday. She will continue pelvic rest and light activities. All questions were answered. Re-evaluation: stable Disposition discussed with patient/family/significant other: Patient significant other Case discussed with consulting clinician: Gynecology This note was generated with MyStreamation software. It may contain incorrect words, spelling, and punctuation that were not noted in checking the note before signing. Lab Data Labs: Laboratory Results - last 24 hr 03/15/25 16:50 WBC 6.8 RBC 4.41 Hgb 14.4 Hct 41.6 MCV 94.3 MCH 32.7 H MCHC 34.6 RDW Std Deviation 42.6 RDW Coeff of Justo 12.2 Plt Count 330 MPV 11.2 Immature Gran % (Auto) 0.400 Neut % (Auto) 63.8 Lymph % (Auto) 26.5 [place] % (Auto) 7.8 Eos % (Auto) 1.2 Baso % (Auto) 0.3 Absolute Neuts (auto) 4.3 Absolute Lymphs (auto) 1.80 Nucleated RBC % 0 PT 13.5 INR 1.0 APTT 35.5 Sodium 139 Potassium 4.3 Chloride 100 Carbon Dioxide 25.1 Anion Gap 14 BUN 14 Creatinine 0.76 Estim Creat Clear Calc 94.55 Est GFR (MDRD) Non-Af 103 BUN/Creatinine Ratio 18.9 Glucose 90 Calcium 10.0 Blood Type O POSITIVE Antibody Screen NEGATIVE Discharge Plan Triage Chief Complaint: Vag Bleeding ED Provider: Jay Infante Dx/Rx/DC Orders Clinical Impression: Post-op bleeding, S/P hysterectomy, Chronic anticoagulation Instructions: ED Post Op Wound Check, Bleeding Prescriptions: No Action Xarelto 20 mg tablet 20 mg PO DAILY Patient Comments: HOLD 3 DAYS PRIOR TO PROCEDURE THEN BRIDGE W/ LOVENOX Rx Instructions: must administer with evening meal methocarbamol 500 mg tablet 500 mg PO TID metoprolol tartrate 25 mg tablet 25 mg PO PRN methylphenidate HCl 36 mg tablet extended release 24hr 36 mg PO DAILY oxycodone 5 mg Tablet 5 mg PO Q6H 7 Days Qty: 28 0RF acetaminophen 500 mg tablet 1,000 mg PO DAILY PRN (Reason: fever or pain) ondansetron 4 mg Tablet,Disintegrating 4 mg PO Q6H PRN (Reason: Nausea/Vomiting) Primary Care Provider: George Avitia Referrals: George Avitia MD [Primary Care Provider] - Tere Ott MD [Med Staff - Active Staff] - 2 Days Activity Restrictions/Additional Instructions: Your bleeding from vaginal wall 3 o'clock position with small ulcer. There is no active bleeding seen on exam. Hemoglobin 14.4. Discussed with Dr. Ott, office will reach out to you for an in office visit. Print Language: Micronesian Disposition Disposition: Home, Self Care Discharge Date/Time: 03/15/25 18:49
[2025-03-15 17:35] LABS: Absolute Neutrophil Count 4.3 X10^3/uL (2.0-7.7); Basophil# 0.02 X10^3/uL; Basophil% 0.3 % (0-1); Eosinophil# 0.08 X10^3/uL; Eosinophils% 1.2 % (0-5); Hematocrit 41.6 % (37-47); Hemoglobin 14.4 g/dL (12.0-15.0); Lymphocyte % 26.5 % (19-41); Mean Corp Hgb Conc 34.6 g/dL (32-36); Mean Corpuscular Hgb 32.7 pg (27.0-32.0); Mean Corpuscular Volume 94.3 fL (81-99); Mean Platelet Vol. 11.2 fl (6.2-12.0); Monocyte# 0.53 X10^3/uL; Monocyte% 7.8 % (0-10); NRBC Flagged by Analyzer 0 % (0-5); Neutrophil # 4.33 X10^3/uL (2.7-7.7); Neutrophil % 63.8 % (47-70); Platelet Count 330 K/mm3 (150-450); RBC Distribution Width CV 12.2 % (11.6-14.6); RBC Distribution Width SD 42.6 fl (35.1-43.9); Red Blood Count 4.41 M/mm3 (4.2-5.4); White Blood Count 6.8 K/mm3 (4.4-11.0)
[2025-03-15 17:41] LABS: Prothrombin Time (Protime)PT. 13.5 SECONDS (11.7-14.9)
[2025-03-15 17:42] LABS: Partial Thromboplast Time 35.5 Seconds (24.1-36.2)
[2025-03-15 17:46] VITALS: BP 123/83; PULSE 114; RESP 13; O2SAT 97
[2025-03-15 18:00] VITALS: BP 122/82; PULSE 97; RESP 17; O2SAT 97
[2025-03-15 18:12] LABS: Anion Gap 14 (5-15); BUN 14 mg/dL (4-19); BUN/Creat Ratio 18.9 RATIO (10-20); Carbon Dioxide 25.1 mmol/L (21.0-32.0); Chloride 100 mmol/L (98-108); Creatinine, Serum 0.76 mg/dL (0.70-1.20); EST Glomerular Filtration Rate 103 (>60); Estimated Creatinine Clearance 94.55 ml/min (50-250); Glucose 90 mg/dL (70-99); Potassium 4.3 mmol/L (3.3-5.1); Sodium Level 139 mmol/L (133-145)
[2025-03-15 18:45] VITALS: BP 119/77; PULSE 96; RESP 11; TEMP 36.8; O2SAT 97
== END 2025-03-15 18:49 | disposition home or self-care (01) ==
PROVIDERS: Emergency Provider Emergency Medicine; PCP Family Medicine; Visit Provider Emergency Medicine
DX: N93.9 Abnormal uterine and vaginal bleeding, unspecified (principal); N99.820 Postprocedural hemorrhage of a genitourinary system organ or structure following a genitourinary system procedure; Z79.01 Long term (current) use of anticoagulants; Z90.710 Acquired absence of both cervix and uterus; Z86.73 Personal history of transient ischemic attack (TIA), and cerebral infarction without residual deficits; Z86.718 Personal history of other venous thrombosis and embolism; Z90.49 Acquired absence of other specified parts of digestive tract
CPT/HCPCS: 80048; 85025; 85610; 85730; 86850; 86900; 86901; 96361; 96374; 96375; 99283; A4216; J2405

== ENCOUNTER 2025-03-21 15:49 | Observation (INO) | payer MEDICAID, SELFPAY ==
[2025-03-21] VITALS (12 sets, daily range): BP systolic 106–141; BP diastolic 77–89; PULSE 77–117; RESP 18–20; TEMP 36.6; O2SAT 94–98; BMI 27.6; BMI 27.5
--- NOTE | 2025-03-21 16:21 | CT_ITS ---
PROCEDURE: STROKE BRAIN/HEAD WITHOUT CONT 03/21/2025 REASON FOR EXAM: NEURO DEFICIT, ACUTE, STROKE SUSPECTED TECHNIQUE: Head CT without intravenous contrast. Coronal and Sagittal reconstruction series were provided. One or more dose reduction techniques were used (e.g., Automated exposure control, adjustment of the mA and/or kV according to patient size, use of iterative reconstruction technique. RADIATION DOSE SUMMARY: CTDlvol: 45.0 mGy DLP: 779 mGycm COMPARISON: None FINDINGS: Brain: No acute intracranial hemorrhage, mass effect, or midline shift. Ruiz- white differentiation is maintained. CSF Spaces: Unremarkable Sinuses/Mastoids: Predominantly clear Bones: Unremarkable CT/STROKE Brain/Head without Cont IMPRESSION: No acute intracranial abnormality. Consider MRI if there is persistent concern for acute ischemia. Reading Location: [id number]
--- NOTE | 2025-03-21 16:21 | EKG12_ITS ---
Test Reason : NEURO Blood Pressure : */* mmHG Vent. Rate : 113 BPM Atrial Rate : 113 BPM P-R Int : 138 ms QRS Dur : 72 ms QT Int : 342 ms P-R-T Axes : 48 21 9 degrees QTcB Int : 469 ms Sinus tachycardia Otherwise normal ECG Confirmed by Chuck Sanchez ([id number]), script editor STEVE PICKENS ([id number]) on 03/28/2025 12:58:40 PM Referred By: Confirmed By: Chuck Sanchez
--- NOTE | 2025-03-21 16:23 | CT_ITS ---
PROCEDURE: STROKE CTA HEAD AND NECK W/CON 03/21/2025 REASON FOR EXAM: NEURO DEFICIT, ACUTE, STROKE SUSPECTED TECHNIQUE: CTA imaging of the head and neck from the aortic arch to the skull vertex with out contrast and with intravenous contrast. Multiplanar and multisequence images were obtained. 3D post processing was performed CONTRAST: 100 mL Isovue 370 One or more dose reduction techniques were used (e.g., Automated exposure control, adjustment of the mA and/or kV according to patient size, use of iterative reconstruction technique). RADIATION DOSE SUMMARY: CTDlvol: 20.8 mGy DLP: 662 mGycm COMPARISON: CT head 03/21/2025 FINDINGS: Aortic Arch: Normal size and branching pattern. No significant atherosclerotic plaque. Brachiocephalic and Subclavians: Unremarkable RIGHT Carotid: Right CCA: Unremarkable. Right ICA: Unremarkable. Maximum stenosis (NASCET): N/A Right ECA: Unremarkable. LEFT Carotid: Left CCA: Unremarkable. Left ICA: Unremarkable. Maximum stenosis (NASCET): N/A Left ECA: Unremarkable. Vertebrals: Left slightly dominant. Arise from the subclavians. Both vertebrals form the basilar. RIGHT Vertebral: Unremarkable. LEFT Vertebral: Unremarkable. Anatomy: Diminuitive right P1 segment of the HOUSE WRECKER with dominant PCOM, a normal variant. Aneurysm or AVM: No intracranial aneurysms or large vascular malformations are identified. Anterior cerebral arteries: Unremarkable: Middle cerebral arteries: Unremarkable. Basilar artery: Unremarkable. Posterior cerebral arteries: Unremarkable. Other major branches of the posterior circulation: Unremarkable. Major venous structures: Unremarkable. Other findings: Neck: No lymphadenopathy. Lungs: Solid nodule in the medial right upper lobe adjacent to the mediastinum measuring 4 mm (series 5, image 44). Bones: Bones are unremarkable. CT/STROKE CTA Head AND Neck W/Con IMPRESSION: 1. No large vessel occlusion or hemodynamically significant narrowing in the h ead or neck vasculature. 2. Solid pulmonary nodule in the right upper lobe measuring [address] chest in 12 months if patient is at high risk for malignancy per Fleischner society guidelines. Reading Location: [id number]
[2025-03-21] MEDS: 0.9% Normal Saline (1000mL) 1,000 ML 100 ML IV (16:27)
[2025-03-21 16:40] LABS: Absolute Lymphocyte Count 1.67 X10^3/uL (0.83-4.51); Absolute Neutrophil Count 4.9 X10^3/uL (2.0-7.7); Basophil# 0.03 X10^3/uL; Basophil% 0.4 % (0-1); Eosinophil# 0.08 X10^3/uL; Eosinophils% 1.1 % (0-5); Hematocrit 38.9 % (37-47); Hemoglobin 13.4 g/dL (12.0-15.0); Lymphocyte # 1.67 X10^3/ul (0.83-4.51); Lymphocyte % 23.1 % (19-41); Mean Corp Hgb Conc 34.4 g/dL (32-36); Mean Corpuscular Hgb 33.5 pg (27.0-32.0); Mean Corpuscular Volume 97.3 fL (81-99); Mean Platelet Vol. 11.1 fl (6.2-12.0); Monocyte# 0.52 X10^3/uL; Monocyte% 7.2 % (0-10); NRBC Flagged by Analyzer 0 % (0-5); Neutrophil # 4.88 X10^3/uL (2.7-7.7); Neutrophil % 67.4 % (47-70); Platelet Count 262 K/mm3 (150-450); RBC Distribution Width CV 12.2 % (11.6-14.6); RBC Distribution Width SD 44.2 fl (35.1-43.9); White Blood Count 7.2 K/mm3 (4.4-11.0)
[2025-03-21 16:53] LABS: Anion Gap 14 (5-15); BUN 19 mg/dL (4-19); BUN/Creat Ratio 20.3 RATIO (10-20); Calcium,Total 9.7 mg/dL (7.6-11.0); Carbon Dioxide 23.4 mmol/L (21.0-32.0); Chloride 103 mmol/L (98-108); Creatinine, Serum 0.96 mg/dL (0.70-1.20); EST Glomerular Filtration Rate 78 (>60); Estimated Creatinine Clearance 74.96 ml/min (50-250); Glucose 99 mg/dL (70-99); Potassium 3.8 mmol/L (3.3-5.1); Sodium Level 140 mmol/L (133-145); Troponin T High Sensitivity < 6 ng/L (<=14)
[2025-03-21 16:56] LABS: Prothrombin Time (Protime)PT. 12.9 SECONDS (11.7-14.9)
[2025-03-21 16:57] LABS: Partial Thromboplast Time 35.5 Seconds (24.1-36.2)
--- NOTE | 2025-03-21 17:11 | ED.VIS.STROK ---
HPI History of Present Illness Chief Complaint: Neuro S/Sx Onset/Context/Timing Onset: Yesterday Context: Gradual Onset Timing: Continuous Onset: Yesterday morning Worsened by: Nothing Relieved by: Nothing Narrative Narrative: Patient presents with possible stroke that began yesterday. Patient woke up with some slow speech yesterday. Patient states she has been having difficulty getting her words out. states that her speech sounds like it is slurred at times. states that the patient is slow to get her words out. Patient admits to some feelings of off balance states that the patient started repeating herself today. states that the patient asked the same question 4 different times. Patient admits to some tingling in her left hand. Patient states she has a history of TIA. Patient had a recent hysterectomy. Patient called her TRAIN OPERATIONS MANAGER who told her to come to the emergency department for possible stroke. [facility] Medical History Pelvic pain Wears glasses Wears contact lenses Open wound Excessive bleeding Migraine headache History of stress test History of echocardiogram History of irregular heartbeat Seizures Cardiology follow-up encounter Endometriosis determined by laparoscopy Lupus anticoagulant disorder DVT (deep venous thrombosis) TIA (transient ischemic attack) left sided parathesias Home Medications ?Medication ?Instructions ?Recorded ?Last Taken ?Type rivaroxaban 20 mg tablet (Xarelto) 20 mg PO DAILY 07/02/23 03/15/25 History methocarbamol 500 mg tablet 500 mg PO PRN 03/01/25 03/14/25 History metoprolol tartrate 25 mg tablet 25 mg PO PRN HR 03/01/25 03/15/25 History oxycodone 5 mg tablet 5 mg PO Q6H 7 days #28 tabs 03/12/25 03/15/25 Rx acetaminophen 500 mg tablet 1,000 mg PO DAILY PRN fever or pain 03/15/25 03/15/25 History ondansetron 4 mg disintegrating 4 mg PO Q6H PRN Nausea/Vomiting 03/15/25 03/15/25 History tablet clonazepam 2 mg tablet 2 mg PO QHS 03/21/25 Unknown History dextroamphetamine-amphetamine ER 1 cap PO DAILY 03/21/25 03/21/25 History 15 mg 24hr capsule,extend release Allergy/AdvReac Type Severity Reaction Status Date / Time acetaminophen (From Vicodin) Allergy Hives Verified 03/21/25 15:51 hydrocodone bitartrate (From Allergy Hives Verified 03/21/25 15:51 Vicodin) ketorolac tromethamine (From Allergy Hives Verified 03/21/25 15:51 Toradol) metoclopramide (From Reglan) Allergy Other Verified 03/21/25 15:51 metronidazole (From Metrogel) Allergy Swelling Verified 03/21/25 15:51 NSAIDS (Non-Steroidal Allergy Other Verified 03/21/25 15:51 Anti-Inflamma skin cleanser (From Metrogel) Allergy Swelling Verified 03/21/25 15:51 prochlorperazine (From AdvReac Other Verified 03/21/25 15:51 Compazine) promethazine (From Phenergan) AdvReac Other Verified 03/21/25 15:51 Family History Mother Diabetes Hypertension Father Hypertension Sister Thyroid disorder Surgical History History of ankle surgery Hx of surgical procedure Hx of surgical procedure Hx of laparoscopy S/P foot surgery, right H/O bilateral salpingectomy Hx of cholecystectomy Social History household members: significant other and children housing: house current occupational status: employed Smoking Status: Never smoker alcohol intake: current alcohol intake frequency: holidays/special occasions only ROS ROS ED Constitutional Constitutional ED: Denies chills or fever(s) Eyes Eyes: Reports blurry vision; Denies diplopia ENT ENT ED: Denies rhinorrhea or sore throat Cardiovascular Cardiovascular: Denies chest pain or palpitations Respiratory/Chest Respiratory/Chest: Denies cough or dyspnea Gastrointestinal Gastrointestinal: Reports abdominal pain; Denies nausea or vomiting Genitourinary Genitourinary ED: Denies dysuria or hematuria Musculoskeletal Musculoskeletal: Denies back pain or neck pain Integumentary Denies abscess or rash Neurologic Neurologic: Reports headache(s) and paresthesias LUE (Left hand); Denies weakness Allergic/Immunologic Allergic/Immunologic ED: Denies mouth swelling or urticaria EXAM Physical Exam Const Vital Signs: 03/21/25 15:51 03/21/25 16:21 03/21/25 16:51 Temperature 97.9 F Temperature Source Temporal Pulse Rate 117 H 106 H 107 H Respiratory Rate 20 H 19 H 19 H Blood Pressure 129/85 H 126/85 H 109/77 Blood Pressure Mean 99 98 87 Pulse Ox 95 98 98 Oxygen Delivery Method Room Air Room Air Room Air 03/21/25 17:21 03/21/25 17:30 03/21/25 18:00 Temperature Temperature Source Pulse Rate 77 100 98 Respiratory Rate 19 H 19 H 19 H Blood Pressure 106/78 132/88 H 122/77 H Blood Pressure Mean 87 102 92 Pulse Ox 98 98 98 Oxygen Delivery Method Room Air Room Air Room Air 03/21/25 19:00 03/21/25 20:00 03/21/25 20:05 Temperature Temperature Source Pulse Rate 116 H 108 H 108 H Respiratory Rate 19 H 18 20 H Blood Pressure 141/85 H 138/83 H 138/83 H Blood Pressure Mean 103 101 101 Pulse Ox 95 97 98 Oxygen Delivery Method Room Air Room Air Room Air Positive well nourished and well developed General Appearance ED: well developed and NAD HEENT Reports moist mucous membranes Neck supple and no JVD Resp normal respiratory effort and clear to auscultation bilaterally Cardio Rate: regular rate Rhythm: regular rhythm GI soft to palpation, non-tender and non-distended Neuro oriented x3, CN's II-XII intact bilaterally and no sensory deficits noted [place] Coma Scale: document GCS findings Spontaneous Obeys Commands Oriented 15 Sensorium / Orientation: alert Motor Exam: strength 5/5 throughout Psych mental status grossly normal MDM MDM MDM Narrative Medical decision making narrative: Differential diagnosis includes stroke, conversion disorder, electrolyte abnormality, anxiety, cardiac dysrhythmia, cardiac ischemia, anemia, and urinary tract infection. CT scan of the brain will be obtained to assess for stroke or intracranial bleeding. CTA of the head and neck will be obtained to assess for large vessel occlusion and aneurysm. EKG will be obtained to assess for cardiac dysrhythmia and cardiac ischemia. CBC will be obtained to assess for leukocytosis. Basic metabolic profile will be obtained to assess for electrolyte abnormality and renal function. PT was INR and PTT will be obtained to assess for coagulopathy. The high-sensitivity troponin will be obtained to assess for cardiac ischemia. 2-hour repeat high-sensitivity troponin will be obtained to assess for ongoing cardiac ischemia. History & Record Review Additional record(s) reviewed:: Prior inpatient record, Prior outpatient record, Prior ED visit and Prior labs Lab Data Attestation: I reviewed the patient's lab results. Lab results narrative: CBC was reviewed and was within normal limits. PT with INR and PTT were reviewed and were within normal limits. Basic metabolic profile was reviewed and was within normal limits. High-sensitivity troponin was reviewed and was less than 6. 2-hour repeat high-sensitivity troponin was reviewed and was also less than 6. Labs: Laboratory Results - last 24 hr 03/21/25 03/21/25 16:04 18:36 WBC 7.2 RBC 4.00 L Hgb 13.4 Hct 38.9 MCV 97.3 MCH 33.5 H MCHC 34.4 RDW Std Deviation 44.2 H RDW Coeff of Justo 12.2 Plt Count 262 MPV 11.1 Immature Gran % (Auto) 0.800 Neut % (Auto) 67.4 Lymph % (Auto) 23.1 [place] % (Auto) 7.2 Eos % (Auto) 1.1 Baso % (Auto) 0.4 Absolute Neuts (auto) 4.9 Absolute Lymphs (auto) 1.67 Nucleated RBC % 0 PT 12.9 INR 1.0 APTT 35.5 Sodium 140 Potassium 3.8 Chloride 103 Carbon Dioxide 23.4 Anion Gap 14 BUN 19 Creatinine 0.96 Estim Creat Clear Calc 74.96 Est GFR (MDRD) Non-Af 78 BUN/Creatinine Ratio 20.3 H Glucose 99 Calcium 9.7 Troponin T High Sens < 6 Troponin T Hi Sens 2 Hr < 6 Radiography Diagnostic Testing: Clinical Impression(s) from Imaging Studies Brain CT 03/21/25 16:21 IMPRESSION: No acute intracranial abnormality. Consider MRI if there is persistent concern for acute ischemia. Reading Location: [id number] Head/Neck CTA 03/21/25 16:23 IMPRESSION: 1. No large vessel occlusion or hemodynamically significant narrowing in the head or neck vasculature. 2. Solid pulmonary nodule in the right upper lobe measuring [address] chest in 12 months if patient is at high risk for malignancy per Fleischner society guidelines. Reading Location: [id number] CT scan of the brain was obtained. There is no acute intracranial abnormality. This was interpreted by the radiologist and was also independently reviewed by myself. CTA of the head and neck was obtained. There is no large vessel occlusion or carotid stenosis. There is a solid pulmonary nodule in the right upper lobe measuring 4 mm. This was interpreted by the radiologist and was also independently reviewed by myself. EKG Initial EKG: Attestation: I personally reviewed and interpreted this EKG as follows: Interpretation: No Acute Injury Pattern and Sinus Tachycardia (113) Comments: EKG was obtained. On my independent interpretation, it showed a sinus tachycardia with a rate of 113. CT interval, QRS interval, and QTc intervals were all normal. [place] was normal. There are no acute ST or T wave changes. Prior EKG tracings: available for review Prior: Unchanged (03/09/2025) Management Discussion w/another healthcare provider: Hospitalist Treatment and Re-Evaluation Narrative: Patient was given IV fluids, morphine, and Zofran. Patient was advised of her findings. Patient states she still having some pain. Patient was given a repeat dose of morphine. Patient was advised of the need for hospitalization for further evaluation. Patient was agreeable with this. Case was discussed with the hospitalist. He will admit the patient to PCU for observation. Patient and spouse understood and were agreeable with the plan. All questions were answered. Discharge Plan Dx/Rx/DC Orders Clinical Impression: Slurring of speech, Hx-TIA (transient ischemic attack), Left hand paresthesia Disposition Disposition: Acute Care Hospital [facility] Discharge Date/Time: 03/21/25 21:31
[2025-03-21] MEDS: Ondansetron 4 MG/2 ML Vial IV (17:32)
[2025-03-21] MEDS: Morphine 4 MG/ML Syringe IV ×3 (17:32→22:53)
[2025-03-21 18:57] LABS: Troponin T High Sens 2 HR < 6 ng/L (<=14)
--- NOTE | 2025-03-21 20:48 | HP.PCM_ITS ---
HPI - General General Date of Admission: 03/21/25 Date of Service: 03/21/25 Chief Complaint: Slurred speech HPI Narrative MEL ROBLEDO, is a 40 F who presents to the emergency room with chief complaint of slurring of speech. Patient states that yesterday upon awakening her boyfriend noticed her slurring her speech which she states progressively got worse today when she was shopping at [employer] with her boyfriend and he noticed her repeating herself several times. She also complains of some tingling in her left hand. She has significant past medical history of TIA in 2005 and has been on long-term anticoagulation with Xarelto. Earlier this month she has had hysterectomy and patient was given Lovenox during that time. Currently she has complaints of postsurgical pain but admits she is hungry and is asking to eat. Patient denies chest pain, shortness of breath or fevers or chills at present time. CT head is negative for acute findings and CT angiogram was also unremarkable. Patient will be admitted for observation for neurologic change and an MRI will be ordered for the morning. [facility] Medical History Pelvic pain Wears glasses Wears contact lenses Open wound Excessive bleeding Migraine headache History of stress test History of echocardiogram History of irregular heartbeat Seizures Cardiology follow-up encounter Endometriosis determined by laparoscopy Lupus anticoagulant disorder DVT (deep venous thrombosis) TIA (transient ischemic attack) left sided parathesias Home Medications ?Medication ?Instructions ?Recorded ?Last Taken ?Type rivaroxaban 20 mg tablet (Xarelto) 20 mg PO DAILY 04/1803/15/25 History methocarbamol 500 mg tablet 500 mg PO TID 03/01/25 History methylphenidate HCl 36 mg 36 mg PO DAILY 03/01/2502/24 History tablet,extended release 24 hr metoprolol tartrate 25 mg tablet 25 mg PO PRN HR 03/0103/15/25 History oxycodone 5 mg tablet 5 mg PO Q6H 7 days #28 tabs 03/12/25 03/15/25 Rx acetaminophen 500 mg tablet 1,000 mg PO DAILY PRN feve r or pain 03/15/25 03/15/25 History ondansetron 4 mg disintegrating 4 mg PO Q6H PRN Nausea /Vomiting 03/15/25 03/15/25 History tablet clonazepam 2 mg tablet 2 mg PO QHS 03/21/25 Unknown History dextroamphetamine-amphetamine ER 1 cap PO 03/21/25 Unk nown History 15 mg 24hr capsule,extend release Allergy/AdvReac Type Severity Reaction Status Date / Time acetaminophen (From Vicodin) Allergy Hives Verified 03/21/25 15:51 hydrocodone bitartrate (From Allergy Hives Verified 03/21/25 15:51 Vicodin) ketorolac tromethamine (From Allergy Hives Verified 03/21/25 15:51 Toradol) metoclopramide (From Reglan) Allergy Other Verified 03/21/25 15:51 metronidazole (From Metrogel) Allergy Swelling Verified 03/21/25 15:51 NSAIDS (Non-Steroidal Allergy Other Verified 03/21/25 15:51 Anti-Inflamma skin cleanser (From Metrogel) Allergy Swelling Verified 03/21/25 15:51 prochlorperazine (From AdvReac Other Verified 03/21/25 15:51 Compazine) promethazine (From Phenergan) AdvReac Other Verified 03/21/25 15:51 Family History Mother Diabetes Hypertension Father Hypertension Sister Thyroid disorder Surgical History History of ankle surgery Hx of surgical procedure Hx of surgical procedure Hx of laparoscopy S/P foot surgery, right H/O bilateral salpingectomy Hx of cholecystectomy Social History household members: significant other and children housing: house current occupational status: employed Smoking Status: Never smoker alcohol intake: current alcohol intake frequency: holidays/special occasions only ROS Constitutional Constitutional: Denies chills or fever(s) Eyes Eyes: Denies blurry vision or change in vision ENT HEENT: Denies abnormal hearing Cardiovascular Cardiovascular: Denies chest pain Respiratory/Chest Respiratory/Chest: Denies cough or shortness of breath at rest Gastrointestinal Gastrointestinal: Reports abdominal pain Genitourinary Genitourinary: Denies dysuria Musculoskeletal Musculoskeletal: Denies back pain Integumentary Integumentary: Denies dry skin Neurologic Neurologic: Reports abnormal speech and numbness; Denies abnormal gait Psychiatric Psychiatric: Reports anxiety Vital Signs Vital Signs Vital Signs: 03/21/25 15:51 03/21/25 16:21 03/21/25 16:51 Temperature 97.9 F Temperature Source Temporal Pulse Rate 117 H 106 H 107 H Respiratory Rate 20 H 19 H 19 H Blood Pressure 129/85 H 126/85 H 109/77 Blood Pressure Mean 99 98 87 Pulse Ox 95 98 98 Oxygen Delivery Method Room Air Room Air Room Air 03/21/25 17:21 03/21/25 17:30 03/21/25 18:00 Temperature Temperature Source Pulse Rate 77 100 98 Respiratory Rate 19 H 19 H 19 H Blood Pressure 106/78 132/88 H 122/77 H Blood Pressure Mean 87 102 92 Pulse Ox 98 98 98 Oxygen Delivery Method Room Air Room Air Room Air 03/21/25 19:00 03/21/25 20:00 03/21/25 20:05 Temperature Temperature Source Pulse Rate 116 H 108 H 108 H Respiratory Rate 19 H 18 20 H Blood Pressure 141/85 H 138/83 H 138/83 H Blood Pressure Mean 103 101 101 Pulse Ox 95 97 98 Oxygen Delivery Method Room Air Room Air Room Air Weight Weight: 156 lb 1.396 oz Body Mass Index (BMI) 27.6 Physical Exam Const oriented x3 General Appearance: cooperative and well developed HEENT normocephalic and head/scalp atraumatic Eyes PERRL and EOMs intact bilaterally Neck no lymphadenopathy, supple and no JVD General: trachea midline Lymph Lymphatic: no lymphedema noted Resp normal respiratory effort, normal air movement and clear to auscultation bilaterally Cardio regular rhythm, S1 normal heart sound, S2 normal heart sound and no murmurs Rate: tachycardic GI normal to inspection, nondistended, normoactive bowel sounds Extremity General Extremity: Negative for edema Skin General Skin Exam: no breakdown and turgor normal Neuro CN's II-XII intact bilaterally and no focal motor deficits Speech: speech normal Motor Exam: strength 5/5 throughout Psych thought process normal, cooperative and affect normal Appearance: appropriate Mood & Affect: anxious Results Lab / Micro Data 03/21/25 16:04 03/21/25 16:04 Labs: Laboratory Results - last 24 hr 03/21/25 16:04: WBC 7.2, RBC 4.00 L, Hgb 13.4, Hct 38.9, MCV 97.3, MCH 33.5 H, MCHC 34.4, RDW Std Deviation 44.2 H, RDW Coeff of Justo 12.2, Plt Count 262, MPV 11.1, Immature Gran % (Auto) 0.800, Neut % (Auto) 67.4, Lymph % (Auto) 23.1, [place] % (Auto) 7.2, Eos % (Auto) 1.1, Baso % (Auto) 0.4, Absolute Neuts (auto) 4.9, Absolute Lymphs (auto) 1.67, Nucleated RBC % 0, PT 12.9, INR 1.0, APTT 35.5, Sodium 140, Potassium 3.8, Chloride 103, Carbon Dioxide 23.4, Anion Gap 14, BUN 19, Creatinine 0.96, Estim Creat Clear Calc 74.96, Est GFR (MDRD) Non-Af 78, BUN/Creatinine Ratio 20.3 H, Glucose 99, Calcium 9.7, Troponin T High Sens < 6 03/21/25 18:36: Troponin T Hi Sens 2 Hr < 6 Imaging Radiology Impression Brain CT 03/21/25 16:21 IMPRESSION: No acute intracranial abnormality. Consider MRI if there is persistent concern for acute ischemia. Reading Location: [id number] Head/Neck CTA 03/21/25 16:23 IMPRESSION: 1. No large vessel occlusion or hemodynamically significant narrowing in the head or neck vasculature. 2. Solid pulmonary nodule in the right upper lobe measuring [address] chest in 12 months if patient is at high risk for malignancy per Fleischner society guidelines. Reading Location: [id number] Assessment & Plan Assessment/Plan (1) Left hand paresthesia: (2) Slurring of speech: (3) Chronic anticoagulation: (4) S/P hysterectomy: (5) Post-op pain: (6) Anxiety: PLAN: Plan 1 slurring of speech, possible TIA?admit patient for observation to progressive care unit, slurring seems to have resolved and no repetitive speech observed during my evaluation, obtain MRI in the morning, neurologic evaluations every 4 hours overnight. Monitor for left hand paresthesia resolution 2 chronic anticoagulation?resume Xarelto 3. Status post hysterectomy?will order oxycodone 5 mg p.o. every 6 hours as needed pain 4. Anxiety?will hold her Klonopin at at bedtime due to neurologic assessments however will give a dose of Ativan 0.5 mg prior to her MRI in the morning as she states she will be unable to tolerate the procedure without it 5. DVT prophylaxis?patient is already on anticoagulation with Xarelto Charges/Coding Visit Charges OBSV E&M: 18154 Observ/hosp same date L2
--- NOTE | 2025-03-21 22:10 | ECHOD_ITS ---
Reason For Study Reason For Study: TIA/CVA Procedure This was a 2D Doppler, Color Flow transthoracic echocardiogram. Exam performed portable in patient room. Left Ventricle Normal left ventricle. The estimated ejection fraction is 55-60 %. Right Ventricle Normal right ventricle. Normal systolic function. Atria Normal left atrium. Normal right atrium. Mitral Valve The mitral valve is structurally normal. No prolapse or stenosis seen. Trivial mitral valve insufficiency. Tricuspid Valve Normal tricuspid valve. Mild tricuspid valve insufficiency. Aortic Valve Trisinus/trileaflet aortic valve. Pulmonic Valve The pulmonic valve is not well visualized. Great Vessels Normal aortic root. Pericardium/Pleural No pericardial effusion. MMode/2D Measurements & Calculations LVIDd: 4.6 cm IVSd: 0.86 cm Ao root diam: 2.7 cm LVIDs: 3.0 cm LVPWd: 0.69 cm RVDd: 3.4 cm FS: 34.4 % LAV(MOD-bp): 40.4 ml LVAd ap4: 26.6 cm2 SV(MOD-sp4): 50.4 ml LAV(MOD-bp) Indexed: 23.3 ml/m2 LVLd ap4: 7.1 cm SI(MOD-sp4): 29.1 ml/m2 LAV(MOD-sp2): 36.1 ml EDV(MOD-sp4): 82.8 ml LAV(MOD-sp4): 35.5 ml EDV(sp4-el): 84.9 ml LVAs ap4: 14.9 cm2 LVLs ap4: 5.7 cm ESV(MOD-sp4): 32.3 ml ESV(sp4-el): 33.2 ml EF(MOD-sp4): 60.9 % EF(sp4-el): 60.9 % SV(sp4-el): 51.7 ml LA A4 area: 15.4 cm2 LA dimension(2D): 3.7 cm RA A4 area: 14.1 cm2 TAPSE: 2.1 cm Time Measurements MV dec time: 0.21 sec Doppler Measurements & Calculations MV E max santiago: 81.7 cm/sec Lat Peak E' Santiago: 18.9 cm/sec Med Peak E' Santiago: 11.2 cm/sec MV A max santiago: 61.3 cm/sec E/E' lat: 4.3 E/E' med: 7.3 MV E/A: 1.3 Ao V2 max: 125.3 cm/sec LV V1 max: 101.3 cm/sec MV dec slope: 393.5 cm/sec2 Ao max P.3 mmHg LV V1 max P.1 mmHg Ao V2 mean: 100.1 cm/sec LV V1 mean P.3 mmHg Ao mean P.2 mmHg LV V1 mean: 70.9 cm/sec Ao V2 VTI: 26.9 cm LV V1 VTI: 21.0 cm AV (velocity ratio): 0.78 PA V2 max: 91.3 cm/sec TR max santiago: 288.1 cm/sec TR max P.2 mmHg ECHO/Echo Complete Interpretation Summary The estimated ejection fraction is 55-60 %. Normal LV systolic function No significant valvular abnormality No significant change in comparison to previous echo in 2013 Ordering Physician: Cornelius Andersen Referring Physician: Brandan Avitia Performed By: Azalia Johnson, SHAWNA, RVT
--- NOTE | 2025-03-21 22:35 | NURSING ---
Called ED to discuss nih scoring. Lakshmi rn states that the patients symptoms varied and that the patient reported slurred speech however it was not scored in ed because the speech sounded clear to the staff.
[2025-03-21] MEDS: Ondansetron ODT 4 MG Tablet PO (22:53)
[2025-03-21] MEDS: 0.9% Saline Lock 10 ML Syringe IV (22:54)
[2025-03-22] VITALS (9 sets, daily range): BP systolic 106–124; BP diastolic 67–86; PULSE 78–96; RESP 13–16; TEMP 36.5–37.2; O2SAT 84–97; BMI 27.5
[2025-03-22] MEDS: oxyCODONE 5 MG Tablet PO ×3 (00:23→11:22)
[2025-03-22] MEDS: Morphine 4 MG/ML Syringe IV ×2 (02:55→06:56)
[2025-03-22] MEDS: 0.9% Saline Lock 10 ML Syringe IV ×2 (02:56→06:56)
[2025-03-22 07:16] LABS: Absolute Lymphocyte Count 1.32 X10^3/uL (0.83-4.51); Absolute Neutrophil Count 2.2 X10^3/uL (2.0-7.7); Basophil# 0.01 X10^3/uL; Basophil% 0.3 % (0-1); Eosinophil# 0.09 X10^3/uL; Eosinophils% 2.3 % (0-5); Hematocrit 33.3 % (37-47); Hemoglobin 11.2 g/dL (12.0-15.0); Lymphocyte # 1.32 X10^3/ul (0.83-4.51); Lymphocyte % 33.5 % (19-41); Mean Corp Hgb Conc 33.6 g/dL (32-36); Mean Corpuscular Hgb 32.7 pg (27.0-32.0); Mean Corpuscular Volume 97.1 fL (81-99); Mean Platelet Vol. 11.1 fl (6.2-12.0); Monocyte# 0.34 X10^3/uL; Monocyte% 8.6 % (0-10); NRBC Flagged by Analyzer 0 % (0-5); Neutrophil # 2.17 X10^3/uL (2.7-7.7); Platelet Count 201 K/mm3 (150-450); RBC Distribution Width CV 12.3 % (11.6-14.6); RBC Distribution Width SD 43.9 fl (35.1-43.9); Red Blood Count 3.43 M/mm3 (4.2-5.4); White Blood Count 3.9 K/mm3 (4.4-11.0)
--- NOTE | 2025-03-22 07:41 | PN.HOSP_ITS ---
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 (03/21/25) Acquired absence of both cervix and uterus (03/21/25) Subjective Subjective Patient is a 40-year-old female who presented with slurred speech as well as left-sided numbness Objective Data Objective Data Vital Signs: Vital Signs Temp Pulse Resp BP Pulse Ox O2 Del Method 98.0 F 96 14 108/74 95 Room Air 03/22/25 05:20 03/22/25 05:20 03/22/25 05:20 03/22/25 05:20 03/22/25 05:20 03/22/25 05:20 Oxygen Delivery Method Room Air Weight: 70.5 kg Body Mass Index (BMI) 27.5 Intake & Output: Intake and Output for Last 24 Hours 03/20/25 03/21/25 03/22/25 23:59 23:59 23:59 Intake Total 818.33 / 818.33 386.67 / 386.67 Balance 818.33 / 818.33 386.67 / 386.67 Lab / Micro Data 03/22/25 06:27 03/22/25 06:27 Labs: Laboratory Results - last 24 hr 03/21/25 16:04: WBC 7.2, RBC 4.00 L, Hgb 13.4, Hct 38.9, MCV 97.3, MCH 33.5 H, MCHC 34.4, RDW Std Deviation 44.2 H, RDW Coeff of Justo 12.2, Plt Count 262, MPV 11.1, Immature Gran % (Auto) 0.800, Neut % (Auto) 67.4, Lymph % (Auto) 23.1, Piatt % (Auto) 7.2, Eos % (Auto) 1.1, Baso % (Auto) 0.4, Absolute Neuts (auto) 4.9, Absolute Lymphs (auto) 1.67, Nucleated RBC % 0, PT 12.9, INR 1.0, APTT 35.5, Sodium 140, Potassium 3.8, Chloride 103, Carbon Dioxide 23.4, Anion Gap 14, BUN 19, Creatinine 0.96, Estim Creat Clear Calc 74.96, Est GFR (MDRD) Non-Af 78, BUN/Creatinine Ratio 20.3 H, Glucose 99, Calcium 9.7, Troponin T High Sens < 6 03/21/25 18:36: Troponin T Hi Sens 2 Hr < 6 03/22/25 06:27: WBC 3.9 L, RBC 3.43 L, Hgb 11.2 L, Hct 33.3 L, MCV 97.1, MCH 32.7 H, MCHC 33.6, RDW Std Deviation 43.9, RDW Coeff of Justo 12.3, Plt Count 201, MPV 11.1, Immature Gran % (Auto) 0.300, Neut % (Auto) 55.0, Lymph % (Auto) 33.5, Piatt % (Auto) 8.6, Eos % (Auto) 2.3, Baso % (Auto) 0.3, Absolute Neuts (auto) 2.2, Absolute Lymphs (auto) 1.32, Nucleated RBC % 0 Radiography Diagnostic Testing: Radiology Impression Brain CT 03/21/25 16:21 IMPRESSION: No acute intracranial abnormality. Consider MRI if there is persistent concern for acute ischemia. Reading Location: [facility] Head/Neck CTA 03/21/25 16:23 IMPRESSION: 1. No large vessel occlusion or hemodynamically significant narrowing in the head or neck vasculature. 2. Solid pulmonary nodule in the right upper lobe measuring [address] chest in 12 months if patient is at high risk for malignancy per Fleischner society guidelines. Reading Location: [facility] Physical Exam Narrative GENERAL: cooperative HEENT: Atraumatic; normocephalic EYES; Anicteric, Normal Conjunctiva NECK; supple, normal thyroid, RESPIRATORY: Diminished to auscultation CARDIOVASCULAR: Regular S1 S2, GI: soft, normoactive bowel sounds, : No Renal angle tenderness; EXTREMITIES: No edema, no clubbing, MUSCULOSKELETAL: no muscle wasting NEURO: Awake; no lateralizing signs. SKIN: No Rash PSYCH; Flat affect Assessment & Plan Assessment/Plan (1) Left hand paresthesia: PLAN: Plan Patient is a 40-year-old female who presented with slurred speech as well as left-sided numbness 1. TIA ? Patient has been admitted to monitored bed started on every 4 neurochecks. As part of patient's evaluation MRI has been ordered to rule out CVA 2. Hypercoagulable state with history of lupus anticoagulant disorder with previous VTE ? Patient is on systemic anticoagulation with Xarelto continue 3. Hypertension ? Blood pressure controlled, home medications continued with dose adjustment as needed 4. Chronic migraine headaches 5. ADHD ? Did continue home meds 6. DVT prophylaxis ? Patient already on Xarelto Charges/Coding Visit Charges Inpatient E&M: 59530 Subs Hosp L2 NIHSS NIHSS Nursing Documentation NIHSS Nursing Documentation: NIH Stroke Scale Start: 03/21/25 15:54 Freq: Status: Discharge Protocol: Activity Type Activity Date Activity User E-sign Co-sign Detail Recorded Client Recorded Date Recorded By Document 03/21/25 15:54 ET [id number] 03/21/25 15:55 ET 03/21/25 15:54 NIH Stroke Scale [NIHSS] A score of 0 is normal or asymptomatic . Total possible score is 42. Inpatient: RN or Physician to activate a stroke alert for onset of new stroke symptoms or with NIHSS increase >/= 3 points. Following change in neurological status, NIHSS will be performed per physician order or more frequently PRN. -1a. Level of Consciousness 0 - Alert; keenly responsive -1b. LOC Questions 0 - Answers BOTH questions correctly -1c. LOC Commands 0 - Performs BOTH tasks correctly -2. Best Gaze 0 - Normal -3. Visual 0 - No visual loss -4. Facial Palsy 0 - Normal symmetrical movements -5a. Left Arm 0 - No drift; arm holds 90 ( or 45) degrees for full 10 seconds -5b. Right Arm 0 - No drift; arm holds 90 ( or 45) degrees for full 10 seconds -6a. Left Leg 0 - No drift; leg holds 30- degree position for full 5 seconds -6b. Right Leg 0 - No drift; leg holds 30- degree position for full 5 seconds -7. Limb Ataxia 0 - Absent -8. Sensory 1 - Mild-to- moderate sensory loss; -9. Best Language 0 - No aphasia; normal -10. Dysarthria 1 = Mild-to- moderate dysarthria; -11. Extinction and Inattention 0 - No abnormality -Total 2 Query Text:A score of 0 is normal or asymptomatic. Total possible score is 42 . ED: Notify Physician for NIHSS increase by > / = 3 points. Inpatient: RN or Physician to activate a stroke alert for NIHSS increase of > / = 3 points. NIHSS: Ischemic Stroke/TIA Start: 03/21/25 21:57 Freq: Q4H Status: Active Protocol: Activity Type Activity Date Activity User E-sign Co-sign Detail Recorded Client Recorded Date Recorded By Document 03/22/25 05:20 MG [id number] 03/22/25 05:25 MG 03/22/25 05:20 -1a. Level of Consciousness 0 - Alert; keenly responsive -1b. LOC Questions 0 - Answers BOTH questions correctly -1c. LOC Commands 0 - Performs BOTH tasks correctly -2. Best Gaze 0 - Normal -3. Visual 0 - No visual loss -4. Facial Palsy 0 - Normal symmetrical movements -5a. Left Arm 1 - Drift; arm drifts downward but doesn?t hit the bed -5b. Right Arm 0 - No drift; arm holds 90 ( or 45) degrees for full 10 seconds -6a. Left Leg 0 - No drift; leg holds 30- degree position for full 5 seconds -6b. Right Leg 0 - No drift; leg holds 30- degree position for full 5 seconds -7. Limb Ataxia 0 - Absent -8. Sensory 1 - Mild-to- moderate sensory loss; -9. Best Language 0 - No aphasia; normal -10. Dysarthria 1 = Mild-to- moderate dysarthria; -11. Extinction and Inattention 0 - No abnormality -Total 3 Query Text:A score of 0 is normal or asymptomatic. Total possible score is 42 . ED: Notify Physician for NIHSS increase by > / = 3 points. Inpatient: RN or Physician to activate a stroke alert for NIHSS increase of > / = 3 points. Coma Scale [Assess] -Eye Opening Spontaneous -Motor Obeys Commands -Verbal Oriented [Total] -Coma Scale Total 15
[2025-03-22 07:45] LABS: Anion Gap 9 (5-15); BUN 9 mg/dL (4-19); BUN/Creat Ratio 15.9 RATIO (10-20); Calcium,Total 8.2 mg/dL (7.6-11.0); Carbon Dioxide 24.2 mmol/L (21.0-32.0); Chloride 107 mmol/L (98-108); Cholesterol 162 mg/dL (<=200); Creatinine, Serum 0.57 mg/dL (0.70-1.20); EST Glomerular Filtration Rate 119 (>60); Estimated Creatinine Clearance 125.99 ml/min (50-250); Glucose 101 mg/dL (70-99); High Density Lipoprotein 36 mg/dL; Low Density Lipoprotein Calc. 87 mg/dL; Potassium 3.9 mmol/L (3.3-5.1); Sodium Level 140 mmol/L (133-145); Triglycerides 195 mg/dL; Very Low Density Lipoprotein 39 mg/dL (5-40); cholesterol:hdl ratio screen 4.54
--- NOTE | 2025-03-22 09:30 | MRI_ITS ---
PROCEDURE: BRAIN WITHOUT CONTRAST, 03/22/2025 REASON FOR EXAM: TIA COMPARISON: 03/21/2025 TECHNIQUE: Multisequence multiplanar MRI brain was performed without intravenous contrast. IV contrast: None. FINDINGS: Cerebrum: Unremarkable. Cerebellum: Unremarkable. Brainstem: Unremarkable. Ventricles/extra-axial spaces: Unremarkable. Major flow voids: Better evaluated on recent CTA. Paranasal sinuses: Unremarkable. Scalp/calvarium: Unremarkable. Orbits: Grossly unremarkable within limits of nondedicated technique. Other: None. MRI/Brain without Contrast IMPRESSION: No specific evidence of an acute intracranial process. Reading Location: [id number]
[2025-03-22] MEDS: Acetaminophen 325 MG Tablet 650 MG PO ×2 (10:06→15:15)
--- NOTE | 2025-03-22 10:45 | CASEMGMT ---
SW completed a PHQ9 as patient may have had a TIA. Patient scored a 0 which indicates no depression. Patient denied need for counseling resources. Jessica Martínez MSW JAMA
[2025-03-22] MEDS: Lorazepam 2 MG/ML WCH Syringe 1 MG IV (14:02)
--- NOTE | 2025-03-22 15:52 | PCM.DC.SUM ---
Providers Date of Admission: 03/21/25 Date of Discharge: 03/22/25 Primary Care Physician: Dr. George Avitia MD Reason For Visit: POSSIBLE TIA WITH DYSARTHRIA AND LEFT HAND Diagnosis Discharge Diagnosis (1) Left hand paresthesia: Status: Acute Code(s): R20.2 - Paresthesia of skin Plan Patient is a 40-year-old female who presented with slurred speech as well as left-sided numbness 1. TIA ? Patient has been admitted to monitored bed started on every 4 neurochecks. As part of patient's evaluation MRI has been ordered to rule out CVA - MRI did not demonstrate any evidence of acute intracranial process. Patient informed of the results and subsequently discharged home 2. Hypercoagulable state with history of lupus anticoagulant disorder with previous VTE ? Patient is on systemic anticoagulation with Xarelto continue 3. Hypertension ? Blood pressure controlled, home medications continued with dose adjustment as needed 4. Chronic migraine headaches 5. ADHD ? Did continue home meds 6. Status post hysterectomy on 03/11/2025 ? Patient to follow-up with [employer] as previously scheduled 7 DVT prophylaxis ? Patient already on Xarelto Medications at Discharge Home Medications rivaroxaban 20 mg tablet (Xarelto) 20 mg PO DAILY 07/02/23 methocarbamol 500 mg tablet 500 mg PO PRN 03/01/25 metoprolol tartrate 25 mg tablet 25 mg PO PRN HR 03/01/25 oxycodone 5 mg tablet 5 mg PO Q6H 7 days #28 tabs 03/12/25 acetaminophen 500 mg tablet 1,000 mg PO DAILY PRN fever or pain 03/15/25 ondansetron 4 mg disintegrating tablet 4 mg PO Q6H PRN Nausea/Vomiting 03/15/25 clonazepam 2 mg tablet 2 mg PO QHS 03/21/25 dextroamphetamine-amphetamine ER 15 mg 24hr capsule,extend release 1 cap PO DAILY 03/21/25 Hospital Course Summary of Care Provided Minutes Spent on Discharge: 35 Physical Exam Narrative GENERAL: cooperative HEENT: Atraumatic; normocephalic EYES; Anicteric, Normal Conjunctiva NECK; supple, normal thyroid, RESPIRATORY: Diminished to auscultation CARDIOVASCULAR: Regular S1 S2, GI: soft, normoactive bowel sounds, : No Renal angle tenderness; EXTREMITIES: No edema, no clubbing, MUSCULOSKELETAL: no muscle wasting NEURO: Awake; no lateralizing signs. SKIN: No Rash PSYCH; Flat affect Weight / BMI Weight Weight: 70.5 kg Body Mass Index (BMI) 27.5 ABG / Lab / Microbiology Data 03/22/25 06:27 03/22/25 06:27 Laboratory: Laboratory Results - last 24 hr 03/21/25 16:04: WBC 7.2, RBC 4.00 L, Hgb 13.4, Hct 38.9, MCV 97.3, MCH 33.5 H, MCHC 34.4, RDW Std Deviation 44.2 H, RDW Coeff of Justo 12.2, Plt Count 262, MPV 11.1, Immature Gran % (Auto) 0.800, Neut % (Auto) 67.4, Lymph % (Auto) 23.1, [place] % (Auto) 7.2, Eos % (Auto) 1.1, Baso % (Auto) 0.4, Absolute Neuts (auto) 4.9, Absolute Lymphs (auto) 1.67, Nucleated RBC % 0, PT 12.9, INR 1.0, APTT 35.5, Sodium 140, Potassium 3.8, Chloride 103, Carbon Dioxide 23.4, Anion Gap 14, BUN 19, Creatinine 0.96, Estim Creat Clear Calc 74.96, Est GFR (MDRD) Non-Af 78, BUN/Creatinine Ratio 20.3 H, Glucose 99, Calcium 9.7, Troponin T High Sens < 6 03/21/25 18:36: Troponin T Hi Sens 2 Hr < 6 03/22/25 06:27: WBC 3.9 L, RBC 3.43 L, Hgb 11.2 L, Hct 33.3 L, MCV 97.1, MCH 32.7 H, MCHC 33.6, RDW Std Deviation 43.9, RDW Coeff of Justo 12.3, Plt Count 201, MPV 11.1, Immature Gran % (Auto) 0.300, Neut % (Auto) 55.0, Lymph % (Auto) 33.5, [place] % (Auto) 8.6, Eos % (Auto) 2.3, Baso % (Auto) 0.3, Absolute Neuts (auto) 2.2, Absolute Lymphs (auto) 1.32, Nucleated RBC % 0, Sodium 140, Potassium 3.9, Chloride 107, Carbon Dioxide 24.2, Anion Gap 9, BUN 9, Creatinine 0.57 L, Estim Creat Clear Calc 125.99, Est GFR (MDRD) Non-Af 119, BUN/Creatinine Ratio 15.9, Glucose 101 H, Calcium 8.2, Triglycerides 195, Cholesterol 162, LDL Cholesterol, Calc 87, VLDL Cholesterol 39, HDL Cholesterol 36 L, Cholesterol/HDL Ratio 4.54 Radiography Diagnostic Testing: Radiology Impression Brain CT 03/21/25 16:21 IMPRESSION: No acute intracranial abnormality. Consider MRI if there is persistent concern for acute ischemia. Reading Location: [facility] Head/Neck CTA 03/21/25 16:23 IMPRESSION: 1. No large vessel occlusion or hemodynamically significant narrowing in the head or neck vasculature. 2. Solid pulmonary nodule in the right upper lobe measuring [address] chest in 12 months if patient is at high risk for malignancy per Fleischner society guidelines. Reading Location: [facility] Brain MRI 03/22/25 09:30 IMPRESSION: No specific evidence of an acute intracranial process. Reading Location: [id number] D/C Instructions Discharge Diet: No restrictions Discharge Activity: Return to Normal Activity Call your doctor if you observe: Fever of 101 or Higher, Shortness of breath, Fainting spells and Chest pain DC O2, CPAP, BIPAP Needs Home O2 Discharge instructions: No Meaningful Use Info Meaningful Use Meaningful Use Diagnoses (Choose all that apply): None applicable Ischemic Stroke Statin Dosing Therapy Reference: STATIN DOSE THERAPY REFERENCE: * Patients > 75 years receive moderate or high dose statin therapy. * Patients 75 years or YOUNGER should receive HIGH intensity statin dose unless contraindicated. You will be required to document reason for non-treatment if statin daily dose does not meet guidelines. HIGH DOSE STATIN THERAPY DAILY Atorvastatin > than or = to 40 mg Rosuvastatin > than or = to 20 mg Amlodipine + Atorvastatin > than or = to 2.5/40 mg Ezetimibe + Simvastatin 10/80 mg Simvastatin 80mg Discharge Plan Admission Admit Date/Time: 03/21/25 20:57 Attending Provider: Miguel Ángel Winters Primary Care Provider: George Avitia Consulting Providers: Cornelius Andersen Discharge Orders/Prescriptions Prescriptions: Continued Xarelto 20 mg tablet 20 mg PO DAILY Rx Instructions: must administer with evening meal methocarbamol 500 mg tablet 500 mg PO PRN metoprolol tartrate 25 mg tablet 25 mg PO PRN oxycodone 5 mg Tablet 5 mg PO Q6H 7 Days Qty: 28 0RF acetaminophen 500 mg tablet 1,000 mg PO DAILY PRN (Reason: fever or pain) ondansetron 4 mg Tablet,Disintegrating 4 mg PO Q6H PRN (Reason: Nausea/Vomiting) clonazepam 2 mg tablet 2 mg PO QHS dextroamphetamine-amphetamine 15 mg capsule,extended release 24hr 1 cap PO DAILY Referrals / Follow Up: George Avitia MD [Primary Care Provider] - Within 1 Week Disposition Disposition (needs filled in before D/C Order can be placed): Home, Self Care Charges/Coding Visit Charges Inpatient E&M: 60741 Disch Hosp >30min
--- NOTE | 2025-03-22 16:04 | PHA.DC.MR.R ---
Pharmacy [place] Med Reconciliation Pharmacy Service has performed discharge medication reconciliation for this patient. The patient's discharge medication list was reviewed for discrepancies and discrepancies were resolved. Medications at Discharge Home Medications rivaroxaban 20 mg tablet (Xarelto) 20 mg PO DAILY 07/02/23 methocarbamol 500 mg tablet 500 mg PO PRN 03/01/25 metoprolol tartrate 25 mg tablet 25 mg PO PRN HR 03/01/25 oxycodone 5 mg tablet 5 mg PO Q6H 7 days #28 tabs 03/12/25 acetaminophen 500 mg tablet 1,000 mg PO DAILY PRN fever or pain 03/15/25 ondansetron 4 mg disintegrating tablet 4 mg PO Q6H PRN Nausea/Vomiting 03/15/25 clonazepam 2 mg tablet 2 mg PO QHS 03/21/25 dextroamphetamine-amphetamine ER 15 mg 24hr capsule,extend release 1 cap PO DAILY 03/21/25
== END 2025-03-22 15:54 | disposition home or self-care (01) ==
LOC: ED 20:36 → PCU 21:46
PROVIDERS: Admitting Provider Family Medicine; Emergency Provider Emergency Medicine; PCP Family Medicine; Visit Provider Internal Medicine
DX: R47.81 Slurred speech (principal); F41.9 Anxiety disorder, unspecified; R20.2 Paresthesia of skin; Z79.01 Long term (current) use of anticoagulants; R76.0 Raised antibody titer; Z86.718 Personal history of other venous thrombosis and embolism; Z86.73 Personal history of transient ischemic attack (TIA), and cerebral infarction without residual deficits; Z79.899 Other long term (current) drug therapy; F90.9 Attention-deficit hyperactivity disorder, unspecified type; D68.59 Other primary thrombophilia
CPT/HCPCS: 36415; 70450; 70496; 70498; 70551; 80048; 80061; 84484; 85025; 85610; 85730; 93005; 93306; 96361; 96374; 96375; 96376; 97161; 97166; 99221; 99284; Q9967; A4216; G0378; J2405

== ENCOUNTER 2025-08-01 09:04 | Emergency (ER) | payer MEDICAID, SELFPAY ==
[2025-08-01 09:05] VITALS: BP 210/196; PULSE 128; RESP 18; TEMP 36.8; O2SAT 99; BMI 28.0
--- NOTE | 2025-08-01 09:14 | CT_ITS ---
PROCEDURE: ABDOMEN/PELVIS WITHOUT CONT 08/01/2025 REASON FOR EXAM: KIDNEY STONE Right flank pain and hematuria. TECHNIQUE: Procedure Code: CTABDPEL Modality: CT Procedure: ABDOMEN/PELVIS WITHOUT CONT Noncontrast technique limits evaluation of the abdominal and pelvic viscera. Coronal and Sagittal reconstruction series were provided. One or more dose reduction techniques were used (e.g., Automated exposure control, adjustment of the mA and/or kV according to patient size, use of iterative reconstruction technique). RADIATION DOSE SUMMARY: CTDlvol: 6.92 mGy DLP: 361.28 mGycm COMPARISON: Prior study dated November 14, 2024. FINDINGS: Lung bases: The lung bases are clear. No significant coronary artery calcification is seen. Liver: Normal size. No obvious mass. Gallbladder: Surgically absent. Spleen: Normal size. Pancreas: Normal size. No surrounding inflammation. Adrenals: Unremarkable Kidneys: Minimal degree of right hydronephrosis. Minimally dilated right ureter. There is a tiny density at the base of the bladder on the right side. This may represent a recently passed right ureteral calculus. Bladder: Unremarkable Reproductive Organs: The patient is status post hysterectomy. Follicles are seen in the right ovary. Bowel: Scattered diverticula seen throughout the colon. Appendix: The appendix is not identified. There is no inflammatory process identified in the right lower quadrant to suggest appendicitis. Lymph nodes: Unremarkable. Vasculature: Unremarkable Peritoneum / Retroperitoneum: Unremarkable Bones: Unremarkable CT/Abdomen/Pelvis without Cont IMPRESSION: Findings suggestive of a recently passed tiny calculus from the right ureter wi th a tiny calculus seen in the base of the bladder on the right side. Small follicle seen in the right ovary. The patient is status post cholecystectomy. Status post hysterectomy. Reading Location: [id number]
--- NOTE | 2025-08-01 09:15 | EX.ED.DYSGE1 ---
HPI History of Present Illness Chief Complaint: Flank Pain Narrative Narrative: 40-year-old female past medical history of previous ureterolithiasis, had hysterectomy performed in February of this year, few months ago presents with hematuria and right flank pain that began on Friday, 3 days ago. She states it was sudden onset. She noticed blood in her urine as well. She is on Xarelto. She is unsure when she last had ureterolithiasis/kidney stones but states this feels very similar. This has been accompanied with nausea and vomiting for the last 3 days. She is wearing a heart monitor because of suspected POTS. She states she currently does not follow-up with a urologist. No exacerbating or alleviating factors. Denies other bleeding diathesis. Cannot take NSAIDs secondary to her being on a blood thinner. She is taking Tylenol without relief. [facility] Medical History Lung nodule Epilepsy POTS (postural orthostatic tachycardia syndrome) Tachycardia Stroke SLE (systemic lupus erythematosus) Endometriosis Depression Anxiety Clotting disorder Hx-TIA (transient ischemic attack) Seizure Pelvic pain Migraine headache History of irregular heartbeat Lupus anticoagulant disorder DVT (deep venous thrombosis) Home Medications ?Medication ?Instructions ?Recorded ?Last Taken ?Type rivaroxaban 20 mg tablet (Xarelto) 20 mg PO DAILY 07/02/23 07/31/25 History acetaminophen 500 mg tablet 1,000 mg PO Q4-6H PRN fever or pain 06/13/25 08/01/25 History multivitamin 1 tab PO QDAY 06/13/25 08/01/25 History dexmethylphenidate 20 mg 20 mg PO QAM 07/13/25 08/01/25 History capsule,extended release [id number] magnesium 250 mg tablet 250 mg PO QDAY 07/13/25 07/31/25 History metoprolol tartrate 25 mg tablet 25 mg PO BID HR 07/13/25 08/01/25 History cephalexin 500 mg capsule 500 mg PO Q12 #14 CAPSULES 08/01/25 Unknown Rx ondansetron 4 mg disintegrating 4 mg PO Q8H PRN PRN Nausea #15 tabs 08/01/25 Unknown Rx tablet oxycodone-acetaminophen 5 mg-325 1 tab PO Q6H 3 days #12 tabs 08/01/25 Unknown Rx mg tablet (Percocet) Allergy/AdvReac Type Severity Reaction Status Date / Time acetaminophen (From Vicodin) Allergy Hives Verified 08/01/25 09:05 hydrocodone bitartrate (From Allergy Hives Verified 08/01/25 09:05 Vicodin) ketorolac tromethamine (From Allergy Hives Verified 08/01/25 09:05 Toradol) metoclopramide (From Reglan) Allergy Other Verified 08/01/25 09:05 metronidazole (From Metrogel) Allergy Swelling Verified 08/01/25 09:05 NSAIDS (Non-Steroidal Allergy Other Verified 08/01/25 09:05 Anti-Inflamma skin cleanser (From Metrogel) Allergy Swelling Verified 08/01/25 09:05 prochlorperazine (From AdvReac Other Verified 08/01/25 09:05 Compazine) promethazine (From Phenergan) AdvReac Other Verified 08/01/25 09:05 Family History Mother Diabetes Hypertension Father Hypertension Sister Thyroid disorder Factor VIII deficiency Maternal Grandfather Colon cancer Clotting disorder Grandfather Myocardial infarction Surgical History History of ankle surgery Hx of surgical procedure Hx of surgical procedure Hx of laparoscopy S/P foot surgery, right H/O bilateral salpingectomy Hx of cholecystectomy Social History household members: significant other and children housing: house current occupational status: employed Smoking Status: Never smoker alcohol intake: current alcohol intake frequency: holidays/special occasions only substance use type: former substance user and marijuana ROS ROS ED ROS Narrative Review of systems is positive for right flank pain and gross hematuria. Positive nausea and vomiting. No exacerbating or alleviating factors. Feels similar to previous kidney stone/ureterolithiasis. Colicky pain for 3 days. EXAM Physical Exam Narrative Exam Narrative: Afebrile. Vital signs noted. Nontoxic-appearing. Cardiovascular semination reveals mild tachycardia. Lungs are clear to auscultation bilaterally. Abdomen is soft and nontender with normoactive bowel sounds. No guarding or rebound mild CVA tenderness to percussion. Neurological examination nonfocal, nonlateralizing. Ambulatory in ED. Const Vital Signs: 08/01/25 09:05 Temperature 98.3 F Temperature Source Oral Pulse Rate 128 H Respiratory Rate 18 Blood Pressure 210/196 H Blood Pressure Mean 200 Pulse Ox 99 Oxygen Delivery Method Room Air MDM MDM MDM Narrative Medical decision making narrative: Differential diagnosis includes but not limited to pyelonephritis versus ureterolithiasis versus musculoskeletal flank pain. I reviewed her prior records. In September of last year, approximately 10 months ago, she had a CT flank which was unremarkable but she may have passed a kidney stone. Comprehensive workup was pursued. She states she has tolerated morphine in the past. She is requesting more of antinausea medication than anything. She was also administered ondansetron. Her tachycardia may be from her suspected POTS as well. I do feel that CT flank is indicated as she has a specimen of urine sitting on the counter which shows gross hematuria. I reviewed her laboratory work and she has normal white count of 7.0 with hemoglobin 13.6, hematocrit 39.5, platelet count 233. BUN normal at 15 with creatinine low at 0.46. Glucose elevated at 105 but she has a normal anion gap of 14. Urinalysis shows greater than 100 RBCs with 10-25 WBCs and 0-5 squamous epithelial cells. There is rare bacteria. Her urine will be sent for culture and I will put her on antibiotics for the next week in the form of cephalexin 500 mg orally twice a day. Urine culture is pending. I reviewed the CT report which shows hydronephrosis on the right consistent with a recently passed stone as there is a tiny punctate calcification in the bladder. Repeat examination states she is more nauseated and that her pain is easing up. At this point in time, I do feel she can be discharged to follow-up with urology. I wrote her prescriptions for cephalexin as stated previously as well as a few Percocet which she has tolerated before, and for Zofran. I feel she can be discharged safely home with follow-up. Patient is motivated for discharge. Return instructions reviewed. Disposition is discharged home in stable condition. History & Record Review Discussion w/independent historian: Patient Additional record(s) reviewed:: Prior ED visit Lab Data Attestation: I reviewed the patient's lab results. Labs: Laboratory Results - last 24 hr 08/01/25 08/01/25 09:12 09:25 WBC 7.0 RBC 4.19 L Hgb 13.6 Hct 39.5 MCV 94.3 MCH 32.5 H MCHC 34.4 RDW Std Deviation 41.7 RDW Coeff of Justo 12.0 Plt Count 233 MPV 10.7 Immature Gran % (Auto) 0.300 Neut % (Auto) 72.3 H Lymph % (Auto) 19.4 [place] % (Auto) 7.0 Eos % (Auto) 0.7 Baso % (Auto) 0.3 Absolute Neuts (auto) 5.0 Absolute Lymphs (auto) 1.35 Nucleated RBC % 0 Sodium 137 Potassium 3.8 Chloride 102 Carbon Dioxide 21.6 Anion Gap 14 BUN 15 Creatinine 0.46 L Estim Creat Clear Calc 157.68 Est GFR (MDRD) Non-Af 126 BUN/Creatinine Ratio 33.5 H Glucose 105 H Calcium 8.9 Urine Color Rosina Urine Clarity Cloudy Urine pH 6.0 Ur Specific [place] 1.020 Urine Protein 100 H Urine Glucose (UA) Normal Urine Ketones Negative Urine Occult Blood 250 H Urine Nitrite Negative Urine Bilirubin Negative Urine Urobilinogen Normal Ur Leukocyte Esterase 100 H Urine RBC > 100 SEEN Urine WBC 10-25 SEEN Ur Squamous Epith Cells 0-5 SEEN Urine Bacteria RARE Urine Mucus 0 SEEN Radiography Diagnostic Testing: Clinical Impression(s) from Imaging Studies Abdomen/Pelvis CT 08/01/25 09:14 IMPRESSION: Findings suggestive of a recently passed tiny calculus from the right ureter with a tiny calculus seen in the base of the bladder on the right side. Small follicle seen in the right ovary. The patient is status post cholecystectomy. Status post hysterectomy. Reading Location: [facility] Discharge Plan Triage Chief Complaint: Flank Pain ED Provider: Aldair Perez Dx/Rx/DC Orders Clinical Impression: Lupus anticoagulant disorder, Acute right flank pain, Hematuria, Right ureteral stone Instructions: ED Hematuria, ED Kidney Stone, Passed Prescriptions: New oxycodone-acetaminophen [Percocet] 5-325 mg tablet 1 tab PO Q6H 3 Days Qty: 12 0RF cephalexin 500 mg capsule 500 mg PO Q12 Qty: 14 0RF ondansetron 4 mg tablet,disintegrating 4 mg PO Q8H PRN PRN (Reason: Nausea) Qty: 15 0RF No Action multivitamin Tablet 1 tab PO QDAY magnesium 250 mg tablet 250 mg PO QDAY dexmethylphenidate 20 mg capsule,ER biphasic 50-50 20 mg PO QAM Xarelto 20 mg tablet 20 mg PO DAILY Rx Instructions: must administer with evening meal metoprolol tartrate 25 mg tablet 25 mg PO BID acetaminophen 500 mg tablet 1,000 mg PO Q4-6H PRN (Reason: fever or pain) Primary Care Provider: George Avitia Referrals: George Avitia MD [Primary Care Provider, Family Practice] Briseyda Cabrera MD [Med Staff - Active Staff, Urology] - 3-5 Days if not improving RadhamesPiotr MD [Med Staff - Active Staff, Urology] - 3-5 Days if not improving Activity Restrictions/Additional Instructions: Your CT today showed that you recently passed a kidney stone. Pain medication as directed. Your urine culture is currently pending. Antibiotics as directed. Follow-up with urology in the next 3 to 5 days. Return to the emergency department with fever, increased pain or bleeding, new or worsening symptoms. You may want to hold your anticoagulant for the next 1 to 2 days. Print Language: Chilean Disposition Disposition: Home, Self Care
[2025-08-01] MEDS: 0.9% Normal Saline (1000mL) 1,000 ML 999 ML IV (09:24)
[2025-08-01 09:27] LABS: Hematocrit 39.5 % (37-47); Hemoglobin 13.6 g/dL (12.0-15.0); Immature Granulocytes Count 0.020 X10^3/uL (0.0-0.0); Mean Corp Hgb Conc 34.4 g/dL (32-36); Mean Corpuscular Volume 94.3 fL (81-99); Mean Platelet Vol. 10.7 fl (6.2-12.0); NRBC Flagged by Analyzer 0 % (0-5); Platelet Count 233 K/mm3 (150-450); RBC Distribution Width CV 12.0 % (11.6-14.6); RBC Distribution Width SD 41.7 fl (35.1-43.9); Red Blood Count 4.19 M/mm3 (4.2-5.4); White Blood Count 7.0 K/mm3 (4.4-11.0)
[2025-08-01 09:34] LABS: Mucous, Urine 0 SEEN /hpf (<or=2+)
[2025-08-01 09:53] LABS: Color, Urine Amber (Yellow); Glucose, Dipstick Normal (Normal); Ketone-Dipstick Negative (Negative); Leukocyte Esterase-Dipstick 100 /ul (Negative); Nitrite-Dipstick Negative (Negative); Occult Blood-Urine 250 /ul (Negative); Protein-Dipstick 100 mg/dl (Negative); Specific Gravity, Urine 1.020 (1.002-1.030); Urine Bilirubin Dipstick Negative (Negative)
[2025-08-01 09:55] LABS: Anion Gap 14 (5-15); BUN 15 mg/dL (4-19); BUN/Creat Ratio 33.5 RATIO (10-20); Calcium,Total 8.9 mg/dL (7.6-11.0); Carbon Dioxide 21.6 mmol/L (21.0-32.0); Chloride 102 mmol/L (98-108); Estimated Creatinine Clearance 157.68 ml/min (50-250); Glucose 105 mg/dL (70-99); Potassium 3.8 mmol/L (3.3-5.1)
[2025-08-01 10:00] LABS: Red Blood Cells-Urine > 100 SEEN /hpf (0-5)
[2025-08-01 10:01] LABS: Squamous Epithelial Cells - UA 0-5 SEEN /hpf (5-10)
[2025-08-01 10:46] VITALS: BP 115/70; PULSE 86; RESP 18; TEMP 36.8; O2SAT 99
[2025-08-01 11:05] VITALS: BP 122/68; PULSE 80; RESP 14; O2SAT 99
== END 2025-08-01 11:41 | disposition home or self-care (01) ==
PROVIDERS: Emergency Provider Emergency Medicine; PCP Family Medicine; Visit Provider Emergency Medicine
DX: R10.A0 Flank pain, unspecified side (principal); N20.1 Calculus of ureter; Z86.718 Personal history of other venous thrombosis and embolism; Z90.710 Acquired absence of both cervix and uterus; Z86.73 Personal history of transient ischemic attack (TIA), and cerebral infarction without residual deficits; Z79.01 Long term (current) use of anticoagulants; Z90.49 Acquired absence of other specified parts of digestive tract; R31.9 Hematuria, unspecified; R00.0 Tachycardia, unspecified
CPT/HCPCS: 74176; 80048; 81001; 85025; 87086; 87088; 93225; 93226; 96361; 96374; 96375; 99283; A4216; J2405

== ENCOUNTER → 2025-08-01 | Outpatient (CLI) | payer MEDICAID, SELFPAY | END | disposition home or self-care (01) | LOC: PSN 08:43 | PROVIDERS: PCP Family Medicine; Referring Provider Internal Medicine Cardiovascular Disease; Visit Provider Internal Medicine Cardiovascular Disease | DX: R00.0 Tachycardia, unspecified (principal) | CPT/HCPCS: 93225; 93226 ==

== ENCOUNTER 2025-09-04 14:31 | Emergency (ER) | payer MEDICAID, SELFPAY ==
[2025-09-04 14:31] VITALS: BP 152/107; PULSE 142; RESP 18; TEMP 36.9; O2SAT 100; BMI 28.5
[2025-09-04 14:56] VITALS: BP 128/72; PULSE 140; RESP 26; O2SAT 99
[2025-09-04 15:00] LABS: Mucous, Urine 0 SEEN /hpf (<or=2+)
[2025-09-04 15:08] LABS: Hematocrit 39.3 % (37-47); Hemoglobin 13.4 g/dL (12.0-15.0); Immature Granulocytes Count 0.020 X10^3/uL (0.0-0.0); Mean Corp Hgb Conc 34.1 g/dL (32-36); Mean Corpuscular Volume 94.9 fL (81-99); Mean Platelet Vol. 10.6 fl (6.2-12.0); NRBC Flagged by Analyzer 0 % (0-5); Platelet Count 239 K/mm3 (150-450); RBC Distribution Width CV 12.0 % (11.6-14.6); RBC Distribution Width SD 41.8 fl (35.1-43.9); Red Blood Count 4.14 M/mm3 (4.2-5.4); White Blood Count 7.1 K/mm3 (4.4-11.0)
[2025-09-04] MEDS: 0.9% Normal Saline (1000mL) 1,000 ML 999 ML IV (15:12)
--- NOTE | 2025-09-04 15:16 | EKG12_ITS ---
Test Reason : HIGH HR
[2025-09-04 15:30] VITALS: BP 150/112; PULSE 142; RESP 22; O2SAT 96
--- NOTE | 2025-09-04 15:31 | ED.VIS.FEGU ---
HPI HPI - Female History of Present Illness Chief Complaint: Flank Pain Narrative Narrative: Chief complaint and HPI: 40-year-old female with past medical history of tachycardia on metoprolol, SLE, DVT on Xarelto presents for evaluation of right sided flank pain. Patient states she has a history of urolithiasis. She states several days ago she began having right flank pain. Feels like her previous kidney stones. Associated symptom is nausea and vomiting and hematuria. She denies any fever, chills, shortness of breath, chest pain, diarrhea. Review of systems: See HPI Medications: As listed on the chart Allergies: As listed on the chart PFSH: Per chart Vital signs: As listed on the chart. Reviewed. Physical exam: Gen: A&O x3, NAD Head: Normocephalic, atraumatic Eyes: No sclera icterus, conjunctiva clear ENT: Moist mucous membranes CV: Tachycardic, regula rhythm, no murmurs, no peripheral edema Resp: Lungs CTA BL, no w/r/c GI: Abd soft, non-distended, tender to palpation in the right flank, no r/r/g : Mild right-sided CVA tenderness Musc: Full ROM, no deformity Skin: Warm, dry Psych: Cooperative, appropriate mood and affect [facility] Medical History Lung nodule Epilepsy POTS (postural orthostatic tachycardia syndrome) Tachycardia Stroke SLE (systemic lupus erythematosus) Endometriosis Depression Anxiety Clotting disorder Hx-TIA (transient ischemic attack) Seizure Pelvic pain Migraine headache History of irregular heartbeat Lupus anticoagulant disorder DVT (deep venous thrombosis) Home Medications ?Medication ?Instructions ?Recorded ?Last Taken ?Type rivaroxaban 20 mg tablet (Xarelto) 20 mg PO DAILY 07/02/23 07/31/25 History acetaminophen 500 mg tablet 1,000 mg PO Q4-6H PRN fever or pain 06/13/25 08/01/25 History multivitamin 1 tab PO QDAY 06/13/25 08/01/25 History dexmethylphenidate 20 mg 20 mg PO QAM 07/13/25 08/01/25 History capsule,extended release [id number] magnesium 250 mg tablet 250 mg PO QDAY 07/13/25 07/31/25 History metoprolol tartrate 25 mg tablet 25 mg PO BID HR 07/13/25 08/01/25 History ondansetron 4 mg disintegrating 4 mg PO Q8H PRN PRN Nausea #15 tabs 08/01/25 Unknown Rx tablet dexmethylphenidate 10 mg tablet 10 mg PO BID 09/04/25 Unknown History Allergy/AdvReac Type Severity Reaction Status Date / Time hydrocodone bitartrate (From Allergy Hives Verified 09/04/25 14:35 Vicodin) ketorolac tromethamine (From Allergy Hives Verified 09/04/25 14:35 Toradol) metoclopramide (From Reglan) Allergy Other Verified 09/04/25 14:35 metronidazole (From Metrogel) Allergy Swelling Verified 09/04/25 14:35 skin cleanser (From Metrogel) Allergy Swelling Verified 09/04/25 14:35 NSAIDS (Non-Steroidal AdvReac Other Verified 09/04/25 14:35 Anti-Inflamma prochlorperazine (From AdvReac Other Verified 09/04/25 14:35 Compazine) promethazine (From Phenergan) AdvReac Other Verified 09/04/25 14:35 Family History Mother Diabetes Hypertension Father Hypertension Sister Thyroid disorder Factor VIII deficiency Maternal Grandfather Colon cancer Clotting disorder Grandfather Myocardial infarction Surgical History History of ankle surgery Hx of surgical procedure Hx of surgical procedure Hx of laparoscopy S/P foot surgery, right H/O bilateral salpingectomy Hx of cholecystectomy Social History household members: significant other and children housing: house current occupational status: employed Smoking Status: Never smoker alcohol intake: current alcohol intake frequency: holidays/special occasions only substance use type: former substance user and marijuana EXAM Physical Exam Const Vital Signs: 09/04/25 14:31 09/04/25 14:56 09/04/25 15:30 Temperature 98.4 F Temperature Source Oral Pulse Rate 142 H 140 H 142 H Respiratory Rate 18 26 H 22 H Blood Pressure 152/107 H 128/72 H 150/112 H Blood Pressure Mean 122 90 124 Pulse Ox 100 99 96 Oxygen Delivery Method Room Air Room Air Room Air 09/04/25 16:25 09/04/25 16:55 Temperature 98.2 F Temperature Source Oral Pulse Rate 128 H 118 H Respiratory Rate 18 18 Blood Pressure 136/95 H 128/95 H Blood Pressure Mean 108 106 Pulse Ox 98 96 Oxygen Delivery Method Room Air Room Air MDM MDM MDM Narrative Medical decision making narrative: 40-year-old female with past medical history of tachycardia on metoprolol, SLE, DVT on Xarelto presents for evaluation of right sided flank pain. Patient states she has a history of urolithiasis. She states several days ago she began having right flank pain. Feels like her previous kidney stones. Associated symptom is nausea and vomiting and hematuria. On presentation, patient is tachycardic with heart rate into the 140s. I did obtain an EKG that was personally viewed interpreted by me, ED physician. Sinus tachycardia, nonspecific ST changes likely secondary to the rate. Heart rate is 147. Patient states she has a history of tachycardia states her baseline is in the 110s which is why she is on metoprolol. This may be responsive for pain therefore we will treat symptoms and monitor heart rate. NS bolus, Zofran, morphine ordered. Differential diagnosis includes but is not limited to urolithiasis, UTI, pyelonephritis, electrolyte abnormality, dehydration. Laboratory workup ordered including CT abdomen pelvis without contrast. Bladder scan was performed and patient is not retaining. Repeat EKG was personally viewed and interpreted by me, ED physician. Patient has sinus tachycardia with a heart rate of 105. Nonspecific ST changes resolved. CBC without leukocytosis or anemia. CMP without ROBE or significant electrolyte abnormality. No transaminitis. Serum negative. Lactic acid unremarkable. UA positive for blood and UTI. Urine culture sent. Rocephin ordered. Previous urine cultures have all grown out mixed gram-positive. CT abdomen pelvis without contrast shows no acute abnormality. There is no renal calculi or urolithiasis. The appendix is normal. On reevaluation, patient's pain has resolved. Unclear etiology for her pain although may be secondary to UTI or past urolithiasis. Given she had some mild right sided CVA tenderness will treat for pyelonephritis. She already received Rocephin here in the emergency department will prescribe antibiotics and antiemetic follow-up with primary care physician. Return back to ED symptoms change or worsen. She confirmed understanding the plan. She is comfortable discharging home. Her heart rate is still mildly elevated into the low 100s/110s However she states this is her baseline. Impression: 1. Pyelonephritis 2. Right flank pain 3. Hematuria Lab Data Labs: Laboratory Results - last 24 hr 09/04/25 09/04/25 09/04/25 14:40 14:50 15:19 WBC 7.1 RBC 4.14 L Hgb 13.4 Hct 39.3 MCV 94.9 MCH 32.4 H MCHC 34.1 RDW Std Deviation 41.8 RDW Coeff of Justo 12.0 Plt Count 239 MPV 10.6 Immature Gran % (Auto) 0.300 Neut % (Auto) 68.0 Lymph % (Auto) 23.6 [place] % (Auto) 6.5 Eos % (Auto) 1.3 Baso % (Auto) 0.3 Absolute Neuts (auto) 4.8 Absolute Lymphs (auto) 1.67 Nucleated RBC % 0 Sodium 137 Potassium 3.6 Chloride 100 Carbon Dioxide 25.1 Anion Gap 12 BUN 13 Creatinine 0.55 L Estim Creat Clear Calc 132.79 Est GFR (MDRD) Non-Af 120 BUN/Creatinine Ratio 22.9 H Glucose 109 H Lactic Acid 1.4 Calcium 9.8 Total Bilirubin 0.21 AST 21 ALT 21 Alkaline Phosphatase 75 Total Protein 7.5 Albumin 4.7 Globulin 2.8 Albumin/Globulin Ratio 1.7 Serum , Qual NEGATIVE Urine Color Red Urine Clarity Cloudy Urine pH 7.0 Ur Specific [place] 1.010 Urine Protein 100 H Urine Glucose (UA) Normal Urine Ketones Negative Urine Occult Blood 250 H Urine Nitrite Negative Urine Bilirubin Negative Urine Urobilinogen Normal Ur Leukocyte Esterase 25 H Urine RBC > 100 SEEN Urine WBC 25-50 SEEN Ur Squamous Epith Cells 0-5 SEEN Urine Bacteria 3+ Urine Mucus 0 SEEN Radiography Diagnostic Testing: Clinical Impression(s) from Imaging Studies Abdomen/Pelvis CT 09/04/25 15:50 IMPRESSION: Currently, no acute abnormality. [facility] Discharge Plan Triage Chief Complaint: Flank Pain ED Provider: Roc Chang Dx/Rx/DC Orders Prescriptions: No Action multivitamin Tablet 1 tab PO QDAY magnesium 250 mg tablet 250 mg PO QDAY dexmethylphenidate 20 mg capsule,ER biphasic 50-50 20 mg PO QAM Xarelto 20 mg tablet 20 mg PO DAILY Rx Instructions: must administer with evening meal metoprolol tartrate 25 mg tablet 25 mg PO BID acetaminophen 500 mg tablet 1,000 mg PO Q4-6H PRN (Reason: fever or pain) ondansetron 4 mg tablet,disintegrating 4 mg PO Q8H PRN PRN (Reason: Nausea) Qty: 15 0RF dexmethylphenidate 10 mg tablet 10 mg PO BID Primary Care Provider: George Avitia Referrals: George Avitia MD [Primary Care Provider, Family Practice] Print Language: Croatian
[2025-09-04 15:33] LABS: Color, Urine Red (Yellow); Glucose, Dipstick Normal (Normal); Ketone-Dipstick Negative (Negative); Leukocyte Esterase-Dipstick 25 /ul (Negative); Nitrite-Dipstick Negative (Negative); Occult Blood-Urine 250 /ul (Negative); Protein-Dipstick 100 mg/dl (Negative); Specific Gravity, Urine 1.010 (1.002-1.030); Urine Bilirubin Dipstick Negative (Negative)
[2025-09-04 15:34] LABS: Internal QC Validated? YES +Cl - CLEAR BKGD; Pregnancy, Serum, hCG Quali. NEGATIVE Negative; Record Kit Lot#, Serum Preg. 980607
[2025-09-04 15:38] LABS: Red Blood Cells-Urine > 100 SEEN /hpf (0-5); Squamous Epithelial Cells - UA 0-5 SEEN /hpf (5-10)
[2025-09-04 15:48] LABS: AST(SGOT) 21 U/L (<=31); Alanine Aminotransfer ALT/SGPT 21 U/L (<=34); Albumin, Serum 4.7 g/dL (3.5-5.0); Alkaline Phosphatase 75 U/L (35-104); Anion Gap 12 (5-15); BUN 13 mg/dL (4-19); BUN/Creat Ratio 22.9 RATIO (10-20); Calcium,Total 9.8 mg/dL (7.6-11.0); Carbon Dioxide 25.1 mmol/L (21.0-32.0); Chloride 100 mmol/L (98-108); Estimated Creatinine Clearance 132.79 ml/min (50-250); Globulin 2.8 g/dL (2.2-4.2); Glucose 109 mg/dL (70-99); Potassium 3.6 mmol/L (3.3-5.1)
--- NOTE | 2025-09-04 15:50 | CT_ITS ---
PROCEDURE: CT/Abdomen/Pelvis without Cont
[2025-09-04 16:25] VITALS: BP 136/95; PULSE 128; RESP 18; TEMP 36.8; O2SAT 98
[2025-09-04 16:55] VITALS: BP 128/95; PULSE 118; RESP 18; O2SAT 96
--- NOTE | 2025-09-04 17:18 | EKG12_ITS ---
Test Reason : REPEAT
[2025-09-04 18:21] VITALS: PULSE 106
== END 2025-09-04 18:29 | disposition home or self-care (01) ==
PROVIDERS: Emergency Provider Surgery; PCP Family Medicine; Visit Provider Surgery
DX: N12 Tubulo-interstitial nephritis, not specified as acute or chronic (principal); R11.2 Nausea with vomiting, unspecified; Z86.718 Personal history of other venous thrombosis and embolism; R31.9 Hematuria, unspecified; R10.A1 Flank pain, right side; Z79.01 Long term (current) use of anticoagulants; Z86.73 Personal history of transient ischemic attack (TIA), and cerebral infarction without residual deficits; R00.0 Tachycardia, unspecified; Z79.899 Other long term (current) drug therapy; Z90.49 Acquired absence of other specified parts of digestive tract
CPT/HCPCS: 74176; 80053; 81001; 83605; 84703; 85025; 87086; 93005; 96361; 96365; 96375; 96376; 99282; A4216; J2405

== ENCOUNTER 2025-09-13 20:10 | Emergency (ER) | payer MEDICAID, SELFPAY ==
[2025-09-13 20:12] VITALS: BP 137/93; PULSE 96; RESP 18; TEMP 36.4; O2SAT 100; BMI 28.7
[2025-09-13 20:14] VITALS: BP 137/93; PULSE 96; RESP 18; TEMP 36.4; O2SAT 100
[2025-09-13 20:37] LABS: Mucous, Urine 0 SEEN /hpf (<or=2+); Squamous Epithelial Cells - UA 0 SEEN /hpf (5-10)
[2025-09-13 20:40] LABS: Hematocrit 36.5 % (37-47); Hemoglobin 12.6 g/dL (12.0-15.0); Immature Granulocytes Count 0.040 X10^3/uL (0.0-0.0); Mean Corp Hgb Conc 34.5 g/dL (32-36); Mean Corpuscular Volume 94.6 fL (81-99); Mean Platelet Vol. 11.1 fl (6.2-12.0); NRBC Flagged by Analyzer 0 % (0-5); Platelet Count 278 K/mm3 (150-450); RBC Distribution Width CV 12.2 % (11.6-14.6); RBC Distribution Width SD 41.9 fl (35.1-43.9); Red Blood Count 3.86 M/mm3 (4.2-5.4); White Blood Count 11.0 K/mm3 (4.4-11.0)
[2025-09-13 20:41] LABS: Color, Urine Red (Yellow); Glucose, Dipstick Normal (Normal); Ketone-Dipstick Negative (Negative); Leukocyte Esterase-Dipstick 25 /ul (Negative); Nitrite-Dipstick Negative (Negative); Occult Blood-Urine 250 /ul (Negative); Protein-Dipstick 100 mg/dl (Negative); Specific Gravity, Urine 1.015 (1.002-1.030); Urine Bilirubin Dipstick Negative (Negative)
[2025-09-13 20:52] LABS: Internal QC Validated? YES +Cl - CLEAR BKGD; Pregnancy, Serum, hCG Quali. NEGATIVE Negative; Record Kit Lot#, Serum Preg. 980607
[2025-09-13 21:02] LABS: AST(SGOT) 18 U/L (<=31); Alanine Aminotransfer ALT/SGPT 20 U/L (<=34); Albumin, Serum 4.4 g/dL (3.5-5.0); Alkaline Phosphatase 82 U/L (35-104); Anion Gap 12 (5-15); BUN 14 mg/dL (4-19); BUN/Creat Ratio 25.7 RATIO (10-20); Calcium,Total 9.5 mg/dL (7.6-11.0); Carbon Dioxide 24.2 mmol/L (21.0-32.0); Chloride 101 mmol/L (98-108); Estimated Creatinine Clearance 135.73 ml/min (50-250); Globulin 2.8 g/dL (2.2-4.2); Glucose 110 mg/dL (70-99); Potassium 3.8 mmol/L (3.3-5.1)
[2025-09-13 21:14] VITALS: BP 119/82; PULSE 85; RESP 18; TEMP 36.4; O2SAT 100
[2025-09-13 21:27] LABS: Red Blood Cells-Urine > 100 SEEN /hpf (0-5)
--- NOTE | 2025-09-13 22:07 | CT_ITS ---
PROCEDURE: CT ABDOMEN/PELVIS WITHOUT CONTRAST 09/13/2025 REASON FOR EXAM: LEFT FLANK PAIN TECHNIQUE: Procedure Code: CTABDPEL Modality: CT Procedure: ABDOMEN/PELVIS WITHOUT CONT Noncontrast technique limits evaluation of the abdominal and pelvic viscera. Coronal and Sagittal reconstruction series were provided. One or more dose reduction techniques were used (e.g., Automated exposure control, adjustment of the mA and/or kV according to patient size, use of iterative reconstruction technique). RADIATION DOSE SUMMARY: CTDlvol: 7.23 mGy DLP: 382.9 mGycm COMPARISON: 09/04/2025 FINDINGS: Lung bases: Clear. Liver: No significant abnormality. Gallbladder: Surgically absent. Spleen: Unremarkable. Pancreas: Unremarkable. Adrenals: Unremarkable. Kidneys: No urolithiasis or hydronephrosis. Retroaortic left renal vein. Bladder: Unremarkable Reproductive Organs: Prior hysterectomy. Unremarkable adnexae. Bowel: No evidence of obstruction. Appendix is not well-visualized but there are no pericecal inflammatory changes. Extensive distal colonic diverticulosis with acute diverticulitis of the mid descending colon. No free fluid or air to indicate perforation. Lymph nodes: No suspicious lymph node enlargement. Vasculature: Normal caliber abdominal aorta and IVC. Peritoneum / Retroperitoneum: No ascites or free air. Bones: Unremarkable. CT/Abdomen/Pelvis without Cont IMPRESSION: Acute uncomplicated diverticulitis of the descending colon. Reading Location: [id number]
[2025-09-13 22:11] VITALS: BP 118/76; PULSE 85; RESP 16; O2SAT 99
[2025-09-13] MEDS: 0.9% Normal Saline (1000mL) 1,000 ML 999 ML IV (22:12)
--- NOTE | 2025-09-13 22:13 | EDS_ITS ---
HPI HPI - Female History of Present Illness Chief Complaint: Flank Pain Narrative Narrative: Chief complaint and HPI: 40-year-old female with past medical history of tachycardia on metoprolol, SLE, DVT on Xarelto presents for evaluation of left flank pain and hematuria. Patient states she has a history of urolithiasis. Feels like her previous kidney stones. Associated symptoms nausea and vomiting. Denies any fever, chills, shortness of breath, chest pain, diarrhea. Patient was just seen for similar complaint on 09/04/2025 however it was right flank pain. I did see her at that time. She was diagnosed with pyelonephritis and hematuria. She states she completed her last dose of Bactrim today. She states she tried to follow-up with urology however nobody has yet to call her back. Review of systems: See HPI Medications: As listed on the chart Allergies: As listed on the chart PFSH: Per chart Vital signs: As listed on the chart. Reviewed. Physical exam: Gen: A&O x3, NAD Head: Normocephalic, atraumatic Eyes: No sclera icterus, conjunctiva clear ENT: Moist mucous membranes CV: RRR, no murmurs Resp: Lungs CTA BL, no w/r/c GI: Abd soft, non-distended, non-tender, no r/r/g : No CVA tenderness Musc: Full ROM, no deformity Skin: Warm, dry Psych: Cooperative, appropriate mood and [facility] History Lung nodule Epilepsy POTS (postural orthostatic tachycardia syndrome) Tachycardia Stroke SLE (systemic lupus erythematosus) Endometriosis Depression Anxiety Clotting disorder Hx-TIA (transient ischemic attack) Seizure Pelvic pain Migraine headache History of irregular heartbeat Lupus anticoagulant disorder DVT (deep venous thrombosis) Home Medications ?Medication ?Instructions ?Recorded ?Last Taken ?Type rivaroxaban 20 mg tablet (Xarelto) 20 mg PO DAILY 04/1807/31/25 History acetaminophen 500 mg tablet 1,000 mg PO Q4-6H PRN feve r or pain 06/13/25 08/01/25 History multivitamin 1 tab PO QDAY 06/13/2508/01 History dexmethylphenidate 20 mg 20 mg PO QAM 07/13/25 History capsule,extended release [id number] magnesium 250 mg tablet 250 mg PO QDAY 07/13/2503/20 History metoprolol tartrate 25 mg tablet 25 mg PO BID HR 07/1308/01/25 History dexmethylphenidate 10 mg tablet 10 mg PO BID 09/04/25 Unknown History ondansetron 4 mg disintegrating 4 mg PO Q8H PRN PRN Na usea #10 tabs 09/04/25 Unknown Rx tablet sulfamethoxazole 800 1 tab PO BID 10 days #20 tab s 09/04/25 Unknown Rx mg-trimethoprim 160 mg tablet (Bactrim DS) amoxicillin 875 mg-potassium 1 tab PO BID 10 days #20 tabs 09/13/25 Unknown Rx clavulanate 125 mg tablet ondansetron 4 mg disintegrating 4 mg PO Q8H PRN PRN Na usea #10 tabs 09/13/25 Unknown Rx tablet Allergy/AdvReac Type Severity Reaction Status Date / Time hydrocodone bitartrate (From Allergy Hives Verified 09/13/25 20:12 Vicodin) ketorolac tromethamine (From Allergy Hives Verified 09/13/25 20:12 Toradol) metoclopramide (From Reglan) Allergy Other Verified 09/13/25 20:12 metronidazole (From Metrogel) Allergy Swelling Verified 09/13/25 20:12 skin cleanser (From Metrogel) Allergy Swelling Verified 09/13/25 20:12 NSAIDS (Non-Steroidal AdvReac Other Verified 09/13/25 20:12 Anti-Inflamma prochlorperazine (From AdvReac Other Verified 09/13/25 20:12 Compazine) promethazine (From Phenergan) AdvReac Other Verified 09/13/25 20:12 Family History Mother Diabetes Hypertension Father Hypertension Sister Thyroid disorder Factor VIII deficiency Maternal Grandfather Colon cancer Clotting disorder Grandfather Myocardial infarction Surgical History History of ankle surgery Hx of surgical procedure Hx of surgical procedure Hx of laparoscopy S/P foot surgery, right H/O bilateral salpingectomy Hx of cholecystectomy Social History household members: significant other and children housing: house current occupational status: employed Smoking Status: Never smoker alcohol intake: current alcohol intake frequency: holidays/special occasions only substance use type: former substance user and marijuana EXAM Physical Exam Const Vital Signs: 09/13/25 20:12 09/13/25 20:14 09/13/25 21:14 Temperature 97.6 F L 97.6 F L 97.6 F L Temperature Source Temporal Temporal Temporal Pulse Rate 96 96 85 Respiratory Rate 18 18 18 Blood Pressure 137/93 H 137/93 H 119/82 H Blood Pressure Mean 107 107 94 Pulse Ox 100 100 100 Oxygen Delivery Method Room Air Room Air Room Air 09/13/25 22:11 Temperature Temperature Source Pulse Rate 85 Respiratory Rate 16 Blood Pressure 118/76 Blood Pressure Mean 90 Pulse Ox 99 Oxygen Delivery Method Room Air MDM MDM MDM Narrative Medical decision making narrative: 40-year-old female with past medical history of tachycardia on metoprolol, SLE, DVT on Xarelto presents for evaluation of left flank pain and hematuria. Patient states she has a history of urolithiasis. Feels like her previous k Veltiney stones. Associated symptoms nausea and vomiting Patient was just seen for similar complaint on 09/04/2025 however it was right flank pain. I did see her at that time. She was diagnosed with pyelonephritis and hematuria. She states she completed her last dose of Bactrim today. On presentation, patient no acute distress, afebrile. Vital stable. Differential diagnosis includes but is not limited to UTI, pyelonephritis, urolithiasis, anemia, electrolyte abnormality. Laboratory workup ordered including CT abdomen pelvis without contrast. CBC without leukocytosis or anemia. CMP unremarkable. Serum negative. UA positive for hematuria but negative for UTI. CT abdomen pelvis shows acute uncomplicated diverticulitis of the descending colon. No urolithiasis or hydronephrosis. At this point in time, no clear etiology for patient's hematuria, she needs to follow-up outpatient with urology. She is updated of her results. She was given her first dose of Augmentin here. Will send her with prescription for diverticulitis. Narcotics can worsen diverticulitis therefore none will be prescribed. Patient confirmed understanding. Okay with discharging home on Tylenol. Return back to ED if symptoms change or worsen. She states she has an appointment with GI next week follow-up with them as well as primary care physician. Zofran as needed for nausea and vomiting. Recommended clear liquid diet, then soft, then advance as tolerated. Impression: 1. Acute uncomplicated diverticulitis 2. Hematuria Lab Data Labs: Laboratory Results - last 24 hr 09/13/25 20:24 WBC 11.0 RBC 3.86 L Hgb 12.6 Hct 36.5 L MCV 94.6 MCH 32.6 H MCHC 34.5 RDW Std Deviation 41.9 RDW Coeff of Justo 12.2 Plt Count 278 MPV 11.1 Immature Gran % (Auto) 0.400 Neut % (Auto) 78.5 H Lymph % (Auto) 13.6 L [place] % (Auto) 6.7 Eos % (Auto) 0.5 Baso % (Auto) 0.3 Absolute Neuts (auto) 8.6 H Absolute Lymphs (auto) 1.49 Nucleated RBC % 0 Sodium 137 Potassium 3.8 Chloride 101 Carbon Dioxide 24.2 Anion Gap 12 BUN 14 Creatinine 0.54 L Estim Creat Clear Calc 135.73 Est GFR (MDRD) Non-Af 121 BUN/Creatinine Ratio 25.7 H Glucose 110 H Calcium 9.5 Total Bilirubin 0.29 AST 18 ALT 20 Alkaline Phosphatase 82 Total Protein 7.2 Albumin 4.4 Globulin 2.8 Albumin/Globulin Ratio 1.6 Serum , Qual NEGATIVE Urine Color Red Urine Clarity Cloudy Urine pH 7.0 Ur Specific [place] 1.015 Urine Protein 100 H Urine Glucose (UA) Normal Urine Ketones Negative Urine Occult Blood 250 H Urine Nitrite Negative Urine Bilirubin Negative Urine Urobilinogen Normal Ur Leukocyte Esterase 25 H Urine RBC > 100 SEEN Urine WBC 0 SEEN Ur Squamous Epith Cells 0 SEEN Urine Bacteria 0 SEEN Urine Mucus 0 SEEN Radiography Diagnostic Testing: Clinical Impression(s) from Imaging Studies Abdomen/Pelvis CT 09/13/25 22:07 IMPRESSION: Acute uncomplicated diverticulitis of the descending colon. Reading Location: [id number] Discharge Plan Triage Chief Complaint: Flank Pain ED Provider: Roc Chang Dx/Rx/DC Orders Clinical Impression: Diverticulitis Instructions: ED Diverticulitis Prescriptions: New amoxicillin-pot clavulanate 875-125 mg tablet 1 tab PO BID 10 Days Qty: 20 0RF ondansetron 4 mg tablet,disintegrating 4 mg PO Q8H PRN PRN (Reason: Nausea) Qty: 10 0RF No Action multivitamin Tablet 1 tab PO QDAY magnesium 250 mg tablet 250 mg PO QDAY dexmethylphenidate 20 mg capsule,ER biphasic 50-50 20 mg PO QAM Xarelto 20 mg tablet 20 mg PO DAILY Rx Instructions: must administer with evening meal metoprolol tartrate 25 mg tablet 25 mg PO BID acetaminophen 500 mg tablet 1,000 mg PO Q4-6H PRN (Reason: fever or pain) dexmethylphenidate 10 mg tablet 10 mg PO BID sulfamethoxazole-trimethoprim [Bactrim DS] 800-160 mg tablet 1 tab PO BID 10 Days Qty: 20 0RF ondansetron 4 mg tablet,disintegrating 4 mg PO Q8H PRN PRN (Reason: Nausea) Qty: 10 0RF Primary Care Provider: George Avitia Referrals: George Avitia MD [Primary Care Provider, Family Practice] - 3-5 Days Piotr Ricci MD [Med Staff - Active Staff, Urology] - 3-5 Days Activity Restrictions/Additional Instructions: Recommend liquid diet for the next 48 hours, after that soft diet, after that advance as tolerated. Tylenol as needed for pain. Return back to ED if symptoms change or worsen. Zofran as needed for nausea and vomiting. You received your first dose of antibiotic here in the emergency department. Keep your GI appointment next week. Follow-up with primary care physician. No clear reason for the blood in your urine, you need to follow-up with urology. Print Language: Lebanese Disposition Disposition: Home, Self Care
[2025-09-13] MEDS: HYDROmorphone 0.5 MG/0.5 ML SYRINGE IV (23:07)
[2025-09-13 23:51] VITALS: BP 106/75; PULSE 86; RESP 16; TEMP 36.4; O2SAT 99
== END 2025-09-13 23:57 | disposition home or self-care (01) ==
PROVIDERS: Emergency Provider Surgery; PCP Family Medicine; Visit Provider Surgery
DX: R10.A1 Flank pain, right side (principal); K57.32 Diverticulitis of large intestine without perforation or abscess without bleeding; Z86.718 Personal history of other venous thrombosis and embolism; R11.2 Nausea with vomiting, unspecified; R31.9 Hematuria, unspecified; Z79.899 Other long term (current) drug therapy; Z79.01 Long term (current) use of anticoagulants; Z86.73 Personal history of transient ischemic attack (TIA), and cerebral infarction without residual deficits; Z90.49 Acquired absence of other specified parts of digestive tract
CPT/HCPCS: 74176; 80053; 81001; 84703; 85025; 96361; 96374; 96375; 99282; A4216; J2405

== ENCOUNTER 2025-09-15 18:52 | Emergency (ER) | payer MEDICAID, SELFPAY ==
[2025-09-15 18:53] VITALS: BP 132/94; PULSE 95; RESP 14; TEMP 36.6; O2SAT 98; BMI 27.8
--- NOTE | 2025-09-15 19:26 | ED.VIS.GI ---
HPI HPI - GI History of Present Illness Chief Complaint: GI Bleed Informant: patient and spouse/S.O. Abdominal Pain/Flank Pain Onset: Today Context: Gradual Onset Timing: Intermittent Quality: Dull Location: LLQ Current Severity: Mild Maximum Severity: Mild Worsened by: Nothing Relieved by: Nothing Nausea/Vomiting/Emesis GI Symptom: Positive for Nausea; Negative for Vomiting Severity: Mild Diarrhea/Melena/Hematochezia GI Symptom: Positive for Diarrhea and Hematochezia Stool Quality: Positive for Loose Severity: Mild Associated Symptoms Associated Symptoms: Negative for Dysuria, Frequency, Hematuria or Urgency Narrative Narrative: 40-year-old female past medical history of POTS, lupus anticoagulant on Xarelto for prior DVT: Disorder prior hysterectomy and cholecystectomy. Was seen here 2 days ago at 20 had a workup and CAT scan was diagnosed with diverticulitis. Placed on Augmentin which she has been taking. States she has had loose stools. And today noticed some rectal bleeding. No black stool. No hematemesis. Prior similar symptoms: Yes Recent Illness/Hospitalization: No PFSH PFSH Medical History Lung nodule Epilepsy POTS (postural orthostatic tachycardia syndrome) Tachycardia Stroke SLE (systemic lupus erythematosus) Endometriosis Depression Anxiety Clotting disorder Hx-TIA (transient ischemic attack) Seizure Pelvic pain Migraine headache History of irregular heartbeat Lupus anticoagulant disorder DVT (deep venous thrombosis) Home Medications ?Medication ?Instructions ?Recorded ?Last Taken ?Type rivaroxaban 20 mg tablet (Xarelto) 20 mg PO DAILY 07/02/23 07/31/25 History acetaminophen 500 mg tablet 1,000 mg PO Q4-6H PRN fever or pain 06/13/25 08/01/25 History multivitamin 1 tab PO QDAY 06/13/25 08/01/25 History magnesium 250 mg tablet 250 mg PO QDAY 07/13/25 07/31/25 History metoprolol tartrate 25 mg tablet 25 mg PO BID HR 07/13/25 08/01/25 History ondansetron 4 mg disintegrating 4 mg PO Q8H PRN PRN Nausea #10 tabs 09/04/25 Unknown Rx tablet sulfamethoxazole 800 1 tab PO BID 10 days #20 tabs 09/04/25 Unknown Rx mg-trimethoprim 160 mg tablet (Bactrim DS) amoxicillin 875 mg-potassium 1 tab PO BID 10 days #20 tabs 09/13/25 Unknown Rx clavulanate 125 mg tablet ondansetron 4 mg disintegrating 4 mg PO Q8H PRN PRN Nausea #10 tabs 09/13/25 Unknown Rx tablet oxycodone-acetaminophen 5 mg-325 1 tab PO Q8H PRN pain 5 days #10 09/15/25 Unknown Rx mg tablet (Percocet) tabs Allergy/AdvReac Type Severity Reaction Status Date / Time hydrocodone bitartrate (From Allergy Hives Verified 09/15/25 18:57 Vicodin) ketorolac tromethamine (From Allergy Hives Verified 09/15/25 18:57 Toradol) metoclopramide (From Reglan) Allergy Other Verified 09/15/25 18:57 metronidazole (From Metrogel) Allergy Swelling Verified 09/15/25 18:57 skin cleanser (From Metrogel) Allergy Swelling Verified 09/15/25 18:57 NSAIDS (Non-Steroidal AdvReac Other Verified 09/15/25 18:57 Anti-Inflamma prochlorperazine (From AdvReac Other Verified 09/15/25 18:57 Compazine) promethazine (From Phenergan) AdvReac Other Verified 09/15/25 18:57 Family History Mother Diabetes Hypertension Father Hypertension Sister Thyroid disorder Factor VIII deficiency Maternal Grandfather Colon cancer Clotting disorder Grandfather Myocardial infarction Surgical History History of ankle surgery Hx of surgical procedure Hx of surgical procedure Hx of laparoscopy S/P foot surgery, right H/O bilateral salpingectomy Hx of cholecystectomy Social History household members: significant other and children housing: house current occupational status: employed Smoking Status: Never smoker alcohol intake: current alcohol intake frequency: holidays/special occasions only substance use type: former substance user and marijuana ROS ROS ED ROS Narrative Left lower quadrant abdominal Paulo known diverticulitis. Diagnosed 2 days ago. Loose stools. Hematochezia. Constitutional Constitutional ED: Denies chills or fever(s) ENT ENT ED: Denies ear pain Cardiovascular Cardiovascular: Denies chest pain Respiratory/Chest Respiratory/Chest: Denies cough or dyspnea Gastrointestinal Gastrointestinal: Reports abdominal pain Genitourinary Genitourinary ED: Denies dysuria or hematuria Musculoskeletal Musculoskeletal: Denies arthralgias Integumentary Denies abscess Neurologic Neurologic: Denies headache(s) Psychiatric Psychiatric: Denies anxiety or depression Endocrine Endocrinology: Denies polydipsia or polyphagia Hematologic/Lymphatic Hematologic/Lymphatic: Denies lymphadenopathy Allergic/Immunologic Allergic/Immunologic ED: Denies mouth swelling, tongue swelling or urticaria EXAM Physical Exam Narrative Exam Narrative: 40-year-old female sitting upright in bed vital signs stable afebrile. No acute distress. H EENT exam pupils round react light. Moist mucous membranes. Neck nontender no JVD. No lymphadenopathy. Lungs clear to auscultation bilaterally. Heart regular rhythm rate about 90 no murmur. Chest wall ribs nontender. Abdomen soft nondistended normal bowel sounds without peritoneal signs. Mild left lower quadrant tenderness. Known diverticulitis. Moving all 4 extremities. Nontender no edema. Back nontender. Neurologically she is awake alert. Answering questions following commands. Const Vital Signs: 09/15/25 18:53 09/15/25 20:02 Temperature 98 F Temperature Source Temporal Pulse Rate 95 93 Respiratory Rate 14 16 Blood Pressure 132/94 H Blood Pressure Mean 106 Pulse Ox 98 98 Oxygen Delivery Method Room Air MDM MDM MDM Narrative Medical decision making narrative: 40-year-old female on anticoagulant Xarelto due to clotting disorder and prior blood clots. Having rectal bleeding. Diagnosed with diverticulitis 2 days ago currently on Augmentin. Will be given morphine for pain which she said has been constant. Check CBC and chemistry. She has had 2 CAT scans recently I do not think she needs to be rescanned. Pain is no worse. Repeat exam at 8:37 PM. Patient doing well. She is comfortable being discharged home. She knows if her bleeding is worse to return. She be written for short course of pain medication for diverticulitis. History & Record Review Discussion w/independent historian: Patient and Family Additional record(s) reviewed:: Prior inpatient record, Prior outpatient record, Prior ED visit and Prior labs Lab Data Attestation: I reviewed the patient's lab results. Lab results narrative: CBC shows a white count 6 H&H 12.7 and 36.5 which is consistent with her baseline actually slightly better than her last blood count. Platelets 277. Electrolytes show gap 9. Normal BUN and creatinine 9 and 0.5. Glucose 104. Labs: Laboratory Results - last 24 hr 09/15/25 19:31 WBC 6.3 RBC 3.84 L Hgb 12.7 Hct 36.5 L MCV 95.1 MCH 33.1 H MCHC 34.8 RDW Std Deviation 41.2 RDW Coeff of Justo 12.0 Plt Count 277 MPV 11.0 Immature Gran % (Auto) 0.200 Neut % (Auto) 66.6 Lymph % (Auto) 23.6 [place] % (Auto) 7.7 Eos % (Auto) 1.6 Baso % (Auto) 0.3 Absolute Neuts (auto) 4.2 Absolute Lymphs (auto) 1.48 Nucleated RBC % 0 Sodium 139 Potassium 4.5 Chloride 105 Carbon Dioxide 24.0 Anion Gap 9 BUN 9 Creatinine 0.56 L Estim Creat Clear Calc 128.86 Est GFR (MDRD) Non-Af 120 BUN/Creatinine Ratio 15.4 Glucose 104 H Calcium 9.1 Discharge Plan Triage Chief Complaint: GI Bleed ED Provider: Enrique Apodaca Dx/Rx/DC Orders Clinical Impression: Rectal bleeding, Diverticulitis, Chronic anticoagulation, Blood clotting disorder Instructions: ED Diverticulitis, ED Lower GI Bleeding (Stable) Prescriptions: New oxycodone-acetaminophen [Percocet] 5-325 mg tablet 1 tab PO Q8H PRN (Reason: pain) 5 Days Qty: 10 0RF No Action multivitamin Tablet 1 tab PO QDAY magnesium 250 mg tablet 250 mg PO QDAY Xarelto 20 mg tablet 20 mg PO DAILY Rx Instructions: must administer with evening meal metoprolol tartrate 25 mg tablet 25 mg PO BID amoxicillin-pot clavulanate 875-125 mg tablet 1 tab PO BID 10 Days Qty: 20 0RF ondansetron 4 mg tablet,disintegrating 4 mg PO Q8H PRN PRN (Reason: Nausea) Qty: 10 0RF acetaminophen 500 mg tablet 1,000 mg PO Q4-6H PRN (Reason: fever or pain) sulfamethoxazole-trimethoprim [Bactrim DS] 800-160 mg tablet 1 tab PO BID 10 Days Qty: 20 0RF ondansetron 4 mg tablet,disintegrating 4 mg PO Q8H PRN PRN (Reason: Nausea) Qty: 10 0RF Primary Care Provider: George Avitia Referrals: George Avitia MD [Primary Care Provider, Family Practice] - 3-5 Days Activity Restrictions/Additional Instructions: Percocet as needed for pain. Follow-up with your doctor to ensure you are improving Your labs look good today. Your blood counts look good. If you have worsening bleeding you still may get some rectal bleeding but if it is a lot worse or you are passing large clots return. Print Language: Yakut Disposition Disposition: Home, Self Care
[2025-09-15 19:40] LABS: Hematocrit 36.5 % (37-47); Hemoglobin 12.7 g/dL (12.0-15.0); Immature Granulocytes Count 0.010 X10^3/uL (0.0-0.0); Mean Corp Hgb Conc 34.8 g/dL (32-36); Mean Corpuscular Volume 95.1 fL (81-99); Mean Platelet Vol. 11.0 fl (6.2-12.0); NRBC Flagged by Analyzer 0 % (0-5); Platelet Count 277 K/mm3 (150-450); RBC Distribution Width CV 12.0 % (11.6-14.6); RBC Distribution Width SD 41.2 fl (35.1-43.9); Red Blood Count 3.84 M/mm3 (4.2-5.4); White Blood Count 6.3 K/mm3 (4.4-11.0)
[2025-09-15 19:54] LABS: Anion Gap 9 (5-15); BUN 9 mg/dL (4-19); BUN/Creat Ratio 15.4 RATIO (10-20); Calcium,Total 9.1 mg/dL (7.6-11.0); Carbon Dioxide 24.0 mmol/L (21.0-32.0); Chloride 105 mmol/L (98-108); Estimated Creatinine Clearance 128.86 ml/min (50-250); Glucose 104 mg/dL (70-99); Potassium 4.5 mmol/L (3.3-5.1)
[2025-09-15 20:02] VITALS: PULSE 93; RESP 16; O2SAT 98
[2025-09-15 20:49] VITALS: BP 127/88; PULSE 93; RESP 16; TEMP 37.1; O2SAT 98
== END 2025-09-15 20:49 | disposition home or self-care (01) ==
PROVIDERS: Emergency Provider Emergency Medicine; PCP Family Medicine; Visit Provider Emergency Medicine
DX: K62.5 Hemorrhage of anus and rectum (principal); Z86.718 Personal history of other venous thrombosis and embolism; Z79.01 Long term (current) use of anticoagulants; K57.92 Diverticulitis of intestine, part unspecified, without perforation or abscess without bleeding; Z90.710 Acquired absence of both cervix and uterus; R76.0 Raised antibody titer; Z86.73 Personal history of transient ischemic attack (TIA), and cerebral infarction without residual deficits; Z90.49 Acquired absence of other specified parts of digestive tract
CPT/HCPCS: 80048; 85025; 96374; 96375; 99283; A4216; J2405

== ENCOUNTER 2025-10-10 19:50 | Emergency (ER) | payer MEDICAID, SELFPAY ==
[2025-10-10] VITALS (7 sets, daily range): BP systolic 124–144; BP diastolic 88–90; PULSE 114–147; RESP 18–21; TEMP 36.6–36.9; O2SAT 97–98; BMI 29.2
[2025-10-10 20:10] LABS: Mucous, Urine 0 SEEN /hpf (<or=2+); Squamous Epithelial Cells - UA 0 SEEN /hpf (5-10)
[2025-10-10 20:24] LABS: Hematocrit 40.9 % (37-47); Hemoglobin 14.4 g/dL (12.0-15.0); Mean Corpuscular Volume 94.2 fL (81-99); Red Blood Count 4.34 M/mm3 (4.2-5.4); White Blood Count 9.7 K/mm3 (4.4-11.0)
[2025-10-10 20:25] LABS: Immature Granulocytes Count 0.040 X10^3/uL (0.0-0.0); Mean Corp Hgb Conc 35.2 g/dL (32-36); Mean Platelet Vol. 10.7 fl (6.2-12.0); NRBC Flagged by Analyzer 0 % (0-5); Platelet Count 268 K/mm3 (150-450); RBC Distribution Width CV 12.1 % (11.6-14.6); RBC Distribution Width SD 42.2 fl (35.1-43.9)
[2025-10-10 20:26] LABS: Color, Urine Red (Yellow); Glucose, Dipstick Normal (Normal); Ketone-Dipstick Negative (Negative); Leukocyte Esterase-Dipstick 100 /ul (Negative); Nitrite-Dipstick Negative (Negative); Occult Blood-Urine 250 /ul (Negative); Protein-Dipstick 100 mg/dl (Negative); Specific Gravity, Urine 1.020 (1.002-1.030); Urine Bilirubin Dipstick Negative (Negative)
[2025-10-10 20:37] LABS: AST(SGOT) 29 U/L (<=31); Alanine Aminotransfer ALT/SGPT 17 U/L (<=34); Albumin, Serum 4.6 g/dL (3.5-5.0); Alkaline Phosphatase 77 U/L (35-104); Anion Gap 11 (5-15); BUN 14 mg/dL (4-19); BUN/Creat Ratio 22.1 RATIO (10-20); Calcium,Total 9.7 mg/dL (7.6-11.0); Carbon Dioxide 23.7 mmol/L (21.0-32.0); Chloride 101 mmol/L (98-108); Estimated Creatinine Clearance 121.30 ml/min (50-250); Globulin 3.0 g/dL (2.2-4.2); Glucose 95 mg/dL (70-99); Potassium 3.6 mmol/L (3.3-5.1)
--- NOTE | 2025-10-10 20:38 | EX.ED.DYSGE1 ---
HPI History of Present Illness Chief Complaint: Flank Pain [facility] Medical History Lung nodule Epilepsy POTS (postural orthostatic tachycardia syndrome) Tachycardia Stroke SLE (systemic lupus erythematosus) Endometriosis Depression Anxiety Clotting disorder Hx-TIA (transient ischemic attack) Seizure Pelvic pain Migraine headache History of irregular heartbeat Lupus anticoagulant disorder DVT (deep venous thrombosis) Home Medications ?Medication ?Instructions ?Recorded ?Last Taken ?Type rivaroxaban 20 mg tablet (Xarelto) 20 mg PO DAILY 07/02/23 07/31/25 History acetaminophen 500 mg tablet 1,000 mg PO Q4-6H PRN fever or pain 06/13/25 08/01/25 History multivitamin 1 tab PO QDAY 06/13/25 08/01/25 History magnesium 250 mg tablet 250 mg PO QDAY 07/13/25 07/31/25 History metoprolol tartrate 25 mg tablet 25 mg PO BID HR 07/13/25 08/01/25 History ondansetron 4 mg disintegrating 4 mg PO Q8H PRN PRN Nausea #10 tabs 09/04/25 Unknown Rx tablet sulfamethoxazole 800 1 tab PO BID 10 days #20 tabs 09/04/25 Unknown Rx mg-trimethoprim 160 mg tablet (Bactrim DS) amoxicillin 875 mg-potassium 1 tab PO BID 10 days #20 tabs 09/13/25 Unknown Rx clavulanate 125 mg tablet ondansetron 4 mg disintegrating 4 mg PO Q8H PRN PRN Nausea #10 tabs 09/13/25 Unknown Rx tablet oxycodone-acetaminophen 5 mg-325 1 tab PO Q8H PRN pain 5 days #10 09/15/25 Unknown Rx mg tablet (Percocet) tabs Allergy/AdvReac Type Severity Reaction Status Date / Time hydrocodone bitartrate (From Allergy Hives Verified 10/10/25 19:54 Vicodin) ketorolac tromethamine (From Allergy Hives Verified 10/10/25 19:54 Toradol) metoclopramide (From Reglan) Allergy Other Verified 10/10/25 19:54 metronidazole (From Metrogel) Allergy Swelling Verified 10/10/25 19:54 skin cleanser (From Metrogel) Allergy Swelling Verified 10/10/25 19:54 NSAIDS (Non-Steroidal AdvReac Other Verified 10/10/25 19:54 Anti-Inflamma prochlorperazine (From AdvReac Other Verified 10/10/25 19:54 Compazine) promethazine (From Phenergan) AdvReac Other Verified 10/10/25 19:54 Family History Mother Diabetes Hypertension Father Hypertension Sister Thyroid disorder Factor VIII deficiency Maternal Grandfather Colon cancer Clotting disorder Grandfather Myocardial infarction Surgical History History of ankle surgery Hx of surgical procedure Hx of surgical procedure Hx of laparoscopy S/P foot surgery, right H/O bilateral salpingectomy Hx of cholecystectomy Social History household members: significant other and children housing: house current occupational status: employed Smoking Status: Never smoker alcohol intake: current alcohol intake frequency: holidays/special occasions only substance use type: former substance user and marijuana EXAM Physical Exam Const Vital Signs: 10/10/25 19:52 10/10/25 19:54 Temperature 98.4 F Temperature Source Temporal Pulse Rate 140 H 138 H Respiratory Rate 18 Blood Pressure 144/90 H Blood Pressure Mean 108 Pulse Ox 98 Oxygen Delivery Method Room Air MDM MDM MDM Narrative Medical decision making narrative: HISTORY OF PRESENT ILLNESS: Chief complaint: Flank pain 40-year-old female history of nephrolithiasis, lupus, epilepsy, POTS, depression, anxiety, DVT (on Xarelto) presents with flank pain. Patient complains of right flank pain. No history of kidney stones diverticulitis. Patient with associate hematuria and vomiting. Denies hematemesis. Denies abdominal pain or syncope. Notes history of multiple abdominal surgeries. REVIEW OF SYSTEMS: Pertinent positives: Flank pain, hematuria, vomiting Pertinent negatives: Abdominal pain, syncope, chest pain PHYSICAL EXAM: Nursing triage notes reviewed, Vital signs reviewed Constitutional: please see mdm HENT: MMM Eyes: Pupils equal round and reactive to light, Extraocular muscles intact Neck: No stridor, no JVD, full neck ROM Lungs: Clear to auscultation, No wheezing or rales. No increased work of breathing, no conversational dyspnea, no accessory muscle use, no nasal flaring. No respiratory distress noted Heart: Regular rate and rhythm, No murmurs, No rubs and No gallops, 2+ distal pulses (radial, femoral, posterior tibial) in all extremities Abdomen: Soft, there is no tenderness, rigidity, rebound or guarding, no obvious peritoneal signs, no palpable pulsatile abdominal masses, no auscultated abdominal bruit : Mild right CVA tenderness Extremities: No edema Neuro: No new focal neurological deficits, cranial nerves II through XII intact, 5/5 strength in all present extremities. Intact sensation to light touch in all present extremities, 2+ reflexes bilateral patella tendons. Skin: No rash or lesions noted MEDICAL DECISION MAKING: Chief Complaint: please see HPI External records reviewed:Reviewed prior imaging studies: Reviewed prior CT scan of the abdomen pelvis which showed likely passed kidney stone. Some left hydronephrosis. Factors affecting care: As per HPI Social determinants of health: none History obtained from others: none Consults: none [facility] Narrative: Patient was initially tachycardic otherwise hemodynamically stable, afebrile nontoxic-appearing. Exam with mild right CVA tenderness I considered the following differential diagnosis: Nephrolithiasis, pyelonephritis, anemia, AAA, musculoskeletal etiology I obtained a broad lab and imaging workup to further determine if the patient was suffering from a life-threatening etiology. Initially treat the patient 1 L normal saline, 4 mg of IV Zofran for nausea and 4 mg of IV morphine for pain. ALL IMAGES (IF OBTAINED) HAVE BEEN PERSONALLY REVIEWED AND INTERPRETED BY MYSELF. [] The patient and/or family, caregivers express understanding. The patient and/or family, caregivers agrees with the plan. Shared decision making: I will have a discussion with the patient and or visitors regarding risk/benefits of further testing or admission. They will be made aware of of the risk/benefits inherent in this decision they will be given the opportunity to voice understanding. Total critical care time today provided was at least 0 [] minutes. This excludes separately billable procedures. Critical care time (if documented) is secondary to the patient having high probability of clinically significant/life threatening deterioration in the patient's condition which required my urgent intervention. Impression: 1. [] 2. [] [] Dispo: [] This note was generated with [employer] dictation software. It may contain incorrect words, spelling, and punctuation that were not noted in review of the chart prior to signing. Lab Data Labs: Laboratory Results - last 24 hr 10/10/25 10/10/25 20:00 20:05 WBC 9.7 RBC 4.34 Hgb 14.4 Hct 40.9 MCV 94.2 MCH 33.2 H MCHC 35.2 RDW Std Deviation 42.2 RDW Coeff of Justo 12.1 Plt Count 268 MPV 10.7 Immature Gran % (Auto) 0.400 Neut % (Auto) 75.4 H Lymph % (Auto) 18.6 L [place] % (Auto) 4.7 Eos % (Auto) 0.6 Baso % (Auto) 0.3 Absolute Neuts (auto) 7.3 Absolute Lymphs (auto) 1.81 Nucleated RBC % 0 Sodium 136 Potassium 3.6 Chloride 101 Carbon Dioxide 23.7 Anion Gap 11 BUN 14 Creatinine 0.61 L Estim Creat Clear Calc 121.30 Est GFR (MDRD) Non-Af 117 BUN/Creatinine Ratio 22.1 H Glucose 95 Calcium 9.7 Total Bilirubin 0.25 AST 29 ALT 17 Alkaline Phosphatase 77 Total Protein 7.6 Albumin 4.6 Globulin 3.0 Albumin/Globulin Ratio 1.5 Urine Color Red Urine Clarity Turbid Urine pH 6.5 Ur Specific [place] 1.020 Urine Protein 100 H Urine Glucose (UA) Normal Urine Ketones Negative Urine Occult Blood 250 H Urine Nitrite Negative Urine Bilirubin Negative Urine Urobilinogen Normal Ur Leukocyte Esterase 100 H Discharge Plan Triage Chief Complaint: Flank Pain ED Provider: Ramy Hsu Dx/Rx/DC Orders Prescriptions: No Action multivitamin Tablet 1 tab PO QDAY magnesium 250 mg tablet 250 mg PO QDAY Xarelto 20 mg tablet 20 mg PO DAILY Rx Instructions: must administer with evening meal metoprolol tartrate 25 mg tablet 25 mg PO BID amoxicillin-pot clavulanate 875-125 mg tablet 1 tab PO BID 10 Days Qty: 20 0RF ondansetron 4 mg tablet,disintegrating 4 mg PO Q8H PRN PRN (Reason: Nausea) Qty: 10 0RF oxycodone-acetaminophen [Percocet] 5-325 mg tablet 1 tab PO Q8H PRN (Reason: pain) 5 Days Qty: 10 0RF acetaminophen 500 mg tablet 1,000 mg PO Q4-6H PRN (Reason: fever or pain) sulfamethoxazole-trimethoprim [Bactrim DS] 800-160 mg tablet 1 tab PO BID 10 Days Qty: 20 0RF ondansetron 4 mg tablet,disintegrating 4 mg PO Q8H PRN PRN (Reason: Nausea) Qty: 10 0RF Primary Care Provider: George Avitia Referrals: George Avitia MD [Primary Care Provider, Family Practice] Print Language: Occitan
[2025-10-10] MEDS: 0.9% Normal Saline (1000mL) 1,000 ML 1000 ML IV (21:04)
--- NOTE | 2025-10-10 21:10 | CT_ITS ---
PROCEDURE: CT ABDOMEN/PELVIS WITHOUT CONTRAST 10/10/2025 REASON FOR EXAM: RIGHT FLANK PAIN RULE OUT KIDNEY STONE TECHNIQUE: Procedure Code: CTABDPEL Modality: CT Procedure: ABDOMEN/PELVIS WITHOUT CONT Noncontrast technique limits evaluation of the abdominal and pelvic viscera. Coronal and Sagittal reconstruction series were provided. One or more dose reduction techniques were used (e.g., Automated exposure control, adjustment of the mA and/or kV according to patient size, use of iterative reconstruction technique). RADIATION DOSE SUMMARY: CTDlvol: 9.75 mGy DLP: 475.07 mGycm COMPARISON: 09/13/2025 FINDINGS: Lung bases: Clear. Liver: Unremarkable. Gallbladder: Surgically absent. Spleen: Unremarkable. Pancreas: Unremarkable. Adrenals: Unremarkable. Kidneys: Unremarkable. No urolithiasis or hydroureteronephrosis. Bladder: Unremarkable. Reproductive Organs: Prior hysterectomy. Unremarkable adnexae. Bowel: No evidence of obstruction or active inflammatory process. Normal appendix. Mild distal colonic diverticulosis without active diverticulitis. Lymph nodes: No enlarged abdominopelvic lymph nodes. Vasculature: Normal caliber abdominal aorta and IVC. Peritoneum / Retroperitoneum: No ascites or free air. Bones: Unremarkable. CT/Abdomen/Pelvis without Cont IMPRESSION: No acute or active inflammatory intra-abdominal abnormality. Normal appendix. No urinary tract calculi or hydroureteronephrosis on either side. Reading Location: [id number]
[2025-10-10 21:19] LABS: Red Blood Cells-Urine > 100 SEEN /hpf (0-5)
--- NOTE | 2025-10-10 21:51 | EKG12_ITS ---
Test Reason : DYSRHYTHMIA Blood Pressure : */* mmHG Vent. Rate : 146 BPM Atrial Rate : 146 BPM P-R Int : 120 ms QRS Dur : 78 ms QT Int : 274 ms P-R-T Axes : 43 15 36 degrees QTcB Int : 426 ms Critical Test Result: High HR Sinus tachycardia Nonspecific ST abnormality Abnormal ECG Confirmed by Chuck Sanchez ([id number]), state editor STEVE PICKENS ([id number]) on 10/12/2025 10:18:57 AM Referred By: Confirmed By: Chuck Sanchez
[2025-10-10] MEDS: HYDROmorphone 0.5 MG/0.5 ML SYRINGE IV (22:26)
== END 2025-10-10 23:08 | disposition home or self-care (01) ==
PROVIDERS: Emergency Provider Emergency Medicine; PCP Family Medicine; Visit Provider Emergency Medicine
DX: R10.A0 Flank pain, unspecified side (principal); Z87.442 Personal history of urinary calculi; Z86.73 Personal history of transient ischemic attack (TIA), and cerebral infarction without residual deficits; Z79.01 Long term (current) use of anticoagulants; Z90.49 Acquired absence of other specified parts of digestive tract
CPT/HCPCS: 74176; 80053; 81001; 85025; 93005; 96361; 96374; 96375; 99283; A4216; J2405

== ENCOUNTER 2025-10-15 19:15 | Observation (INO) | payer MEDICAID, SELFPAY ==
[2025-10-15] VITALS (7 sets, daily range): BP systolic 116–149; BP diastolic 98–106; PULSE 111–140; RESP 18–23; TEMP 36.3–36.8; O2SAT 93–98; BMI 28.0; BMI 28.2
--- NOTE | 2025-10-15 19:23 | ED.RN ---
ED MD notified of symptoms
--- NOTE | 2025-10-15 19:33 | CT_ITS ---
PROCEDURE: BRAIN/HEAD WITHOUT CONTRAST 10/15/2025 REASON FOR EXAM: OCCIPITAL HEADACHE, NUMBNESS LEFT UPPER EXTREMITY TECHNIQUE: Procedure Code: CTBR Modality: CT Procedure: BRAIN/HEAD WITHOUT CONTRAST Coronal and Sagittal reconstruction series were provided. One or more dose reduction techniques were used (e.g., Automated exposure control, adjustment of the mA and/or kV according to patient size, use of iterative reconstruction technique. RADIATION DOSE SUMMARY: DLP: 812.98 mGycm COMPARISON: CT head 03/21/2025 FINDINGS: No acute hemorrhage. No acute infarct. No significant mass effect or brain herniation. The ventricular system and sulci/fissures are within normal limits of size and configuration for the patient's stated age. No extra-axial fluid collection. The basal cisterns are patent. The mastoid air cells are clear. The paranasal sinuses are predominantly clear. The calvarium appears intact. CT/Brain/Head without Contrast IMPRESSION: No CT evidence of acute intracranial hemorrhage, infarct, or significant mass e ffect. Reading Location: [id number]
--- NOTE | 2025-10-15 19:34 | EKG12_ITS ---
Test Reason : PALPITATIONS Blood Pressure : */* mmHG Vent. Rate : 96 BPM Atrial Rate : 96 BPM P-R Int : 140 ms QRS Dur : 84 ms QT Int : 346 ms P-R-T Axes : 42 15 18 degrees QTcB Int : 437 ms Normal sinus rhythm Normal ECG Confirmed by Les Feliz ([id number]), editorial director STEVE PICKENS ([id number]) on 10/18/2025 11:07:09 AM Also confirmed by Les Feliz ([id number]), editorial director STEVE PICKENS ([id number]) on 10/19/2025 11:13:29 AM Referred By: Confirmed By: Les Feliz
--- NOTE | 2025-10-15 19:38 | EDS_ITS ---
HPI History of Present Illness Chief Complaint: Neuro S/Sx Detail of Chief Complaint: Occipital headache, paresthesia LUE, slow and slurred speech Informant: patient Onset/Context/Timing Onset: Today (Paresthesia L UE) and Days (Slow and slurred speech started 6 days ago and intermittent) Context: Sudden Onset Timing: Continuous (Paresthesia left upper extremity) and Intermittent (With respect to the speech) Quality: Numbness left upper extremity stocking glove distribution digits to mid arm Location: Left Current Severity: Mild Maximum Severity: Moderate Worsened by: Nothing Relieved by: Nothing Associated Symptoms Associated Symptoms: Occipital headache Narrative Narrative: Patient is a 40-year-old female. She follows with Dr. Sergio Streeter for her complex migraine headaches. In 2012 she was seen by Dr. Bethea and was determined to have a complex migraine the cause numbness in her left upper extremity. She states she was diagnosed with a TIA in 2005. She present has occipital headache. There is no visual auditory or ocular symptoms. She denies neck pain or neck stiffness. She has had some interim problems with balance. states the symptoms only last 2 to 3 days he is concerned because his lasted 6 days. Patient is on anticoagulant because of history of lupus anticoagulant disorder and DVT. She apparently is being worked up for POTS disease. She did take metoprolol today. She reports beating in her chest and discomfort. She denies abdominal pain. She does endorse nausea without vomiting or diarrhea. It is listed that patient has history of epilepsy. Reviewing prior records indicates a they believe these are functional in etiology. Patient states she was diagnosed with a TIA in 2005. Records did not go back that far. Prior similar symptoms: Yes Recent Illness/Hospitalization: No PFSH PFS Medical History Lung nodule Epilepsy POTS (postural orthostatic tachycardia syndrome) Tachycardia Stroke SLE (systemic lupus erythematosus) Endometriosis Depression Anxiety Clotting disorder Hx-TIA (transient ischemic attack) Seizure Pelvic pain Migraine headache History of irregular heartbeat Lupus anticoagulant disorder DVT (deep venous thrombosis) Home Medications ?Medication ?Instructions ?Recorded ?Last Taken ?Type rivaroxaban 20 mg tablet (Xarelto) 20 mg PO DAILY 09/04/1807/31/25 History acetaminophen 500 mg tablet 1,000 mg PO Q4-6H PRN feve r or pain 06/13/25 08/01/25 History multivitamin 1 tab PO QDAY 06/13/2508/01 History magnesium 250 mg tablet 250 mg PO QDAY 07/13/25 10/03/20 History metoprolol tartrate 25 mg tablet 25 mg PO BID HR 07/1308/01/25 History ondansetron 4 mg disintegrating 4 mg PO Q8H PRN PRN Na usea #10 tabs 09/13/25 Unknown Rx tablet dicyclomine 20 mg tablet 20 mg PO 4X/DAY 10/15/25 Unk nown History Allergy/AdvReac Type Severity Reaction Status Date / Time hydrocodone bitartrate (From Allergy Hives Verified 10/15/25 19:19 Vicodin) ketorolac tromethamine (From Allergy Hives Verified 10/15/25 19:19 Toradol) metoclopramide (From Reglan) Allergy Other Verified 10/15/25 19:19 metronidazole (From Metrogel) Allergy Swelling Verified 10/15/25 19:19 skin cleanser (From Metrogel) Allergy Swelling Verified 10/15/25 19:19 NSAIDS (Non-Steroidal AdvReac Other Verified 10/15/25 19:19 Anti-Inflamma prochlorperazine (From AdvReac Other Verified 10/15/25 19:19 Compazine) promethazine (From Phenergan) AdvReac Other Verified 10/15/25 19:19 Family History Mother Diabetes Hypertension Father Hypertension Sister Thyroid disorder Factor VIII deficiency Maternal Grandfather Colon cancer Clotting disorder Grandfather Myocardial infarction Surgical History History of ankle surgery Hx of surgical procedure Hx of surgical procedure Hx of laparoscopy S/P foot surgery, right H/O bilateral salpingectomy Hx of cholecystectomy Social History household members: significant other and children housing: house current occupational status: employed Smoking Status: Never smoker alcohol intake: current alcohol intake frequency: holidays/special occasions only substance use type: former substance user and marijuana ROS ROS ED Constitutional Constitutional ED: Denies chills, fever(s), subjective, sweats or weight loss Eyes Eyes: Denies blurry vision, change in vision or diplopia ENT ENT ED: Denies ear pain, rhinorrhea or sore throat Cardiovascular Cardiovascular: Reports palpitations and racing heartbeat; Denies chest pain, orthopnea or paroxysmal nocturnal dyspnea Respiratory/Chest Respiratory/Chest: Denies cough, dyspnea, dyspnea on exertion, orthopnea or paroxysmal nocturnal dyspnea Gastrointestinal Gastrointestinal: Reports nausea; Denies abdominal pain, constipation, diarrhea, melena or vomiting Genitourinary Genitourinary ED: Denies dysuria, hematuria or urinary frequency Musculoskeletal Musculoskeletal: Denies arthralgias, back pain or myalgias Integumentary Denies abscess, Abrasions or rash Neurologic Neurologic: Reports paresthesias LUE; Denies headache(s) or weakness Psychiatric Psychiatric: Denies anxiety or depression Hematologic/Lymphatic Hematologic/Lymphatic: Reports systems reviewed and no addt'l complaints, except as documented EXAM Physical Exam Const Vital Signs: 10/15/25 19:16 10/15/25 20:31 10/15/25 21:00 Temperature 98.2 F Temperature Source Oral Pulse Rate 130 H 111 H 113 H Respiratory Rate 18 20 H 22 H Blood Pressure 141/98 H 149/104 H 149/104 H Blood Pressure Mean 112 119 119 Pulse Ox 98 98 98 Oxygen Delivery Method Room Air Room Air 10/15/25 22:00 Temperature Temperature Source Pulse Rate 138 H Respiratory Rate 19 H Blood Pressure 118/101 H Blood Pressure Mean 106 Pulse Ox 93 Oxygen Delivery Method Room Air Positive well nourished and well developed General Appearance ED: well developed; Negative for pallor HEENT Reports moist mucous membranes HEENT Narrative: Ears normal. External auditory canal normal. TMs normal. Nares patent. Posterior pharynx not erythema or exudate. Uvula midline. No deviation tongue or protrusion. Eyes PERRL and EOMs intact bilaterally Eyes Narrative: There is no nystagmus. The eye skew test was negative. General Eye ED: Negative for pale conjunctiva or scleral icterus Neck no lymphadenopathy, supple and no JVD Resp normal respiratory effort and clear to auscultation bilaterally Cardio regular rhythm, S1 normal heart sound, S2 normal heart sound and no murmurs Rate: tachycardic GI normal to inspection, nondistended, normoactive bowel sounds, non-tender and non-distended; Negative for hepatosplenomegaly Extremity normal to inspection General Extremety ED: Negative for edema or tenderness General Extremity: Negative for edema Neuro oriented x3, CN's II-XII intact bilaterally and no sensory deficits noted Neuro Narrative: There is no clonus Babinski bilaterally. Romberg with eyes open and closed reveals slight abnormality on the left only. Gait was observed and normal. Tandem gait was normal. [id number] was normal bilaterally. Sensorium / Orientation: alert Motor Exam: strength 5/5 throughout Psych Mood & Affect: depressed Skin no rashes or lesions noted, no wounds and skin turgor normal General Skin Exam: elasticity normal; Negative for jaundice or pallor MDM MDM MDM Narrative Medical decision making narrative: Differential diagnosis is functional, complex atypical migraine headache, cervical, ischemic stroke. The palpation tachycardia may be due to POTS disease. Will obtain CT of the head and appropriate blood work. Labor multiple allergies her headache was treated with Decadron and Zofran since she is allergic to acuter [place] with hives dystonic reaction to Phenergan, Compazine and Reglan. History & Record Review Additional record(s) reviewed:: Prior outpatient record (Outpatient neurology note reviewed.), Prior ED visit and Prior labs Lab Data Attestation: I reviewed the patient's lab results. Lab results narrative: CBC is unremarkable. Basic metabolic panel result of a glucose of 142 with a normal CO2 anion gap. She is elevated blood sugars in the past. There is no mention of diabetes and past history. Review of medication indicates she does not or has not been diagnosed with diabetes. Labs: Laboratory Results - last 24 hr 10/15/25 19:29 WBC 6.6 RBC 4.14 L Hgb 13.6 Hct 39.6 MCV 95.7 MCH 32.9 H MCHC 34.3 RDW Std Deviation 41.7 RDW Coeff of Justo 11.9 Plt Count 264 MPV 10.8 Immature Gran % (Auto) 0.300 Neut % (Auto) 67.7 Lymph % (Auto) 25.1 [place] % (Auto) 6.0 Eos % (Auto) 0.6 Baso % (Auto) 0.3 Absolute Neuts (auto) 4.5 Absolute Lymphs (auto) 1.66 Nucleated RBC % 0 Sodium 141 Potassium 3.8 Chloride 103 Carbon Dioxide 25.0 Anion Gap 14 BUN 12 Creatinine 0.70 Estim Creat Clear Calc 103.53 Est GFR (MDRD) Non-Af 113 BUN/Creatinine Ratio 16.4 Glucose 142 H Calcium 8.9 Radiography Diagnostic Testing: Clinical Impression(s) from Imaging Studies Brain CT 10/15/25 19:33 IMPRESSION: No CT evidence of acute intracranial hemorrhage, infarct, or significant mass effect. Reading Location: [facility] CT of the head reveals no obvious mass effect, stroke, sinusitis or bleed. Awaiting formal read by radiologist, 2024 The radiology report was reviewed. Impression revealed no acute abnormalities. Therefore we will discharge to home after informing patient and spouse of results. Suspect the paresthesias are due to complex migraine headache. Tachycardia is probably due to her POTS disease. Uncertain what is causing the slow speech and intermittent slurred speech. This is not concerning because she has had this happen several times the only difference is this is lasted longer than 3 days. And as previously noted they felt that her paresthesia was due to complex migraine. Management Discussion w/another healthcare provider: Hospitalist (Spoke with the evening physician Dr. Zain Carey) Treatment and Re-Evaluation :: Nurse informed me at 2121 the patient is complaining her left arm is heavier. She was reevaluated. Bicep, brachialis and tricep reflex are 2+ and symmetric. Motor strength is 5/5. Axillary, median, radial and ulnar function intact. Sensation is unchanged from initial exam. Because of her allergies she is not a candidate for ketorolac or Reglan which is normally used for migraine headaches. Since she did not have any benefit from the Decadron will treat with valproic acid 20 mg/kg and reassess. Comments:: Patient was reassessed at 2121. Still having significant headache. Neuroexam as reported was unremarkable. She was reassessed at 2143 because she was questioning interaction of the valproic acid with anticoagulant she is on and was concerned if this causes tardive dyskinesia. She was told it does not interact with the anticoagulant and does not cause tardive dyskinesia. She asked what would be next if this does not work. I informed her that I would contact the hospitalist and have her brought in for observation with probable MRI in the morning. Of note her [id number] was seen 2 days ago. I did see her father about 2 days ago he was admitted to the ICU for acute on chronic respiratory failure with hypercapnia and hypoxia. Vital Sign Attestation:: Patient symptoms not improve after 20 mg/kg of Depakote. Hospitalist was paged. He will bring her in for observation. 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
[2025-10-15 19:41] LABS: Hematocrit 39.6 % (37-47); Hemoglobin 13.6 g/dL (12.0-15.0); Immature Granulocytes Count 0.020 X10^3/uL (0.0-0.0); Mean Corp Hgb Conc 34.3 g/dL (32-36); Mean Corpuscular Volume 95.7 fL (81-99); Mean Platelet Vol. 10.8 fl (6.2-12.0); NRBC Flagged by Analyzer 0 % (0-5); Platelet Count 264 K/mm3 (150-450); RBC Distribution Width CV 11.9 % (11.6-14.6); RBC Distribution Width SD 41.7 fl (35.1-43.9); Red Blood Count 4.14 M/mm3 (4.2-5.4); White Blood Count 6.6 K/mm3 (4.4-11.0)
[2025-10-15 20:04] LABS: Anion Gap 14 (5-15); BUN 12 mg/dL (4-19); BUN/Creat Ratio 16.4 RATIO (10-20); Calcium,Total 8.9 mg/dL (7.6-11.0); Carbon Dioxide 25.0 mmol/L (21.0-32.0); Chloride 103 mmol/L (98-108); Estimated Creatinine Clearance 103.53 ml/min (50-250); Glucose 142 mg/dL (70-99); Potassium 3.8 mmol/L (3.3-5.1)
--- NOTE | 2025-10-15 23:07 | PCM.HP.STD ---
HPI - General General Date of Admission: 10/15/25 HPI Narrative MEL ROBLEDO, is a 40 F who presents to the hospital with left upper extremity heaviness as well as numbness. Strength is intact. She also endorses some speech issues for the last 6 days mostly dysarthria but she also feels like her mentation was little bit slow. In that time she also developed an occipital headache with what she describes as spine pain. No blurry vision or hallucinations and no changes in vision. No fevers or chills. She states that she is on Xarelto because she has lupus anticoagulant disease however the drug of choice for that disorder is Coumadin she also has had a previous history of a DVT. On chart review she has had several admissions for neurologic symptoms with negative MRIs. [facility] Medical History Lung nodule Epilepsy POTS (postural orthostatic tachycardia syndrome) Tachycardia Stroke SLE (systemic lupus erythematosus) Endometriosis Depression Anxiety Clotting disorder Hx-TIA (transient ischemic attack) Seizure Pelvic pain Migraine headache History of irregular heartbeat Lupus anticoagulant disorder DVT (deep venous thrombosis) Home Medications ?Medication ?Instructions ?Recorded ?Last Taken ?Type rivaroxaban 20 mg tablet (Xarelto) 20 mg PO DAILY 07/02/23 10/15/25 History acetaminophen 500 mg tablet 1,000 mg PO Q4-6H PRN fever or pain 06/13/25 08/01/25 History multivitamin 1 tab PO QDAY 06/13/25 10/15/25 History magnesium 250 mg tablet 250 mg PO QDAY 07/13/25 10/14/25 History metoprolol tartrate 25 mg tablet 25 mg PO BID HR 07/13/25 10/15/25 History ondansetron 4 mg disintegrating 4 mg PO Q8H PRN PRN Nausea #10 tabs 09/13/25 Unknown Rx tablet dicyclomine 20 mg tablet 20 mg PO 4X/DAY 10/15/25 Unknown History zolpidem 10 mg tablet (Ambien) 10 mg PO QHS PRN insomnia 10/15/25 10/14/25 History Allergy/AdvReac Type Severity Reaction Status Date / Time hydrocodone bitartrate (From Allergy Hives Verified 10/15/25 19:19 Vicodin) ketorolac tromethamine (From Allergy Hives Verified 10/15/25 19:19 Toradol) metoclopramide (From Reglan) Allergy Other Verified 10/15/25 19:19 metronidazole (From Metrogel) Allergy Swelling Verified 10/15/25 19:19 skin cleanser (From Metrogel) Allergy Swelling Verified 10/15/25 19:19 NSAIDS (Non-Steroidal AdvReac Other Verified 10/15/25 19:19 Anti-Inflamma prochlorperazine (From AdvReac Other Verified 10/15/25 19:19 Compazine) promethazine (From Phenergan) AdvReac Other Verified 10/15/25 19:19 Family History Mother Diabetes Hypertension Father Hypertension Sister Thyroid disorder Factor VIII deficiency Maternal Grandfather Colon cancer Clotting disorder Grandfather Myocardial infarction Surgical History History of ankle surgery Hx of surgical procedure Hx of surgical procedure Hx of laparoscopy S/P foot surgery, right H/O bilateral salpingectomy Hx of cholecystectomy Social History household members: significant other and children housing: house current occupational status: employed Smoking Status: Never smoker alcohol intake: current alcohol intake frequency: holidays/special occasions only substance use type: former substance user and marijuana ROS Constitutional Constitutional: Denies chills, fatigue, fever(s) or malaise Eyes Eyes: Denies blurry vision ENT HEENT: Reports headache(s); Denies nasal discharge Cardiovascular Cardiovascular: Denies chest pain, dyspnea on exertion or syncope Respiratory/Chest Respiratory/Chest: Denies cough, shortness of breath at rest or shortness of breath with exertion Gastrointestinal Gastrointestinal: Denies constipation, diarrhea, nausea or vomiting Genitourinary Genitourinary: Denies dysuria Neurologic Neurologic: Reports abnormal speech, headache(s) and paresthesias LUE; Denies focal weakness, numbness or tremor(s) Psychiatric Psychiatric: Denies anxiety or depression Patient's Goals Of Care . Unable to discuss care goals with the patient and or patient maintenance representative at this time: Yes Vital Signs Vital Signs Vital Signs: 10/15/25 19:16 10/15/25 20:31 10/15/25 21:00 Temperature 98.2 F Temperature Source Oral Pulse Rate 130 H 111 H 113 H Respiratory Rate 18 20 H 22 H Blood Pressure 141/98 H 149/104 H 149/104 H Blood Pressure Mean 112 119 119 Pulse Ox 98 98 98 Oxygen Delivery Method Room Air Room Air 10/15/25 22:00 Temperature Temperature Source Pulse Rate 138 H Respiratory Rate 19 H Blood Pressure 118/101 H Blood Pressure Mean 106 Pulse Ox 93 Oxygen Delivery Method Room Air Weight Weight: 158 lb 6.787 oz Body Mass Index (BMI) 28.0 Physical Exam Narrative General: Alert, Oriented x3, Cooperative, No apparent distress HEENT: Atraumatic, PERRLA, EOMI, Normocephalic Oral: Moist Mucosa Neck: Supple, No JVD Lungs: Diminished, Normal air movement, No rhonchi, No wheeze, No rales Cardiovascular: Tachycardic, Regular Rhythm, Normal S1, Normal S2, No murmurs Abdomen: Soft, Non Tender, Non-Distended, No Hepato-splenomegaly Extremities: No edema, Capillary Refill Less than 3 Seconds Skin: No rashes, No breakdown Neurological: Left upper extremity numbness and decreased sensation compared to the right upper extremity. No drift, strength intact, some diminished sensation in the left lower extremity as well Psych/Mental Status: Flat Results Lab / Micro Data 10/15/25 19:29 10/15/25 19:29 Labs: Laboratory Results - last 24 hr 10/15/25 19:29: WBC 6.6, RBC 4.14 L, Hgb 13.6, Hct 39.6, MCV 95.7, MCH 32.9 H, MCHC 34.3, RDW Std Deviation 41.7, RDW Coeff of Justo 11.9, Plt Count 264, MPV 10.8, Immature Gran % (Auto) 0.300, Neut % (Auto) 67.7, Lymph % (Auto) 25.1, [place] % (Auto) 6.0, Eos % (Auto) 0.6, Baso % (Auto) 0.3, Absolute Neuts (auto) 4.5, Absolute Lymphs (auto) 1.66, Nucleated RBC % 0, Sodium 141, Potassium 3.8, Chloride 103, Carbon Dioxide 25.0, Anion Gap 14, BUN 12, Creatinine 0.70, Estim Creat Clear Calc 103.53, Est GFR (MDRD) Non-Af 113, BUN/Creatinine Ratio 16.4, Glucose 142 H, Calcium 8.9 Imaging Radiology Impression Brain CT 10/15/25 19:33 IMPRESSION: No CT evidence of acute intracranial hemorrhage, infarct, or significant mass effect. Reading Location: [facility] Assessment & Plan Assessment/Plan (1) Paresthesia of left upper extremity: PLAN: Plan 1. Complex migraine/history of seizures ? Will continue with treatment for headache and see if that improves her symptoms ? If she continues to have symptoms can obtain an MRI on Friday ? Will continue with NIHHS for 24 hours ? She has had frequent neurological evaluations all of which have been negative in the past with her most recent being in 03/22/2025 with a normal MRI ? Her last seizure was in 2016 currently not on any medications 2. POTS ? Continue with Lopressor ? Tilt table test at the [facility] in 2013 was negative ? Echocardiogram on 03/21/2025 with an EF of 55 to 60% ? Holter monitor for 48 hours was unremarkable 3. Lupus anticoagulant the history of DVT ? Unclear as to why she is not on Coumadin ? She is currently on Xarelto DVT: Xarelto Charges/Coding Visit Charges Inpatient E&M: 53564 Init Hosp L2
[2025-10-16 03:30] VITALS: BP 131/91; PULSE 126; RESP 18; TEMP 36.3; O2SAT 96
--- NOTE | 2025-10-16 04:47 | CT_ITS ---
PROCEDURE: BRAIN/HEAD WITHOUT CONTRAST 10/16/2025 REASON FOR EXAM: FACIAL DROOP TECHNIQUE: Procedure Code: CTBR Modality: CT Procedure: BRAIN/HEAD WITHOUT CONTRAST Coronal and Sagittal reconstruction series were provided. One or more dose reduction techniques were used (e.g., Automated exposure control, adjustment of the mA and/or kV according to patient size, use of iterative reconstruction technique. RADIATION DOSE SUMMARY: CTDlvol: 44.99 mGy DLP: 829 mGycm COMPARISON: 10/15/2025. FINDINGS: Normal size of the ventricles and extra-axial spaces for the patient's age. Normal white matter tracts of the supratentorial brain. Normal basal ganglia and thalami. Normal brainstem. Normal cerebellum. There is no demonstrated extra-axial, intraparenchymal, or intraventricular hemorrhage. There are no findings of an acute ischemic infarction. Normal calvarium. There is no demonstrated fracture. Normal soft tissue structures. Normal visualized paranasal sinuses. CT/Brain/Head without Contrast IMPRESSION: No CT evidence of an acute brain abnormality. Reading [facility]
--- NOTE | 2025-10-16 06:00 | PCM.PN.BLA ---
Progress Note Notified by nursing staff that she had possibly developed a slight facial droop. Repeat CT scan is obtained and pending read. She is now concerned that she has meningitis though has no leukocytosis or fever and no other objective findings of meningitis besides neck pain. Her initial symptoms had started approximately 6 days ago with a waxing and waning course.
[2025-10-16 07:04] LABS: Hematocrit 39.4 % (37-47); Hemoglobin 13.7 g/dL (12.0-15.0); Immature Granulocytes Count 0.040 X10^3/uL (0.0-0.0); Mean Corp Hgb Conc 34.8 g/dL (32-36); Mean Corpuscular Volume 94.5 fL (81-99); Mean Platelet Vol. 11.0 fl (6.2-12.0); NRBC Flagged by Analyzer 0 % (0-5); Platelet Count 321 K/mm3 (150-450); RBC Distribution Width CV 11.8 % (11.6-14.6); RBC Distribution Width SD 40.6 fl (35.1-43.9); Red Blood Count 4.17 M/mm3 (4.2-5.4); White Blood Count 7.2 K/mm3 (4.4-11.0)
[2025-10-16 07:20] LABS: Anion Gap 16 (5-15); BUN 10 mg/dL (4-19); BUN/Creat Ratio 16.4 RATIO (10-20); Calcium,Total 9.2 mg/dL (7.6-11.0); Carbon Dioxide 20.4 mmol/L (21.0-32.0); Chloride 101 mmol/L (98-108); Estimated Creatinine Clearance 114.61 ml/min (50-250); Glucose 156 mg/dL (70-99); Potassium 4.2 mmol/L (3.3-5.1)
--- NOTE | 2025-10-16 09:57 | PN.HOSP_ITS ---
Subjective Subjective Saw patient at bedside this morning. Patient was sitting back in bed and was mildly uncomfortable appearing and tearful during our encounter. She notes that she continues to have significant neck pain with radiation down her left arm, similar to overnight. The as needed occasions have been somewhat helpful for her. No other new concerns this morning. Objective Data Objective Data Vital Signs: Vital Signs Temp Pulse Resp BP Pulse Ox O2 Del Method 97.4 F L 126 H 18 131/91 H 96 Room Air 10/16/25 03:30 10/16/25 03:30 10/16/25 03:30 10/16/25 03:30 10/16/25 03:30 10/16/25 03:30 Oxygen Delivery Method Room Air Weight: 70 kg Body Mass Index (BMI) 28.2 Intake & Output: Intake and Output for Last 24 Hours 10/14/25 10/15/25 10/16/25 23:59 23:59 23:59 Intake Total 114.4 / 114.4 Output Total 0 / 0 Balance 114.4 / 114.4 0 / 0 Lab / Micro Data 10/16/25 06:29 10/16/25 06:29 Labs: Laboratory Results - last 24 hr 10/15/25 19:29: WBC 6.6, RBC 4.14 L, Hgb 13.6, Hct 39.6, MCV 95.7, MCH 32.9 H, MCHC 34.3, RDW Std Deviation 41.7, RDW Coeff of Justo 11.9, Plt Count 264, MPV 10.8, Immature Gran % (Auto) 0.300, Neut % (Auto) 67.7, Lymph % (Auto) 25.1, [place] % (Auto) 6.0, Eos % (Auto) 0.6, Baso % (Auto) 0.3, Absolute Neuts (auto) 4.5, Absolute Lymphs (auto) 1.66, Nucleated RBC % 0, Sodium 141, Potassium 3.8, Chloride 103, Carbon Dioxide 25.0, Anion Gap 14, BUN 12, Creatinine 0.70, Estim Creat Clear Calc 103.53, Est GFR (MDRD) Non-Af 113, BUN/Creatinine Ratio 16.4, G lucose 142 H, Calcium 8.9 10/16/25 06:29: WBC 7.2, RBC 4.17 L, Hgb 13.7, Hct 39.4, MCV 94.5, MCH 32.9 H, MCHC 34.8, RDW Std Deviation 40.6, RDW Coeff of Justo 11.8, Plt Count 321, MPV 11.0, Immature Gran % (Auto) 0.600, Neut % (Auto) 89.5 H, Lymph % (Auto) 9.1 L, [place] % (Auto) 0.7, Eos % (Auto) 0.0, Baso % (Auto) 0.1, Absolute Neuts (auto) 6.4, Absolute Lymphs (auto) 0.65 L, Nucleated RBC % 0, Sodium 137, Potassium 4.2, Chloride 101, Carbon Dioxide 20.4 L, Anion Gap 16 H, BUN 10, Creatinine 0.61 L, Estim Creat Clear Calc 114.61, Est GFR (MDRD) Non-Af 117, BUN/Creatinine Ratio 16.4, Glucose 156 H, Calcium 9.2 10/16/25 07:48: Hemoglobin A1c 5.5 Radiography Diagnostic Testing: Radiology Impression Brain CT 10/15/25 19:33 IMPRESSION: No CT evidence of acute intracranial hemorrhage, infarct, or significant mass effect. Reading Location: [id number] Brain CT 10/16/25 04:47 IMPRESSION: No CT evidence of an acute brain abnormality. Reading Location: [place] [id number] Patient's Goals Of Care - F/U Goals Reviewed Goals of care reviewed with patient: NA-No significant change in clinical Status /major procedure scheduled Physical Exam Const alert, oriented x3 and average body habitus Constitutional Narrative: Younger middle-aged female, mildly uncomfortable appearing due to ongoing neck discomfort and tearful during our conversation, otherwise sitting back in bed and answering questions appropriately. General Appearance: cooperative HEENT normocephalic, head/scalp atraumatic, hearing grossly normal bilaterally, nasal mucous membranes and turbinates normal and moist oral mucous membranes Eyes PERRL, EOMs intact bilaterally and conjunctivae normal Neck Neck Narrative: Mild diffuse tenderness to palpation in neck and decreased range of motion. Chest inspection of chest normal Resp normal respiratory effort, normal air movement, no use of accessory muscles and clear to auscultation bilaterally Cardio no murmurs and peripheral pulses 2+ throughout Cardio Narrative: Tachycardic, regular rhythm. GI normal to inspection, nondistended, normoactive bowel sounds, soft to palpation, non-tender and non-distended Back/Spine normal ROM Extremity normal to inspection, full ROM and no pedal edema Skin no rashes or lesions noted Neuro moves all extremities and no focal motor deficits Neuro Narrative: Reported left arm sensory deficits noted. Speech: speech normal Psych mental status grossly normal Mood & Affect: anxious Assessment & Plan Assessment/Plan (1) Neck pain: (2) Paresthesia of left upper extremity: (3) Headache, occipital: PLAN: Plan Patient is a 40-year-old female who presented to [facility] ED on 10/15/2025 with headache, neck pain, left arm numbness/tingling and intermittent dysarthria. 1. Neck pain with left arm numbness/tingling and intermittent dysarthria with history of complex migraines/history of seizures ? Follows with outpatient neurology. Presented with worsening neck pain with occipital headache and left arm numbness/tingling. She reports intermittent dysarthria for the past several months. Has had frequent neurological evaluations in the past that have been negative, with most recent being in normal brain MRI in February. CT brain on admit unremarkable. 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 Cervical spine x-ray obtained on morning of 10/16 that showed to space narrowing at C5-6 and C6-7, along with straightening of the cervical lordotic curvature possibly secondary to spasm versus positioning. Will order MRI brain and MRI cervical spine without contrast to be done tomorrow morning for further evaluation. Will treat symptomatically for now with Flexeril as needed and Valium as needed. Monitor closely. 2. Sinus tachycardia with reported history of POTS ? Follows with [place] [facility]. Had a tilt table test done at [facility] back in 2013 that was negative. Last echo on 03/21 showed EF 55 to 60%, no other concerning findings. Had recent 48-hour Holter monitor in early July with average heart rate 89 and very occasional PVCs noted. Continue home Lopressor. 3. History of DVT with positive lupus anticoagulant ? Unclear as to why patient is not on Coumadin for this. Will continue home Xarelto at this time. DVT prophylaxis: Not indicated, on Xarelto CODE STATUS: Full code, verified Expected disposition: TBD Total clinical time spent by myself addressing the patient's medical issues, reviewing all the data, and collaborating with patient's care team: 39 minutes. Charges/Coding Visit Charges Inpatient E&M: 99168 Subs Hosp L2 NIHSS NIHSS Nursing Documentation NIHSS Nursing Documentation: NIHSS: Ischemic Stroke/TIA Start: 10/15/25 23:49 Freq: [id number] Status: Active Protocol: Activity Type Activity Date Activity User E-sign Co-sign Detail Recorded Client Recorded Date Recorded By Document 10/16/25 03:30 LV [id number] 10/16/25 04:02 LV 10/16/25 03:30 NIH Stroke Scale [NIHSS] A score of 0 is normal or asymptomatic . Total possible score is 42. Inpatient: RN or Physician to activate a stroke alert for onset of new stroke symptoms or with NIHSS increase >/= 3 points. Following change in neurological status, NIHSS will be performed per physician order or more frequently PRN. -1a. Level of Consciousness 0 - Alert; keenly responsive -1b. LOC Questions 0 - Answers BOTH questions correctly -1c. LOC Commands 0 - Performs BOTH tasks correctly -2. Best Gaze 0 - Normal -3. Visual 0 - No visual loss -4. Facial Palsy 1 - Minor paralysis ( flattened nasolabial fold , asymmetry on smiling) -5a. Left Arm 1 - Drift; arm drifts downward but doesn?t hit the bed -5b. Right Arm 0 - No drift; arm holds 90 ( or 45) degrees for full 10 seconds -6a. Left Leg 1 - Drift; leg falls by the end of 5- seconds, but does not hit bed -6b. Right Leg 0 - No drift; leg holds 30- degree position for full 5 seconds -7. Limb Ataxia 0 - Absent -8. Sensory 1 - Mild-to- moderate sensory loss; -9. Best Language 0 - No aphasia; normal -10. Dysarthria 0 - Normal -11. Extinction and Inattention 0 - No abnormality -Total 4 Query Text:A score of 0 is normal or asymptomatic. Total possible score is 42 . ED: Notify Physician for NIHSS increase by > / = 3 points. Inpatient: RN or Physician to activate a stroke alert for NIHSS increase of > / = 3 points. Coma Scale [Assess] -Eye Opening Spontaneous -Motor Obeys Commands -Verbal Oriented [Total] -Coma Scale Total 15
[2025-10-16 10:26] VITALS: BP 132/91; PULSE 113; RESP 17; TEMP 36.5; O2SAT 98
[2025-10-16 10:34] VITALS: PULSE 113
[2025-10-16] MEDS: FLU VACCINE 2025-26(6MOS UP) 45 MCG/0.5 ML SYRINGE IM (10:34)
--- NOTE | 2025-10-16 10:41 | RAD_ITS ---
PROCEDURE: CERV SPINE 2 OR 3 VIEWS 10/16/2025 REASON FOR EXAM: NECK PAIN TECHNIQUE: Procedure Code: RADSPCL Modality: DX Procedure: CERV SPINE 2 OR 3 VIEWS COMPARISON: None. FINDINGS: Radiographs of the cervical spine demonstrate straightening of the cervical lordotic curvature without fracture or scarring. Disc space narrowing at C5-6 and C6-7. Odontoid view is normal. Cervical soft tissues and lung apices are clear. RAD/Cerv Spine 2 or 3 Views IMPRESSION: Mild degenerative changes of the cervical spine with straightened neck be secon yony to spasm or positioning. Reading Location: [id number]
--- NOTE | 2025-10-16 12:40 | DS.PCM_ITS ---
Providers Date of Admission: 10/15/25 Date of Discharge: 10/16/25 Primary Care Physician: Dr. George Avitia MD Reason For Visit: LEFT SIDED PARASTHESIAS Diagnosis Discharge Diagnosis (1) Neck pain: Status: Acute Code(s): M54.2 - Cervicalgia (2) Paresthesia of left upper extremity: Status: Acute Code(s): R20.2 - Paresthesia of skin (3) Headache, occipital: Status: Acute Code(s): R51.9 - Headache, unspecified Medications at Discharge Home Medications rivaroxaban 20 mg tablet (Xarelto) 20 mg PO DAILY 07/02/23 multivitamin 1 tab PO QDAY 06/13/25 magnesium 250 mg tablet 250 mg PO QDAY 07/13/25 metoprolol tartrate 25 mg tablet 25 mg PO BID HR 07/13/25 ondansetron 4 mg disintegrating tablet 4 mg PO Q8H PRN PRN Nausea #10 tabs 09/13/25 dicyclomine 20 mg tablet 20 mg PO 4X/DAY 10/15/25 zolpidem 10 mg tablet (Ambien) 10 mg PO QHS PRN insomnia 10/15/25 acetaminophen 500 mg tablet 1,000 mg (2 x 500 mg) PO Q8H PRN PRN fever or pain 30 days #0 tabs 10/16/25 cyclobenzaprine 5 mg tablet 5 mg PO TID PRN Muscle Spasm 7 days #21 tabs 10/16/25 Hospital Course Operations None Procedures - (CT brain x 2, cervical spine x-ray) Summary of Care Provided Minutes Spent on Discharge: 37 Hospital Course: Patient is a 40-year-old female who presented to [facility] ED on 10/15/2025 with headache, neck pain, left arm numbness/tingling and intermittent dysarthria. Short hospital course as noted below. Patient discharged home per her request on 10/16. 1. Neck pain with left arm numbness/tingling and intermittent dysarthria with history of complex migraines/history of seizures ? Follows with outpatient neurology. Presented with worsening neck pain with occipital headache and left arm numbness/tingling. She reports intermittent dysarthria for the past several months. Has had frequent neurological evaluations in the past that have been negative, with most recent being in normal brain MRI in February. CT brain on admit unremarkable. 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 Cervical spine x-ray obtained on morning of 10/16 that showed to space narrowing at C5-6 and C6-7, along with straightening of the cervical lordotic curvature possibly secondary to spasm versus positioning. MRI brain and cervical spine without contrast was ordered, but patient wished to go home instead and follow-up with her neurologist and potentially have MRIs done in the outpatient setting. Prescribed short course of Flexeril as needed on discharge. 2. Sinus tachycardia with reported history of POTS ? Follows with [place]. Had a tilt table test done at [facility] back in 2013 that was negative. Last echo on 03/21 showed EF 55 to 60%, no other concerning findings. Had recent 48-hour Holter monitor in early July with average heart rate 89 and very occasional PVCs noted. Continue home Lopressor. 3. History of DVT with positive lupus anticoagulant ? Unclear as to why patient is not on Coumadin for this. Will continue home Xarelto at this time. Total clinical time spent by myself addressing the patient's medical issues, reviewing all the data, and collaborating with patient's care team: 37 minutes. Physical Exam Const alert, oriented x3 and average body habitus Constitutional Narrative: Younger middle-aged female, mildly uncomfortable appearing due to ongoing neck discomfort and tearful during our conversation, otherwise sitting back in bed and answering questions appropriately. General Appearance: cooperative HEENT normocephalic, head/scalp atraumatic, hearing grossly normal bilaterally, nasal mucous membranes and turbinates normal and moist oral mucous membranes Eyes PERRL, EOMs intact bilaterally and conjunctivae normal Neck Neck Narrative: Mild diffuse tenderness to palpation in neck and decreased range of motion. Chest inspection of chest normal Resp normal respiratory effort, normal air movement, no use of accessory muscles and clear to auscultation bilaterally Cardio no murmurs and peripheral pulses 2+ throughout Cardio Narrative: Tachycardic, regular rhythm. GI normal to inspection, nondistended, normoactive bowel sounds, soft to palpation, non-tender and non-distended Back/Spine normal ROM Extremity normal to inspection, full ROM and no pedal edema Skin no rashes or lesions noted Neuro moves all extremities and no focal motor deficits Neuro Narrative: Reported left arm sensory deficits noted. Speech: speech normal Psych mental status grossly normal Mood & Affect: anxious Weight / BMI Weight Weight: 70 kg Body Mass Index (BMI) 28.2 ABG / Lab / Microbiology Data 10/16/25 06:29 10/16/25 06:29 Laboratory: Laboratory Results - last 24 hr 10/15/25 19:29: WBC 6.6, RBC 4.14 L, Hgb 13.6, Hct 39.6, MCV 95.7, MCH 32.9 H, MCHC 34.3, RDW Std Deviation 41.7, RDW Coeff of Justo 11.9, Plt Count 264, MPV 10.8, Immature Gran % (Auto) 0.300, Neut % (Auto) 67.7, Lymph % (Auto) 25.1, [place] % (Auto) 6.0, Eos % (Auto) 0.6, Baso % (Auto) 0.3, Absolute Neuts (auto) 4.5, Absolute Lymphs (auto) 1.66, Nucleated RBC % 0, Sodium 141, Potassium 3.8, Chloride 103, Carbon Dioxide 25.0, Anion Gap 14, BUN 12, Creatinine 0.70, Estim Creat Clear Calc 103.53, Est GFR (MDRD) Non-Af 113, BUN/Creatinine Ratio 16.4, G lucose 142 H, Calcium 8.9 10/16/25 06:29: WBC 7.2, RBC 4.17 L, Hgb 13.7, Hct 39.4, MCV 94.5, MCH 32.9 H, MCHC 34.8, RDW Std Deviation 40.6, RDW Coeff of Justo 11.8, Plt Count 321, MPV 11.0, Immature Gran % (Auto) 0.600, Neut % (Auto) 89.5 H, Lymph % (Auto) 9.1 L, [place] % (Auto) 0.7, Eos % (Auto) 0.0, Baso % (Auto) 0.1, Absolute Neuts (auto) 6.4, Absolute Lymphs (auto) 0.65 L, Nucleated RBC % 0, Sodium 137, Potassium 4.2, Chloride 101, Carbon Dioxide 20.4 L, Anion Gap 16 H, BUN 10, Creatinine 0.61 L, Estim Creat Clear Calc 114.61, Est GFR (MDRD) Non-Af 117, BUN/Creatinine Ratio 16.4, Glucose 156 H, Calcium 9.2 10/16/25 07:48: Hemoglobin A1c 5.5 Radiography Diagnostic Testing: Radiology Impression Brain CT 10/15/25 19:33 IMPRESSION: No CT evidence of acute intracranial hemorrhage, infarct, or significant mass effect. Reading Location: [id number] Brain CT 10/16/25 04:47 IMPRESSION: No CT evidence of an acute brain abnormality. Reading [id number] Cervical Spine X-Ray 10/16/25 10:41 IMPRESSION: Mild degenerative changes of the cervical spine with straightened neck be secondary to spasm or positioning. Reading Location: [facility] D/C Instructions DC O2, CPAP, BIPAP Needs Home O2 Discharge instructions: No Meaningful Use Info Meaningful Use Meaningful Use Diagnoses (Choose all that apply): None applicable Discharge Plan Admission Admit Date/Time: 10/15/25 23:07 Primary Reason for Your Visit: Neck pain with left arm numbness/tingling, headache Attending Provider: Yfn Alonso Primary Care Provider: George Avitia Consulting Providers: Last Carey Discharge Orders/Prescriptions Prescriptions: New cyclobenzaprine 5 mg Tablet 5 mg PO TID PRN (Reason: Muscle Spasm) 7 Days Qty: 21 0RF Continued multivitamin Tablet 1 tab PO QDAY magnesium 250 mg tablet 250 mg PO QDAY Xarelto 20 mg tablet 20 mg PO DAILY Rx Instructions: must administer with evening meal metoprolol tartrate 25 mg tablet 25 mg PO BID ondansetron 4 mg tablet,disintegrating 4 mg PO Q8H PRN PRN (Reason: Nausea) Qty: 10 0RF dicyclomine 20 mg tablet 20 mg PO 4X/DAY Patient Comments: Pt zolpidem [Ambien] 10 mg tablet 10 mg PO QHS PRN (Reason: insomnia) Changed acetaminophen 500 mg tablet 1,000 mg PO Q8H PRN PRN (Reason: fever or pain) 30 Days Qty: 0 0RF Referrals / Follow Up: George Avitia MD [Primary Care Provider, [facility]] Disposition Disposition (needs filled in before D/C Order can be placed): Home, Self Care Charges/Coding Visit Charges Inpatient E&M: 92001 Disch Hosp >30min
--- NOTE | 2025-10-16 12:40 | PCM.DC ---
Discharge Instructions DC O2, CPAP, BIPAP needs Home O2 Discharge instructions: No Dressing / Incision Discharge Activity: No Restrictions Follow Up Care Test Results: Test results from this visit will be discussed in further detail at your follow-up appointment, if applicable. Discharge Plan Admission Admit Date/Time: 10/15/25 23:07 Primary Reason for Your Visit: Neck pain with left arm numbness/tingling, headache Attending Provider: Yfn Alonso Primary Care Provider: George Avitia Consulting Providers: Last aCrey Discharge Orders/Prescriptions Prescriptions: New cyclobenzaprine 5 mg Tablet 5 mg PO TID PRN (Reason: Muscle Spasm) 7 Days Qty: 21 0RF Continued multivitamin Tablet 1 tab PO QDAY magnesium 250 mg tablet 250 mg PO QDAY Xarelto 20 mg tablet 20 mg PO DAILY Rx Instructions: must administer with evening meal metoprolol tartrate 25 mg tablet 25 mg PO BID ondansetron 4 mg tablet,disintegrating 4 mg PO Q8H PRN PRN (Reason: Nausea) Qty: 10 0RF dicyclomine 20 mg tablet 20 mg PO 4X/DAY Patient Comments: Pt zolpidem [Ambien] 10 mg tablet 10 mg PO QHS PRN (Reason: insomnia) Changed acetaminophen 500 mg tablet 1,000 mg PO Q8H PRN PRN (Reason: fever or pain) 30 Days Qty: 0 0RF Referrals / Follow Up: George Avitia MD [Primary Care Provider, Family Practice] Disposition Disposition (needs filled in before D/C Order can be placed): Home, Self Care
[2025-10-16 13:30] VITALS: BP 126/86; PULSE 77; RESP 17; TEMP 36.4; O2SAT 98
== END 2025-10-16 13:31 | disposition home or self-care (01) ==
LOC: ED 23:03 → PCU 23:15
PROVIDERS: Admitting Provider Family Medicine; Emergency Provider Emergency Medicine; PCP Family Medicine; Visit Provider Hospitalist
DX: M48.02 Spinal stenosis, cervical region (principal); M32.9 Systemic lupus erythematosus, unspecified; G40.909 Epilepsy, unspecified, not intractable, without status epilepticus; M79.602 Pain in left arm; R51.9 Headache, unspecified; Z86.718 Personal history of other venous thrombosis and embolism; M43.8X2 Other specified deforming dorsopathies, cervical region; Z79.01 Long term (current) use of anticoagulants; R47.81 Slurred speech; I49.3 Ventricular premature depolarization; R20.2 Paresthesia of skin; Z79.899 Other long term (current) drug therapy; R47.1 Dysarthria and anarthria; G90.A Postural orthostatic tachycardia syndrome [POTS]
CPT/HCPCS: 36415; 70450; 72040; 80048; 83036; 85025; 93005; 96365; 96375; 96376; 99221; 99285; A4216; G0378; J2405